=== PATIENT | male | born 1935 | race Caucasian/White ===

== ENCOUNTER 2016-09-06 10:38 | Observation (INO) | payer MEDICARE, BC ==
[~2016-09-06] VITALS: Ht 182.9 cm; Wt 95.0 kg
[2016-09-06] VITALS (8 sets, daily range): BP systolic 159–241; BP diastolic 60–119; PULSE 77–101; RESP 16–20; TEMP 96.3–98.6; O2SAT 96–98
[~2016-09-06 10:38] MED LIST: AMLO5 PO; ASPI81TA82 PO; FERR324T4 PO; GABA100C2 PO; METH500T3 PO; METO50TA PO; MILK2400 PO; THIA100T PO; XALA0.00 EACH EYE
--- NOTE | 2016-09-06 11:59 | PD ---
HPI Chief Complaint: Skin Problem Time Seen by Provider: 11:58 Travel History International Travel<30 days: No Contact w/Intl Traveler<30days: No Traveled to known affect area: No History of Present Illness HPI 80-year-old male came to the emergency room with history of left great toe swelling and pain. Patient says this has been going on for 3 days. He also stubbed his toe couple days ago and things he did got infected from that. No history of fever or chills. Upon asking he initially said he does not have history of gout but then his daughter asked him again because she thought he did have history of gout and patient said he may have had in the past. Vital signs showed hypertension in triage. Patient did not take any of his morning medications and does not know which meds he is on. He did not bring a list of his medications from home. [facility] Past Medical History Narrative Medical List of his past medical, surgical, social and family history was reviewed from the nursing note. Arthritis: No Asthma: No Autoimmune Disease: No Blood Disorders: No Heart Rhythm Problems: No Cancer: Yes (PROSTATE) Cardiovascular Problems: Yes (HTN) High Cholesterol: Yes Chest Pain: No Congestive Heart Failure: No COPD: No Cerebrovascular Accident: No Diabetes: No Endocrine: No Gastrointestinal Disorders: Yes GERD: Yes Genitourinary: Yes Hiatal Hernia: No Hypertension: Yes Immune Disorder: No Kidney Stones: No Musculoskeletal: Yes Neurologic: Yes (spinal stenosis) Psychiatric: No Reproductive: Yes Respiratory: No Migraines: No Radiation Therapy: Yes (SEED IMPLANTS) Renal Failure: No Seizures: No Sleep Apnea: No Thyroid Disease: No Ulcer: No Past Surgical History Abdominal Surgery: No AICD: No Arteriovenous Shunt: No Body Medical Devices: cervical spine fusion ,6, Cardiac Surgery: No Ear Surgery: No Endocrine Surgery: No Eye Surgery: Yes (BILATERAL CATARACTS) Genitourinary Surgery: Yes (RECTAL POLYPS) Gynecologic Surgery: No Joint Replacement: No Neurologic Surgery: Yes (cervical fusion ,6,2010) Oral Surgery: No Pacemaker: No Thoracic Surgery: No Other Surgery: Yes (SPINAL FUSION) Social History Alcohol Use: Yes (1-2 DRINKS/DAY) Tobacco Use: No Substance Use: No Allergies-Medications (Allergen,Severity, Reaction): Coded Allergies: Bactrim (Verified Allergy, Severe, RASH, 09/06/16) *MDRO Multi-Drug Resistant Organism (Verified Adverse Reaction, Unknown, ) 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 Comments List of his allergies reviewed from the nursing note. Reported Meds & Prescriptions Reported Meds & Active Scripts Active Reported Amlodipine (Amlodipine Besylate) 5 Mg Tab 5 Mg PO DAILY Aspirin 81 (Aspirin) 81 Mg Tabdr 81 Mg PO DAILY Ferrous Sulfate DR (Ferrous Sulfate) 324 Mg Tabdr 324 Mg PO DAILY Gabapentin 100 Mg Cap 200 Mg PO TID Robaxin (Methocarbamol) 750 Mg Tab 750 Mg PO QID PRN Metoprolol Tartrate 25 Mg Tab 25 Mg PO BID Vitamin B-1 (Thiamine HCl) 100 Mg Tab 100 Mg PO DAILY Fish Oil ([place]-3 Fatty Acids) 1,000 Mg Cap 1,000 Mg PO DAILY Travatan Z Opth Drops (Travoprost) 0.004 % Soln 1 Drop EACH EYE HS Colace (Docusate Sodium) 100 Mg Capsule 100 Mg PO DAILY PRN Metamucil Original Texture (Psyllium Hydrophilic Mucilloid) 48.57 % Pow 1 Scoop PO DAILY PRN 1 rounded TEASPOON in 8 oz of liquid at the first sign of irregularity. Questran (Cholestyramine) 4 Gm/Pkt Powd 4 Gm PO BID PRN 1 packet contains 4gm of cholestyramine. Folic Acid 1 Mg Tablet 1 Mg PO DAILY Diphedryl (Diphenhydramine HCl) 25 Mg Tablet 25 Mg PO Q6HR PRN Pantoprazole (Pantoprazole Sodium) 40 Mg Tab 40 Mg PO DAILY Sertraline (Sertraline HCl) 50 Mg Tab 50 Mg PO DAILY Prednisone 10 Mg Tab 10 Mg PO DAILY PRN Mapap (Acetaminophen) 325 Mg Tab 325 Mg PO Q6HR PRN Narrative Medication List of his home medications reviewed from the nursing note. Review of Systems Except as stated in HPI: all other systems reviewed are Neg Physical Exam Narrative GENERAL: Awake, alert, elderly, no obvious distress SKIN: Focused skin assessment warm/dry. Left first MTP joint is swollen and erythematous and the rest of the great toe is swollen and erythematous as well. Hammertoe, abrasion of the tip of the great toe. HEAD: Atraumatic. Normocephalic. EYES: Pupils equal and round. No scleral icterus. No injection or drainage. ENT: No nasal bleeding or discharge. Mucous membranes pink and moist. NECK: Trachea midline. No JVD. CARDIOVASCULAR: Regular rate and rhythm. No murmur appreciated. RESPIRATORY: No accessory muscle use. Clear to auscultation. Breath sounds equal bilaterally. GASTROINTESTINAL: Abdomen soft, non-tender, nondistended. Hepatic and splenic margins not palpable. MUSCULOSKELETAL: No obvious deformities. No clubbing. No cyanosis. No edema. NEUROLOGICAL: Awake and alert. No obvious cranial nerve deficits. Motor grossly within normal limits. Normal speech. PSYCHIATRIC: Appropriate mood and affect; insight and judgment normal. Data Data Last Documented VS Vital Signs Date Time Temp Pulse Resp B/P Pulse Ox O2 Delivery O2 Flow Rate FiO2 09/06/16 10:40 98.6 87 16 189/97 98 Orders Basic Metabolic Panel (Bmp) (09/06/16 12:15) Complete Blood Count With Diff (09/06/16 12:15) Blood Culture (09/06/16 12:15) Uric Acid (09/06/16 12:15) Lactic Acid (09/06/16 12:15) Foot, Complete ([id number]) (09/06/16 ) Prothrombin Time / Inr (Pt) (09/06/16 12:17) Sodium Chlorid 0.9% 500 Ml Inj (Ns 500 M (09/06/16 13:30) Colchicine (Colchicine) (09/06/16 13:30) Indomethacin (Indocin) (09/06/16 13:30) Alcohol (Ethanol) (09/06/16 13:36) Admit Order (Ed Use Only) (09/06/16 13:46) Labs Laboratory Tests Test 09/06/16 09/06/16 12:10 12:25 White Blood Count 5.3 TH/MM3 Red Blood Count 3.24 MIL/MM3 Hemoglobin 9.7 GM/DL Hematocrit 28.5 % Mean Corpuscular Volume 88.1 FL Mean Corpuscular Hemoglobin 29.9 PG Mean Corpuscular Hemoglobin 34.0 % Concent Red Cell Distribution Width 24.2 % Platelet Count 176 TH/MM3 Mean Platelet Volume 8.8 FL Neutrophils (%) (Auto) 64.4 % Lymphocytes (%) (Auto) 17.1 % Monocytes (%) (Auto) 14.3 % Eosinophils (%) (Auto) 3.7 % Basophils (%) (Auto) 0.5 % Neutrophils # (Auto) 3.4 TH/MM3 Lymphocytes # (Auto) 0.9 TH/MM3 Monocytes # (Auto) 0.8 TH/MM3 Eosinophils # (Auto) 0.2 TH/MM3 Basophils # (Auto) 0.0 TH/MM3 CBC Comment AUTO DIFF Differential Total Cells 100 Counted Neutrophils % (Manual) 45 % Band Neutrophils % 3 % Lymphocytes % 21 % Monocytes % 14 % Eosinophils % 6 % Basophils % 1 % Neutrophils # (Manual) 3.1 TH/MM3 Metamyelocytes 4 % Myelocytes 6 % Differential Comment FINAL DIFF MANUAL Platelet Estimate NORMAL Platelet Morphology Comment NORMAL Red Cell Morphology Comment NORMAL Erythrocyte Sedimentation Rate 9 mm/hr Prothrombin Time 10.7 SEC Prothromb Time International 1.0 RATIO Ratio Sodium Level 127 MEQ/L Potassium Level 4.0 MEQ/L Chloride Level 94 MEQ/L Carbon Dioxide Level 23.8 MEQ/L Anion Gap 9 MEQ/L Blood Urea Nitrogen 12 MG/DL Creatinine 0.92 MG/DL Estimat Glomerular Filtration 79 ML/MIN Rate Random Glucose 82 MG/DL Uric Acid 7.6 MG/DL Calcium Level 8.8 MG/DL C-Reactive Protein 5.40 MG/DL Ethyl Alcohol Level 4 MG/DL Lactic Acid Level 1.2 mmol/L [facility] Medical Decision Making Medical Screen Exam Complete: Yes Emergency Medical Condition: Yes Medical Record Reviewed: Yes Differential Diagnosis Gout, cellulitis, septic arthritis Narrative Course 1:32 PM CBC is suggestive of questionable leukemic cells. Total white blood cell count is certainly not elevated and patient does not have any left shift. Uric acid however is elevated. Patient's renal function is good. Given the classic first MTP joint and great toe involvement I think this patient is suffering from a gout attack. The other concerning thing is his sodium which is critically low. At this point I would like to admit this patient. There is a possibility of some degree of dementia since patient is forgetful regarding his medications and his past medical history. I've given him a dose of colchicine and indomethacin in the emergency room. I'll speak with his daughter was present in the room. I looked at his previous labs and patient has been hyponatremic in the past. Patient claims to drink 1-2 drinks every day. There is a possibility that he may drink more than that and the hyponatremia could be from that. This would also explain the gout attack. 1:59 PM patient's daughter just came out to talk to me in private and told me that he actually drinks more than "just couple drinks". In fact his primary care last time when he saw him said that his Folic acid level was extremely low and that he should quit drinking. His blood pressure continues to be high and I ordered by mouth clonidine for him. Procedures EKG Prior to Arrival: No Diagnosis Primary Impression: Acute gout Qualified Code: M10.072 - Acute idiopathic gout of left foot Additional Impressions: Hyponatremia HTN (hypertension) Qualified Code: I10 - Essential hypertension Anemia Qualified Code: D64.9 - Anemia, unspecified type abnormal differential Chronic alcoholism Admitting Information Admitting Physician Requests: Admit Scripts Naproxen (Naprosyn)500 Mg [id number] Mg PO Q12HR #60 TAB Prov:Raad Martin MD R1 09/07/16 Ash Frost MD Sep 06, 2016 11:59
[2016-09-06 12:43] LABS: AUTOMATED NEUTROPHIL # 3.4 TH/MM3 (1.8-7.7); BASOPHIL % 0.5 % (0.0-2.0); EOSINOPHIL # 0.2 TH/MM3 (0-0.4); EOSINOPHIL % 3.7 % (0.0-4.0); HEMATOCRIT 28.5 % (39.0-51.0); LYMPH % 17.1 % (9.0-44.0); LYMPHOCYTE # 0.9 TH/MM3 (1.0-4.8); MEAN CELL VOLUME 88.1 FL (80.0-100.0); MEAN CORPUSCULAR HEMOGLOBIN 29.9 PG (27.0-34.0); MONO % 14.3 % (0.0-8.0); NEUT % 64.4 % (16.0-70.0); PLATELET COUNT 176 TH/MM3 (150-450); RED BLOOD COUNT 3.24 MIL/MM3 (4.50-5.90); RED CELL DISTRIBUTION WIDTH 24.2 % (11.6-17.2); WHITE BLOOD COUNT 5.3 TH/MM3 (4.0-11.0)
[2016-09-06 12:46] LABS: HEMO FLAGS AUTO DIFF
[2016-09-06 12:50] LABS: PROTHROMBIN TIME - PATIENT 10.7 SEC (9.8-11.6)
[2016-09-06 13:09] LABS: BICARBONATE 23.8 MEQ/L (21.0-32.0); URIC ACID 7.6 MG/DL (2.6-7.2)
--- NOTE | 2016-09-06 13:11 | RADRPT ---
EXAM DATE/TIME: 09/06/2016 12:52 [place] COMPARISON: No previous studies available for comparison. INDICATIONS : Toes on left foot are swollen, patient states it may be Gout. MEDICAL HISTORY : Hypertension. SURGICAL HISTORY : None. ENCOUNTER: Initial ACUITY: 4 - 6 days PAIN SCORE: 0/10 LOCATION: Left foot. FINDINGS: There is soft tissue swelling at the first metatarsal-phalangeal joint level greatest medially. Tiny erosions at the head of the first metatarsal identified with osteoarthritis seen. In addition promine nt soft tissue swelling lateral to the fifth MTP joint with a small erosion at the base of the fifth proximal phalanx medially and head of the fifth metatarsal. Remote fracture deformity of the distal f ibula and tibia. Mild dorsal soft tissue swelling. CONCLUSION: Soft tissue swelling and erosive changes are noted as above. Koffi Champion MD on September 06, 2016 at 13:08 Board Certified Radiologist. This report was verified electronically.
[2016-09-06 13:24] LABS: BANDS 3 % (0-6); BASOPHILS 1 % (0-2); EOSINOPHILS 6 % (0-4); METAMYELOCYTES 4 % (0-1); MYELOCYTES 6 % (0-0); NEUTROPHIL # MANUAL DIFF 3.1 TH/MM3 (1.8-7.7); PLATELET ESTIMATE SMEAR NORMAL (NORMAL); PLATELET MORPHOLOGY NORMAL (NORMAL); POLYS (SEG NEUTROPHILS) 45 % (16-70); SCAN/DIFF FINAL DIFF MANUAL; WBC DIFF SAMPLE 100
[2016-09-06] MEDS ORDERED: INDOMETHACIN 25 MG CAP PO ONE (13:30)
[2016-09-06] MEDS ORDERED: COLCHICINE 0.6 MG TAB PO ONE (13:30)
[2016-09-06] MEDS ORDERED: SODIUM CHLORID 0.9% 500 ML INJ 500 ML IV ONE (13:30)
[2016-09-06] MEDS ORDERED: cloNIDine HCL 0.2 MG TAB PO ONE (14:00)
[2016-09-06] MEDS ORDERED: MAPA325T PO (14:45)
[2016-09-06] MEDS ORDERED: SERT-132 PO (14:45)
[2016-09-06] MEDS ORDERED: PRED10 PO (14:45)
[2016-09-06] MEDS ORDERED: PANT40TA3 PO (14:45)
[2016-09-06] MEDS ORDERED: FOLI1TAB6 PO (14:47)
[2016-09-06] MEDS ORDERED: [UNRECOGNIZED DRUG - CODE] PO (14:47)
[2016-09-06] MEDS ORDERED: QUES4POW PO (14:47)
[2016-09-06] MEDS ORDERED: META48.53 PO (14:50)
[2016-09-06] MEDS ORDERED: COLA100C PO (14:50)
[2016-09-06] MEDS ORDERED: METO25TA3 PO (15:00)
[2016-09-06] MEDS ORDERED: LORazepam 1 MG TAB PO ONE (15:00)
[2016-09-06] MEDS ORDERED: TRAV0.00 EACH EYE (15:00)
[2016-09-06] MEDS ORDERED: ROBA750T PO (15:00)
[2016-09-06] MEDS ORDERED: VITA100T54 PO (15:00)
[2016-09-06] MEDS ORDERED: ASPI-110 PO (15:00)
[2016-09-06] MEDS ORDERED: FERR324T4 PO (15:00)
[2016-09-06] MEDS ORDERED: FISH1000 PO (15:00)
[2016-09-06] MEDS ORDERED: GABA100C4 PO (15:00)
[2016-09-06] MEDS ORDERED: AMLO5TAB2 PO (15:00)
--- NOTE | 2016-09-06 15:26 | HHI.HP ---
[facility] Service Family Medicine Primary Care Physician Jumana Way MD Admission Diagnosis acute gout, hyponatremia Diagnoses: International Travel<30 Days: No Contact w/Intl Traveler<30days: No Known Affected Area: No History of Present Illness Mr. Gutierrez is a 80 y/o M with a PMHx of HTN, prostate cancer, and gout presents with L toe swelling and erythema. He states that last Monday, he noticed his L toe beginning to swell and become erythematous without trauma to his foot. He cannot recall any injury to the toe or foot. At baseline he has hammer toe of the L great toe. He states he is able to move all of his toes and has good sensation in BL feet. Otherwise he has no complaints and denies any fevers, chills, SOB, chest pain, NVD, ABD pain, or calf tenderness. 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 She is currently not in the patient's room. Per my evaluation patient is AAOx3, but does not recall his medical history or medications very well and is vague when answering questions about his day to day care. Per the ER staff's note, patient initially endorsed L great toe pain, but now says pain is 0-2/10. (Raad Martin MD R1) Review of Systems Constitutional: DENIES: Fever, Chills Endocrine: DENIES: Polyuria Eyes: DENIES: Blurred vision Ears, nose, mouth, throat: DENIES: Tinnitus, Throat pain, Running Nose Respiratory: DENIES: Cough Cardiovascular: DENIES: Chest pain, Palpitations Gastrointestinal: DENIES: Abdominal pain, Diarrhea, Nausea, Vomiting Genitourinary: DENIES: Dysuria Musculoskeletal: COMPLAINS OF: Joint pain (Toe pain) Integumentary: DENIES: Rash Hematologic/lymphatic: DENIES: Lymphadenopathy Neurologic: DENIES: Headache Psychiatric: DENIES: Mood changes (Raad Martin MD R1) Past Family Social History Past Medical History Prostate cancer - radioactive seeds 2012 HTN HPLD GERD Spinal Stenosis Arthritis Past Surgical History C spine fusion C5-C7 BL cataracts Rectal polyp removal Spinal Stenosis procedure Reported Medications Reported Meds & Active Scripts Active Reported Amlodipine (Amlodipine Besylate) 5 Mg Tab 5 Mg PO DAILY Aspirin 81 (Aspirin) 81 Mg Tabdr 81 Mg PO DAILY Ferrous Sulfate DR (Ferrous Sulfate) 324 Mg Tabdr 324 Mg PO DAILY Gabapentin 100 Mg Cap 200 Mg PO TID Robaxin (Methocarbamol) 750 Mg Tab 750 Mg PO QID PRN Metoprolol Tartrate 25 Mg Tab 25 Mg PO BID Vitamin B-1 (Thiamine HCl) 100 Mg Tab 100 Mg PO DAILY Fish Oil ([place]-3 Fatty Acids) 1,000 Mg Cap 1,000 Mg PO DAILY Travatan Z Opth Drops (Travoprost) 0.004 % Soln 1 Drop EACH EYE HS Colace (Docusate Sodium) 100 Mg Capsule 100 Mg PO DAILY PRN Metamucil Original Texture (Psyllium Hydrophilic Mucilloid) 48.57 % Pow 1 Scoop PO DAILY PRN 1 rounded TEASPOON in 8 oz of liquid at the first sign of irregularity. Questran (Cholestyramine) 4 Gm/Pkt Powd 4 Gm PO BID PRN 1 packet contains 4gm of cholestyramine. 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 His daughter is his main care provider. He does drive and cook. Has assistance for yardwork and cleaning. Alcohol - 1-2 drinks per day (2-3oz of scotch per day) Tobacco - Denies, stopped >50 years ago Illicit drugs - Denies (Raad Martin MD R1) Physical Exam Vital Signs Vital Signs Date Time Temp Pulse Resp B/P Pulse Ox O2 Delivery O2 Flow Rate FiO2 09/06/16 14:57 92 18 200/97 98 Room Air 09/06/16 14:53 101 18 241/119 98 Room Air 09/06/16 13:53 85 18 197/89 98 Room Air 09/06/16 10:40 98.6 87 16 189/97 98 Physical Exam GENERAL: 80-year-old male lying in bed in no acute distress. SKIN: Warm and dry. No rash. Multiple areas of skin breakdown leading to healing hematomas at different stages of healing. Multiple small tophi on upper and lower extremities. HEAD: Atraumatic. Normocephalic. No temporal or scalp tenderness. EYES: Pupils equal round and reactive. Extraocular motions intact. No scleral icterus. No injection or drainage. ENT: Nose without bleeding, purulent drainage or septal hematoma. Throat without erythema, tonsillar hypertrophy or exudate. Uvula midline. Airway patent. NECK: Trachea midline. No JVD or lymphadenopathy. Supple, nontender, no meningeal signs. CARDIOVASCULAR: Regular rate and rhythm without murmurs, gallops, or rubs. RESPIRATORY: Clear to auscultation BL with no CRW. No increased WOB. GASTROINTESTINAL: Abdomen soft, non-tender, nondistended with +BS. No hepatosplenomegaly. MUSCULOSKELETAL: Extremities without cyanosis. No calf tenderness. LLE: L great toe erythematous and swollen to approximately 3x the size of his R great toe. Patient with sharp angulation of the L great toe at the PIP joint consistent with hammer toe. Erythema extends down the toe into the forefoot. Capillary refill 2+. 1+Edema extends to the ankle joint. ROM and sensation intact throughout the LLE. 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 Nontender and mobile. ROM and sensation intact. Bilateral digits with small tophi of multiple joints. All tophi are nontender , nonerythematous without restriction of movement or strength. NEUROLOGICAL: AAOx3. Cranial nerves II through XII intact. Motor and sensory grossly within normal limits. Five out of 5 muscle strength in all muscle groups. Normal speech. Laboratory Laboratory Tests Test 09/06/16 09/06/16 12:10 12:25 White Blood Count 5.3 Red Blood Count 3.24 Hemoglobin 9.7 Hematocrit 28.5 Mean Corpuscular Volume 88.1 Mean Corpuscular Hemoglobin 29.9 Mean Corpuscular Hemoglobin 34.0 Concent Red Cell Distribution Width 24.2 Platelet Count 176 Mean Platelet Volume 8.8 Neutrophils (%) (Auto) 64.4 Lymphocytes (%) (Auto) 17.1 Monocytes (%) (Auto) 14.3 Eosinophils (%) (Auto) 3.7 Basophils (%) (Auto) 0.5 Neutrophils # (Auto) 3.4 Lymphocytes # (Auto) 0.9 Monocytes # (Auto) 0.8 Eosinophils # (Auto) 0.2 Basophils # (Auto) 0.0 CBC Comment AUTO DIFF Differential Total Cells 100 Counted Neutrophils % (Manual) 45 Band Neutrophils % 3 Lymphocytes % 21 Monocytes % 14 Eosinophils % 6 Basophils % 1 Neutrophils # (Manual) 3.1 Metamyelocytes 4 Myelocytes 6 Differential Comment FINAL DIFF MANUAL Platelet Estimate NORMAL Platelet Morphology Comment NORMAL Red Cell Morphology Comment NORMAL Prothrombin Time 10.7 Prothromb Time International 1.0 Ratio Sodium Level 127 Potassium Level 4.0 Chloride Level 94 Carbon Dioxide Level 23.8 Anion Gap 9 Blood Urea Nitrogen 12 Creatinine 0.92 Estimat Glomerular Filtration 79 Rate Random Glucose 82 Uric Acid 7.6 Calcium Level 8.8 Lactic Acid Level 1.2 Date/Time Procedure Status Source Growth 09/06/16 12:25 Aerobic Blood Culture Received Blood Peripheral Pending 09/06/16 12:25 Anaerobic Blood Culture Received Blood Peripheral Pending (Raad Martin MD R1) Result Diagram: 09/06/16 1210 09/06/16 1210 Imaging Last 72 hours Impressions Foot X-Ray 09/06/16 0000 Signed Impressions: Service Date/Time: Tuesday, September 06, 2016 12:52 - CONCLUSION: Soft tissue swelling and erosive changes are noted as above. Koffi Champion MD (Raad Martin MD R1) Assessment and Plan Assessment and Plan Mr. Gutierrez is a 80 y/o M with a PMHx of HTN, prostate cancer, and gout presents with L toe swelling and erythema likely due to acute gout flare. Patient also found to have hyponatremia. He will be admitted for observation. Code Status FULL Discussed Condition With Dr. Frost, ER physician Dr. Flores (aRad Martin MD R1) Attending Attestation Patient seen and examined. Case reviewed and discussed with the resident team. Agree with plan of care as discussed with me and documented in the resident note. pt seen on admission in the ED, no pain in his foot fortunately (Tayla Elkins MD) Problem List: (1) Acute gout Status: Acute Plan: Patient with chronic gout presenting with acute tophi of the left great toe. X-ray: Soft tissue swelling and erosive changes of the left great toe. CBC: WBC 5.3 Uric acid: 7.6 CRP: 5.4 ESR 9 Colchicine and indomethacin administered in ER Naproxen 500 mg twice a day Continue home prednisone 10 mg daily GI prophylaxis with home Protonix 40 mg daily (2) Hyponatremia Status: Acute Plan: Patient found to be hyponatremic on lab evaluation. Patient placed on 1 L fluid restriction Continue to monitor (3) Chronic alcoholism Status: Acute Plan: Patient with chronic alcoholism per chart review. Currently taking 2-3 ounces of scotch daily per his report. CIWA per protocol Rally pack by mouth (4) HTN (hypertension) Status: Chronic Plan: Patient with chronic history of hypertension Continue home amlodipine 5 mg daily Continue home metoprolol 25 mg twice a day Clonidine when necessary for blood pressure greater than 180/100 (5) Anxiety and depression Status: Acute Plan: Patient with history of anxiety with depression Continue sertraline 50 mg daily (6) Glaucoma Status: Acute Plan: Patient with history of glaucoma Continue travoprost 1 drop each eye daily at bedtime (7) Anemia Status: Acute Plan: Patient with chronic anemia Continue iron daily (8) DVT prophylaxis Status: Acute Plan: Heparin 5000 units every 8 hours SCD/TEDs (9) Nutrition, metabolism, and development symptoms Status: Acute Plan: Diet: Heart healthy diet with fluid restriction of 1 L Fluids: Fluid restriction Electrolytes: Hyponatremic, continue to monitor Prophylaxis: DuoNeb's when necessary for shortness of breath/wheezing, Tylenol when necessary for fever, Zofran when necessary for nausea or vomiting, constipation protocolzofr (Raad Martin MD R1) Problem Qualifiers (1) Acute gout: Qualified Code: M10.072 - Acute idiopathic gout of left foot (2) HTN (hypertension): Qualified Code: I10 - Essential hypertension (3) Glaucoma: Qualified Code: H40.9 - Glaucoma of both eyes, unspecified glaucoma type (4) Anemia: Qualified Code: D64.9 - Anemia, unspecified type Raad Martin MD R1 Sep 06, 2016 15:25 Tayla Elkins MD Sep 07, 2016 13:47
[2016-09-06] MEDS ORDERED: LACTULOSE SYRUP 20 GM/30 ML CUP PO PRN (16:45)
[2016-09-06] MEDS ORDERED: LORazepam 2 MG TAB PO PRN (16:45)
[2016-09-06] MEDS ORDERED: NALOXONE HCL 0.4 MG/ML AMP IV PRN (16:45)
[2016-09-06] MEDS ORDERED: ACETAMINOPHEN 325 MG TAB PO PRN ×2 (16:45→21:00)
[2016-09-06] MEDS ORDERED: ONDANSETRON HCL 4 MG/2 ML VIAL IVP PRN (16:45)
[2016-09-06] MEDS ORDERED: LORazepam 2 MG/ML VIAL IV PUSH PRN ×4 (16:45)
[2016-09-06] MEDS ORDERED: SODIUM CHLORIDE 0.9% FLUSH 10 ML FLUSH IV FLUSH PRN (16:45)
[2016-09-06] MEDS ORDERED: FLUMAZENIL 0.5 MG/5 ML VIAL IV PUSH PRN (16:45)
[2016-09-06] MEDS ORDERED: SENNOSIDES 8.6 MG TAB PO PRN (16:45)
[2016-09-06] MEDS ORDERED: LORazepam 1 MG TAB PO PRN (16:45)
[2016-09-06] MEDS ORDERED: BISACODYL 10 MG SUPP RECTAL PRN (16:45)
[2016-09-06] MEDS ORDERED: MAGNESIUM HYDROXIDE SUSP 30 ML CUP PO PRN (16:45)
[2016-09-06] MEDS: SERTRALINE HCL 50 MG TAB PO SCH (18:00)
[2016-09-06] MEDS ORDERED: predniSONE 10 MG TAB PO PRN (18:00)
[2016-09-06] MEDS ORDERED: cloNIDine HCL 0.1 MG TAB PO PRN (18:00)
[2016-09-06] MEDS: GABAPENTIN 100 MG CAP PO SCH (19:55)
[2016-09-06] MEDS: THIAMINE HCL 100 MG TAB PO SCH (19:55)
[2016-09-06] MEDS: PANTOPRAZOLE SOD 40 MG DELAYED RELEASE TAB PO SCH (19:56)
[2016-09-06] MEDS: amLODIPine BESYLATE 5 MG TAB PO SCH (19:56)
[2016-09-06] MEDS: FERROUS SULFATE 325 MG (65 MG ELEMENTAL IRON) TAB PO SCH (19:56)
[2016-09-06] MEDS: FOLIC ACID 1 MG TAB PO SCH (20:05)
[2016-09-06] MEDS: ASPIRIN EC 81 MG TABEC PO SCH (20:05)
[2016-09-06] MEDS ORDERED: RESP: ALBUTEROL 2.5 MG/IPRATROPIUM 0.5 MG NEB (PRN) NEB (21:00)
[2016-09-06] MEDS ORDERED: SODIUM CHLORIDE 0.9% FLUSH 10 ML FLUSH IV FLUSH SCH (21:00)
[2016-09-06] MEDS ORDERED: LATANOPROST 0.005% OPHT SOLN 2.5 ML BTL EACH EYE SCH (21:00)
[2016-09-06] MEDS: METOPROLOL TARTRATE 25 MG TAB PO SCH (22:41)
[2016-09-06] MEDS: DOCUSATE SODIUM 50 MG/SENNA 8.6 MG TAB PO SCH (22:41)
[2016-09-06] MEDS: HEPARIN SODIUM - SQ 10,000 UNITS/ML VIAL SQ SCH (22:41)
[2016-09-06] MEDS: SODIUM CHLORIDE 0.9% FLUSH 10 ML FLUSH IV FLUSH SCH (22:54)
[2016-09-06] MEDS: NAPROXEN 500 MG TAB PO SCH (22:54)
[2016-09-07] VITALS (7 sets, daily range): BP systolic 152–174; BP diastolic 80–91; PULSE 69–76; RESP 20; TEMP 96.2–96.9; O2SAT 95–99
[2016-09-07] MEDS: HEPARIN SODIUM - SQ 10,000 UNITS/ML VIAL SQ SCH (06:27)
[2016-09-07] MEDS ORDERED: NAPR500 PO (08:03)
--- NOTE | 2016-09-07 08:05 | HHI.DCPOC ---
Discharge Care Plan Diagnosis: (1) Acute gout (2) Hyponatremia Goals to Promote Your Health * To prevent worsening of your condition and complications * To maintain your health at the optimal level Directions to Meet Your Goals Take your medications as prescribed Follow your dietary instruction Follow activity as directed Keep your appointments as scheduled Take your immunizations and boosters as scheduled If your symptoms worsen call your PCP, if no PCP go to Urgent Care Center or Emergency Room Smoking is Dangerous to Your Health. Avoid second hand smoke Call the 24-hour hour crisis hotline for domestic abuse at Raad Martin MD R1 Sep 07, 2016 08:05
[2016-09-07] MEDS: THIAMINE HCL 100 MG TAB PO SCH (09:08)
[2016-09-07] MEDS: DOCUSATE SODIUM 50 MG/SENNA 8.6 MG TAB PO SCH (09:08)
[2016-09-07] MEDS: NAPROXEN 500 MG TAB PO SCH (09:08)
[2016-09-07] MEDS: ASPIRIN EC 81 MG TABEC PO SCH (09:08)
[2016-09-07] MEDS: METOPROLOL TARTRATE 25 MG TAB PO SCH (09:08)
[2016-09-07] MEDS: PANTOPRAZOLE SOD 40 MG DELAYED RELEASE TAB PO SCH (09:08)
[2016-09-07] MEDS: GABAPENTIN 100 MG CAP PO SCH (09:08)
[2016-09-07] MEDS: FERROUS SULFATE 325 MG (65 MG ELEMENTAL IRON) TAB PO SCH (09:08)
[2016-09-07] MEDS: amLODIPine BESYLATE 5 MG TAB PO SCH (09:09)
[2016-09-07] MEDS: SERTRALINE HCL 50 MG TAB PO SCH (09:09)
[2016-09-07] MEDS: FOLIC ACID 1 MG TAB PO SCH (09:09)
[2016-09-07] MEDS: SODIUM CHLORIDE 0.9% FLUSH 10 ML FLUSH IV FLUSH SCH (09:09)
[2016-09-07 09:28] LABS: HEMATOCRIT 25.6 % (39.0-51.0); MEAN CELL VOLUME 88.4 FL (80.0-100.0); MEAN CORPUSCULAR HEMOGLOBIN 29.8 PG (27.0-34.0); MEAN CORPUSCULAR HGB CONC 33.8 % (32.0-36.0); PLATELET COUNT 156 TH/MM3 (150-450); RED BLOOD COUNT 2.89 MIL/MM3 (4.50-5.90); RED CELL DISTRIBUTION WIDTH 22.9 % (11.6-17.2); WHITE BLOOD COUNT 4.2 TH/MM3 (4.0-11.0)
[2016-09-07 09:32] LABS: REVIEW FLAG FINAL
[2016-09-07 09:58] LABS: BICARBONATE 25.1 MEQ/L (21.0-32.0); POTASSIUM 3.7 MEQ/L (3.5-5.1)
--- NOTE | 2016-09-07 10:58 | HHI.HP ---
[facility] Service Family Medicine Primary Care Physician Jumana Way MD Admission Diagnosis acute gout, hyponatremia Diagnoses: (1) Acute gout Diagnosis: Principal (2) Hyponatremia Diagnosis: Principal (3) Chronic alcoholism Diagnosis: Principal (4) HTN (hypertension) Diagnosis: Principal (5) Anxiety and depression Diagnosis: Principal (6) Glaucoma Diagnosis: Principal (7) Anemia Diagnosis: Principal (8) DVT prophylaxis Diagnosis: Principal (9) Nutrition, metabolism, and development symptoms Diagnosis: Principal International Travel<30 Days: No Contact w/Intl Traveler<30days: No Known Affected Area: No History of Present Illness Mr. Gutierrez is a 80 y/o M with a PMHx of HTN, prostate cancer, and gout who presented with L toe swelling and erythema. He stated that last Monday, he noticed his L toe beginning to swell and become erythematous without trauma to his foot. He cannot recall any injury to the toe or foot. At baseline he has hammer toe of the L great toe. He states he is able to move all of his toes and has good sensation in BL feet. Otherwise he has no complaints and denies any fevers, chills, SOB, chest pain, NVD, ABD pain, or calf tenderness. Of note while no documentation in chart review mentions dementia, per ER staff patient' s daughter does endorse mild dementia. She is currently not in the patient's room. Per my evaluation patient is AAOx3. Per the ER staff's note, patient initially endorsed L great toe pain, but now says pain is 0-2/10. He has absolutely no complaints this am and has no pain in his toe at all even on palpation or ambulation. On review of his Na, he had been very low in the past down to the low 120s multiple times in 2013. His mildly low Na improved a bit and may be due to his SSRI. However, a Na of even 127 is not dangerous particularly when chronic and he has had no signs of alarming causes of hyponatremia like cancer as this has been present asymptomatically for years. This am he is clear when discussing his plans for self care and how he takes his medicines. He has people helping him clean his house and garden and making him lunch as well as 2 children who live nearby. He has the capacity to make decisions for himself and wishes to go home today. PT cleared him for going home as well. Review of Systems Other Constitutional: DENIES: Fever, Chills Endocrine: DENIES: Polyuria Eyes: DENIES: Blurred vision Ears, nose, mouth, throat: DENIES: Tinnitus, Throat pain, Running Nose Respiratory: DENIES: Cough Cardiovascular: DENIES: Chest pain, Palpitations Gastrointestinal: DENIES: Abdominal pain, Diarrhea, Nausea, Vomiting Genitourinary: DENIES: Dysuria Musculoskeletal: COMPLAINS OF: Joint pain (Toe pain) Integumentary: DENIES: Rash Hematologic/lymphatic: DENIES: Lymphadenopathy Neurologic: DENIES: Headache Psychiatric: DENIES: Mood changes Past Family Social History Past Medical History Prostate cancer - radioactive seeds 2012 HTN HPLD GERD Spinal Stenosis Arthritis Past Surgical History C spine fusion C5-C7 BL cataracts Rectal polyp removal Spinal Stenosis procedure Allergies: Coded Allergies: Bactrim (Verified Allergy, Severe, RASH, 09/06/16) *MDRO Multi-Drug Resistant Organism (Verified Adverse Reaction, Unknown, ) 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 Family History Father - Paranoid Schizophrenia, CHF Mother - Asthma Brother - Drug abuse Social History Lives by himself in home. His daughter is his main care provider. He does drive and cook. Has assistance for yard work and cleaning. He reports a son lives nearby as well. Alcohol - 1-2 drinks per day (2-3oz of scotch per day) Tobacco - Denies, stopped >50 years ago Illicit drugs - Denies Physical Exam Vital Signs Vital Signs Date Time Temp Pulse Resp B/P Pulse Ox O2 Delivery O2 Flow Rate FiO2 09/07/16 10:56 96 21 09/07/16 08:07 96.4 74 20 155/84 98 09/07/16 04:00 96.3 73 20 174/87 99 09/07/16 00:22 95 21 09/07/16 00:00 96.2 69 20 154/80 96 09/06/16 20:00 96.3 77 20 159/84 98 09/06/16 17:30 87 16 203/94 98 Room Air 09/06/16 15:55 90 18 170/60 98 Room Air 09/06/16 15:25 96 21 09/06/16 14:57 92 18 200/97 98 Room Air 09/06/16 14:53 101 18 241/119 98 Room Air 09/06/16 13:53 85 18 197/89 98 Room Air Physical Exam GENERAL: 80-year-old male lying in bed in no acute distress. able to walk in room SKIN: Warm and dry. No rash. Multiple areas of skin breakdown leading to healing hematomas at different stages of healing. Multiple small tophi on upper and lower extremities. HEAD: Atraumatic. Normocephalic. EYES: Pupils equal round and reactive. Extraocular motions intact. No scleral icterus. No injection or drainage. ENT: Nose without bleeding, purulent drainage or septal hematoma. Airway patent. NECK: Trachea midline. No JVD or lymphadenopathy. Supple, nontender, no meningeal signs. CARDIOVASCULAR: Regular rate and rhythm without murmurs, gallops, or rubs. RESPIRATORY: Clear to auscultation BL with no CRW. No increased WOB. GASTROINTESTINAL: Abdomen soft, non-tender, nondistended with +BS. No hepatosplenomegaly. MUSCULOSKELETAL: Extremities without cyanosis. No calf tenderness. LLE: L great toe erythematous and swollen to approximately 3x the size of his R great toe. Patient with sharp angulation of the L great toe at the PIP joint consistent with hammer toe. Erythema extends down the toe into the forefoot. Capillary refill 2+. 1+Edema extends to the ankle joint. ROM and sensation intact throughout the LLE. 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 Nontender and mobile. ROM and sensation intact. Bilateral digits with small tophi of multiple joints. All tophi are nontender , nonerythematous without restriction of movement or strength. NEUROLOGICAL: AAOx3. Cranial nerves II through XII intact. Motor and sensory grossly within normal limits. Five out of 5 muscle strength in all muscle groups. Normal speech. Laboratory Laboratory Tests Test 09/06/16 09/06/16 09/07/16 12:10 12:25 08:50 White Blood Count 5.3 4.2 Red Blood Count 3.24 2.89 Hemoglobin 9.7 8.6 Hematocrit 28.5 25.6 Mean Corpuscular Volume 88.1 88.4 Mean Corpuscular Hemoglobin 29.9 29.8 Mean Corpuscular Hemoglobin 34.0 33.8 Concent Red Cell Distribution Width 24.2 22.9 Platelet Count 176 156 Mean Platelet Volume 8.8 8.7 Neutrophils (%) (Auto) 64.4 Lymphocytes (%) (Auto) 17.1 Monocytes (%) (Auto) 14.3 Eosinophils (%) (Auto) 3.7 Basophils (%) (Auto) 0.5 Neutrophils # (Auto) 3.4 Lymphocytes # (Auto) 0.9 Monocytes # (Auto) 0.8 Eosinophils # (Auto) 0.2 Basophils # (Auto) 0.0 CBC Comment AUTO DIFF Differential Total Cells 100 Counted Neutrophils % (Manual) 45 Band Neutrophils % 3 Lymphocytes % 21 Monocytes % 14 Eosinophils % 6 Basophils % 1 Neutrophils # (Manual) 3.1 Metamyelocytes 4 Myelocytes 6 Differential Comment FINAL DIFF MANUAL Platelet Estimate NORMAL Platelet Morphology Comment NORMAL Red Cell Morphology Comment NORMAL Erythrocyte Sedimentation Rate 9 Prothrombin Time 10.7 Prothromb Time International 1.0 Ratio Sodium Level 127 129 Potassium Level 4.0 3.7 Chloride Level 94 96 Carbon Dioxide Level 23.8 25.1 Anion Gap 9 8 Blood Urea Nitrogen 12 15 Creatinine 0.92 0.94 Estimat Glomerular Filtration 79 77 Rate Random Glucose 82 87 Uric Acid 7.6 Calcium Level 8.8 8.6 C-Reactive Protein 5.40 Ethyl Alcohol Level 4 Lactic Acid Level 1.2 Date/Time Procedure Status Source Growth 09/06/16 12:25 Aerobic Blood Culture Received Blood Peripheral Pending 09/06/16 12:25 Anaerobic Blood Culture Received Blood Peripheral Pending Result Diagram: 09/07/16 0850 09/07/16 0850 Imaging Last 72 hours Impressions Foot X-Ray 09/06/16 0000 Signed Impressions: Service Date/Time: Tuesday, September 06, 2016 12:52 - CONCLUSION: Soft tissue swelling and erosive changes are noted as above. Koffi Champion MD Assessment and Plan Assessment and Plan Mr. Gutierrez is a 80 y/o M with a PMHx of HTN, prostate cancer, and gout presents with L toe swelling and erythema likely due to acute gout flare. Patient also found to have hyponatremia. He was admitted for observation. He feels very well today and is ready to go home. Problem List: (1) Acute gout Status: Acute Plan: Patient with chronic gout presenting with acute tophi of the left great toe. X-ray: Soft tissue swelling and erosive changes of the left great toe. CBC: WBC 5.3 Uric acid: 7.6 CRP: 5.4 ESR 9 Colchicine and indomethacin administered in ER Naproxen 500 mg twice a day Continue home prednisone 10 mg daily GI prophylaxis with home Protonix 40 mg daily -his Dr can consider if he needs outpt prevention but allopurinol is not indicated for acute problems (2) Hyponatremia Status: Acute Plan: Patient found to be hyponatremic on lab evaluation. Patient placed on 1 L fluid restriction slightly better today -possibly from SSRI but not bad enough to stop this med if it is benefitting him. He has the same primary care Dr for many years who can follow this up (3) Chronic alcoholism Status: Acute Plan: Patient with chronic alcoholism per chart review. Currently taking 2-3 ounces of scotch daily per his report. CIWA per protocol Rally pack by mouth, no signs of withdrawal today (4) HTN (hypertension) Status: Chronic Plan: Patient with chronic history of hypertension Continue home amlodipine 5 mg daily Continue home metoprolol 25 mg twice a day Clonidine when necessary for blood pressure greater than 180/100 (5) Anxiety and depression Status: Acute Plan: Patient with history of anxiety with depression Continue sertraline 50 mg daily SSRIs can contribute to hyponatremia but his is asymptomatic (6) Glaucoma Status: Acute Plan: Patient with history of glaucoma Continue travoprost 1 drop each eye daily at bedtime (7) Anemia Status: Acute Plan: Patient with chronic anemia Continue iron daily (8) DVT prophylaxis Status: Acute Plan: Heparin 5000 units every 8 hours SCD/TEDs (9) Nutrition, metabolism, and development symptoms Status: Acute Plan: Diet: Heart healthy diet with fluid restriction of 1 L Fluids: Fluid restriction Electrolytes: Hyponatremic mildly and improved Prophylaxis: DuoNeb's when necessary for shortness of breath/wheezing, Tylenol when necessary for fever, Zofran when necessary for nausea or vomiting, constipation protocol Problem Qualifiers (1) Acute gout: Qualified Code: M10.072 - Acute idiopathic gout of left foot (2) HTN (hypertension): Qualified Code: I10 - Essential hypertension (3) Glaucoma: Qualified Code: H40.9 - Glaucoma of both eyes, unspecified glaucoma type (4) Anemia: Qualified Code: D64.9 - Anemia, unspecified type Tayla Elkins MD Sep 07, 2016 10:58
[2016-09-08] MEDS ORDERED: PNEUMOCOCCAL POLYVALENT INJ 25 MCG/0.5 ML SYR IM ONE (10:00)
== END 2016-09-07 13:11 | disposition home or self-care (01) ==
LOC: NEPD 10:38 → NEDA 13:47 → INTOOBSV 13:47 → N05A 19:15
PROVIDERS: ADMIT Family Medicine; ATTEND Family Medicine
DX: M10.072 Idiopathic gout, left ankle and foot (principal); E87.1 Hypo-osmolality and hyponatremia; F10.20 Alcohol dependence, uncomplicated; M20.42 Other hammer toe(s) (acquired), left foot; I10 Essential (primary) hypertension; E78.00 Pure hypercholesterolemia, unspecified; K21.9 Gastro-esophageal reflux disease without esophagitis; D64.9 Anemia, unspecified; H40.9 Unspecified glaucoma; F03.90 Unspecified dementia, unspecified severity, without behavioral disturbance, psychotic disturbance, mood disturbance, and anxiety; F32.9 Major depressive disorder, single episode, unspecified; F41.9 Anxiety disorder, unspecified; M48.00 Spinal stenosis, site unspecified; M19.90 Unspecified osteoarthritis, unspecified site; Z98.1 Arthrodesis status; Z79.899 Other long term (current) drug therapy; Z85.46 Personal history of malignant neoplasm of prostate; Z79.82 Long term (current) use of aspirin
CPT/HCPCS: 73630; 80048; 80307; 83605; 84550; 85007; 85027; 85610; 85652; 86140; 87040; 97162; 99285; G0378; G8987; G8988; J1644; J7040

== ENCOUNTER 2016-09-28 15:27 | Emergency (ER) | payer MEDICARE, BC ==
[~2016-09-28] VITALS: Ht 182.9 cm; Wt 90.5 kg
[~2016-09-28 15:27] MED LIST changes: -AMLO5 PO; +AMLO5TAB2 PO; +ASPI-110 PO; -ASPI81TA82 PO; +COLA100C PO; +FISH1000 PO; +FOLI1TAB6 PO; -GABA100C2 PO; +GABA100C4 PO; +MAPA325T PO; +META48.53 PO; -METH500T3 PO; +METO25TA3 PO; -METO50TA PO; -MILK2400 PO; +NAPR500 PO; +PANT40TA3 PO; +PRED10 PO; +QUES4POW PO; +ROBA750T PO; +SERT-132 PO; -THIA100T PO; +TRAV0.00 EACH EYE; +VITA100T54 PO; -XALA0.00 EACH EYE; +[UNRECOGNIZED DRUG - CODE] PO
[2016-09-28 15:32] VITALS: BP 140/74; PULSE 110; RESP 24; TEMP 97.7; O2SAT 97
[2016-09-28 17:18] VITALS: BP 169/80; PULSE 98; RESP 17; O2SAT 96
[2016-09-28] MEDS ORDERED: LIDOCAINE HCL 1% 50 ML VIAL INFIL ONE (17:30)
[2016-09-28] MEDS ORDERED: CEPHALEXIN MONOHYDRATE 500 MG CAP PO ONE (17:30)
--- NOTE | 2016-09-28 17:52 | RADRPT ---
EXAM DATE/TIME: 09/28/2016 17:43 [place] COMPARISON: No previous studies available for comparison. INDICATIONS : Trauma. Fall with contusio to left forehead. RADIATION DOSE: 41.48 CTDIvol (mGy) MEDICAL HISTORY : Carcinoma, prostate. Cardiovascular disease Hypertension. SURGICAL HISTORY : Fusion, cervical. ENCOUNTER: Initial ACUITY: 1 day PAIN SCALE: 5/10 LOCATION: Left cranial TECHNIQUE: Multiple contiguous axial images were obtained of the head. Using automated exposure control and adj ustment of the mA and/or kV according to patient size, radiation dose was kept as low as reasonably a chievable to obtain optimal diagnostic quality images. DICOM format image data is available electro nically for review and comparison. FINDINGS: CEREBRUM: The ventricles are normal for age. No evidence of midline shift, mass lesion, hemorrhage or acute in farction. No extra-axial fluid collections are seen. POSTERIOR FOSSA: The cerebellum and brainstem are intact. The 4th ventricle is midline. The cerebellopontine angle i s unremarkable. EXTRACRANIAL: The visualized portion of the orbits is intact. SKULL: The calvaria is intact. No evidence of skull fracture. CONCLUSION: Normal examination. Kody Johnson MD on September 28, 2016 at 17:50 Board Certified Radiologist. This report was verified electronically.
[2016-09-28] MEDS ORDERED: LIDOCAINE HCL 1% PF 30 ML VIAL ONE (18:12)
[2016-09-28] MEDS ORDERED: LIDOCAINE HCL 1% 30 ML VIAL INFIL ONE (18:15)
--- NOTE | 2016-09-28 18:35 | PD ---
Physical Exam Date Seen by Provider: Sep 28, 2016 Time Seen by Provider: 18:33 Narrative 80-year-old male that presents to the ED for evaluation of head injury. I was also my attending to repair laceration. Please refer to her note. Data Data Last Documented VS Vital Signs Date Time Temp Pulse Resp B/P Pulse Ox O2 Delivery O2 Flow Rate FiO2 09/28/16 17:18 98 17 169/80 96 Room Air 09/28/16 15:[address] Brain W/O Iv Contrast(Rout) (09/28/16 ) Cephalexin (Keflex) (09/28/16 17:30) Lidocaine 1% Inj (50 Ml) (Xylocaine 1% I (09/28/16 17:30) Lidocaine Pf 1% Inj (Xylocaine-Mpf 1% In (09/28/16 18:12) Lidocaine 1% Inj (Xylocaine 1% Inj) (09/28/16 18:15) MDM Medical Record Reviewed: Yes Supervised Visit with CIRA: No Procedures Procedure Narrative LACERATION LOCATION: mid forehead LENGTH: 2 cm NUMBER OF STITCHES/ADITI: 5 sutures REPAIR: The area of the laceration was prepped with Betadine and sterilely draped. The laceration was infiltrated with 1% Xylocaine. The wound was copiously irrigated and explored without evidence of foreign body, tendon injury or neurovascular injury. The wound was closed using 5-0 Prolene. This was a 1 layer repair. A sterile dressing was applied. The patient was advised to keep the dressing clean and dry. Patient tolerated the procedure well. Diagnosis Primary Impression: Head injury Qualified Code: S09.90XA - Head injury, initial encounter Additional Impression: Laceration of face Qualified Code: S01.81XA - Laceration of face, initial encounter Additional Instruction: Wound care daily with soap and water. You can apply bandaid if needed. Neosporyn or OTC antibiotic ointment to area as needed twice a day for at least 2 weeks to help with scarring and prevent infection. Meoderma OTC for scarring if needed. Avoid sun exposure for 2 months as the sun could make scar darker and more noticeable. Get sutures removed in 5-7 days. See ED if worst. Disposition: 01 DISCHARGE HOME Condition: Stable Garfield Kenny Sep 28, 2016 18:35
--- NOTE | 2016-09-28 19:36 | PD ---
HPI Chief Complaint: Fall Time Seen by Provider: 16:45 Travel History International Travel<30 days: No Contact w/Intl Traveler<30days: No Traveled to known affect area: No History of Present Illness HPI 80-year-old male came to the emergency room with history of fall at 1 AM this morning. Patient says that he was going to the bathroom with his walker when it caught in the rug and he fell forward. He hit his forehead and had a laceration. Patient denies any loss of consciousness. His son saw him this morning and was concerned about the wound and brought him to the emergency room. Patient says he takes 1 baby aspirin every day. Patient is fully awake and answering questions appropriately. He's not in any severe pain he said. Denies any pain or injury anywhere else. He said his tetanus shot was up-to- date since his primary care give some all vaccines as needed. [facility] Past Medical History Narrative Medical List of his past medical, surgical, social and family history is reviewed from the nursing note. Arthritis: No Asthma: No Autoimmune Disease: No Blood Disorders: No Heart Rhythm Problems: No Cancer: Yes (PROSTATE) Cardiovascular Problems: Yes High Cholesterol: Yes Chest Pain: No Congestive Heart Failure: No COPD: No Cerebrovascular Accident: No Diabetes: No Diminished Hearing: No Endocrine: No Gastrointestinal Disorders: Yes GERD: Yes Genitourinary: Yes Hiatal Hernia: No Hypertension: Yes Immune Disorder: No Kidney Stones: No Musculoskeletal: Yes Neurologic: Yes (spinal stenosis) Psychiatric: No Reproductive: Yes Respiratory: No Migraines: No Radiation Therapy: Yes (SEED IMPLANTS) Renal Failure: No Seizures: No Sleep Apnea: No Thyroid Disease: No Ulcer: No Past Surgical History Abdominal Surgery: No AICD: No Arteriovenous Shunt: No Body Medical Devices: cervical spine fusion ,6, Cardiac Surgery: No Ear Surgery: No Endocrine Surgery: No Eye Surgery: Yes (BILATERAL CATARACTS) Genitourinary Surgery: Yes (RECTAL POLYPS) Gynecologic Surgery: No Joint Replacement: No Neurologic Surgery: Yes (cervical fusion ,6,2010) Oral Surgery: No Pacemaker: No Thoracic Surgery: No Other Surgery: Yes (SPINAL FUSION) Social History Alcohol Use: Yes (daily) Tobacco Use: No Substance Use: Yes Allergies-Medications (Allergen,Severity, Reaction): Coded Allergies: Bactrim (Verified Allergy, Severe, RASH, 09/28/16) *MDRO Multi-Drug Resistant Organism (Verified Adverse Reaction, Unknown, ) 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 Comments List of his allergies reviewed from the nursing note. Reported Meds & Prescriptions Reported Meds & Active Scripts Active Naprosyn (Naproxen) 500 Mg Tab 500 Mg PO Q12HR Reported Amlodipine (Amlodipine Besylate) 5 Mg Tab 5 Mg PO DAILY Aspirin 81 (Aspirin) 81 Mg Tabdr 81 Mg PO DAILY Ferrous Sulfate DR (Ferrous Sulfate) 324 Mg Tabdr 324 Mg PO DAILY Gabapentin 100 Mg Cap 200 Mg PO TID Robaxin (Methocarbamol) 750 Mg Tab 750 Mg PO QID PRN Metoprolol Tartrate 25 Mg Tab 25 Mg PO BID Vitamin B-1 (Thiamine HCl) 100 Mg Tab 100 Mg PO DAILY Fish Oil ([place]-3 Fatty Acids) 1,000 Mg Cap 1,000 Mg PO DAILY Travatan Z Opth Drops (Travoprost) 0.004 % Soln 1 Drop EACH EYE HS Colace (Docusate Sodium) 100 Mg Capsule 100 Mg PO DAILY PRN Metamucil Original Texture (Psyllium Hydrophilic Mucilloid) 48.57 % Pow 1 Scoop PO DAILY PRN 1 rounded TEASPOON in 8 oz of liquid at the first sign of irregularity. Questran (Cholestyramine) 4 Gm/Pkt Powd 4 Gm PO BID PRN 1 packet contains 4gm of cholestyramine. Folic Acid 1 Mg Tablet 1 Mg PO DAILY Diphedryl (Diphenhydramine HCl) 25 Mg Tablet 25 Mg PO Q6HR PRN Pantoprazole (Pantoprazole Sodium) 40 Mg Tab 40 Mg PO DAILY Sertraline (Sertraline HCl) 50 Mg Tab 50 Mg PO DAILY Prednisone 10 Mg Tab 10 Mg PO DAILY PRN Mapap (Acetaminophen) 325 Mg Tab 325 Mg PO Q6HR PRN Narrative Medication List of his home medications reviewed from the nursing note. Review of Systems Except as stated in HPI: all other systems reviewed are Neg Physical Exam Narrative GENERAL: Awake, alert, elderly, no obvious distress SKIN: Focused skin assessment warm/dry. 2 cm laceration that is held together by Steri-Strips on the medial aspect of his left forehead. HEAD: Atraumatic. Normocephalic. EYES: Pupils equal and round. No scleral icterus. No injection or drainage. Left periorbital ecchymosis. Normal extraocular eye movement. No hyphema. ENT: No nasal bleeding or discharge. Mucous membranes pink and moist. NECK: Trachea midline. No JVD. CARDIOVASCULAR: Regular rate and rhythm. No murmur appreciated. RESPIRATORY: No accessory muscle use. Clear to auscultation. Breath sounds equal bilaterally. GASTROINTESTINAL: Abdomen soft, non-tender, nondistended. Hepatic and splenic margins not palpable. MUSCULOSKELETAL: No obvious deformities. No clubbing. No cyanosis. No edema. NEUROLOGICAL: Awake and alert. No obvious cranial nerve deficits. Motor grossly within normal limits. Normal speech. PSYCHIATRIC: Appropriate mood and affect; insight and judgment normal. Data Data Last Documented VS Vital Signs Date Time Temp Pulse Resp B/P Pulse Ox O2 Delivery O2 Flow Rate FiO2 09/28/16 17:18 98 17 169/80 96 Room Air 09/28/16 15:[address] Brain W/O Iv Contrast(Rout) (09/28/16 ) Cephalexin (Keflex) (09/28/16 17:30) Lidocaine 1% Inj (50 Ml) (Xylocaine 1% I (09/28/16 17:30) Lidocaine Pf 1% Inj (Xylocaine-Mpf 1% In (09/28/16 18:12) Lidocaine 1% Inj (Xylocaine 1% Inj) (09/28/16 18:15) MDM Medical Decision Making Medical Screen Exam Complete: Yes Emergency Medical Condition: Yes Medical Record Reviewed: Yes Differential Diagnosis Intracranial bleed, facial laceration Narrative Course 6:37 PM. Patient was given a dose of Keflex. The PA has sutured the facial laceration. Please refer to his procedure note. Head CT was negative. I'll discharge him home. Procedures EKG Prior to Arrival: No Diagnosis Primary Impression: Head injury Qualified Code: S09.90XA - Head injury, initial encounter Additional Impression: Laceration of face Qualified Code: S01.81XA - Laceration of face, initial encounter Patient Instructions: General Instructions, Laceration (ED), Fall Prevention for Older Adults (ED) Departure Forms: Tests/Procedures Additional Instructions: Wound care daily with soap and water. You can apply bandaid if needed. Neosporyn or OTC antibiotic ointment to area as needed twice a day for at least 2 weeks to help with scarring and prevent infection. Meoderma OTC for scarring if needed. Avoid sun exposure for 2 months as the sun could make scar darker and more noticeable. Get sutures removed in 5-7 days. See ED if worst. Disposition: 01 DISCHARGE HOME Condition: Stable Ash Frost MD Sep 28, 2016 19:36
== END 2016-09-28 22:28 | disposition home or self-care (01) ==
LOC: NEPE 15:27
DX: S09.90XA Unspecified injury of head, initial encounter (principal); S01.81XA Laceration without foreign body of other part of head, initial encounter; S05.12XA Contusion of eyeball and orbital tissues, left eye, initial encounter; E78.00 Pure hypercholesterolemia, unspecified; K21.9 Gastro-esophageal reflux disease without esophagitis; I10 Essential (primary) hypertension; W18.30XA Fall on same level, unspecified, initial encounter; Z79.82 Long term (current) use of aspirin; Z79.899 Other long term (current) drug therapy
CPT/HCPCS: 12011; 70450

== ENCOUNTER 2017-01-01 13:28 | Inpatient (IN) | payer MEDICARE, BC ==
[~2017-01-01] VITALS: Ht 182.9 cm; Wt 104.8 kg
[2017-01-01] VITALS (9 sets, daily range): BP systolic 116–179; BP diastolic 59–83; PULSE 90–105; RESP 14–20; TEMP 95.6–98.1; O2SAT 92–99
[2017-01-01] MEDS ORDERED: TRAZ50TA12 PO ×2 (13:52)
--- NOTE | 2017-01-01 14:14 | PD ---
HPI . Back pain Chief Complaint: Back/ Neck Pain or Injury Time Seen by Provider: 13:53 Travel History International Travel<30 days: No Contact w/Intl Traveler<30days: No Traveled to known affect area: No History of Present Illness HPI Presents with a chief complaint of low back pain. Chronic low back pain. His pain was exacerbated approximately 12 hours ago. He is unaware as to what may have caused the exacerbation. No trauma. His pain is worsened by movement and improved by being still. He reports no associated fever. No incontinence. No lower extremity weakness. Pain rated 3/10. Family reports excessive alcohol use. They estimate that he drinks approximately 9 Scotch drinks per day. PFSH Past Medical History Arthritis: No Asthma: No Autoimmune Disease: No Blood Disorders: No Heart Rhythm Problems: No Cancer: Yes (PROSTATE) Cardiovascular Problems: Yes High Cholesterol: Yes Chest Pain: No Congestive Heart Failure: No COPD: No Cerebrovascular Accident: No Diabetes: No Diminished Hearing: No Endocrine: No GERD: Yes Genitourinary: Yes Hiatal Hernia: No Hypertension: Yes Immune Disorder: No Kidney Stones: No Musculoskeletal: Yes Neurologic: Yes (spinal stenosis) Psychiatric: No Reproductive: Yes Respiratory: No Migraines: No Radiation Therapy: Yes (SEED IMPLANTS) Renal Failure: No Seizures: No Sleep Apnea: No Thyroid Disease: No Ulcer: No Tetanus Vaccination: < 5 Years Influenza Vaccination: Yes Past Surgical History Abdominal Surgery: No AICD: No Arteriovenous Shunt: No Body Medical Devices: cervical spine fusion ,6, Cardiac Surgery: No Ear Surgery: No Endocrine Surgery: No Eye Surgery: Yes (BILATERAL CATARACTS) Genitourinary Surgery: Yes (RECTAL POLYPS) Gynecologic Surgery: No Joint Replacement: No Neurologic Surgery: Yes (cervical fusion ,6,2010) Oral Surgery: No Pacemaker: No Thoracic Surgery: No Other Surgery: Yes (SPINAL FUSION) Social History Alcohol Use: Yes (2 scotch drinks daily) Tobacco Use: No Substance Use: No Allergies-Medications (Allergen,Severity, Reaction): Coded Allergies: sulfamethoxazole (Unverified Allergy, Severe, RASH, 01/01/17) trimethoprim (Unverified Allergy, Severe, RASH, 01/01/17) *MDRO Multi-Drug Resistant Organism (Verified Adverse Reaction, Unknown, 01/01/17) 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 Reported Meds & Prescriptions Reported Meds & Active Scripts Active Reported Trazodone (Trazodone HCl) 50 Mg Tab 50 Mg PO HS Amlodipine (Amlodipine Besylate) 5 Mg Tab 5 Mg PO DAILY Aspirin 81 (Aspirin) 81 Mg Tabdr 81 Mg PO DAILY Ferrous Sulfate DR (Ferrous Sulfate) 324 Mg Tabdr 324 Mg PO DAILY Gabapentin 100 Mg Cap 200 Mg PO TID Metoprolol Tartrate 25 Mg Tab 25 Mg PO BID Vitamin B-1 (Thiamine HCl) 100 Mg Tab 100 Mg PO DAILY Fish Oil ([place]-3 Fatty Acids) 1,000 Mg Cap 1,000 Mg PO DAILY Travatan Z Opth Drops (Travoprost) 0.004 % Soln 1 Drop EACH EYE HS Colace (Docusate Sodium) 100 Mg Capsule 100 Mg PO DAILY PRN Metamucil Original Texture (Psyllium Hydrophilic Mucilloid) 48.57 % Pow 1 Scoop PO DAILY PRN 1 rounded TEASPOON in 8 oz of liquid at the first sign of irregularity. Questran (Cholestyramine) 4 Gm/Pkt Powd 4 Gm PO BID PRN 1 packet contains 4gm of cholestyramine. Folic Acid 1 Mg Tablet 1 Mg PO DAILY Diphedryl (Diphenhydramine HCl) 25 Mg Tablet 25 Mg PO Q6HR PRN Pantoprazole (Pantoprazole Sodium) 40 Mg Tab 40 Mg PO DAILY Mapap (Acetaminophen) 325 Mg Tab 325 Mg PO Q6HR PRN Review of Systems Except as stated in HPI: all other systems reviewed are Neg General / Constitutional: No: Fever, Chills Genitourinary: No: Incontinence Musculoskeletal: Positive: Pain Neurologic: No: Weakness, Paresthesia, Incontinence Physical Exam Narrative GENERAL: Patient is awake and alert. SKIN: He has multiple, superficial, linear bruises mainly on his lower extremities. He also has a lesion on the tip of the left great toe. This is being followed by a asset protection associate. HEAD: Normocephalic/atraumatic. EYES: Pupils are equal. Extraocular movements are intact. ENT: Mucous membranes are moist. NECK: Neck is supple. CARDIOVASCULAR: Regular rate. RESPIRATORY: Nonlabored respirations. MUSCULOSKELETAL: He has tenderness to percussion in the low back. He has a healed surgical scar in the low back. He has diffuse lower extremity edema. NEUROLOGICAL: Nonfocal. PSYCHIATRIC: Appropriate mood and affect. Data Data Last Documented VS Vital Signs Date Time Temp Pulse Resp B/P (MAP) Pulse Ox O2 Delivery O2 Flow Rate FiO2 01/01/17 13:34 98.1 101 18 116/59 (78) 96 Room Air Orders Orders Dexamethasone Inj (Decadron Inj) (01/01/17 14:15) Morphine Inj (Morphine Inj) (01/01/17 14:15) MDM Medical Decision Making Medical Screen Exam Complete: Yes Emergency Medical Condition: Yes Medical Record Reviewed: Yes (this patient has been seen here several times with back pain. He has had previous CT and MRIs done of his lumbar spine. They were done about 4 years ago. They showed some significant degenerative changes and spinal stenosis.) Differential Diagnosis Differential diagnosis includes but is not limited to muscular low back pain, DDD, spinal stenosis, epidural abscess, sciatica, kidney infection or stone. Narrative Course This patient presents with acute exacerbation of chronic low back pain. He has had no trauma. He does not have any concerning signs or symptoms such as fever or incontinence. I will treat his current episode with a shot of Decadron and a shot of morphine. He will then be discharged home with instructions to follow up with his primary care provider for ongoing pain management. Diagnosis Primary Impression: Chronic back pain Qualified Codes: M54.5 - Low back pain; G89.29 - Other chronic pain Additional Impression: Chronic alcoholism Patient Instructions: Chronic Back Pain (ED), General Instructions, Narcotic given in the ED Disposition: 01 DISCHARGE HOME Condition: Stable Claudia Gore MD Jan 01, 2017 14:14
[2017-01-01] MEDS ORDERED: DEXAMETHASONE SOD PHOS 20 MG/5 ML VIAL IV PUSH ONE ×2 (14:15)
[2017-01-01] MEDS ORDERED: MORPHINE SULFATE 4 MG/ML INJ IM ONE ×2 (14:15)
[2017-01-01] MEDS ORDERED: DEXAMETHASONE SOD PHOS 20 MG/5 ML VIAL IM ONE ×2 (14:30)
[2017-01-01] MEDS ORDERED: ONDANSETRON HCL 4 MG/2 ML VIAL ONE ×2 (14:32)
[2017-01-01] MEDS ORDERED: ONDANSETRON HCL 4 MG/2 ML VIAL IM ONE ×2 (14:45)
--- NOTE | 2017-01-01 15:34 | RADRPT ---
EXAM DATE/TIME: 01/01/2017 15:03 [place] COMPARISON: No previous studies available for comparison. INDICATIONS : Shortness of breath, chest pain, and chest tightness. MEDICAL HISTORY : None. SURGICAL HISTORY : None. ENCOUNTER: Initial ACUITY: 1 day PAIN SCORE: 2/10 LOCATION: Bilateral chest FINDINGS: A single view of the chest demonstrates the lungs to be symmetrically aerated without evidence of mas s, infiltrate or effusion. Hiatal hernia noted. The cardiomediastinal contours are unremarkable. Oss eous structures are intact. Cervical spinal fusion plate. CONCLUSION: No acute disease. Hayes Young Jr., MD on January 01, 2017 at 15:32 Board Certified Radiologist. This report was verified electronically.
[2017-01-01 15:54] LABS: ALT (GPT) 17 U/L (12-78); AST (GOT) 18 U/L (15-37); BICARBONATE 22.8 MEQ/L (21.0-32.0); BLOOD UREA NITROGEN 34 MG/DL (7-18); CALCIUM 8.1 MG/DL (8.5-10.1); CHLORIDE 95 MEQ/L (98-107); CREATININE 1.82 MG/DL (0.60-1.30); GLOMERULAR FILTRATION RATE 36 ML/MIN (>89); GLUCOSE,RANDOM 102 MG/DL (74-106); SODIUM (NA) 128 MEQ/L (136-145)
[2017-01-01 15:58] LABS: ALKALINE PHOSPHATASE 84 U/L (45-117); TOTAL BILIRUBIN ADULT 0.4 MG/DL (0.2-1.0); TOTAL PROTEIN 6.5 GM/DL (6.4-8.2); TROPONIN I LESS THAN 0.02 NG/ML (0.02-0.05)
[2017-01-01 16:05] LABS: AUTOMATED NEUTROPHIL # 2.6 TH/MM3 (1.8-7.7); BASOPHIL # 0.1 TH/MM3 (0-0.2); EOSINOPHIL # 0.6 TH/MM3 (0-0.4); EOSINOPHIL % 12.1 % (0.0-4.0); LYMPH % 26.4 % (9.0-44.0); LYMPHOCYTE # 1.4 TH/MM3 (1.0-4.8); MEAN CELL VOLUME 90.3 FL (80.0-100.0); MEAN CORPUSCULAR HEMOGLOBIN 30.3 PG (27.0-34.0); MEAN CORPUSCULAR HGB CONC 33.6 % (32.0-36.0); MEAN PLATELET VOLUME 8.3 FL (7.0-11.0); MONO % 9.9 % (0.0-8.0); MONOCYTE # 0.5 TH/MM3 (0-0.9); NEUT % 49.6 % (16.0-70.0); PLATELET COUNT 74 TH/MM3 (150-450); RED BLOOD COUNT 1.98 MIL/MM3 (4.50-5.90); RED CELL DISTRIBUTION WIDTH 24.9 % (11.6-17.2); WHITE BLOOD COUNT 5.2 TH/MM3 (4.0-11.0)
[2017-01-01 16:12] LABS: HEMATOCRIT 17.9 % (39.0-51.0)
[2017-01-01] MEDS ORDERED: SODIUM CHLOR 0.9% 250 ML INJ 250 ML IV ONE ×4 (16:30→17:00)
[2017-01-01] MEDS ORDERED: SODIUM CHLOR 0.9% 1000 ML INJ 1,000 ML IV ONE ×2 (16:30)
[2017-01-01] MEDS ORDERED: ONDANSETRON HCL 4 MG/2 ML VIAL IV PUSH ONE ×2 (16:30)
[2017-01-01 16:43] LABS: BANDS 12 % (0-6); LYMPHOCYTES 13 % (9-44); METAMYELOCYTES 18 % (0-1); MYELOCYTES 1 % (0-0); NEUTROPHIL # MANUAL DIFF 4.4 TH/MM3 (1.8-7.7); POLYS (SEG NEUTROPHILS) 53 % (16-70)
[2017-01-01] MEDS ORDERED: PROMETHAZINE INJ 25 MG/ML VIAL IM ONE ×2 (16:45)
--- NOTE | 2017-01-01 16:58 | HHI.HP ---
[facility] Service [facility] Primary Care Physician Jumana Way MD Admission Diagnosis anemia, chronic alcohol abuse Diagnoses: (1) Anemia (2) Hyperlipidemia (3) Hyponatremia (4) HTN (hypertension) (5) Alcohol abuse (6) Chronic alcoholism (7) Chronic back pain (8) Gout Chief Complaint: gen weakness, increase pain Travel History International Travel<30 Days: No Contact w/Intl Traveler <30 Da: No Traveled to Known Affected Are: No History of Present Illness Patient is an 81-year-old male with primary medical history of alcohol abuse, HTN who initially came to the ED due to exacerbation of chronic low back pain. ED workup showed hemoglobin 6.0. Poor historian. Daughter at the bedside. Daughter states that patient has generalized weakness at home and family members are the one making his meals throughout the day. Increased low back pain but got relief when he was given pain medication in the ED. Daughter reports BLE worsening. He also has been bleeding from abrasions Bilat lower extremities. Daughter also mentioned that he is supposed to be seen by his primary care doctor within next week. States that he also missed 3 podiatry appointment. States left great toe has been swollen with open wound for the past month. No fevers, chills, nausea, vomiting, diarrhea. Denies trauma. Daughter states that patient drinks alcohol about 9 scotch drinks in a day. When asked who was giving him the alcohol. Daughter states that he calls people and have it delivered to him to the house, and including her. But states that they don't let her drive when he drinks. Review of Systems ROS Limitations: Poor Historian Constitutional: COMPLAINS OF: Fatigue, Change in appetite, DENIES: Fever, Weight gain, Weight loss, Chills, Dizziness Endocrine: DENIES: Heat/cold intolerance, Polydipsia, Polyuria, Polyphagia Eyes: DENIES: Blurred vision, Diplopia, Eye inflammation, Eye pain Ears, nose, mouth, throat: DENIES: Tinnitus, Hearing loss, Vertigo, Nasal discharge Respiratory: DENIES: Apneas, Cough, Snoring, Wheezing, Hemoptysis Cardiovascular: DENIES: Chest pain, Palpitations, Syncope, Dyspnea on Exertion Gastrointestinal: DENIES: Abdominal pain, Black stools, Bloody stools, Constipation Musculoskeletal: COMPLAINS OF: Joint pain, Back pain, Neck pain, DENIES: Muscle aches, Stiffness, Joint Swelling Integumentary: COMPLAINS OF: Rash, DENIES: Abnormal pigmentation, Nail changes , Pruritus Hematologic/lymphatic: DENIES: Bruising, Lymphadenopathy Immunologic/allergic: DENIES: Eczema, Urticaria Neurologic: COMPLAINS OF: Abnormal gait, Poor Balance, DENIES: Headache, Localized weakness, Paresthesias, Seizures, Speech Problems, Tremor Psychiatric: COMPLAINS OF: Anxiety, Depression, DENIES: Confusion, Mood changes , Hallucinations, Agitation, Suicidal Ideation, Homicidal Ideation Past Family Social History Past Medical History EtOH, chronic Chronic back pain HTN HLD Rectal polyps COPD History of cellulitis Chronic hyponatremia Anemia Anxiety and depression GOUT Past Surgical History Cervical spinal fusion 5, 6, 7 Bilateral cataract sx VASECTOMY Reported Medications Reported Meds & Active Scripts Active Reported Trazodone (Trazodone HCl) 50 Mg Tab 50 Mg PO HS Amlodipine (Amlodipine Besylate) 5 Mg Tab 5 Mg PO DAILY Aspirin 81 (Aspirin) 81 Mg Tabdr 81 Mg PO DAILY Ferrous Sulfate DR (Ferrous Sulfate) 324 Mg Tabdr 324 Mg PO DAILY Gabapentin 100 Mg Cap 200 Mg PO TID Metoprolol Tartrate 25 Mg Tab 25 Mg PO BID Vitamin B-1 (Thiamine HCl) 100 Mg Tab 100 Mg PO DAILY Fish Oil ([place]-3 Fatty Acids) 1,000 Mg Cap 1,000 Mg PO DAILY Travatan Z Opth Drops (Travoprost) 0.004 % Soln 1 Drop EACH EYE HS Colace (Docusate Sodium) 100 Mg Capsule 100 Mg PO DAILY PRN Metamucil Original Texture (Psyllium Hydrophilic Mucilloid) 48.57 % Pow 1 Scoop PO DAILY PRN 1 rounded TEASPOON in 8 oz of liquid at the first sign of irregularity. Questran (Cholestyramine) 4 Gm/Pkt Powd 4 Gm PO BID PRN 1 packet contains 4gm of cholestyramine. Folic Acid 1 Mg Tablet 1 Mg PO DAILY Diphedryl (Diphenhydramine HCl) 25 Mg Tablet 25 Mg PO Q6HR PRN Pantoprazole (Pantoprazole Sodium) 40 Mg Tab 40 Mg PO DAILY Mapap (Acetaminophen) 325 Mg Tab 325 Mg PO Q6HR PRN Allergies: Coded Allergies: sulfamethoxazole (Unverified Allergy, Severe, RASH, 01/01/17) trimethoprim (Unverified Allergy, Severe, RASH, 01/01/17) morphine (Verified Adverse Reaction, Severe, Nausea/Vomiting, 01/01/17) *MDRO Multi-Drug Resistant Organism (Verified Adverse Reaction, Unknown, 01/01/17) 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 Active Ordered Medications Current Medications Medications (Trade) Dose Ordered Sig/Nikki Route Start Time Stop Time Status Last Admin Sodium Chloride 1,000 ml @ 999 mls/hr BOLUS ONCE IV 01/01/17 16:30 01/01/17 17:30 01/01/17 16:34 Sodium Chloride 250 ml @ 15 mls/hr ONCE ONCE IV 01/01/17 16:30 01/02/17 09:09 Sodium Chloride 250 ml @ 15 mls/hr ONCE ONCE IV 01/01/17 17:00 01/02/17 09:39 (Tylenol) 650 mg Q4H PRN PO 01/01/17 17:00 (Benadryl) 25 mg Q4H PRN PO 01/01/17 17:00 (Lasix Inj) 20 mg ONCE ONCE IV PUSH 01/01/17 17:00 01/01/17 17:01 Family History Unable to tell significant family medical history Social History Alcohol use, daily 2-9 scotch drinks PROBABLY 18 TO 27 OUNCES OF SCOTCH DAILY Denies tobacco use Denies illicit drug use Physical Exam Vital Signs Vital Signs Date Time Temp Pulse Resp B/P (MAP) Pulse Ox O2 Delivery O2 Flow Rate FiO2 01/01/17 15:20 92 14 149/66 (93) 92 Room Air 01/01/17 14:28 97 16 148/65 (92) 95 Room Air 01/01/17 13:34 98.1 101 18 116/59 (78) 96 Room Air Physical Exam GENERAL: This is a well-nourished, well-developed patient, in no apparent distress. SKIN: Pale. Cool and dry. Bilateral lower extremity multiple ecchymosis. HEAD: Atraumatic. Normocephalic. No temporal or scalp tenderness. EYES: Pupils equal round and reactive. Extraocular motions intact. No scleral icterus. No injection or drainage. ENT: Nose without bleeding. Throat without erythema. Uvula midline. Airway patent. NECK: Trachea midline. CARDIOVASCULAR: Regular rate and rhythm without murmurs, gallops, or rubs. RESPIRATORY: Diminished. No wheezes, rales, or rhonchi. GASTROINTESTINAL: Abdomen soft, non-tender, nondistended. No hepato-splenomegaly , or palpable masses. No guarding. MUSCULOSKELETAL: Extremities without clubbing, cyanosis. Bilateral lower extremity +3 edema. Left great toe open wound, rounding area without erythema, positive edema, wound bed pink and clean NEUROLOGICAL: Awake and alert. Motor and sensory grossly within normal limits. Normal speech. Laboratory Laboratory Tests Test 01/01/17 15:00 White Blood Count 5.2 Red Blood Count 1.98 Hemoglobin 6.0 Hematocrit 17.9 Mean Corpuscular Volume 90.3 Mean Corpuscular Hemoglobin 30.3 Mean Corpuscular Hemoglobin Concent 33.6 Red Cell Distribution Width 24.9 Platelet Count 74 Mean Platelet Volume 8.3 Neutrophils (%) (Auto) 49.6 Lymphocytes (%) (Auto) 26.4 Monocytes (%) (Auto) 9.9 Eosinophils (%) (Auto) 12.1 Basophils (%) (Auto) 2.0 Neutrophils # (Auto) 2.6 Lymphocytes # (Auto) 1.4 Monocytes # (Auto) 0.5 Eosinophils # (Auto) 0.6 Basophils # (Auto) 0.1 CBC Comment AUTO DIFF Differential Total Cells Counted 100 Neutrophils % (Manual) 53 Band Neutrophils % 12 Lymphocytes % 13 Eosinophils % 3 Neutrophils # (Manual) 4.4 Metamyelocytes 18 Myelocytes 1 Differential Comment FINAL DIFF MANUAL Blood Urea Nitrogen 34 Creatinine 1.82 Random Glucose 102 Total Protein 6.5 Albumin 3.0 Calcium Level 8.1 Alkaline Phosphatase 84 Aspartate Amino Transf (AST/SGOT) 18 Alanine Aminotransferase (ALT/SGPT) 17 Total Bilirubin 0.4 Sodium Level 128 Potassium Level 4.1 Chloride Level 95 Carbon Dioxide Level 22.8 Anion Gap 10 Estimat Glomerular Filtration Rate 36 Troponin I LESS THAN 0.02 B-Type Natriuretic Peptide 41 Result Diagram: 01/01/17 1500 01/01/17 1500 Imaging Last Impressions Chest X-Ray 01/01/17 1450 Signed Impressions: Service Date/Time: Sunday, January 01, 2017 15:03 - CONCLUSION: No acute disease. MD Fabiola Su Jr. VTE Risk Assessment Caprini VTE Risk Assessment: Mod/High Risk (score >= 2) Caprini Risk Assessment Model Point Value = 1 Point Value = 2 Point Value = 3 Point Value = 5 Age 41-60 Minor surgery BMI > 25 kg/m2 Swollen legs Varicose veins or History of unexplained or recurrent spontaneous Oral contraceptives or hormone replacement Sepsis (< 1 month) Serious lung disease, including pneumonia (< 1 month) Abnormal pulmonary function Acute myocardial infarction Congestive heart failure (< 1 month) History of inflammatory bowel disease Medical patient at bed rest Age 61-74 Arthroscopic surgery Major open surgery (> 45 min) Laparoscopic surgery (> 45 min) Malignancy Confined to bed (> 72 hours) Immobilizing plaster cast Central venous access Age >= 75 History of VTE Family history of VTE Factor V Leiden Prothrombin [id number] Lupus anticoagulant Anticardiolipin antibodies Elevated serum homocysteine Heparin-induced thrombocytopenia Other congenital or acquired thrombophilia Stroke (< 1 month) Elective arthroplasty Hip, pelvis, or leg fracture Acute spinal cord injury (< 1 month) Prophylaxis Regimen Total Risk Factor Score Risk Level Prophylaxis Regimen 0-1 Low Early ambulation 2 Moderate Order ONE of the following: *Sequential Compression Device (SCD) *Heparin 5000 units SQ BID 3-4 Higher Order ONE of the following medications: *Heparin 5000 units SQ TID *Enoxaparin/Lovenox 40 mg SQ daily (WT < 150 kg, CrCl > 30 mL/min) *Enoxaparin/Lovenox 30 mg SQ daily (WT < 150 kg, CrCl > 10-29 mL/min) *Enoxaparin/Lovenox 30 mg SQ BID (WT < 150 kg, CrCl > 30 mL/min) AND/OR *Sequential Compression Device (SCD) 5 or more Highest Order ONE of the following medications: *Heparin 5000 units SQ TID (Preferred with Epidurals) *Enoxaparin/Lovenox 40 mg SQ daily (WT < 150 kg, CrCl > 30 mL/min) *Enoxaparin/Lovenox 30 mg SQ daily (WT < 150 kg, CrCl > 10-29 mL/min) *Enoxaparin/Lovenox 30 mg SQ BID (WT < 150 kg, CrCl > 30 mL/min) AND *Sequential Compression Device (SCD) Assessment and Plan Problem List: (1) Chronic back pain ICD Code: G89.29 - Other chronic pain; M54.9 - Chronic back pain Status: Acute (2) Chronic alcoholism ICD Code: F10.20 - Alcohol dependence, uncomplicated Status: Acute (3) HTN (hypertension) ICD Code: I10 - HTN (hypertension) Status: Chronic (4) Hyponatremia ICD Code: E87.1 - Hyponatremia Status: Acute (5) Hyperlipidemia ICD Code: E78.5 - Hyperlipidemia Status: Chronic (6) Alcohol abuse ICD Code: F10.10 - Alcohol abuse Status: Chronic (7) Anemia ICD Code: D64.9 - Anemia, unspecified Status: Acute Assessment and Plan Patient is an 81-year-old male with primary medical history of alcohol abuse, HTN who initially came to the ED due to exacerbation of chronic low back pain. Anemia, secondary to alcohol use versus GI bleed - Review of previous labs showed patient has been having anemia last hemoglobin recorded at the hospital was 8.6 - Patient is on ferrous sulfate at home - Check Hemoccult - Transfuse 1 unit PRBC, Lasix posttransfusion - Consult GI for further recommendations. - Monitor H&H posttransfusion - Restart ferrous sulfate - Pantoprazole 40 mg twice a day IV Alcohol abuse - Family counseled, as they are no one giving the patient access to alcohol - [facility] protocol. Monitor for alcohol withdrawals. - Folic acid, thiamine, multivitamins HTN, chronic HLD, chronic - Restart home medication amlodipine 5 mg daily, metoprolol 25 mg twice a day - Monitor BP Hyponatremia, chronic - Previous hospitalization labs reviewed hyponatremia present 127-129 RIGHT great toe open wound - Wound bed appears to be clean, no leukocytosis - Consult wound care - Podiatry referral as an outpatient DVT prop, SCDs GI PROPHYLAXIS The exam, history, and the medical decision-making described in the above note were completed with the assistance of the mid-level provider. I reviewed and agree with the findings presented. I attest that I had a [id number] encounter with the patient on the same day, and personally performed and documented my assessment and findings in the medical record. Code Status Full code Discussed Condition With Discussed with patient, daughter, Dr. Trejo Physician Certification 2 Midnight Certification Type: Admission for Inpatient Services Order for Inpatient Services The services are ordered in accordance with Medicare regulations or non- Medicare payer requirements, as applicable. In the case of services not specified as inpatient-only, they are appropriately provided as inpatient services in accordance with the 2-midnight benchmark. Estimated LOS (days): 2 days is the estimated time the patient will need to remain in the hospital, assuming treatment plan goals are met and no additional complications. Post-Hospital Plan: Home Health Problem Qualifiers (1) Anemia: (2) Chronic back pain: Qualified Codes: M54.5 - Low back pain; G89.29 - Other chronic pain Nyla Michelle Jan 01, 2017 16:58 Nando Trejo DO Jan 01, 2017 17:57
[2017-01-01] MEDS ORDERED: SODIUM CHLORIDE 0.9% FLUSH 10 ML FLUSH IV FLUSH PRN ×6 (17:00)
[2017-01-01] MEDS ORDERED: LORazepam 2 MG/ML VIAL IV PUSH PRN ×8 (17:00)
[2017-01-01] MEDS ORDERED: diphenhydrAMINE HCL 25 MG CAP PO PRN ×4 (17:00→17:15)
[2017-01-01] MEDS ORDERED: PROCHLORPERAZINE 25 MG SUPP RECTAL PRN ×2 (17:00)
[2017-01-01] MEDS ORDERED: FLUMAZENIL 0.5 MG/5 ML VIAL IV PUSH PRN ×2 (17:00)
[2017-01-01] MEDS ORDERED: NALOXONE HCL 0.4 MG/ML AMP IV PUSH PRN ×2 (17:00)
[2017-01-01] MEDS ORDERED: traMADol HCL 50 MG TAB PO PRN ×2 (17:00)
[2017-01-01] MEDS ORDERED: MAGNESIUM HYDROXIDE SUSP 30 ML CUP PO PRN ×2 (17:00)
[2017-01-01] MEDS ORDERED: ONDANSETRON HCL 4 MG/2 ML VIAL IVP PRN ×2 (17:00)
[2017-01-01] MEDS ORDERED: cloNIDine HCL 0.1 MG TAB PO PRN ×2 (17:00)
[2017-01-01] MEDS ORDERED: ACETAMINOPHEN 325 MG TAB PO PRN ×6 (17:00)
[2017-01-01] MEDS ORDERED: LORazepam 2 MG TAB PO PRN ×2 (17:00)
[2017-01-01] MEDS ORDERED: HALOPERIDOL LACTATE 5 MG/ML AMP IM PRN ×2 (17:00)
[2017-01-01] MEDS ORDERED: LACTULOSE SYRUP 20 GM/30 ML CUP PO PRN ×2 (17:00)
[2017-01-01] MEDS ORDERED: FUROSEMIDE 20 MG/2 ML VIAL IV PUSH ONE ×2 (17:00)
[2017-01-01] MEDS ORDERED: SENNOSIDES 8.6 MG TAB PO PRN ×2 (17:00)
[2017-01-01] MEDS ORDERED: LORazepam 1 MG TAB PO PRN ×2 (17:00)
[2017-01-01] MEDS: MULTIVITAMINS/MINERALS THERAPEUTIC TAB PO SCH ×2 (17:00)
[2017-01-01] MEDS ORDERED: BISACODYL 10 MG SUPP RECTAL PRN ×2 (17:00)
[2017-01-01] MEDS ORDERED: CHOLESTYRAMINE 4 GM PACKET PO PRN ×2 (17:15)
[2017-01-01] MEDS ORDERED: HYDROmorphone HCL PF 0.5 MG/0.5 ML SYRINGE IV PRN ×4 (17:15)
[2017-01-01] MEDS ORDERED: DOCUSATE SODIUM 100 MG CAP PO PRN ×2 (17:15)
[2017-01-01] MEDS ORDERED: NON-FORMULARY DRUG (Psyllium Powder (Metamucil Original Texture) 1 SCOOP) PO PRN ×2 (17:15)
[2017-01-01] MEDS: GABAPENTIN 100 MG CAP PO SCH ×2 (18:00)
[2017-01-01] MEDS: DOCUSATE SODIUM 50 MG/SENNA 8.6 MG TAB PO SCH ×2 (21:00)
[2017-01-01] MEDS ORDERED: SODIUM CHLORIDE 0.9% FLUSH 10 ML FLUSH IV FLUSH SCH ×4 (21:00)
[2017-01-01] MEDS: LATANOPROST 0.005% OPHT SOLN 2.5 ML BTL EACH EYE SCH ×2 (21:00)
[2017-01-01] MEDS: METOPROLOL TARTRATE 25 MG TAB PO SCH ×2 (22:19)
[2017-01-01] MEDS: PANTOPRAZOLE SODIUM 40 MG VIAL IV PUSH SCH ×2 (22:20)
[2017-01-01] MEDS: SODIUM CHLORIDE 0.9% FLUSH 10 ML FLUSH IV FLUSH SCH ×2 (22:20)
[2017-01-01] MEDS: traZODone HCL 50 MG TAB PO SCH ×2 (22:21)
[2017-01-01 22:24] LABS: TROPONIN I LESS THAN 0.02 NG/ML (0.02-0.05)
[2017-01-02] VITALS (8 sets, daily range): BP systolic 138–169; BP diastolic 76–89; PULSE 77–94; RESP 18–22; TEMP 95.4–97.1; O2SAT 94–99
[2017-01-02 05:53] LABS: AUTOMATED NEUTROPHIL # 2.3 TH/MM3 (1.8-7.7); BASOPHIL # 0.1 TH/MM3 (0-0.2); BASOPHIL % 2.6 % (0.0-2.0); EOSINOPHIL # 0.2 TH/MM3 (0-0.4); HEMATOCRIT 25.3 % (39.0-51.0); HEMOGLOBIN 8.7 GM/DL (13.0-17.0); LYMPH % 36.9 % (9.0-44.0); LYMPHOCYTE # 1.7 TH/MM3 (1.0-4.8); MEAN CELL VOLUME 88.6 FL (80.0-100.0); MEAN CORPUSCULAR HEMOGLOBIN 30.6 PG (27.0-34.0); MEAN CORPUSCULAR HGB CONC 34.5 % (32.0-36.0); MEAN PLATELET VOLUME 8.1 FL (7.0-11.0); MONO % 6.5 % (0.0-8.0); MONOCYTE # 0.3 TH/MM3 (0-0.9); PLATELET COUNT 81 TH/MM3 (150-450); RED BLOOD COUNT 2.86 MIL/MM3 (4.50-5.90); WHITE BLOOD COUNT 4.6 TH/MM3 (4.0-11.0)
[2017-01-02 06:25] LABS: ALBUMIN 3.4 GM/DL (3.4-5.0); ALT (GPT) 20 U/L (12-78); AST (GOT) 21 U/L (15-37); BICARBONATE 25.6 MEQ/L (21.0-32.0); BLOOD UREA NITROGEN 33 MG/DL (7-18); CALCIUM 8.5 MG/DL (8.5-10.1); CHLORIDE 96 MEQ/L (98-107); CREATININE 1.65 MG/DL (0.60-1.30); GLOMERULAR FILTRATION RATE 40 ML/MIN (>89); GLUCOSE,RANDOM 156 MG/DL (74-106); MAGNESIUM 1.9 MG/DL (1.5-2.5); PHOSPHORUS 3.2 MG/DL (2.5-4.9); SODIUM (NA) 130 MEQ/L (136-145)
[2017-01-02 06:34] LABS: ALKALINE PHOSPHATASE 93 U/L (45-117); FREE T4 0.72 NG/DL (0.76-1.46); TOTAL BILIRUBIN ADULT 1.7 MG/DL (0.2-1.0); TOTAL PROTEIN 7.4 GM/DL (6.4-8.2); TROPONIN I LESS THAN 0.02 NG/ML (0.02-0.05)
[2017-01-02 08:06] LABS: ACANTHOCYTES 1+ (NORMAL); BANDS 2 % (0-6); BASOPHILS 2 % (0-2); BLASTS 1 % (0-0); CORRECTED NUCLEATED RBC 1 /100 WBC (0-0); KERATOCYTES 1+ (NORMAL); LYMPHOCYTES 20 % (9-44); METAMYELOCYTES 2 % (0-1); MONOCYTES 1 % (0-8); MYELOCYTES 2 % (0-0); NEUTROPHIL # MANUAL DIFF 3.5 TH/MM3 (1.8-7.7); NUCLEATED RED BLOOD CELL 1 (0-0); POLYS (SEG NEUTROPHILS) 70 % (16-70)
[2017-01-02 08:59] LABS: HEMATOCRIT 24.9 % (39.0-51.0); HEMOGLOBIN 8.6 GM/DL (13.0-17.0)
[2017-01-02] MEDS ORDERED: NON-FORMULARY DRUG (Omega-3 Fatty Acids (Fish Oil) 1,000 MG) PO SCH ×2 (09:00)
[2017-01-02] MEDS ORDERED: SODIUM CHLOR 0.9% 1000 ML INJ 1,000 ML IV SCH ×2 (09:45)
--- NOTE | 2017-01-02 10:29 | EKG ---
Date Performed: 01/01/2017 Time Performed: 15:01:13 PTAGE: 81 years EKG: Sinus rhythm WITH FIRST DEGREE AV BLOCK ABNORMAL ECG Compared to prior tracing no significant change PREVIOUS TRACING : 04/13/2013 21.12 DOCTOR: Gigi Adams Interpretating Date/Time 01/02/2017 10:27:07
[2017-01-02] MEDS: GABAPENTIN 100 MG CAP PO SCH ×6 (10:54→17:25)
[2017-01-02] MEDS: DOCUSATE SODIUM 50 MG/SENNA 8.6 MG TAB PO SCH ×4 (10:55→22:08)
[2017-01-02] MEDS: MULTIVITAMINS/MINERALS THERAPEUTIC TAB PO SCH ×2 (10:55)
[2017-01-02] MEDS: FERROUS SULFATE 325 MG (65 MG ELEMENTAL IRON) TAB PO SCH ×2 (10:55)
[2017-01-02] MEDS: METOPROLOL TARTRATE 25 MG TAB PO SCH ×4 (10:55→22:09)
[2017-01-02] MEDS: FOLIC ACID 1 MG TAB PO SCH ×2 (10:55)
[2017-01-02] MEDS: THIAMINE HCL 100 MG TAB PO SCH ×2 (10:55)
[2017-01-02] MEDS: amLODIPine BESYLATE 5 MG TAB PO SCH ×2 (10:55)
[2017-01-02] MEDS: PANTOPRAZOLE SODIUM 40 MG VIAL IV PUSH SCH ×4 (10:56→22:09)
[2017-01-02] MEDS: FUROSEMIDE 20 MG/2 ML VIAL IV PUSH SCH ×2 (10:56)
[2017-01-02] MEDS: SODIUM CHLORIDE 0.9% FLUSH 10 ML FLUSH IV FLUSH SCH ×4 (10:56→21:00)
--- NOTE | 2017-01-02 10:56 | HHI.PR ---
Subjective Remarks Follow-up visit anemia, alcohol abuse, HTN, HLD. Patient seen and examined today. States he is doing better. Occupational therapy working with patient. Notable wheezing. States he gets short of breath with severe exertion but right now he is okay. On 2 L nasal cannula. States he doesn't use oxygen at home. Denies pain and discomfort. Denies SOB/ dyspnea. Denies chest pain, palpitations, headaches, dizziness. Denies fevers, chills, n/v/d. Denies hematuria, dysuria. Denies hematemesis, hematochezia. Objective Vitals Vital Signs Date Time Temp Pulse Resp B/P (MAP) Pulse Ox O2 Delivery O2 Flow Rate FiO2 01/02/17 09:41 94 Nasal Cannula 2.00 01/02/17 08:00 96.1 86 21 169/84 (112) 94 01/02/17 04:39 95.5 87 18 160/89 (112) 97 01/02/17 00:29 96.9 82 18 142/80 (100) 99 01/01/17 20:34 95.6 97 20 158/77 99 01/01/17 20:15 Nasal Cannula 2.00 01/01/17 20:01 98 01/01/17 20:00 96.6 100 18 148/77 (100) 97 01/01/17 20:00 95.7 99 20 160/74 97 01/01/17 19:40 99 Nasal Cannula 2.00 01/01/17 18:00 95.8 105 20 179/83 (115) 98 01/01/17 17:38 01/01/17 17:30 97 Nasal Cannula 2.50 01/01/17 16:30 90 16 159/77 (104) 95 Nasal Cannula 2.00 01/01/17 15:20 92 14 149/66 (93) 92 Room Air 01/01/17 14:28 97 16 148/65 (92) 95 Room Air 01/01/17 13:34 98.1 101 18 116/59 (78) 96 Room Air I/O 01/01/17 01/01/17 01/01/17 01/02/17 01/02/17 01/02/17 07:00 15:00 23:00 07:00 15:00 23:00 Intake Total 700 ml Output Total 300 ml 1950 ml Balance -300 ml -1250 ml Intake Packed Cells 700 ml Output Urine Total 300 ml 1950 ml Result Diagram: 01/02/17 0812 01/02/17 0534 Imaging Last Impressions Chest X-Ray 01/01/17 1450 Signed Impressions: Service Date/Time: Sunday, January 01, 2017 15:03 - CONCLUSION: No acute disease. Hayes Young Jr., MD Objective Remarks GENERAL: This is a well-nourished, well-developed patient, in no apparent distress. SKIN: Cool and dry. Bilateral lower extremity multiple ecchymosis. HEAD: Atraumatic. Normocephalic. No temporal or scalp tenderness. EYES: Pupils equal round and reactive. Extraocular motions intact. No scleral icterus. No injection or drainage. ENT: Nose without bleeding. Throat without erythema. Uvula midline. Airway patent. NECK: Trachea midline. CARDIOVASCULAR: Regular rate and rhythm without murmurs, gallops, or rubs. RESPIRATORY: Diminished. Expiratory wheezes. No rales, or rhonchi. GASTROINTESTINAL: Abdomen soft, non-tender, nondistended. No hepato-splenomegaly , or palpable masses. No guarding. MUSCULOSKELETAL: Extremities without clubbing, cyanosis. Bilateral lower extremity +3 edema. Left great toe open wound, rounding area without erythema, positive edema, wound bed pink and clean NEUROLOGICAL: Awake and alert. Motor and sensory grossly within normal limits. Normal speech. A/P Problem List: (1) Anemia ICD Code: D64.9 - Anemia, unspecified Status: Acute (2) Hyperlipidemia ICD Code: E78.5 - Hyperlipidemia Status: Chronic (3) Hyponatremia ICD Code: E87.1 - Hyponatremia Status: Acute (4) HTN (hypertension) ICD Code: I10 - HTN (hypertension) Status: Chronic (5) Alcohol abuse ICD Code: F10.10 - Alcohol abuse Status: Chronic (6) Chronic alcoholism ICD Code: F10.20 - Alcohol dependence, uncomplicated Status: Acute (7) Chronic back pain ICD Code: G89.29 - Other chronic pain; M54.9 - Chronic back pain Status: Acute (8) Gout ICD Code: M10.9 - Gout, unspecified Status: Acute Assessment and Plan Patient is an 81-year-old male with primary medical history of alcohol abuse, HTN who initially came to the ED due to exacerbation of chronic low back pain. Anemia, acute secondary to alcohol use, chronic disease versus GI bleed - Review of previous labs showed patient has been having anemia last hemoglobin recorded at the hospital was 8.6 - Patient is on ferrous sulfate at home- Restart ferrous sulfate - Check Hemoccult - Transfused 2 unit PRBC, Lasix posttransfusion - Pantoprazole 40 mg twice a day - Consult GI for further recommendations. - Repeat H& H improved Alcohol abuse, chronic - Family counseled, as they are no one giving the patient access to alcohol - [facility] protocol. Monitor for alcohol withdrawals. - Folic acid, thiamine, multivitamins - Patient was counseled. States he is only drinking 2 scotch/ day. Discuss risk factors. COPD, underlying medical condition - Former smoker. Notable Wheezing - DuoNeb's scheduled and when necessary - Incentive spirometry - O2 nasal cannula when necessary, titrate to O2 > 90% Bilat Lower Ext Edema - Lasix daily - Monitor Labs - PT/ OT eval and treat HTN, chronic HLD, chronic - Restart home medication amlodipine 5 mg daily, metoprolol 25 mg twice a day - Monitor BP Hyponatremia, chronic - Previous hospitalization labs reviewed hyponatremia present 127-129 RIGHT great toe open wound - Wound bed appears to be clean, no leukocytosis - Consult wound care - Podiatry referral as an outpatient DVT prop, SCDs GI PROPHYLAXIS Pantoprazole Discharge Planning Plan for DC when Cleared by GI. Problem Qualifiers (1) Anemia: (2) Chronic back pain: Qualified Codes: M54.5 - Low back pain; G89.29 - Other chronic pain Nyla Michelle Jan 02, 2017 10:56
--- NOTE | 2017-01-02 15:28 | PD.CONS ---
HPI History of Present Illness This is a 81 year old who came to the emergency room for evaluation of generalized weakness and back pain and was found to have severe anemia with an HH of 6.0/17.9. He reports that he has been having generalized weakness and back pain for a long time, but it seemed to be worse over the past few days and therefore he came to the hospital. He has not seen any obvious blood loss. He has occasional heartburn and reflux if he eats spicy foods, but nothing on a regular basis. He denies any nausea, vomiting, abdominal pain, bowel changes, constipation, diarrhea, melena, or hematochezia. He does take Aleve at times for chronic back pain, but always as directed and never for more than 2 or 3 days at a time. He also drinks alcohol on a regular basis. The patient tells me that he has 2 or 3 3oz drinks of Scotch per day, although his family had told another provider that he has 8-9 drinks per day. He denies any peptic ulcer disease. He last had EGD/Colonoscopy (04/19/13)---> lindsey's esophagus, hiatus hernia, mild antritis, diverticular disease, mild radiation proctitis. Pathology with benign antral type gastric mucosa with no significant histopathology, a jono stain is negative for helicobacter organisms, benign gastric and intestinalized mucosa consistent with lindsey's esophagus of distal esophagus. (Martha Nolen) PFSH Past Medical History Alcohol abuse Chronic back pain HTN Hyperlipidemia Radiation proctitis Hiatal hernia Lindsey's esophagus COPD History of cellulitis Chronic hyponatremia Anemia Anxiety and depression Gout Past Surgical History Cervical spinal fusion 5, 6, 7 Bilateral cataract sx Vasectomy EGD/Colonoscopy (Martha Nolen) Coded Allergies: sulfamethoxazole (Unverified Allergy, Severe, RASH, 01/01/17) trimethoprim (Unverified Allergy, Severe, RASH, 01/01/17) morphine (Verified Adverse Reaction, Severe, Nausea/Vomiting, 01/01/17) *MDRO Multi-Drug Resistant Organism (Verified Adverse Reaction, Unknown, 01/01/17) 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 Medications Allergies Coded Allergies Type Severity Reaction Last Updated Verified sulfamethoxazole Allergy Severe RASH 01/01/17 No trimethoprim Allergy Severe RASH 01/01/17 No morphine Adverse Reaction Severe Nausea/Vomiting 01/01/17 Yes *MDRO Multi-Drug Resistant Organism Adverse Reaction Unknown 01/01/17 Yes Active Scripts Medications Dose Route/Sig Max Daily Dose Days Date Category Dose Instructions Trazodone (Trazodone HCl) 50 Mg Tab 50 Mg PO HS 01/01/17 Reported Amlodipine (Amlodipine Besylate) 5 Mg Tab 5 Mg PO DAILY 09/06/16 Reported Aspirin 81 (Aspirin) 81 Mg Tabdr 81 Mg PO DAILY 09/06/[address] (Ferrous Sulfate) 324 Mg Tabdr 324 Mg PO DAILY 09/06/16 Reported Gabapentin 100 Mg Cap 200 Mg PO TID 09/06/16 Reported Metoprolol Tartrate 25 Mg Tab 25 Mg PO BID 09/06/16 Reported Vitamin B-1 (Thiamine HCl) 100 Mg Tab 100 Mg PO DAILY 09/06/16 Reported Fish Oil (Pep-3 Fatty Acids) 1,000 Mg Cap 1,000 Mg PO DAILY 09/06/16 Reported Travatan Z Opth Drops (Travoprost) 0.004 % Soln 1 Drop EACH EYE HS 09/06/16 Reported Colace (Docusate Sodium) 100 Mg Capsule 100 Mg PO DAILY PRN 09/06/16 Reported Metamucil Original Texture (Psyllium Hydrophilic Mucilloid) 48.57 % Pow 1 Scoop PO DAILY PRN 09/06/16 Reported 1 rounded TEASPOON in 8 oz of liquid at the first sign of irregularity. Questran (Cholestyramine) 4 Gm/Pkt Powd 4 Gm PO BID PRN 09/06/16 Reported 1 packet contains 4gm of cholestyramine. Folic Acid 1 Mg Tablet 1 Mg PO DAILY 09/06/16 Reported Diphedryl (Diphenhydramine HCl) 25 Mg Tablet 25 Mg PO Q6HR PRN 09/06/16 Reported Pantoprazole (Pantoprazole Sodium) 40 Mg Tab 40 Mg PO DAILY 09/06/16 Reported Mapap (Acetaminophen) 325 Mg Tab 325 Mg PO Q6HR PRN 09/06/16 Reported Family History Mother and father had MT Social History States he drinks 2-3 3oz scotch daily, family states 9 drinks Denies tobacco use Denies illicit drug use (Martha Nolen) Review of Systems Constitutional: COMPLAINS OF: Fatigue, DENIES: Weight loss, Change in appetite Respiratory: COMPLAINS OF: Wheezing, Shortness of breath, DENIES: Cough Cardiovascular: COMPLAINS OF: Lower Extremity Edema, DENIES: Chest pain Gastrointestinal: DENIES: Abdominal pain, Black stools, Bloody stools, Constipation, Diarrhea, Nausea, Vomiting, Swelling of Abdomen, Heartburn, Hematemesis Musculoskeletal: COMPLAINS OF: Back pain Hematologic/lymphatic: COMPLAINS OF: Bruising Neurologic: DENIES: Headache Psychiatric: DENIES: Confusion (Martha Nolen) GI Exam Vitals I&O Vital Signs Date Time Temp Pulse Resp B/P (MAP) Pulse Ox O2 Delivery O2 Flow Rate FiO2 01/02/17 12:00 97.1 77 22 143/81 (101) 96 01/02/17 09:41 94 Nasal Cannula 2.00 01/02/17 08:00 96.1 86 21 169/84 (112) 94 01/02/17 04:39 95.5 87 18 160/89 (112) 97 01/02/17 00:29 96.9 82 18 142/80 (100) 99 01/01/17 20:34 95.6 97 20 158/77 99 01/01/17 20:15 Nasal Cannula 2.00 01/01/17 20:01 98 01/01/17 20:00 96.6 100 18 148/77 (100) 97 01/01/17 20:00 95.7 99 20 160/74 97 01/01/17 19:40 99 Nasal Cannula 2.00 01/01/17 18:00 95.8 105 20 179/83 (115) 98 01/01/17 17:38 01/01/17 17:30 97 Nasal Cannula 2.50 01/01/17 16:30 90 16 159/77 (104) 95 Nasal Cannula 2.00 01/01/17 15:20 92 14 149/66 (93) 92 Room Air I/O 01/01/17 01/01/17 01/01/17 01/02/17 01/02/17 01/02/17 07:00 15:00 23:00 07:00 15:00 23:00 Intake Total 700 ml Output Total 300 ml 1950 ml Balance -300 ml -1250 ml Intake Packed Cells 700 ml Output Urine Total 300 ml 1950 ml Imaging Last Impressions Chest X-Ray 01/01/17 1450 Signed Impressions: Service Date/Time: Sunday, January 01, 2017 15:03 - CONCLUSION: No acute disease. Hayes Young Jr., MD Laboratory Test 01/01/17 15:00 01/01/17 21:29 01/02/17 05:34 01/02/17 08:12 White Blood Count 5.2 TH/MM3 4.6 TH/MM3 Red Blood Count 1.98 MIL/MM3 2.86 MIL/MM3 Hemoglobin 6.0 GM/DL 8.7 GM/DL 8.6 GM/DL Hematocrit 17.9 % 25.3 % 24.9 % Mean Corpuscular Volume 90.3 FL 88.6 FL Mean Corpuscular Hemoglobin 30.3 PG 30.6 PG Mean Corpuscular Hemoglobin Concent 33.6 % 34.5 % Red Cell Distribution Width 24.9 % 23.0 % Platelet Count 74 TH/MM3 81 TH/MM3 Mean Platelet Volume 8.3 FL 8.1 FL Neutrophils (%) (Auto) 49.6 % 49.0 % Lymphocytes (%) (Auto) 26.4 % 36.9 % Monocytes (%) (Auto) 9.9 % 6.5 % Eosinophils (%) (Auto) 12.1 % 5.0 % Basophils (%) (Auto) 2.0 % 2.6 % Neutrophils # (Auto) 2.6 TH/MM3 2.3 TH/MM3 Lymphocytes # (Auto) 1.4 TH/MM3 1.7 TH/MM3 Monocytes # (Auto) 0.5 TH/MM3 0.3 TH/MM3 Eosinophils # (Auto) 0.6 TH/MM3 0.2 TH/MM3 Basophils # (Auto) 0.1 TH/MM3 0.1 TH/MM3 CBC Comment AUTO DIFF AUTO DIFF Differential Total Cells Counted 100 100 Neutrophils % (Manual) 53 % 70 % Band Neutrophils % 12 % 2 % Lymphocytes % 13 % 20 % Eosinophils % 3 % Neutrophils # (Manual) 4.4 TH/MM3 3.5 TH/MM3 Metamyelocytes 18 % 2 % Myelocytes 1 % 2 % Differential Comment FINAL DIFF MANUAL FINAL DIFF MANUAL Blood Urea Nitrogen 34 MG/DL 33 MG/DL Creatinine 1.82 MG/DL 1.65 MG/DL Random Glucose 102 MG/DL 156 MG/DL Total Protein 6.5 GM/DL 7.4 GM/DL Albumin 3.0 GM/DL 3.4 GM/DL Calcium Level 8.1 MG/DL 8.5 MG/DL Alkaline Phosphatase 84 U/L 93 U/L Aspartate Amino Transf (AST/SGOT) 18 U/L 21 U/L Alanine Aminotransferase (ALT/SGPT) 17 U/L 20 U/L Total Bilirubin 0.4 MG/DL 1.7 MG/DL Sodium Level 128 MEQ/L 130 MEQ/L Potassium Level 4.1 MEQ/L 4.8 MEQ/L Chloride Level 95 MEQ/L 96 MEQ/L Carbon Dioxide Level 22.8 MEQ/L 25.6 MEQ/L Anion Gap 10 MEQ/L 8 MEQ/L Estimat Glomerular Filtration Rate 36 ML/MIN 40 ML/MIN Troponin I LESS THAN 0.02 NG/ML LESS THAN 0.02 NG/ML LESS THAN 0.02 NG/ML B-Type Natriuretic Peptide 41 PG/ML Total Creatine Kinase 87 U/L 102 U/L Monocytes % 1 % Basophils % 2 % Nucleated Red Blood Cells 1 /100 WBC Blastocytes 1 % Platelet Estimate LOW Platelet Morphology Comment NORMAL Acanthocytes 1+ Keratocytes 1+ Phosphorus Level 3.2 MG/DL Magnesium Level 1.9 MG/DL Free Thyroxine 0.72 NG/DL Thyroid Stimulating Hormone 3rd Gen 1.890 uIU/ML Physical Examination HEENT: Normocephalic; atraumatic; no jaundice. CHEST: Resp. even/unlabored. Expiratory wheezing. CARDIAC: RRR ABDOMEN: Soft, nondistended, nontender; no hepatosplenomegaly; bowel sounds are present in all four quadrants. EXTREMITIES:BLE edema. SKIN: Ecchymosis, skin tears to ble BUILDING CONSTRUCTION FOREMAN: No focal deficits; alert and oriented times three. (Martha NolenP) Assessment and Plan Plan ASSESSMENT: - Severe anemia. HH 6.0/17.9 on admission. S/P 2 units PRBC. H/H 8.6/24.9. ( +) NSAID use, not on a regular basis, but as needed for back pain. States he will take as directed for 2-3 days at a time. Drinks daily, states 2-3 drinks per day. Family states 8-9 daily. EGD/Colonoscopy (04/19/13)---> lindsey's esophagus, hiatus hernia, mild antritis, diverticular disease, mild radiation proctitis. Pathology with benign antral type gastric mucosa with no significant histopathology, a jono stain is negative for helicobacter organisms, benign gastric and intestinalized mucosa consistent with lindsey' s esophagus of distal esophagus. HH stable. Will plan for egd/colonoscopy in am. - Isolated elevation of t. bilirubin, undetermined significance. Will monitor. - THA. Creat 1.65. Na 130, - Hyperlipidemia, HTN, Chronic back pain per attending. PLAN: - Plan for egd/colonoscopy in am - Obtain consents - Clear liquids - NPO after MN - Golytely prep - PPI - Monitor CBC, CMP - Transfuse as needed - PT/INR today - Supportive care - Further recommendations to follow based on results of above - PT seen and examined by Dr. Law and myself and this note is written on his behalf (Martha Nolen) Plan Patient was seen and examined, agree with note and plan, severe anemia, patient will need: EGD and colonoscopy, we will watch for DT, we will check INR to make sure stable (Wallace Law MD) Martha Nolen Jan 02, 2017 15:27 Wallace Law MD Jan 02, 2017 15:46
[2017-01-02] MEDS ORDERED: PEG (High)/E-LYTE SOLN 4000 ML BTL PO ONE ×2 (16:00)
[2017-01-02 16:06] LABS: HEMOGLOBIN A1C 5.5 % (4.3-6.0)
--- NOTE | 2017-01-02 17:44 | PD.WCN.NOT ---
Wound Consult Description: Consult for Wound Management of left great toe per Dr Trejo Communicated with: JULISSA Wagner Recommendation: Silver Nitrate PRN for hyper granulation tissue on left great toe Additional Information: Patient seen on for left great toe open wound. Yellow sock removed to reveal a hypergranulated wound bed measuring 1.5cm x 1.8cm with 100% red moist tissue noted throughout wound bed with hyperkeratotic periwound. Recommend to apply Silver Nitrate as needed to reduce height of wound bed and open the wound margins so that the epithelial tissue can move across the wound bed and close the wound. Nereyda Jewell [facility] Jan 02, 2017 17:44
--- NOTE | 2017-01-02 17:44 | PD.WCN.NOT ---
Wound Consult Description: Consult for Wound Management of left great toe per Dr Trejo Communicated with: JULISSA Wagner Recommendation: Silver Nitrate PRN for hyper granulation tissue on left great toe Additional Information: Patient seen on for left great toe open wound. Yellow sock removed to reveal a hypergranulated wound bed measuring 1.5cm x 1.8cm with 100% red moist tissue noted throughout wound bed with hyperkeratotic periwound. Recommend to apply Silver Nitrate as needed to reduce height of wound bed and open the wound margins so that the epithelial tissue can move across the wound bed and close the wound. Nereyda Jewell [facility] Jan 02, 2017 17:44
--- NOTE | 2017-01-02 17:44 | PD.WCN.NOT ---
Wound Consult Description: Consult for Wound Management of left great toe per Dr Trejo Communicated with: JULISSA Wagner Recommendation: Silver Nitrate PRN for hyper granulation tissue on left great toe Additional Information: Patient seen on for left great toe open wound. Yellow sock removed to reveal a hypergranulated wound bed measuring 1.5cm x 1.8cm with 100% red moist tissue noted throughout wound bed with hyperkeratotic periwound. Recommend to apply Silver Nitrate as needed to reduce height of wound bed and open the wound margins so that the epithelial tissue can move across the wound bed and close the wound. Nereyda Jewell [facility] Jan 02, 2017 17:44
[2017-01-02 19:07] LABS: HEMATOCRIT 24.1 % (39.0-51.0); HEMOGLOBIN 8.2 GM/DL (13.0-17.0)
[2017-01-02 19:16] LABS: PROTHROMBIN TIME - PATIENT 11.3 SEC (9.8-11.6)
[2017-01-02] MEDS: RESP: ALBUTEROL 2.5 MG/IPRATROPIUM 0.5 MG NEB (SCH) NEB ×2 (20:00)
[2017-01-02] MEDS: LATANOPROST 0.005% OPHT SOLN 2.5 ML BTL EACH EYE SCH ×2 (21:00)
[2017-01-02] MEDS: traZODone HCL 50 MG TAB PO SCH ×2 (22:09)
[2017-01-02] MEDS: traMADol HCL 50 MG TAB PO PRN ×2 (22:09)
[2017-01-03 00:30] VITALS: BP 132/67; PULSE 78; RESP 18; TEMP 98; O2SAT 93
[2017-01-03] MEDS: traMADol HCL 50 MG TAB PO PRN ×6 (03:17→20:38)
[2017-01-03] MEDS: METOPROLOL TARTRATE 25 MG TAB PO SCH ×4 (07:50→20:39)
[2017-01-03] MEDS: RESP: ALBUTEROL 2.5 MG/IPRATROPIUM 0.5 MG NEB (SCH) NEB ×6 (08:00→19:26)
[2017-01-03] MEDS ORDERED: SILVER NITR/POTASSIUM NITRATE APPLICATORS TOPICAL ONE ×2 (09:00)
[2017-01-03] MEDS: SODIUM CHLORIDE 0.9% FLUSH 10 ML FLUSH IV FLUSH SCH ×4 (09:00→20:42)
[2017-01-03] MEDS: DOCUSATE SODIUM 50 MG/SENNA 8.6 MG TAB PO SCH ×4 (09:00→20:42)
--- NOTE | 2017-01-03 09:12 | HHI.GIFU ---
Subjective Remarks EGD showed barretts esophagus and gastritis. No bleedin g source. Colonoscopy showed diverticulosis and three diminutive polyps no bleeding source. No cancer seen. Objective Vitals I&O Vital Signs Date Time Temp Pulse Resp B/P (MAP) Pulse Ox O2 Delivery O2 Flow Rate FiO2 01/03/17 04:17 18 01/03/17 00:30 98.0 78 18 132/67 (88) 93 01/02/17 20:24 94 21 01/02/17 20:23 95.4 94 19 155/80 (105) 96 01/02/17 16:00 95.8 80 20 138/76 (96) 94 01/02/17 12:00 97.1 77 22 143/81 (101) 96 01/02/17 11:00 94 Nasal Cannula 2.00 01/02/17 09:41 94 Nasal Cannula 2.00 I/O 01/02/17 01/02/17 01/02/17 01/03/17 01/03/17 01/03/17 07:00 15:00 23:00 07:00 15:00 23:00 Intake Total 700 ml 1800 ml Output Total 1950 ml 1200 ml Balance -1250 ml 600 ml Intake Oral 1800 ml Packed Cells 700 ml Output Urine Total 1950 ml 1200 ml # Bowel Movements 0 Laboratory Laboratory Tests Test 01/02/17 18:28 Hemoglobin 8.2 Hematocrit 24.1 Prothrombin Time 11.3 Prothromb Time International Ratio 1.0 Physical Exam HEENT: Pupils round and reactive to light; normocephalic; atraumatic; no jaundice. Throat is clear. NECK: Neck is supple, no JVD, no lymphadenopathy. CHEST: Chest is clear to auscultation and percussion. CARDIAC: Regular rate and rhythm with no murmur gallop or rubs. ABDOMEN: Soft, nondistended, nontender; no hepatosplenomegaly; bowel sounds are present in all four quadrants. EXTREMITIES: No clubbing, cyanosis, or edema. SKIN: Normal; no rash; no jaundice. SOFT IRON INSPECTOR: No focal deficits; alert and oriented times three. Assessment and Plan Plan Impression: Barretts esophagus, gastritis, diverticulosis, colon polyps. No active bleeding seen. Rec: Await biopsy result. Resume diet. OK for discharge if stable this afternoon. Followup in office in 2 weeks. Hieu Rodriguez MD Jan 03, 2017 09:12
[2017-01-03 10:00] VITALS: BP 139/76; PULSE 74; RESP 17; TEMP 95.9; O2SAT 93
[2017-01-03] MEDS: THIAMINE HCL 100 MG TAB PO SCH ×2 (10:54)
[2017-01-03] MEDS: MULTIVITAMINS/MINERALS THERAPEUTIC TAB PO SCH ×2 (10:55)
[2017-01-03] MEDS: GABAPENTIN 100 MG CAP PO SCH ×6 (10:55→18:33)
[2017-01-03] MEDS: amLODIPine BESYLATE 5 MG TAB PO SCH ×2 (10:55)
[2017-01-03] MEDS: FOLIC ACID 1 MG TAB PO SCH ×2 (10:55)
[2017-01-03] MEDS: FERROUS SULFATE 325 MG (65 MG ELEMENTAL IRON) TAB PO SCH ×2 (10:55)
[2017-01-03] MEDS: PANTOPRAZOLE SODIUM 40 MG VIAL IV PUSH SCH ×4 (10:56→20:39)
[2017-01-03] MEDS: FUROSEMIDE 20 MG/2 ML VIAL IV PUSH SCH ×2 (10:56)
[2017-01-03 12:00] VITALS: BP 121/81; PULSE 81; RESP 18; TEMP 95.8; O2SAT 93
[2017-01-03 13:17] LABS: AUTOMATED NEUTROPHIL # 3.9 TH/MM3 (1.8-7.7); BASOPHIL # 0.1 TH/MM3 (0-0.2); BASOPHIL % 2.1 % (0.0-2.0); EOSINOPHIL # 0.3 TH/MM3 (0-0.4); HEMATOCRIT 22.4 % (39.0-51.0); HEMOGLOBIN 7.6 GM/DL (13.0-17.0); LYMPH % 24.6 % (9.0-44.0); LYMPHOCYTE # 1.6 TH/MM3 (1.0-4.8); MEAN CELL VOLUME 90.2 FL (80.0-100.0); MEAN CORPUSCULAR HEMOGLOBIN 30.5 PG (27.0-34.0); MEAN CORPUSCULAR HGB CONC 33.8 % (32.0-36.0); MEAN PLATELET VOLUME 8.2 FL (7.0-11.0); MONO % 9.1 % (0.0-8.0); MONOCYTE # 0.6 TH/MM3 (0-0.9); NEUT % 59.2 % (16.0-70.0); PLATELET COUNT 69 TH/MM3 (150-450); RED BLOOD COUNT 2.49 MIL/MM3 (4.50-5.90); RED CELL DISTRIBUTION WIDTH 23.9 % (11.6-17.2); WHITE BLOOD COUNT 6.6 TH/MM3 (4.0-11.0)
[2017-01-03 13:47] LABS: BANDS 10 % (0-6); BASOPHILS 2 % (0-2); BLASTS 2 % (0-0); LYMPHOCYTES 15 % (9-44); METAMYELOCYTES 3 % (0-1); MONOCYTES 11 % (0-8); MYELOCYTES 2 % (0-0); NEUTROPHIL # MANUAL DIFF 4.6 TH/MM3 (1.8-7.7); POLYS (SEG NEUTROPHILS) 55 % (16-70)
[2017-01-03 13:48] LABS: ACANTHOCYTES 1+ (NORMAL); KERATOCYTES 1+ (NORMAL)
[2017-01-03 13:50] LABS: ALBUMIN 3.3 GM/DL (3.4-5.0); ALKALINE PHOSPHATASE 76 U/L (45-117); ALT (GPT) 22 U/L (12-78); AST (GOT) 28 U/L (15-37); BICARBONATE 27.4 MEQ/L (21.0-32.0); BLOOD UREA NITROGEN 32 MG/DL (7-18); CHLORIDE 98 MEQ/L (98-107); CREATININE 1.48 MG/DL (0.60-1.30); GLOMERULAR FILTRATION RATE 46 ML/MIN (>89); GLUCOSE,RANDOM 115 MG/DL (74-106); SODIUM (NA) 134 MEQ/L (136-145); TOTAL BILIRUBIN ADULT 0.5 MG/DL (0.2-1.0); TOTAL PROTEIN 6.8 GM/DL (6.4-8.2)
[2017-01-03] MEDS ORDERED: PROPOFOL 200 MG/20 ML AMP IV ONE ×2 (15:07)
[2017-01-03] MEDS ORDERED: LIDOCAINE HCL 1% PF 5 ML AMPULE OTHER ONE ×2 (15:07)
--- NOTE | 2017-01-03 15:32 | PD.WCN.NOT ---
Wound Consult Description: Consult for Wound Management of left great toe per Dr Trejo Communicated with: Dr Navarro Recommendation: Silver Nitrate PRN for hyper granulation tissue on left great toe Additional Information: Patient seen on for one application of silver nitrate to hypergranulation tissue on left great toe. Next application to be done Monday by chief strategy officer [facility]rey[facility] Jan 03, 2017 15:32
--- NOTE | 2017-01-03 15:32 | PD.WCN.NOT ---
Wound Consult Description: Consult for Wound Management of left great toe per Dr Trejo Communicated with: Dr Navarro Recommendation: Silver Nitrate PRN for hyper granulation tissue on left great toe Additional Information: Patient seen on for one application of silver nitrate to hypergranulation tissue on left great toe. Next application to be done Monday by delivery and installation subcontractor [facility]reyda Jewell [facility] Jan 03, 2017 15:32
--- NOTE | 2017-01-03 15:32 | PD.WCN.NOT ---
Wound Consult Description: Consult for Wound Management of left great toe per Dr Trejo Communicated with: Dr Navarro Recommendation: Silver Nitrate PRN for hyper granulation tissue on left great toe Additional Information: Patient seen on for one application of silver nitrate to hypergranulation tissue on left great toe. Next application to be done Monday by human factors specialist [facility]reyda Jewell [facility] Jan 03, 2017 15:32
[2017-01-03 16:00] VITALS: BP 121/76; PULSE 83; RESP 16; TEMP 97; O2SAT 96
--- NOTE | 2017-01-03 18:39 | HHI.PR ---
Subjective Remarks EGD showed no acute pathology. He has been cleared from GI standpoint. She is not ambulating well and PT has recommended inpatient rehabilitation. At this point the patient does not want to go to a [facility]p facility and would rather go home area is not safe to go home yet. Objective Vital Signs Date Time Temp Pulse Resp B/P (MAP) Pulse Ox O2 Delivery O2 Flow Rate FiO2 01/03/17 16:00 97.0 83 16 121/76 (91) 96 01/03/17 12:00 95.8 81 18 121/81 (94) 93 01/03/17 11:00 93 Room Air 01/03/17 10:00 95.9 74 17 139/76 (97) 93 01/03/17 09:15 96.9 94 20 112/64 (80) 94 01/03/17 04:17 18 01/03/17 00:30 98.0 78 18 132/67 (88) 93 01/02/17 20:24 94 21 01/02/17 20:23 95.4 94 19 155/80 (105) 96 I/O 01/02/17 01/02/17 01/02/17 01/03/17 01/03/17 01/03/17 07:00 15:00 23:00 07:00 15:00 23:00 Intake Total 700 ml 1800 ml 550 ml 460 ml Output Total 1950 ml 1200 ml 600 ml Balance -1250 ml 600 ml 550 ml -140 ml Intake Oral 1800 ml 460 ml Packed Cells 700 ml Other 550 ml Output Urine Total 1950 ml 1200 ml 600 ml # Bowel Movements 0 1 Result Diagram: 01/03/17 1235 01/03/17 1235 Objective Remarks GENERAL: NAD, A&Ox3 HEAD: Normocephalic. NECK: Supple, trachea midline. No lymphadenopathy. EYES: No scleral icterus. No injection or drainage. CARDIOVASCULAR: Regular rate and rhythm without murmurs, gallops, or rubs. RESPIRATORY: Breath sounds equal bilaterally. No accessory muscle use. GASTROINTESTINAL: Abdomen soft, non-tender, nondistended. MUSCULOSKELETAL: No cyanosis, or edema. SKIN: Warm and dry. NEURO: No focal neurological deficitis. A/P Problem List: (1) Anemia ICD Code: D64.9 - Anemia, unspecified Status: Acute (2) Hyponatremia ICD Code: E87.1 - Hyponatremia Status: Acute Assessment and Plan Assessment and Plan 81-year-old male admitted secondary to symptomatic anemia Acute anemia Patient was transfused 2 units packed red bloods for this. Continue pantoprazole EGD shows no immediate pathology Etiology may be related to alcohol Follow CBC Continue iron supplements GI following Chronic alcohol abuse [place] protocol Continue folic acid, thiamine, and multivitamins COPD Incentive spirometry Schedule duo nebs and duo nebs as needed Lower extremity edema Daily Lasix Follow clinically Hypertension Continue amlodipine Continue metoprolol Follow blood pressures Hyperlipidemia No change to baseline treatment Follows in outpatient Hyponatremia May be Alcohol-related Chronic Monitor sodium levels RIGHT great toe open wound Podiatry as an outpatient Continue wound care DVT prophylaxis SCDs Discharge planning Patient qualifies for usp facility, this is recommended to him At this point patient is not interested in the usp facility and he is not quite safe for discharge back to home Problem Qualifiers (1) Anemia: Erich Navarro MD Jan 03, 2017 18:39
--- NOTE | 2017-01-03 18:39 | HHI.PR ---
Subjective Remarks EGD showed no acute pathology. He has been cleared from GI standpoint. She is not ambulating well and PT has recommended inpatient rehabilitation. At this point the patient does not want to go to a fdc facility and would rather go home area is not safe to go home yet. Objective Vital Signs Date Time Temp Pulse Resp B/P (MAP) Pulse Ox O2 Delivery O2 Flow Rate FiO2 01/03/17 16:00 97.0 83 16 121/76 (91) 96 01/03/17 12:00 95.8 81 18 121/81 (94) 93 01/03/17 11:00 93 Room Air 01/03/17 10:00 95.9 74 17 139/76 (97) 93 01/03/17 09:15 96.9 94 20 112/64 (80) 94 01/03/17 04:17 18 01/03/17 00:30 98.0 78 18 132/67 (88) 93 01/02/17 20:24 94 21 01/02/17 20:23 95.4 94 19 155/80 (105) 96 I/O 01/02/17 01/02/17 01/02/17 01/03/17 01/03/17 01/03/17 07:00 15:00 23:00 07:00 15:00 23:00 Intake Total 700 ml 1800 ml 550 ml 460 ml Output Total 1950 ml 1200 ml 600 ml Balance -1250 ml 600 ml 550 ml -140 ml Intake Oral 1800 ml 460 ml Packed Cells 700 ml Other 550 ml Output Urine Total 1950 ml 1200 ml 600 ml # Bowel Movements 0 1 Result Diagram: 01/03/17 1235 01/03/17 1235 Objective Remarks GENERAL: NAD, A&Ox3 HEAD: Normocephalic. NECK: Supple, trachea midline. No lymphadenopathy. EYES: No scleral icterus. No injection or drainage. CARDIOVASCULAR: Regular rate and rhythm without murmurs, gallops, or rubs. RESPIRATORY: Breath sounds equal bilaterally. No accessory muscle use. GASTROINTESTINAL: Abdomen soft, non-tender, nondistended. MUSCULOSKELETAL: No cyanosis, or edema. SKIN: Warm and dry. NEURO: No focal neurological deficitis. A/P Problem List: (1) Anemia ICD Code: D64.9 - Anemia, unspecified Status: Acute (2) Hyponatremia ICD Code: E87.1 - Hyponatremia Status: Acute Assessment and Plan Assessment and Plan 81-year-old male admitted secondary to symptomatic anemia Acute anemia Patient was transfused 2 units packed red bloods for this. Continue pantoprazole EGD shows no immediate pathology Etiology may be related to alcohol Follow CBC Continue iron supplements GI following Chronic alcohol abuse Sewall protocol Continue folic acid, thiamine, and multivitamins COPD Incentive spirometry Schedule duo nebs and duo nebs as needed Lower extremity edema Daily Lasix Follow clinically Hypertension Continue amlodipine Continue metoprolol Follow blood pressures Hyperlipidemia No change to baseline treatment Follows in outpatient Hyponatremia May be Alcohol-related Chronic Monitor sodium levels RIGHT great toe open wound Podiatry as an outpatient Continue wound care DVT prophylaxis SCDs Discharge planning Patient qualifies for fdc facility, this is recommended to him At this point patient is not interested in the fdc facility and he is not quite safe for discharge back to home Problem Qualifiers (1) Anemia: Erich Navarro MD Jan 03, 2017 18:39
--- NOTE | 2017-01-03 18:39 | HHI.PR ---
Subjective Remarks EGD showed no acute pathology. He has been cleared from GI standpoint. She is not ambulating well and PT has recommended inpatient rehabilitation. At this point the patient does not want to go to a intermediate facility and would rather go home area is not safe to go home yet. Objective Vital Signs Date Time Temp Pulse Resp B/P (MAP) Pulse Ox O2 Delivery O2 Flow Rate FiO2 01/03/17 16:00 97.0 83 16 121/76 (91) 96 01/03/17 12:00 95.8 81 18 121/81 (94) 93 01/03/17 11:00 93 Room Air 01/03/17 10:00 95.9 74 17 139/76 (97) 93 01/03/17 09:15 96.9 94 20 112/64 (80) 94 01/03/17 04:17 18 01/03/17 00:30 98.0 78 18 132/67 (88) 93 01/02/17 20:24 94 21 01/02/17 20:23 95.4 94 19 155/80 (105) 96 I/O 01/02/17 01/02/17 01/02/17 01/03/17 01/03/17 01/03/17 07:00 15:00 23:00 07:00 15:00 23:00 Intake Total 700 ml 1800 ml 550 ml 460 ml Output Total 1950 ml 1200 ml 600 ml Balance -1250 ml 600 ml 550 ml -140 ml Intake Oral 1800 ml 460 ml Packed Cells 700 ml Other 550 ml Output Urine Total 1950 ml 1200 ml 600 ml # Bowel Movements 0 1 Result Diagram: 01/03/17 1235 01/03/17 1235 Objective Remarks GENERAL: NAD, A&Ox3 HEAD: Normocephalic. NECK: Supple, trachea midline. No lymphadenopathy. EYES: No scleral icterus. No injection or drainage. CARDIOVASCULAR: Regular rate and rhythm without murmurs, gallops, or rubs. RESPIRATORY: Breath sounds equal bilaterally. No accessory muscle use. GASTROINTESTINAL: Abdomen soft, non-tender, nondistended. MUSCULOSKELETAL: No cyanosis, or edema. SKIN: Warm and dry. NEURO: No focal neurological deficitis. A/P Problem List: (1) Anemia ICD Code: D64.9 - Anemia, unspecified Status: Acute (2) Hyponatremia ICD Code: E87.1 - Hyponatremia Status: Acute Assessment and Plan Assessment and Plan 81-year-old male admitted secondary to symptomatic anemia Acute anemia Patient was transfused 2 units packed red bloods for this. Continue pantoprazole EGD shows no immediate pathology Etiology may be related to alcohol Follow CBC Continue iron supplements GI following Chronic alcohol abuse Sewall protocol Continue folic acid, thiamine, and multivitamins COPD Incentive spirometry Schedule duo nebs and duo nebs as needed Lower extremity edema Daily Lasix Follow clinically Hypertension Continue amlodipine Continue metoprolol Follow blood pressures Hyperlipidemia No change to baseline treatment Follows in outpatient Hyponatremia May be Alcohol-related Chronic Monitor sodium levels RIGHT great toe open wound Podiatry as an outpatient Continue wound care DVT prophylaxis SCDs Discharge planning Patient qualifies for intermediate facility, this is recommended to him At this point patient is not interested in the intermediate facility and he is not quite safe for discharge back to home Problem Qualifiers (1) Anemia: Erich Navarro MD Jan 03, 2017 18:39
[2017-01-03 19:26] VITALS: O2SAT 92
[2017-01-03 20:00] VITALS: BP 120/79; PULSE 88; RESP 22; TEMP 97; O2SAT 94
[2017-01-03] MEDS: traZODone HCL 50 MG TAB PO SCH ×2 (20:39)
[2017-01-03] MEDS: LATANOPROST 0.005% OPHT SOLN 2.5 ML BTL EACH EYE SCH ×2 (20:42)
[2017-01-04] VITALS (16 sets, daily range): BP systolic 110–158; BP diastolic 66–95; PULSE 76–111; RESP 16–22; TEMP 95.7–96.7; O2SAT 90–98
[2017-01-04] MEDS: RESP: ALBUTEROL 2.5 MG/IPRATROPIUM 0.5 MG NEB (PRN) NEB ×4 (00:01→18:11)
[2017-01-04] MEDS: traMADol HCL 50 MG TAB PO PRN ×4 (07:57→17:02)
[2017-01-04] MEDS: amLODIPine BESYLATE 5 MG TAB PO SCH ×2 (07:57)
[2017-01-04] MEDS: FOLIC ACID 1 MG TAB PO SCH ×2 (07:57)
[2017-01-04] MEDS: FERROUS SULFATE 325 MG (65 MG ELEMENTAL IRON) TAB PO SCH ×2 (07:57)
[2017-01-04] MEDS: GABAPENTIN 100 MG CAP PO SCH ×6 (07:57→17:02)
[2017-01-04] MEDS: THIAMINE HCL 100 MG TAB PO SCH ×2 (07:58)
[2017-01-04] MEDS: DOCUSATE SODIUM 50 MG/SENNA 8.6 MG TAB PO SCH ×4 (07:58→20:43)
[2017-01-04] MEDS: METOPROLOL TARTRATE 25 MG TAB PO SCH ×4 (07:58→20:42)
[2017-01-04] MEDS: MULTIVITAMINS/MINERALS THERAPEUTIC TAB PO SCH ×2 (07:58)
[2017-01-04] MEDS: PANTOPRAZOLE SODIUM 40 MG VIAL IV PUSH SCH ×4 (07:58→20:43)
[2017-01-04] MEDS: FUROSEMIDE 20 MG/2 ML VIAL IV PUSH SCH ×2 (07:58)
[2017-01-04] MEDS: SODIUM CHLORIDE 0.9% FLUSH 10 ML FLUSH IV FLUSH SCH ×4 (07:59→20:43)
[2017-01-04 08:30] LABS: AUTOMATED NEUTROPHIL # 3.5 TH/MM3 (1.8-7.7); BASOPHIL # 0.2 TH/MM3 (0-0.2); BASOPHIL % 3.8 % (0.0-2.0); EOSINOPHIL # 0.5 TH/MM3 (0-0.4); HEMATOCRIT 21.5 % (39.0-51.0); HEMOGLOBIN 7.5 GM/DL (13.0-17.0); LYMPH % 30.9 % (9.0-44.0); MEAN CELL VOLUME 90.1 FL (80.0-100.0); MEAN CORPUSCULAR HEMOGLOBIN 31.3 PG (27.0-34.0); MEAN CORPUSCULAR HGB CONC 34.7 % (32.0-36.0); MEAN PLATELET VOLUME 8.4 FL (7.0-11.0); MONO % 4.8 % (0.0-8.0); MONOCYTE # 0.3 TH/MM3 (0-0.9); NEUT % 53.5 % (16.0-70.0); PLATELET COUNT 65 TH/MM3 (150-450); RED BLOOD COUNT 2.39 MIL/MM3 (4.50-5.90); RED CELL DISTRIBUTION WIDTH 22.6 % (11.6-17.2); WHITE BLOOD COUNT 6.6 TH/MM3 (4.0-11.0)
[2017-01-04] MEDS: RESP: ALBUTEROL 2.5 MG/IPRATROPIUM 0.5 MG NEB (SCH) NEB ×6 (08:40→21:15)
[2017-01-04 08:54] LABS: ALBUMIN 3.4 GM/DL (3.4-5.0); AST (GOT) 33 U/L (15-37); BICARBONATE 27.6 MEQ/L (21.0-32.0); BLOOD UREA NITROGEN 33 MG/DL (7-18); CALCIUM 8.2 MG/DL (8.5-10.1); CHLORIDE 99 MEQ/L (98-107); CREATININE 1.72 MG/DL (0.60-1.30); GLOMERULAR FILTRATION RATE 38 ML/MIN (>89); GLUCOSE,RANDOM 86 MG/DL (74-106); SODIUM (NA) 134 MEQ/L (136-145)
[2017-01-04 08:57] LABS: ALKALINE PHOSPHATASE 79 U/L (45-117); ALT (GPT) 24 U/L (12-78); TOTAL BILIRUBIN ADULT 0.5 MG/DL (0.2-1.0); TOTAL PROTEIN 6.8 GM/DL (6.4-8.2)
[2017-01-04] MEDS ORDERED: SODIUM CHLOR 0.9% 250 ML INJ 250 ML IV ONE ×2 (09:30)
[2017-01-04 10:44] LABS: BANDS 10 % (0-6); BASOPHILS 1 % (0-2); LYMPHOCYTES 21 % (9-44); MONOCYTES 14 % (0-8); POLYS (SEG NEUTROPHILS) 51 % (16-70)
[2017-01-04 10:46] LABS: ACANTHOCYTES 1+ (NORMAL)
--- NOTE | 2017-01-04 12:58 | HHI.GIFU ---
Subjective Remarks Resting on side of bed, getting nebulizer treatment. No obvious active bleeding. Tolerating diet. No n/v/abdominal pain. Objective Vitals I&O Vital Signs Date Time Temp Pulse Resp B/P (MAP) Pulse Ox O2 Delivery O2 Flow Rate FiO2 01/04/17 12:00 95.7 83 19 110/74 (86) 94 01/04/17 08:42 96 2.00 01/04/17 08:10 Nasal Cannula 2.00 01/04/17 08:00 96.4 83 18 158/95 (116) 92 01/04/17 04:00 96.5 76 22 123/72 (89) 95 01/04/17 00:01 90 01/04/17 00:00 96.6 86 22 123/66 (85) 95 01/03/17 21:41 20 01/03/17 20:00 97.0 88 22 120/79 (93) 94 01/03/17 19:40 Room Air 01/03/17 19:26 92 21 01/03/17 16:00 97.0 83 16 121/76 (91) 96 I/O 01/03/17 01/03/17 01/03/17 01/04/17 01/04/17 01/04/17 07:00 15:00 23:00 07:00 15:00 23:00 Intake Total 550 ml 1260 ml 320 ml Output Total 600 ml 550 ml Balance 550 ml 660 ml -230 ml Intake Oral 460 ml 320 ml IV Total 800 ml Other 550 ml Output Urine Total 600 ml 550 ml # Bowel Movements 1 0 Laboratory Laboratory Tests Test 01/04/17 07:37 White Blood Count 6.6 Red Blood Count 2.39 Hemoglobin 7.5 Hematocrit 21.5 Mean Corpuscular Volume 90.1 Mean Corpuscular Hemoglobin 31.3 Mean Corpuscular Hemoglobin Concent 34.7 Red Cell Distribution Width 22.6 Platelet Count 65 Mean Platelet Volume 8.4 Neutrophils (%) (Auto) 53.5 Lymphocytes (%) (Auto) 30.9 Monocytes (%) (Auto) 4.8 Eosinophils (%) (Auto) 7.0 Basophils (%) (Auto) 3.8 Neutrophils # (Auto) 3.5 Lymphocytes # (Auto) 2.0 Monocytes # (Auto) 0.3 Eosinophils # (Auto) 0.5 Basophils # (Auto) 0.2 CBC Comment AUTO DIFF Differential Total Cells Counted 100 Neutrophils % (Manual) 51 Band Neutrophils % 10 Lymphocytes % 21 Monocytes % 14 Eosinophils % 3 Basophils % 1 Neutrophils # (Manual) 4.0 Differential Comment FINAL DIFF MANUAL Platelet Estimate LOW Platelet Morphology Comment NORMAL Basophilic Stippling FAINT Acanthocytes 1+ Blood Urea Nitrogen 33 Creatinine 1.72 Random Glucose 86 Total Protein 6.8 Albumin 3.4 Calcium Level 8.2 Alkaline Phosphatase 79 Aspartate Amino Transf (AST/SGOT) 33 Alanine Aminotransferase (ALT/SGPT) 24 Total Bilirubin 0.5 Sodium Level 134 Potassium Level 4.0 Chloride Level 99 Carbon Dioxide Level 27.6 Anion Gap 7 Estimat Glomerular Filtration Rate 38 Imaging Last Impressions Chest X-Ray 01/01/17 1450 Signed Impressions: Service Date/Time: Sunday, January 01, 2017 15:03 - CONCLUSION: No acute disease. Hayes Young Jr., MD Physical Exam HEENT: Normocephalic; atraumatic; no jaundice. CHEST: Expiratory wheezing, getting nebs CARDIAC: RRR ABDOMEN: Soft, nondistended, nontender; no hepatosplenomegaly; bowel sounds are present in all four quadrants. EXTREMITIES: Generalized edema. SKIN: Normal; no rash; no jaundice. 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 Assessment and Plan Plan ASSESSMENT: - Severe anemia. HH 6.0/17.9 on admission. (+) NSAID use, not on a regular basis, but as needed for back pain. States he will take as directed for 2-3 days at a time. Drinks daily, states 2-3 drinks per day. Family states 8-9 daily. EGD/Colonoscopy (04/19/13)---> lindsey's esophagus, hiatus hernia, mild antritis, diverticular disease, mild radiation proctitis. Pathology with benign antral type gastric mucosa with no significant histopathology, a jono stain is negative for helicobacter organisms, benign gastric and intestinalized mucosa consistent with lindsey's esophagus of distal esophagus. HH stable. S/P EGD/ Colonoscopy (01/03/17)---> Barretts esophagus and gastritis. No bleeding source. Colonoscopy showed diverticulosis and three diminutive polyps no bleeding source. No cancer seen. S/P 2 units PRBC. H/H slowly trending down. Pt reports that he has always been anemic. HH 7.5/21.5. No obvious blood loss. Will get SBFT and plan for capsule endoscopy as outpt. - Isolated elevation of t. bilirubin, undetermined significance. Normalized - THA. Hyperlipidemia, HTN, Chronic back pain per attending. PLAN: - Heart healthy diet as tolerated - Await pathology - Cont. PPI - SBFT - Monitor labs - Capsule endoscopy as outpatient - FU GORDO 2 weeks - Further recommendations to follow based on results of above - PT seen and examined by Dr. Law and myself and this note is written on his behalf Martha Nolen Jan 04, 2017 12:58
[2017-01-04] MEDS ORDERED: MAGNESIUM CITRATE SOLN 300 ML BTL PO ONE ×4 (14:00→18:00)
[2017-01-04] MEDS: BISACODYL EC 5 MG TABEC PO SCH ×4 (17:02→20:42)
--- NOTE | 2017-01-04 17:25 | HHI.PR ---
Subjective Remarks Downward trend in hemoglobin. Blood transfusion is needed again today. No complaints from the patient. Objective Vital Signs Date Time Temp Pulse Resp B/P (MAP) Pulse Ox O2 Delivery O2 Flow Rate FiO2 01/04/17 17:05 96.7 88 18 135/72 96 01/04/17 16:00 96.0 111 16 139/77 (97) 93 01/04/17 13:43 96.0 85 18 137/78 97 01/04/17 13:21 96.2 88 17 110/72 98 01/04/17 12:00 95.7 83 19 110/74 (86) 94 01/04/17 08:42 96 2.00 01/04/17 08:10 Nasal Cannula 2.00 01/04/17 08:00 96.4 83 18 158/95 (116) 92 01/04/17 04:00 96.5 76 22 123/72 (89) 95 01/04/17 00:01 90 01/04/17 00:00 96.6 86 22 123/66 (85) 95 01/03/17 21:41 20 01/03/17 20:00 97.0 88 22 120/79 (93) 94 01/03/17 19:40 Room Air 01/03/17 19:26 92 21 I/O 01/03/17 01/03/17 01/03/17 01/04/17 01/04/17 01/04/17 07:00 15:00 23:00 07:00 15:00 23:00 Intake Total 550 ml 1260 ml 320 ml 197 ml Output Total 600 ml 550 ml Balance 550 ml 660 ml -230 ml 197 ml Intake Oral 460 ml 320 ml IV Total 800 ml Packed Cells 197 ml Other 550 ml Output Urine Total 600 ml 550 ml # Bowel Movements 1 0 Result Diagram: 01/04/1737 01/04/17736 Objective Remarks GENERAL: NAD, A&Ox3 HEAD: Normocephalic. NECK: Supple, trachea midline. No lymphadenopathy. EYES: No scleral icterus. No injection or drainage. CARDIOVASCULAR: Regular rate and rhythm without murmurs, gallops, or rubs. RESPIRATORY: Breath sounds equal bilaterally. No accessory muscle use. GASTROINTESTINAL: Abdomen soft, non-tender, nondistended. MUSCULOSKELETAL: No cyanosis, or edema. SKIN: Warm and dry. NEURO: No focal neurological deficitis. A/P Problem List: (1) Anemia ICD Code: D64.9 - Anemia, unspecified Status: Acute (2) Hyponatremia ICD Code: E87.1 - Hyponatremia Status: Acute Assessment and Plan Assessment and Plan 81-year-old male admitted secondary to symptomatic anemia. Hemoglobin does not yet show stability. Repeat transfusion today of 2 units. Acute anemia Patient was transfused 2 units packed red bloods on 01/01/17 Transfuse 2 units of packed red blood cells 01/04/17 Continue pantoprazole EGD shows no immediate pathology Etiology may be related to alcohol Follow CBC Continue iron supplements GI following Chronic alcohol abuse Sewall protocol Continue folic acid, thiamine, and multivitamins COPD Incentive spirometry Schedule duo nebs and duo nebs as needed Lower extremity edema Daily Lasix Follow clinically Hypertension Continue amlodipine Continue metoprolol Follow blood pressures Hyperlipidemia No change to baseline treatment Follows in outpatient Hyponatremia May be Alcohol-related Chronic Monitor sodium levels RIGHT great toe open wound Podiatry as an outpatient Continue wound care DVT prophylaxis SCDs Discharge planning Patient qualifies for custodial facility, this is recommended to him At this point patient is not interested in the custodial facility and he is not quite safe for discharge back to home Problem Qualifiers (1) Anemia: Erich Navarro MD Jan 04, 2017 17:25
[2017-01-04] MEDS ORDERED: FUROSEMIDE 20 MG/2 ML VIAL IV PUSH ONE ×2 (18:30)
[2017-01-04] MEDS: methylPREDNISolone SOD SUCC 40 MG/1 ML VIAL IV PUSH SCH ×4 (19:05→20:54)
[2017-01-04] MEDS: traZODone HCL 50 MG TAB PO SCH ×2 (20:41)
[2017-01-04] MEDS: LATANOPROST 0.005% OPHT SOLN 2.5 ML BTL EACH EYE SCH ×2 (20:54)
[2017-01-04] MEDS ORDERED: CALCIUM CARBONATE 500 MG CHEWABLE TAB CHEW PRN ×2 (23:00)
[2017-01-05] VITALS: BP 168/85; PULSE 95; RESP 20; TEMP 96.5; O2SAT 96
[2017-01-05 04:00] VITALS: BP 154/83; PULSE 89; RESP 20; TEMP 96.9; O2SAT 94
[2017-01-05 08:00] VITALS: BP 170/89; PULSE 91; RESP 22; TEMP 97.4; O2SAT 93
[2017-01-05 08:11] VITALS: O2SAT 93
[2017-01-05] MEDS: RESP: ALBUTEROL 2.5 MG/IPRATROPIUM 0.5 MG NEB (SCH) NEB ×4 (08:11→14:00)
[2017-01-05] MEDS: DOCUSATE SODIUM 50 MG/SENNA 8.6 MG TAB PO SCH ×2 (09:00)
[2017-01-05] MEDS: GABAPENTIN 100 MG CAP PO SCH ×4 (13:00→14:38)
[2017-01-05] MEDS: traMADol HCL 50 MG TAB PO PRN ×2 (14:36)
[2017-01-05] MEDS: FOLIC ACID 1 MG TAB PO SCH ×2 (14:37)
[2017-01-05] MEDS: THIAMINE HCL 100 MG TAB PO SCH ×2 (14:37)
[2017-01-05] MEDS: MULTIVITAMINS/MINERALS THERAPEUTIC TAB PO SCH ×2 (14:37)
[2017-01-05] MEDS: methylPREDNISolone SOD SUCC 40 MG/1 ML VIAL IV PUSH SCH ×2 (14:38)
[2017-01-05] MEDS: SODIUM CHLORIDE 0.9% FLUSH 10 ML FLUSH IV FLUSH SCH ×2 (14:38)
[2017-01-05] MEDS: FERROUS SULFATE 325 MG (65 MG ELEMENTAL IRON) TAB PO SCH ×2 (14:38)
[2017-01-05] MEDS: amLODIPine BESYLATE 5 MG TAB PO SCH ×2 (14:39)
[2017-01-05] MEDS: PANTOPRAZOLE SODIUM 40 MG VIAL IV PUSH SCH ×2 (14:39)
[2017-01-05] MEDS: METOPROLOL TARTRATE 25 MG TAB PO SCH ×2 (14:39)
[2017-01-05] MEDS: FUROSEMIDE 20 MG/2 ML VIAL IV PUSH SCH ×2 (14:40)
--- NOTE | 2017-01-05 14:47 | RADRPT ---
EXAM DATE/TIME: 01/05/2017 09:12 [facility] COMPARISON: No previous studies available for comparison. INDICATIONS : Anemia, blood in stool. FLUORO TIME: 1.0 minutes IMAGE COUNT: 18 CONTRAST: Entero Vu 24% Barium Sulfate (24% w/v, 20% w/w) IMAGING TIME(S): 15 min, 30 min, 45 min, 1 hr, 1.5 qdk6ovh, 4hrs MEDICAL HISTORY : Carcinoma, prostatic. Gastroesophageal reflux disease. Hypertension. anemia SURGICAL HISTORY : None. ENCOUNTER: Subsequent ACUITY: 4 - 6 days PAIN SCORE: 0/10 LOCATION: Bilateral abdomen FINDINGS: Preliminary film demonstrates advanced degenerative changes in lower lumbar spine and associated righ t lumbar scoliosis. Gas is diffusely present in non-distended loops of small bowel. Contrast is 1st seen in the small bowel at 15 minutes. At 30 minutes, there are multiple loops of je junum which are located in the right lower quadrant. Contrast remains in the right lower quadrant je junum on overhead images performed up to 2 hours. Contrast is seen in the ileum on the film performed at 4 hours, and the ileum is located in the left upper quadrant. The cecum is located in the right lower quadrant. Examination of the small bowel using compression fluoroscopy demonstrates a normal appearance the ter thee ileum, but the ileum proximal to the TI descends from above confirming that most of the ileum i s located in the left abdomen. CONCLUSION: 1. Normal mucosal pattern of the jejunum and ileum and no evidence of obstruction. 2. 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 The TI has a normal appearance and is in orthotopic position. Hyaes Cano MD on January 05, 2017 at 14:41 Board Certified Radiologist. This report was verified electronically.
[2017-01-05] MEDS ORDERED: ULTR50TA5 PO ×2 (15:51)
--- NOTE | 2017-01-05 16:01 | HHI.DS ---
Discharge Summary Admission Date Jan 01, 2017 at 16:35 Discharge Date: Jan 05, 2017 Admitting Diagnosis anemia, chronic alcohol abuse (1) Anemia ICD Code: D64.9 - Anemia, unspecified Diagnosis: Principal Status: Acute (2) Hyperlipidemia ICD Code: E78.5 - Hyperlipidemia Diagnosis: Secondary Status: Chronic (3) Hyponatremia ICD Code: E87.1 - Hyponatremia Diagnosis: Secondary Status: Acute (4) HTN (hypertension) ICD Code: I10 - HTN (hypertension) Diagnosis: Secondary Status: Chronic (5) Alcohol abuse ICD Code: F10.10 - Alcohol abuse Diagnosis: Secondary Status: Chronic (6) Chronic alcoholism ICD Code: F10.20 - Alcohol dependence, uncomplicated Diagnosis: Secondary Status: Acute (7) Chronic back pain ICD Code: G89.29 - Other chronic pain; M54.9 - Chronic back pain Diagnosis: Secondary Status: Acute (8) Gout ICD Code: M10.9 - Gout, unspecified Diagnosis: Secondary Status: Acute Procedures EGD Brief History - From Admission Patient is an 81-year-old male with primary medical history of alcohol abuse, HTN who initially came to the ED due to exacerbation of chronic low back pain. ED workup showed hemoglobin 6.0. Poor historian. Daughter at the bedside. Daughter states that patient has generalized weakness at home and family members are the one making his meals throughout the day. Increased low back pain but got relief when he was given pain medication in the ED. Daughter reports BLE worsening. He also has been bleeding from abrasions Bilat lower extremities. Daughter also mentioned that he is supposed to be seen by his primary care doctor within next week. States that he also missed 3 podiatry appointment. States left great toe has been swollen with open wound for the past month. No fevers, chills, nausea, vomiting, diarrhea. Denies trauma. Daughter states that patient drinks alcohol about 9 scotch drinks in a day. When asked who was giving him the alcohol. Daughter states that he calls people and have it delivered to him to the house, and including her. But states that they don't let her drive when he drinks. CBC/BMP: 01/04/17 0737 01/04/17 0737 Significant Findings Laboratory Tests Test 01/02/17 18:28 01/03/17 12:35 01/04/17 07:37 Hemoglobin 8.2 GM/DL (13.0-17.0) 7.6 GM/DL (13.0-17.0) 7.5 GM/DL (13.0-17.0) Hematocrit 24.1 % (39.0-51.0) 22.4 % (39.0-51.0) 21.5 % (39.0-51.0) Red Blood Count 2.49 MIL/MM3 (4.50-5.90) 2.39 MIL/MM3 (4.50-5.90) Red Cell Distribution Width 23.9 % (11.6-17.2) 22.6 % (11.6-17.2) Platelet Count 69 TH/MM3 (150-450) 65 TH/MM3 (150-450) Monocytes (%) (Auto) 9.1 % (0.0-8.0) Eosinophils (%) (Auto) 5.0 % (0.0-4.0) 7.0 % (0.0-4.0) Basophils (%) (Auto) 2.1 % (0.0-2.0) 3.8 % (0.0-2.0) Band Neutrophils % 10 % (0-6) 10 % (0-6) Monocytes % 11 % (0-8) 14 % (0-8) Metamyelocytes 3 % (0-1) Myelocytes 2 % (0-0) Blastocytes 2 % (0-0) Platelet Estimate LOW (NORMAL) LOW (NORMAL) Acanthocytes 1+ (NORMAL) 1+ (NORMAL) Keratocytes 1+ (NORMAL) Blood Urea Nitrogen 32 MG/DL (7-18) 33 MG/DL (7-18) Creatinine 1.48 MG/DL (0.60-1.30) 1.72 MG/DL (0.60-1.30) Random Glucose 115 MG/DL (74-106) Albumin 3.3 GM/DL (3.4-5.0) Calcium Level 8.0 MG/DL (8.5-10.1) 8.2 MG/DL (8.5-10.1) Sodium Level 134 MEQ/L (136-145) 134 MEQ/L (136-145) Estimat Glomerular Filtration Rate 46 ML/MIN (>89) 38 ML/MIN (>89) Eosinophils # (Auto) 0.5 TH/MM3 (0-0.4) Basophilic Stippling FAINT (NORMAL) PE at Discharge GENERAL: This is a well-nourished, well-developed patient, in no apparent distress. SKIN: Cool and dry. Bilateral lower extremity multiple ecchymosis. HEAD: Atraumatic. Normocephalic. No temporal or scalp tenderness. EYES: Pupils equal round and reactive. Extraocular motions intact. No scleral icterus. No injection or drainage. ENT: Nose without bleeding. Throat without erythema. Uvula midline. Airway patent. NECK: Trachea midline. CARDIOVASCULAR: Regular rate and rhythm without murmurs, gallops, or rubs. RESPIRATORY: Diminished. Expiratory wheezes. No rales, or rhonchi. GASTROINTESTINAL: Abdomen soft, non-tender, nondistended. No hepato-splenomegaly , or palpable masses. No guarding. MUSCULOSKELETAL: Extremities without clubbing, cyanosis. Bilateral lower extremity +3 edema. Left great toe open wound, rounding area without erythema, positive edema, wound bed pink and clean NEUROLOGICAL: Awake and alert. Motor and sensory grossly within normal limits. Normal speech. Hospital Course Mr. Gutierrez is an 81-year-old male. He came in secondary to back pain and was found to have severe anemia. Etiology for anemia May be related to alcohol abuse. EGD was performed and showed no acute pathology. Follow-through swallow study also shows no etiology. She was transfused 2 units at time of admit and had a slow taper in his hemoglobin levels so was transfused again 2 units yesterday. At this point is stable for transfer to inpatient rehabilitation to work further on his Global weakness. Stable for transfer to inpatient rehabilitation pending stable hemoglobin. Pt Condition on Discharge: Fair Discharge Disposition: Rehab Inpatient Discharge Time: > 30 minutes Discharge Instructions DIET: Follow Instructions for: As Tolerated, No Restrictions Activities you can perform: Regular-No Restrictions Follow up Referrals: Gastroenterology - 2 Weeks @ [facility] New Medications: Tramadol (Ultram) 50 Mg Tab 50 MG PO Q4H PRN for Pain, #30 TAB Continued Medications: Acetaminophen (Mapap) 325 Mg Tab 325 MG PO Q6HR PRN for ARTHRITIS PAIN, TAB 0 Refills Amlodipine (Amlodipine) 5 Mg Tab 5 MG PO DAILY for Blood Pressure Management, #30 TAB 0 Refills Cholestyramine (Questran) 4 Gm/Pkt Powd 4 GM PO BID PRN for DIARRHEA, #1 BOX 0 Refills 1 packet contains 4gm of cholestyramine. Diphenhydramine HCl (Diphedryl) 25 Mg Tablet 25 MG PO Q6HR PRN for ALLERGIES Docusate Sodium (Colace) 100 Mg Capsule 100 MG PO DAILY PRN for CONSTIPATION Ferrous Sulfate DR (Ferrous Sulfate DR) 324 Mg Tabdr 324 MG PO DAILY for Nutritional Supplement, #30 TAB 0 Refills Folic Acid (Folic Acid) 1 Mg Tablet 1 MG PO DAILY Gabapentin (Gabapentin) 100 Mg Cap 200 MG PO TID, #90 CAP 0 Refills Metoprolol Tartrate (Metoprolol Tartrate) 25 Mg Tab 25 MG PO BID, #60 TAB 0 Refills [place]-3 Fatty Acids (Fish Oil) 1,000 Mg Cap 1000 MG PO DAILY Pantoprazole (Pantoprazole) 40 Mg Tab 40 MG PO DAILY for Reflux, #30 TAB 0 Refills Psyllium Powder (Metamucil Original Texture) 48.57 % Pow 1 SCOOP PO DAILY PRN for CONSTIPATION, CONTAINER 0 Refills 1 rounded TEASPOON in 8 oz of liquid at the first sign of irregularity. Thiamine (Vitamin B-1) 100 Mg Tab 100 MG PO DAILY for Nutritional Supplement, TAB 0 Refills Travoprost Opth Drops (Travatan Z Opth Drops) 0.004 % Soln 1 DROP EACH EYE HS for Glaucoma, #1 BOTTLE 0 Refills Trazodone (Trazodone) 50 Mg Tab 50 MG PO HS for Control Depression, #30 TAB 0 Refills Discontinued Medications: Aspirin DR (Aspirin 81) 81 Mg Tabdr 81 MG PO DAILY, TAB 0 Refills Erich Navarro MD Jan 05, 2017 16:01
[2017-01-05 16:21] VITALS: BP 162/85; PULSE 95; RESP 18; TEMP 98.1; O2SAT 95
[2017-01-05 20:47] LABS: HEMATOCRIT 27.7 % (39.0-51.0); HEMOGLOBIN 9.2 GM/DL (13.0-17.0); MEAN CELL VOLUME 89.8 FL (80.0-100.0); MEAN CORPUSCULAR HEMOGLOBIN 29.7 PG (27.0-34.0); MEAN CORPUSCULAR HGB CONC 33.1 % (32.0-36.0); MEAN PLATELET VOLUME 7.9 FL (7.0-11.0); PLATELET COUNT 67 TH/MM3 (150-450); RED BLOOD COUNT 3.08 MIL/MM3 (4.50-5.90); RED CELL DISTRIBUTION WIDTH 22.4 % (11.6-17.2); WHITE BLOOD COUNT 7.8 TH/MM3 (4.0-11.0)
[2017-01-05 21:11] LABS: BICARBONATE 28.2 MEQ/L (21.0-32.0); CALCIUM 8.8 MG/DL (8.5-10.1); CREATININE 1.56 MG/DL (0.60-1.30)
[2017-01-06] MEDS ORDERED: SILVER NITR/POTASSIUM NITRATE APPLICATORS TOPICAL ONE ×2 (09:00)
== END 2017-01-05 17:18 | DRG 812 ==
LOC: NEPD 13:28 → NEDA 16:35 → N07B 17:40
PROVIDERS: ADMIT Hospitalist; ATTEND Hospitalist
PROC: 30233N1 Transfusion of Nonautologous Red Blood Cells into Peripheral Vein, Percutaneous Approach (ICD-10-PCS; principal; 2017-01-01)
PROC: 0DB38ZX Excision of Lower Esophagus, Via Natural or Artificial Opening Endoscopic, Diagnostic (ICD-10-PCS; 2017-01-03)
PROC: 0DB68ZX Excision of Stomach, Via Natural or Artificial Opening Endoscopic, Diagnostic (ICD-10-PCS; 2017-01-03)
PROC: 0DBL8ZX Excision of Transverse Colon, Via Natural or Artificial Opening Endoscopic, Diagnostic (ICD-10-PCS; 2017-01-03 08:00)
DX: D64.89 Other specified anemias (principal); N17.9 Acute kidney failure, unspecified; E87.1 Hypo-osmolality and hyponatremia; J44.9 Chronic obstructive pulmonary disease, unspecified; F10.20 Alcohol dependence, uncomplicated; K22.70 Barrett's esophagus without dysplasia; D12.3 Benign neoplasm of transverse colon; K57.30 Diverticulosis of large intestine without perforation or abscess without bleeding; K64.8 Other hemorrhoids; K29.70 Gastritis, unspecified, without bleeding; I10 Essential (primary) hypertension; E78.5 Hyperlipidemia, unspecified; G89.29 Other chronic pain; M54.5 Low back pain; M10.9 Gout, unspecified; S91.102A Unspecified open wound of left great toe without damage to nail, initial encounter; X58.XXXA Exposure to other specified factors, initial encounter; R60.0 Localized edema; Z87.891 Personal history of nicotine dependence; Z98.1 Arthrodesis status
CPT/HCPCS: 36430; 71010; 74250; 76937; 80048; 80053; 82550; 83036; 83735; 83880; 84100; 84439; 84443; 84484; 85007; 85014; 85018; 85027; 85610; 86850; 86900; 86901; 86920; 88305; 88312; 93005; 94640; 94664; 96372; 96374; C9113; J1100; J1940; J2270; J2405; J2550; J2920; J7030; J7050; P9016

== ENCOUNTER 2017-02-03 13:41 | Inpatient (IN) | payer MEDICARE, BC ==
[~2017-02-03] VITALS: Ht 182.9 cm; Wt 97.2 kg
[2017-02-03] VITALS (7 sets, daily range): BP systolic 116–136; BP diastolic 57–69; PULSE 84–92; RESP 16–25; TEMP 97.3–98.8; O2SAT 96–97
[~2017-02-03 13:41] MED LIST changes: +AMLO10 PO; -AMLO5TAB2 PO; -ASPI-110 PO; +Albuterol-Ipratropium Neb NEB; +CLON.2 PO; -COLA100C PO; +COLC0.6T PO; -FERR324T4 PO; +FERR325T20 PO; +FURO1TAB62 PO; +HYDR-3799 PO; +LATA.005%O EACH EYE; +LIDO1ADH4 T-DERMAL; -NAPR500 PO; +Nystatin Powder TOPICAL; +OXYC1TAB36 PO; +PERI PO; -PRED10 PO; +PRED20 PO; -ROBA750T PO; -SERT-132 PO; +THERTAB15 PO; +THIA100 PO; +TRAM50 PO; -TRAV0.00 EACH EYE; +TRAZ50TA12 PO; -VITA100T54 PO; -[UNRECOGNIZED DRUG - CODE] PO
--- NOTE | 2017-02-03 14:24 | PD ---
HPI Chief Complaint: Abnormal Results Time Seen by Provider: 14:22 Travel History International Travel<30 days: No Contact w/Intl Traveler<30days: No Traveled to known affect area: No History of Present Illness HPI 81-year-old male with history of chronic anemia followed by Dr. Thornton, is brought into the emergency department with reports of hemoglobin of 6. Patient is a local rehabilitation after being admitted for anemia several weeks ago. Patient's last hemoglobin here was 9.5, but that was after transfusion. Patient had full workup at that time including endoscopy and colonoscopy without finding source of bleeding. Patient recently was seen by Dr. Thornton, for evaluation for possible bone marrow biopsy. Patient has no pain but has generalized weakness and shortness of breath with exertion. He has history of MRSA, and allergies to morphine, sulfamethoxazole, and trimethoprim. PFSH Past Medical History Arthritis: Yes Asthma: No Autoimmune Disease: No Blood Disorders: No Heart Rhythm Problems: No Cancer: Yes (PROSTATE) Cardiovascular Problems: Yes High Cholesterol: Yes Chest Pain: No Congestive Heart Failure: No COPD: No Cerebrovascular Accident: No Diabetes: No Diminished Hearing: No Endocrine: No GERD: Yes Genitourinary: Yes Hiatal Hernia: No Hypertension: Yes Immune Disorder: No Kidney Stones: No Musculoskeletal: Yes Neurologic: No Psychiatric: No Reproductive: Yes Respiratory: No Migraines: No Radiation Therapy: Yes (SEED IMPLANTS) Renal Failure: No Seizures: No Sleep Apnea: No Thyroid Disease: No Ulcer: No Past Surgical History Abdominal Surgery: No AICD: No Arteriovenous Shunt: No Body Medical Devices: cervical spine fusion ,6,7 Cardiac Surgery: No Ear Surgery: No Endocrine Surgery: No Eye Surgery: Yes (BILATERAL CATARACTS) Genitourinary Surgery: Yes (RECTAL POLYPS) Gynecologic Surgery: No Joint Replacement: No Neurologic Surgery: Yes (cervical fusion 5,6,7 2010) Oral Surgery: No Pacemaker: No Thoracic Surgery: No Other Surgery: Yes (LUMBER SPINAL FUSION) Social History Alcohol Use: Yes (2 large scotch drinks daily "solo cup size" per daughter) Tobacco Use: No Substance Use: No Allergies-Medications (Allergen,Severity, Reaction): Coded Allergies: sulfamethoxazole (Unverified Allergy, Severe, RASH, 02/03/17) trimethoprim (Unverified Allergy, Severe, RASH, 02/03/17) morphine (Verified Adverse Reaction, Severe, Nausea/Vomiting, 02/03/17) *MDRO Multi-Drug Resistant Organism (Verified Adverse Reaction, Unknown, 02/03/17) 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 Reported Meds & Prescriptions Reported Meds & Active Scripts Active Oxycodone-Acetaminophen 10-325 (Oxycodone HCl/Acetaminophen) 10 Mg-325 Mg Tablet 1 Tab PO Q6H PRN Colcrys (Colchicine) 0.6 Mg Tab 0.6 Mg PO DAILY 30 Days Thera Tablet (Multivitamin with Folic Acid) 400 Mcg Tablet 1 Tab PO DAILY 30 Days Gnp Vitamin B-1 (Thiamine HCl) 100 Mg Tab 100 Mg PO DAILY 30 Days Folic Acid 1 Mg Tablet 1 Mg PO DAILY 30 Days Lidoderm (Lidocaine) 5 % Adh..patch 2 Patch T-DERMAL DAILY 30 Days Pantoprazole (Pantoprazole Sodium) 40 Mg Tab 40 Mg PO Q12HR 30 Days Gnp Senna Plus 8.6-50 mg (Sennosides-Docusate Sodium) 8.6 Mg-50 Mg Tab 1 Tab PO BID 30 Days Xalatan Opth Drops (Latanoprost) 0.005% Drops 1 Drop EACH EYE HS 30 Days Trazodone (Trazodone HCl) 50 Mg Tab 50 Mg PO HS 30 Days Norvasc (Amlodipine Besylate) 10 Mg Tab 10 Mg PO DAILY 30 Days Metoprolol Tartrate 25 Mg Tab 50 Mg PO BID 30 Days Hydralazine HCl 25 Mg Tablet 25 Mg PO Q8HR 30 Days Catapres (Clonidine) 0.2 Mg Tab 0.2 Mg PO Q6H PRN 30 Days Ferosul (Ferrous Sulfate) 325 Mg (65 Mg Iron) Tablet 325 Mg PO DAILY 30 Days Reported Duoneb (Ipratropium-Albuterol Neb) 0.5-2.5 Mg/3 Ml Neb 3 Ml NEB Q8HR PRN Gabapentin 100 Mg Cap 200 Mg PO TID Mapap (Acetaminophen) 325 Mg Tab 650 Mg PO Q4HR PRN Review of Systems Except as stated in HPI: all other systems reviewed are Neg General / Constitutional: No: Fever Eyes: No: Visual changes HENT: No: Headaches Cardiovascular: No: Chest Pain or Discomfort Respiratory: No: Shortness of Breath Gastrointestinal: No: Abdominal Pain Genitourinary: No: Dysuria Musculoskeletal: No: Pain Skin: No Rash Neurologic: No: Weakness Psychiatric: No: Depression Endocrine: No: Polydipsia Hematologic/Lymphatic: No: Easy Bruising Physical Exam Narrative GENERAL: Patient appears in no acute distress. SKIN: Warm and dry. Obvious pallor. Normal turgor. HEAD: Atraumatic. Normocephalic. EYES: Pupils equal and round. No scleral icterus. No injection or drainage. Decreased conjunctival pallor. ENT: No nasal bleeding or discharge. Mucous membranes pink and moist. Pharynx is clear. Airway is patent. NECK: Trachea midline. No JVD. Supple and nontender. CARDIOVASCULAR: Regular rate and rhythm. No murmurs gallops or rubs appreciated. RESPIRATORY: No accessory muscle use. Clear to auscultation. Breath sounds equal bilaterally. GASTROINTESTINAL: Abdomen soft, non-tender, nondistended. Hepatic and splenic margins not palpable. MUSCULOSKELETAL: Extremities without clubbing, cyanosis, or edema. No obvious deformities. NEUROLOGICAL: Awake and alert. No obvious cranial nerve deficits. Motor grossly within normal limits. Five out of 5 muscle strength in the arms and legs. Normal speech. PSYCHIATRIC: Appropriate mood and affect; insight and judgment normal. Data Data Last Documented VS Vital Signs Date Time Temp Pulse Resp B/P (MAP) Pulse Ox O2 Delivery O2 Flow Rate FiO2 02/03/17 13:42 97.7 84 16 136/62 (86) 97 Orders Orders Type And Screen (02/03/17 14:28) Red Blood Cells (Rbc) (02/03/17 14:28) Complete Blood Count With Diff (02/03/17 14:28) Comprehensive Metabolic Panel (02/03/17 14:28) Prothrombin Time / Inr (Pt) (02/03/17 14:28) Act Partial Throm Time (Ptt) (02/03/17 14:28) Iv Access Insert/Monitor (02/03/17 14:28) Ecg Monitoring (02/03/17 14:28) Oximetry (02/03/17 14:28) Sodium Chloride 0.9% Flush (Ns Flush) (02/03/17 14:30) Electrocardiogram (02/03/17 14:28) Chest, Single Ap (02/03/17 14:28) Blood Product Administration (02/03/17 16:02) Sodium Chlor 0.9% 250 Ml Inj (Ns 250 Ml (02/03/17 16:15) Diphenhydramine (Benadryl) (02/03/17 16:15) Diphenhydramine (Benadryl) (02/03/17 16:15) Acetaminophen (Tylenol) (02/03/17 16:15) Acetaminophen (Tylenol) (02/03/17 16:15) Admit Order (Ed Use Only) (02/03/17 16:37) Labs Laboratory Tests Test 02/03/17 14:25 White Blood Count 5.8 TH/MM3 Red Blood Count 2.33 MIL/MM3 Hemoglobin 6.9 GM/DL Hematocrit 20.3 % Mean Corpuscular Volume 87.1 FL Mean Corpuscular Hemoglobin 29.8 PG Mean Corpuscular Hemoglobin Concent 34.2 % Red Cell Distribution Width 19.7 % Platelet Count 36 TH/MM3 Mean Platelet Volume 11.5 FL Neutrophils (%) (Auto) 41.9 % Lymphocytes (%) (Auto) 33.6 % Monocytes (%) (Auto) 5.4 % Eosinophils (%) (Auto) 17.4 % Basophils (%) (Auto) 1.7 % Neutrophils # (Auto) 2.4 TH/MM3 Lymphocytes # (Auto) 2.0 TH/MM3 Monocytes # (Auto) 0.3 TH/MM3 Eosinophils # (Auto) 1.0 TH/MM3 Basophils # (Auto) 0.1 TH/MM3 CBC Comment AUTO DIFF Differential Total Cells Counted 100 Neutrophils % (Manual) 37 % Band Neutrophils % 8 % Lymphocytes % 23 % Monocytes % 4 % Eosinophils % 4 % Basophils % 1 % Other Cells % 5 % Neutrophils # (Manual) 3.6 TH/MM3 Metamyelocytes 14 % Myelocytes 2 % Promyelocytes 1 % Differential Comment FINAL DIFF MANUAL Atypical Lymphocytes % Blastocytes 1 % Platelet Estimate LOW Platelet Morphology Comment NORMAL Ovalocytes 1+ Helmet Cells OCC [place] Cells 1+ Keratocytes OCC Prothrombin Time 10.7 SEC Prothromb Time International Ratio 1.0 RATIO Activated Partial Thromboplast Time 24.5 SEC Blood Urea Nitrogen 31 MG/DL Creatinine 2.50 MG/DL Random Glucose 93 MG/DL Total Protein 6.3 GM/DL Albumin 2.6 GM/DL Calcium Level 8.0 MG/DL Alkaline Phosphatase 81 U/L Aspartate Amino Transf (AST/SGOT) 22 U/L Alanine Aminotransferase (ALT/SGPT) 27 U/L Total Bilirubin 0.4 MG/DL Sodium Level 137 MEQ/L Potassium Level 4.3 MEQ/L Chloride Level 102 MEQ/L Carbon Dioxide Level 28.7 MEQ/L Anion Gap 6 MEQ/L Estimat Glomerular Filtration Rate 25 ML/MIN [facility] Medical Decision Making Medical Screen Exam Complete: Yes Emergency Medical Condition: Yes Medical Record Reviewed: Yes Differential Diagnosis Acute on chronic anemia. Weakness. Dyspnea with exertion. Need for transfusion. Narrative Course Patient appears medically stable at time of exam. Labs ordered including CBC, CMP, PT/PTT and INR. EKG and chest x-ray are ordered. Type and screen, and 2 units RBCs ordered. EKG shows normal sinus rhythm. CBC significant for hemoglobin of 6.9, hematocrit of 20.3. Coagulation is normal. Chemistry significant for BUN of 31, creatinine of 2.50 which is significantly elevated from previous. His estimated 25. Calcium is 8.0, protein 6.3, albumin is 2.6. Chest x-ray is unremarkable. Call hospitalist for admission. 2 units of blood are ordered for transfusion. Diagnosis Primary Impression: Anemia Qualified Codes: D64.9 - Anemia, unspecified Additional Impression: Acute kidney injury Admitting Information Admitting Physician Requests: Admit Condition: Stable Wally Caballero Feb 03, 2017 14:24
[2017-02-03] MEDS ORDERED: SODIUM CHLORIDE 0.9% FLUSH 10 ML FLUSH IV FLUSH PRN ×2 (14:30→18:00)
[2017-02-03 14:59] LABS: AUTOMATED NEUTROPHIL # 2.4 TH/MM3 (1.8-7.7); BASOPHIL # 0.1 TH/MM3 (0-0.2); BASOPHIL % 1.7 % (0.0-2.0); EOSINOPHIL % 17.4 % (0.0-4.0); LYMPH % 33.6 % (9.0-44.0); MEAN CELL VOLUME 87.1 FL (80.0-100.0); MEAN CORPUSCULAR HEMOGLOBIN 29.8 PG (27.0-34.0); MEAN CORPUSCULAR HGB CONC 34.2 % (32.0-36.0); MONO % 5.4 % (0.0-8.0); NEUT % 41.9 % (16.0-70.0); PLATELET COUNT 36 TH/MM3 (150-450); RED BLOOD COUNT 2.33 MIL/MM3 (4.50-5.90); RED CELL DISTRIBUTION WIDTH 19.7 % (11.6-17.2); WHITE BLOOD COUNT 5.8 TH/MM3 (4.0-11.0)
[2017-02-03 15:07] LABS: PROTHROMBIN TIME - PATIENT 10.7 SEC (9.8-11.6)
[2017-02-03] MEDS ORDERED: IPRASOL NEB (15:08)
[2017-02-03 15:12] LABS: ALT (GPT) 27 U/L (12-78)
[2017-02-03 15:15] LABS: ALKALINE PHOSPHATASE 81 U/L (45-117); TOTAL BILIRUBIN ADULT 0.4 MG/DL (0.2-1.0)
[2017-02-03 15:18] LABS: APTT (PATIENT) 24.5 SEC (24.3-30.1)
--- NOTE | 2017-02-03 15:18 | RADRPT ---
EXAM DATE/TIME: 02/03/2017 15:00 [place] COMPARISON: No previous studies available for comparison. INDICATIONS : Shortness of breath. MEDICAL HISTORY : None. SURGICAL HISTORY : None. ENCOUNTER: Initial ACUITY: 1 day PAIN SCORE: 0/10 LOCATION: Bilateral chest FINDINGS: A single view of the chest demonstrates the lungs to be symmetrically aerated without evidence of mas s, infiltrate or effusion. The cardiomediastinal contours are unremarkable. Osseous structures are intact. CONCLUSION: Normal examination. Kody Johnson MD on February 03, 2017 at 15:16 Board Certified Radiologist. This report was verified electronically.
[2017-02-03 15:29] LABS: HEMO FLAGS AUTO DIFF
[2017-02-03 15:31] LABS: HEMATOCRIT 20.3 % (39.0-51.0)
[2017-02-03 15:43] LABS: ANION GAP 6 MEQ/L (5-15); AST (GOT) 22 U/L (15-37); BICARBONATE 28.7 MEQ/L (21.0-32.0); BLOOD UREA NITROGEN 31 MG/DL (7-18); CHLORIDE 102 MEQ/L (98-107); GLOMERULAR FILTRATION RATE 25 ML/MIN (>89); POTASSIUM 4.3 MEQ/L (3.5-5.1); SODIUM (NA) 137 MEQ/L (136-145)
[2017-02-03 16:06] LABS: BANDS 8 % (0-6); BASOPHILS 1 % (0-2); EOSINOPHILS 4 % (0-4); POLYS (SEG NEUTROPHILS) 37 % (16-70)
[2017-02-03 16:07] LABS: BLASTS 1 % (0-0); METAMYELOCYTES 14 % (0-1); MYELOCYTES 2 % (0-0); NEUTROPHIL # MANUAL DIFF 3.6 TH/MM3 (1.8-7.7); PROMYELOCYTES 1 % (0-0); WBC DIFF SAMPLE 100
[2017-02-03 16:08] LABS: SCAN/DIFF FINAL DIFF MANUAL
[2017-02-03 16:09] LABS: BURR CELLS 1+ (NORMAL); PLATELET ESTIMATE SMEAR LOW (NORMAL); PLATELET MORPHOLOGY NORMAL (NORMAL)
[2017-02-03 16:10] LABS: HELMET CELLS OCC (NORMAL); KERATOCYTES OCC (NORMAL)
[2017-02-03 16:11] LABS: OVALOCYTES 1+ (NORMAL)
[2017-02-03] MEDS ORDERED: ACETAMINOPHEN 325 MG TAB PO PRN (16:15)
[2017-02-03] MEDS ORDERED: ACETAMINOPHEN 325 MG TAB PO ONE (16:15)
[2017-02-03] MEDS ORDERED: SODIUM CHLOR 0.9% 250 ML INJ 250 ML IV ONE (16:15)
[2017-02-03] MEDS ORDERED: diphenhydrAMINE HCL 25 MG CAP PO PRN (16:15)
[2017-02-03] MEDS ORDERED: diphenhydrAMINE HCL 25 MG CAP PO ONE (16:15)
[2017-02-03] MEDS ORDERED: LORazepam 2 MG TAB PO PRN (19:45)
[2017-02-03] MEDS ORDERED: LORazepam 1 MG TAB PO PRN (19:45)
[2017-02-03] MEDS ORDERED: RESP: ALBUTEROL 2.5 MG/IPRATROPIUM 0.5 MG NEB (PRN) NEB (19:45)
[2017-02-03] MEDS ORDERED: FLUMAZENIL 0.5 MG/5 ML VIAL IV PUSH PRN (19:45)
[2017-02-03] MEDS: SODIUM CHLOR 0.9% 1000 ML INJ 1,000 ML IV SCH (19:45)
[2017-02-03] MEDS ORDERED: LORazepam 2 MG/ML VIAL IV PUSH PRN ×4 (19:45)
[2017-02-03] MEDS: SODIUM CHLORIDE 0.9% FLUSH 10 ML FLUSH IV FLUSH SCH (20:24)
[2017-02-03] MEDS: PANTOPRAZOLE SOD 40 MG DELAYED RELEASE TAB PO SCH (20:24)
[2017-02-03] MEDS: traZODone HCL 50 MG TAB PO SCH (20:24)
--- NOTE | 2017-02-03 20:52 | HHI.HP ---
HPI Service Family Medicine Primary Care Physician Jumana Way MD Admission Diagnosis Anemia/Renal Failure Diagnoses: International Travel<30 Days: No Contact w/Intl Traveler<30days: No Known Affected Area: No History of Present Illness 81 yo male with h/o HTN, alcohol abuse presenting with acute on chronic anemia. Per patient report he feels well but was sent over by a physician at his long- term care facility for his low hemoglobin. He denies CP/SOB. Endorses some mild global fatigue but no focal weakness. No lightheadedness or dizziness. Regarding his anemia, this was first diagnosed when he presented to [facility] in December for back pain. During that hospital stay, a full GI work-up was done including EGD and Colonoscopy which was significant for mild diverticulosis and Barett's esophagus as well as mild gastritis. He was to have a capsule endoscopy as an outpatient. He also established with a chiropractic teacher Dr. Thornton as an outpatient and has been receiving periodic blood and platelet transfusions. Dr. Thornton's differential includes B12 deficiency, myelosuppression from alcohol, and primary bone marrow disorder. He is planned to have a bone marrow biopsy as an outpatient. (Rio Jamil MD R2) Review of Systems Constitutional: COMPLAINS OF: Fatigue, DENIES: Fever, Weight loss, Chills Eyes: DENIES: Eye inflammation, Eye pain, Vision loss Ears, nose, mouth, throat: DENIES: Throat pain, Ear Pain Respiratory: DENIES: Cough, Wheezing, Shortness of breath Cardiovascular: DENIES: Chest pain, Palpitations Gastrointestinal: DENIES: Abdominal pain, Constipation, Diarrhea, Nausea, Vomiting Genitourinary: DENIES: Urinary frequency, Dysuria Musculoskeletal: DENIES: Joint pain, Muscle aches Integumentary: DENIES: Rash Hematologic/lymphatic: COMPLAINS OF: Bruising Immunologic/allergic: DENIES: Urticaria Neurologic: DENIES: Abnormal gait, Localized weakness, Speech Problems Psychiatric: DENIES: Anxiety, Depression (Rio Jamil MD R2) Past Family Social History Past Medical History HTN Anemia Denies h/o CHF, [place] Past Surgical History Back surgery due to herniated discs (years ago) - "upper and lower spine" Reported Medications Reported Meds & Active Scripts Active Oxycodone-Acetaminophen 10-325 (Oxycodone HCl/Acetaminophen) 10 Mg-325 Mg Tablet 1 Tab PO Q6H PRN Colcrys (Colchicine) 0.6 Mg Tab 0.6 Mg PO DAILY 30 Days Thera Tablet (Multivitamin with Folic Acid) 400 Mcg Tablet 1 Tab PO DAILY 30 Days Gnp Vitamin B-1 (Thiamine HCl) 100 Mg Tab 100 Mg PO DAILY 30 Days Folic Acid 1 Mg Tablet 1 Mg PO DAILY 30 Days Lidoderm (Lidocaine) 5 % Adh..patch 2 Patch T-DERMAL DAILY 30 Days Pantoprazole (Pantoprazole Sodium) 40 Mg Tab 40 Mg PO Q12HR 30 Days Gnp Senna Plus 8.6-50 mg (Sennosides-Docusate Sodium) 8.6 Mg-50 Mg Tab 1 Tab PO BID 30 Days Xalatan Opth Drops (Latanoprost) 0.005% Drops 1 Drop EACH EYE HS 30 Days Trazodone (Trazodone HCl) 50 Mg Tab 50 Mg PO HS 30 Days Norvasc (Amlodipine Besylate) 10 Mg Tab 10 Mg PO DAILY 30 Days Metoprolol Tartrate 25 Mg Tab 50 Mg PO BID 30 Days Hydralazine HCl 25 Mg Tablet 25 Mg PO Q8HR 30 Days Catapres (Clonidine) 0.2 Mg Tab 0.2 Mg PO Q6H PRN 30 Days Ferosul (Ferrous Sulfate) 325 Mg (65 Mg Iron) Tablet 325 Mg PO DAILY 30 Days Reported Duoneb (Ipratropium-Albuterol Neb) 0.5-2.5 Mg/3 Ml Neb 3 Ml NEB Q8HR PRN Gabapentin 100 Mg Cap 200 Mg PO TID Mapap (Acetaminophen) 325 Mg Tab 650 Mg PO Q4HR PRN (Rio Jamil MD R2) Allergies: Coded Allergies: sulfamethoxazole (Unverified Allergy, Severe, RASH, 02/03/17) trimethoprim (Unverified Allergy, Severe, RASH, 02/03/17) morphine (Verified Adverse Reaction, Severe, Nausea/Vomiting, 02/03/17) *MDRO Multi-Drug Resistant Organism (Verified Adverse Reaction, Unknown, 02/03/17) 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 Active Ordered Medications Current Medications Medications (Trade) Dose Ordered Sig/Nikki Route Start Time Stop Time Status Last Admin Sodium Chloride 250 ml @ 15 mls/hr ONCE ONCE IV 02/03/17 16:15 02/04/17 08:54 02/03/17 17:17 (Benadryl) 25 mg UNSCH X1 PRN PO 02/03/17 16:15 02/06/17 16:14 (Tylenol) 650 mg UNSCH X1 PRN PO 02/03/17 16:15 02/06/17 16:14 (NS Flush) 2 ml UNSCH PRN IV FLUSH 02/03/17 18:00 (NS Flush) 2 ml BID IV FLUSH 02/03/17 21:00 (Romazicon Inj) 0.2 mg Q1M PRN IV PUSH 02/03/17 19:45 (Ativan) 1 mg Q4H PRN PO 02/03/17 19:45 (Ativan Inj) 1 mg Q4H PRN IV PUSH 02/03/17 19:45 (Ativan) 2 mg Q2H PRN PO 02/03/17 19:45 (Ativan Inj) 2 mg Q2H PRN IV PUSH 02/03/17 19:45 (Ativan Inj) 2 mg Q1H PRN IV PUSH 02/03/17 19:45 (Ativan Inj) 2 mg Q15M PRN IV PUSH 02/03/17 19:45 Sodium Chloride 1,000 ml @ 125 mls/hr Q8H IV 02/03/17 19:45 02/04/17 00:43 (Norvasc) 10 mg DAILY PO 02/04/17 09:00 (Ferrous Sulfate) 325 mg DAILY PO 02/04/17 09:00 (Folate) 1 mg DAILY PO 02/04/17 09:00 (Neurontin) 200 mg TID PO 02/04/17 09:00 (Apresoline) 25 mg Q8HR PO 02/03/17 22:00 02/04/17 00:42 (Duoneb Neb) 1 ampule Q8HR NEB PRN NEB 02/03/17 19:45 (Xalatan 0.005% Opth Soln) 1 drop HS EACH EYE 02/03/17 21:00 (Lopressor) 50 mg BID PO 02/03/17 21:00 02/04/17 00:42 (Theragran) 1 tab DAILY PO 02/04/17 09:00 (Protonix) 40 mg Q12HR PO 02/03/17 21:00 02/03/17 20:24 (Vitamin B1) 100 mg DAILY PO 02/04/17 09:00 (Desyrel) 50 mg HS PO 02/03/17 21:00 02/03/17 20:24 (Tylenol) 650 mg Q4H PRN PO 02/03/17 21:00 Family History No FH of cancer Mother - heart disease and asthma Father - heart disease Social History Tob - smoked for 5 years, quit 50 years ago Alc - "2 scotch drinks a day," record review from prior visit states he endorsed drinking 9 scotch drinks daily Drugs - none (Rio Jamil MD R2) Physical Exam Vital Signs Vital Signs Date Time Temp Pulse Resp B/P (MAP) Pulse Ox O2 Delivery O2 Flow Rate FiO2 02/03/17 18:39 02/03/17 18:06 97 Nasal Cannula 2.00 02/03/17 17:15 98.8 87 25 133/66 97 02/03/17 16:55 98.6 88 25 136/69 97 02/03/17 13:42 97.7 84 16 136/62 (86) 97 Physical Exam GENERAL: WDWN elderly white male sitting on edge of bed comfortable, NAD SKIN: No rashes, ecchymoses or lesions. Cool and dry. HEAD: NC/AT EYES: PERRL. EOMI. Mild subconjunctival hemorrhages bilaterally. ENT: MMM. NECK: Supple, no masses. No JVD. CARDIOVASCULAR: NRRR. Normal S1/S2. No MRG RESPIRATORY: CTAB. No crackles or wheezes. GASTROINTESTINAL: Abdomen soft, non-distended, non-tender. No hepato- splenomegaly or palpable masses. MUSCULOSKELETAL: Extremities without clubbing or cyanosis. 2+ pitting edema to BLE with chronic venous stasis changes present. NEUROLOGICAL: Awake and alert. Cranial nerves II through XII grossly intact. Moves all extremities without difficulty. Normal speech. Laboratory Laboratory Tests Test 02/03/17 14:25 White Blood Count 5.8 Red Blood Count 2.33 Hemoglobin 6.9 Hematocrit 20.3 Mean Corpuscular Volume 87.1 Mean Corpuscular Hemoglobin 29.8 Mean Corpuscular Hemoglobin Concent 34.2 Red Cell Distribution Width 19.7 Platelet Count 36 Mean Platelet Volume 11.5 Neutrophils (%) (Auto) 41.9 Lymphocytes (%) (Auto) 33.6 Monocytes (%) (Auto) 5.4 Eosinophils (%) (Auto) 17.4 Basophils (%) (Auto) 1.7 Neutrophils # (Auto) 2.4 Lymphocytes # (Auto) 2.0 Monocytes # (Auto) 0.3 Eosinophils # (Auto) 1.0 Basophils # (Auto) 0.1 CBC Comment AUTO DIFF Differential Total Cells Counted 100 Neutrophils % (Manual) 37 Band Neutrophils % 8 Lymphocytes % 23 Monocytes % 4 Eosinophils % 4 Basophils % 1 Other Cells % 5 Neutrophils # (Manual) 3.6 Metamyelocytes 14 Myelocytes 2 Promyelocytes 1 Differential Comment FINAL DIFF MANUAL Atypical Lymphocytes Blastocytes 1 Platelet Estimate LOW Platelet Morphology Comment NORMAL Ovalocytes 1+ Helmet Cells OCC [place] Cells 1+ Keratocytes OCC Prothrombin Time 10.7 Prothromb Time International Ratio 1.0 Activated Partial Thromboplast Time 24.5 Blood Urea Nitrogen 31 Creatinine 2.50 Random Glucose 93 Total Protein 6.3 Albumin 2.6 Calcium Level 8.0 Alkaline Phosphatase 81 Aspartate Amino Transf (AST/SGOT) 22 Alanine Aminotransferase (ALT/SGPT) 27 Total Bilirubin 0.4 Sodium Level 137 Potassium Level 4.3 Chloride Level 102 Carbon Dioxide Level 28.7 Anion Gap 6 Estimat Glomerular Filtration Rate 25 (Rio Jamil MD R2) Result Diagram: 02/03/17 1425 02/03/17 1425 Caprini VTE Risk Assessment Caprini VTE Risk Assessment: Mod/High Risk (score >= 2) VTE Pharm Contraindication: Thrombocytopenia(<50) (Rio Jamil MD R2) Assessment and Plan Assessment and Plan 81 yo male with HTN, COPD, chronic anemia presenting with: (Rio Jamil MD R2) Attending Attestation THIS CASE WAS DISCUSSED WITH THE RESIDENT PHYSICIANS. I HAVE REVIEWED THE RECORD AND AGREE WITH THE ABOVE NOTE AND PLAN OF CARE WAS DISCUSSED. I HAVE AUTHORIZED THE ORDER FOR ADMISSION TO AN IN-PATIENT STATUS. (Melissa Bragg MD) Problem List: (1) Chronic anemia ICD Codes: D64.9 - Anemia, unspecified Plan: Truly this is [id number] anemia; Hgb had been fluctuating from 9- 12 for some time, as outpatient hovering around 8-9 recently. Macrocytosis possibly due to alcohol use vs bone marrow disorder Initial Hgb 6.9 Prior work-up: Item Value Date Time Ferritin 1402 NG/ML H 01/07/17 1009 Total Iron Binding Capacity 221 MCG/DL L 01/07/17 1009 Percent Iron Saturation 14.9 % L 01/07/17 1009 Iron Level 33 MCG/DL L 01/07/17 1009 Lactate Dehydrogenase 289 U/L H 01/07/17 1009 Vitamin B12 Level 1087 PG/ML H 01/07/17 1009 - 2 units PRBC ordered by ED physician - Check post-transfusion H&H - Consult patient's chiropractic teacher Dr. Thornton for transfusion recommendations and additional inpatient work-up (likely will be continued outpatient f/u) - Pathologist to review peripheral smear (no record found of this being done, but likely was at some point) - Daily CBC (2) Thrombocytopenia ICD Codes: D69.6 - Thrombocytopenia, unspecified Plan: Acute on chronic thrombocytopenia, now with Plt < 50 - Hold pharmacologic anticoagulation - Plt transfusion to be determined by hematology (3) Acute on chronic renal failure ICD Codes: N17.9 - Acute kidney failure, unspecified; N18.9 - Chronic kidney disease, unspecified Plan: Baseline Cr appears to be around 1.5, now is 2.5 this hospital stay - NS @ 125 cc/hr - Trend BMP - Renally dose medications (4) COPD (chronic obstructive pulmonary disease) ICD Codes: J44.9 - COPD (chronic obstructive pulmonary disease) Status: Chronic Plan: Symptoms stable - Continue home DuoNebs PRN (5) Chronic alcoholism ICD Codes: F10.20 - Alcohol dependence, uncomplicated Status: Chronic Plan: Heavy drinking for years, may be contributing to current anemia/ thrombocytopenia - [facility] protocol - Rally pack (thiamine, folate, multivitamin) (6) Wilks esophagus ICD Codes: K22.70 - Wilks's esophagus without dysplasia Status: Chronic Plan: Continue PPI BID (7) Diverticulosis ICD Codes: K57.90 - Diverticulosis of intestine, part unspecified, without perforation or abscess without bleeding Status: Chronic Plan: W/u for GIB recently negative - Monitor as above (8) FEN/PPX Plan: Fluids: As above Elecs: Monitor and replete PRN Nutrition: Diet regular basic DVT: Pharm PPX contraindicated (Plt < 50). SCDs b/l knee high. Pain: Tylenol PRN Code status: Full code (Rio Jamil MD R2) Physician Certification 2 Midnight Certification Type: Admission for Inpatient Services Order for Inpatient Services The services are ordered in accordance with Medicare regulations or non- Medicare payer requirements, as applicable. In the case of services not specified as inpatient-only, they are appropriately provided as inpatient services in accordance with the 2-midnight benchmark. Estimated LOS (days): 2 days is the estimated time the patient will need to remain in the hospital, assuming treatment plan goals are met and no additional complications. Post-Hospital Plan: SNF (Rio Jamil MD R2) 2 Midnight Certification Type: Admission for Inpatient Services Post-Hospital Plan: SNF (Melissa Bragg MD) Rio Jamil MD R2 Feb 03, 2017 20:52 Melissa Bragg MD Feb 04, 2017 07:54
[2017-02-03] MEDS: METOPROLOL TARTRATE 50 MG TAB PO SCH (21:00)
[2017-02-03] MEDS: LATANOPROST 0.005% OPHT SOLN 2.5 ML BTL EACH EYE SCH (21:00)
[2017-02-03] MEDS: hydrALAZINE HCL 25 MG TAB PO SCH (22:00)
[2017-02-04] VITALS (8 sets, daily range): BP systolic 141–155; BP diastolic 66–78; PULSE 80–98; RESP 16–20; TEMP 98.7–99.4; O2SAT 96–98
[2017-02-04] MEDS: hydrALAZINE HCL 25 MG TAB PO SCH ×4 (00:42→20:28)
[2017-02-04] MEDS: METOPROLOL TARTRATE 50 MG TAB PO SCH ×3 (00:42→20:28)
[2017-02-04] MEDS: SODIUM CHLOR 0.9% 1000 ML INJ 1,000 ML IV SCH ×3 (00:43→20:28)
[2017-02-04 03:49] LABS: HEMATOCRIT 26.7 % (39.0-51.0)
[2017-02-04 03:50] LABS: REVIEW FLAG FINAL
[2017-02-04 07:16] LABS: AUTOMATED NEUTROPHIL # 2.4 TH/MM3 (1.8-7.7); BASOPHIL % 0.3 % (0.0-2.0); EOSINOPHIL # 0.7 TH/MM3 (0-0.4); EOSINOPHIL % 14.8 % (0.0-4.0); HEMATOCRIT 22.6 % (39.0-51.0); LYMPH % 25.8 % (9.0-44.0); LYMPHOCYTE # 1.2 TH/MM3 (1.0-4.8); MEAN CELL VOLUME 83.9 FL (80.0-100.0); MEAN CORPUSCULAR HEMOGLOBIN 29.1 PG (27.0-34.0); MEAN CORPUSCULAR HGB CONC 34.7 % (32.0-36.0); MONO % 8.9 % (0.0-8.0); NEUT % 50.2 % (16.0-70.0); PLATELET COUNT 25 TH/MM3 (150-450); RED CELL DISTRIBUTION WIDTH 19.1 % (11.6-17.2); WHITE BLOOD COUNT 4.7 TH/MM3 (4.0-11.0)
[2017-02-04 07:29] LABS: ANION GAP 7 MEQ/L (5-15); AST (GOT) 16 U/L (15-37); BICARBONATE 28.2 MEQ/L (21.0-32.0); BLOOD UREA NITROGEN 28 MG/DL (7-18); CHLORIDE 104 MEQ/L (98-107); GLOMERULAR FILTRATION RATE 28 ML/MIN (>89); POTASSIUM 4.1 MEQ/L (3.5-5.1); SODIUM (NA) 139 MEQ/L (136-145)
[2017-02-04 07:33] LABS: ALKALINE PHOSPHATASE 78 U/L (45-117); ALT (GPT) 24 U/L (12-78)
[2017-02-04 07:34] LABS: HEMO FLAGS AUTO DIFF
--- NOTE | 2017-02-04 08:02 | HHI.FPPN ---
Problem Problem List: (1) Anemia (2) Thrombocytopenia (3) Acute on chronic renal failure (4) Chronic alcoholism (5) COPD (chronic obstructive pulmonary disease) (6) Gout Subjective Subjective 81 year old make with h/o chronic ETOH above, HTN and severe anemia that has been extensively worked up in the past -- has [facility] a [facility] a [facility] since this severe anemia started, was brought in to the ED for weakness and was gfound to have Hgb of 6.9 and was admitted. Patient see Dr. Thornton for this and outpatient bone marrow biopsy has been planned to continue his workup... He was admitted and received 2Units PRBCs. At the time of evaluation this morning the patient reports he is overall doing well and feels better but still a little weak. He denies CP, SOB, BOWENS, palpitations, denies blood in his stool (last BM) yesterday was normal Please see the H&P from the residents for further clarification on his history. Past Medical History HTN Anemia Denies h/o CHF, SC Past Surgical History Back surgery due to herniated discs Family History No FH of cancer Mother - heart disease and asthma Father - heart disease Social History Tob - smoked for 5 years, quit 50 years ago Alc - "2 scotch drinks a day," record review from prior visit states he endorsed drinking 9 scotch drinks daily Drugs - none Hospital Objective Objective Last Impressions Chest X-Ray 02/03/17 4108 Signed Impressions: Service Date/Time: Monday, February 03, 2017 15:00 - CONCLUSION: Normal examination. Kody Johnson MD Laboratory Tests - Abnormals Test 02/03/17 14:25 02/04/17 03:07 02/04/17 05:15 Red Blood Count 2.33 MIL/MM3 2.70 MIL/MM3 Hemoglobin 6.9 GM/DL 8.8 GM/DL 7.8 GM/DL Hematocrit 20.3 % 26.7 % 22.6 % Red Cell Distribution Width 19.7 % 19.1 % Platelet Count 36 TH/MM3 25 TH/MM3 Mean Platelet Volume 11.5 FL Eosinophils (%) (Auto) 17.4 % 14.8 % Eosinophils # (Auto) 1.0 TH/MM3 0.7 TH/MM3 Band Neutrophils % 8 % Metamyelocytes 14 % Myelocytes 2 % Promyelocytes 1 % Blastocytes 1 % Platelet Estimate LOW Ovalocytes 1+ Kylee Cells 1+ Blood Urea Nitrogen 31 MG/DL 28 MG/DL Creatinine 2.50 MG/DL 2.26 MG/DL Total Protein 6.3 GM/DL 5.6 GM/DL Albumin 2.6 GM/DL 2.4 GM/DL Calcium Level 8.0 MG/DL 8.0 MG/DL Estimat Glomerular Filtration Rate 25 ML/MIN 28 ML/MIN Monocytes (%) (Auto) 8.9 % Vital Signs 02/03/17 02/03/17 02/03/17 02/03/17 13:42 16:55 17:15 18:06 Temp 97.7 98.6 98.8 Pulse 84 88 87 Resp 16 25 25 B/P (MAP) 136/62 (86) 136/69 133/66 Pulse Ox 97 97 97 97 O2 Delivery Nasal Cannula O2 Flow Rate 2.00 02/03/17 02/03/17 02/03/17 02/03/17 18:39 21:00 21:40 23:30 Temp 97.4 97.3 Pulse 92 91 Resp 21 20 B/P (MAP) 132/60 (84) 116/57 (76) Pulse Ox 96 97 97 O2 Delivery Nasal Cannula O2 Flow Rate 2.00 02/04/17 00:00 Temp 98.7 Pulse 98 Resp 20 B/P (MAP) 155/72 (99) Pulse Ox 96 Physical exam GEN: normally nourished, in NAD. EYES: conjunctiva normal, PERRLA, EOMI. ENT: Mouth and pharynx normal. NECK: thyroid midline, carotids symmetrical. LUNGS: clear A-P, respiratory effort is normal. CARDIOVASCULAR: RR without murmur or gallop. No significant edema. GI/ABD: soft without masses, without organomegaly. NEURO: No focal deficits. SKIN: color normal, significant bruising on his legs and arms and shoulders and hands, no rashes HEME/LYMPH: no significant adenopathy MUSC: back is normal in appearance. Right upper arm with large tohpus on the elbow, left lower extremity with some redness and tenderness over the tibial tuberosity PSYCH/MENTAL STATUS: Alert and oriented x 3. Assessment Assessment: (1) Anemia Plan: Extensive GI workup was completed on the last admission. He has been evaluated by Am[facility] as well as an outpatient and suspect there may be an underlying dysplastic process vs. suppression from chronic alcoholism. Bone marrow biopsy is in the works as an outpatient. At this time the patient has received 2 units PRBCs -- Hgb dropped a little this am. Will guaiac stools and follow the Hemoglobin -- will transfuse if drops again. If this does not stabilized will consider consulting GI to make sure no active source of bleeding. Heme consult pending (2) Thrombocytopenia Plan: Platelets have continued to trend down to 25 and patient has a lot of bruising -- will go ahead and give some platelets now and then defer to heme in the future for management of his thrombocytopenia (3) Chronic alcoholism Plan: [facility] -- so low concern for withdrawal at this time. However, to be cautious will place on CIWA protocol in case the patient has had access to ETOH at the manager long term care care facility. (4) COPD (chronic obstructive pulmonary disease) Plan: Stable -- continue home meds (5) Gout Plan: No NSAIDS due to renal function but suspect the knee pain and redness is from gout -- will restart his colchicine (6) HTN (hypertension) Plan: continue home meds (7) Acute on chronic renal failure Plan: Patient cr is above his baseline - suspect may be pre-renal -- has improved with IVF. Will continue IVF for now Assessment 81 year old with symptomatic anemia and multiple chronic issues that is improved after receiving IVF and 2units PRBCS. Continue the plan as above. PLAN PLAN Patient seen and dw the resident team -- Dr. Lopes, Dr. Jamil, Dr. Mark Bragg,Melissa Doyle MD Feb 04, 2017 08:01
[2017-02-04] MEDS: MULTIVITAMIN TAB PO SCH (08:08)
[2017-02-04] MEDS: PANTOPRAZOLE SOD 40 MG DELAYED RELEASE TAB PO SCH ×2 (08:08→20:28)
[2017-02-04] MEDS: FOLIC ACID 1 MG TAB PO SCH (08:08)
[2017-02-04] MEDS: THIAMINE HCL 100 MG TAB PO SCH (08:08)
[2017-02-04] MEDS: GABAPENTIN 100 MG CAP PO SCH ×3 (08:08→16:50)
[2017-02-04] MEDS: FERROUS SULFATE 325 MG (65 MG ELEMENTAL IRON) TAB PO SCH (08:08)
[2017-02-04] MEDS: SODIUM CHLORIDE 0.9% FLUSH 10 ML FLUSH IV FLUSH SCH ×2 (08:09→20:28)
[2017-02-04] MEDS ORDERED: COLCHICINE 0.6 MG TAB PO ONE ×2 (10:00→11:00)
[2017-02-04] MEDS ORDERED: SODIUM CHLOR 0.9% 250 ML INJ 250 ML IV ONE (10:30)
[2017-02-04 10:36] LABS: BANDS 14 % (0-6); BASOPHILS 4 % (0-2); EOSINOPHILS 8 % (0-4); METAMYELOCYTES 5 % (0-1); MYELOCYTES 4 % (0-0); POLYS (SEG NEUTROPHILS) 41 % (16-70); WBC DIFF SAMPLE 100
[2017-02-04 10:38] LABS: ACANTHOCYTES OCC (NORMAL); PLATELET ESTIMATE SMEAR LOW (NORMAL); PLATELET MORPHOLOGY NORMAL (NORMAL); SCAN/DIFF FINAL DIFF MANUAL
[2017-02-04 12:36] LABS: HEMATOCRIT 24.3 % (39.0-51.0); MEAN CELL VOLUME 85.1 FL (80.0-100.0); MEAN CORPUSCULAR HEMOGLOBIN 29.2 PG (27.0-34.0); MEAN CORPUSCULAR HGB CONC 34.3 % (32.0-36.0); PLATELET COUNT 55 TH/MM3 (150-450); RED BLOOD COUNT 2.86 MIL/MM3 (4.50-5.90); RED CELL DISTRIBUTION WIDTH 19.4 % (11.6-17.2); WHITE BLOOD COUNT 6.8 TH/MM3 (4.0-11.0)
[2017-02-04 12:38] LABS: REVIEW FLAG FINAL
--- NOTE | 2017-02-04 14:13 | MB ---
cc: HOMA MARTINEZ MD, ROXY DATE OF CONSULTATION: 02/04/2017. REASON FOR CONSULTATION: Anemia associated with thrombocytopenia. The oncology service been asked to see him to render an opinion regarding management of his anemia. CONSULT REQUESTED BY: The Hospitalist Service. CHIEF COMPLAINT: Mr. Gutierrez reports having pain in his neck and his back. He also reports chronic fatigue and weakness. He came into the emergency department for further workup and management. Additionally, he also reports having lower extremity edema and redness with oozing of fluid. HISTORY OF PRESENT ILLNESS: Mr. Gutierrez is an 81-year-old male whom have I followed in the past. I have not seen him in over three years. I had seen him previously for management of anemia; at that time, he was assessed to have anemia associated with chronic inflammation and chronic kidney failure. He was treated briefly with Aranesp under my care. Over the past month and a half or so, Mr. Gutierrez has had progressive anemia and thrombocytopenia. He was hospitalized in December for similar issues and was seen by my associate, Dr. Thornton, and recommended an anemia workup. The patient was treated symptomatically with transfusion support and was discharged home with outpatient followup. He came back into the emergency department yesterday with the above-noted complaints. Blood work revealed a hemoglobin of 6.9 gm/dL, hematocrit of 20%, platelet count was noted to be 36,000. He was transfused 2 units of packed red blood cells and hematology has been consulted. Additional findings indicate acute on chronic renal failure with a estimated glomerulofiltration rate of 28 mL/minute. PAST MEDICAL HISTORY: 1. Chronic normocytic anemia. 2. Progressive thrombocytopenia. 3. Wilks's esophagus. 4. Gastroesophageal reflux disease (GERD). 5. Hyperlipidemia. 6. Hypertension. 7. Osteoarthritis. 8. Peripheral neuropathy. 9. History of prostate carcinoma diagnosed in approximately the year 2009. 10. Pseudogout. 11. Severe cervical spinal stenosis. 12. Spondylolisthesis with severe stenosis of the lumbar spine. PAST SURGICAL HISTORY: 1. Cervical fusion involving the C5-7 vertebral bodies. 2. Colonoscopy. 3. EGD. 4. Multiple back surgeries. 5. Pinched nerve release in the left shoulder. 6. Seed implant for the prostate carcinoma. FAMILY HISTORY: His parents are both . Mom had asthma. Father had coronary artery disease. He denies oncologic diagnoses. SOCIAL HISTORY: The patient is a . He lives at home alone. 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 He reports smoking about two packs a day for four years but he quit many years ago. He previously was a drinker drinking up to two drinks a day but not more than that. He has two adult children who live close by. He eats regular meals. ALLERGIES: 1. LIPITOR. 2. XYLOCAINE. MEDICATIONS: 1. Sodium 125 cc/hour. 2. Tylenol 650 milligrams p.o. q. 4 hours. 3. DuoNeb one amp every 8 hours as needed for wheezing. 4. Amlodipine 10 milligrams p.o. daily. 5. Ferrous sulfate 325 milligrams p.o. daily. 6. Flumazenil 0.2 milligrams IV every 1 minute as needed. 7. Folic acid 1 milligram p.o. daily. 8. Gabapentin 200 milligrams p.o. three times a day. 9. Hydralazine 25 milligrams p.o. q. 8 hours. 10. Lorazepam 1 milligram IV q. 4 hours as needed for anxiety and delirium tremens. 11. A multivitamin daily. 12. Metoprolol 50 milligrams p.o. twice a day. 13. Pantoprazole 40 milligrams p.o. q. 12 hours. 14. Thiamine 100 milligrams p.o. daily. 15. Trazodone 50 milligrams p.o. at bedtime. REVIEW OF SYSTEMS: A thirteen point review of systems was obtained and the following are the pertinent positives and negatives: CONSTITUTIONAL: The patient reports generalized fatigue, weakness, he reports his lifestyle is mostly sedentary and he is limited mostly to his recliner and uses a walker to ambulate short distances. His appetite is generally poor. He denies fevers or chills. HEAD, EYES, EARS, NOSE, THROAT: Denies headaches, blurry vision, difficulty swallowing or soreness in the throat. RESPIRATORY: Reports exertional dyspnea, denies cough or hemoptysis. CARDIOVASCULAR: Denies angina-like chest pain, PND, orthopnea, denies palpitations. GI: Denies nausea, vomiting, diarrhea hematochezia, melena, abdominal distension. : Denies dysuria, hematuria, urinary incontinence. MUSCULOSKELETAL: Reports chronic neck pain, lower back pain and lower extremity edema. 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 PHYSICAL EXAMINATION: VITAL SIGNS: Temperature 99.4 degrees Fahrenheit, heart rate 81 beats per minute, respiratory rate 16, blood pressure 155/72, 02 saturations are 97% on two liters nasal cannula. GENERAL PHYSICAL APPEARANCE: Mr. Gutierrez is an elderly male, he appears to be frail, pale and chronically ill. He is lying in bed. He is awake and alert. He appears to be in no acute distress. HEAD, EYES, EARS, NOSE, THROAT: Head is atraumatic and normocephalic. Conjunctivae are pale. The sclerae are anicteric. Extraocular muscles intact. Pupils equal, round and reactive to light and accommodation. ORAL EXAM: No pharyngeal erythema. NECK EXAM: No palpable cervical or supraclavicular lymphadenopathy. RESPIRATORY EXAM: Good air movement bilaterally. No added breath sounds. Poor inspiratory effort. Decreased bibasilar breath sounds. Prolonged expiratory phase without rales, wheezes or crackles. CARDIOVASCULAR EXAM: Regular rate and rhythm. S1, S2. No obvious murmurs, rubs or gallops. He does have distant heart sounds which may obscure the presence of a faint murmur. ABDOMINAL EXAM: Protuberant belly. Soft. No obvious tenderness. No palpable hepatosplenomegaly. LOWER EXTREMITIES: Diffuse erythema. Areas of bruising and some oozing of fluid. He does have some tenderness which is diffusely present. TRACK [employer] REPAIR SUPERVISOR: Moving all four limbs spontaneously. There is no apparent focal sensory or motor deficit. LABORATORY FINDINGS: Blood work dated 02/04/2017: Sodium 139, potassium 4.1, chloride 104, bicarb 28.2, BUN 28, creatinine 2.26, EGFR is 28 mL per minute, calcium 8, total bilirubin is 1, AST 16, ALT 24, alkaline phosphatase 78, albumin is 2.4. Coagulation dated 02/03/2017: PT 10.7, PTT 24.5, INR is 1. CBC dated 02/03/2017: WBC count 5.8, hemoglobin 6.9 gm/dl, hematocrit 20.3%, MCV 87, platelet count 36,000, absolute neutrophil count is 2.4, absolute lymphocyte count is 2. The patient has elevated metamyelocytes, myelocytes and promyelocytes, blasts are also noted, bur cells and ovalocytes were also noted. IMAGING STUDIES: Chest x-ray dated 02/03/2017 indicates normal examination. ASSESSMENT: Mr. Estevez is a pleasant 81-year-old male who presents to the hospital with anemia and thrombocytopenia. He does have chronic renal insufficiency as well as additional medical comorbids as outlined above. The hematology service has been asked to see him for further workup and management of his cytopenias. It should be noted that his anemia is chronic and that he was evaluated by me in the outpatient setting over two years ago for similar issues. He at that time did not have thrombocytopenia and also did not have the presence of immature cells in circulation. He now has the presence of peripheral blasts (1%), metamyelocytes, myelocytes and promyelocytes ranging between 5% and 10%. These findings seem to point towards a primary hematologic disorder such as a myeloproliferative neoplasm or a myelodysplastic neoplasm. I have recommended a bone marrow biopsy, which may be done either on Monday under interventional radiology guidance or it can be done tomorrow by myself personally. I will review his peripheral smear and put in an addendum in either today's note for at the findings to my note for tomorrow. MD TERRELL Ray/NATHALIE /12:04 PM /1:53 PM
--- NOTE | 2017-02-04 15:28 | EKG ---
Date Performed: 02/03/2017 Time Performed: 14:50:05 PTAGE: 81 years EKG: Sinus rhythm NORMAL ECG PREVIOUS TRACING : 01/01/2017 15.01 Compared to prior tracing no significant change DOCTOR: Yannick Bahena Interpretating Date/Time 02/04/2017 15:28:05
[2017-02-04 16:02] LABS: RETIC % 1.9 % (0.4-3.0)
[2017-02-04 16:06] LABS: REVIEW FLAG FINAL
[2017-02-04] MEDS: ACETAMINOPHEN 325 MG TAB PO PRN (16:50)
[2017-02-04] MEDS: traZODone HCL 50 MG TAB PO SCH (20:28)
[2017-02-04] MEDS: LATANOPROST 0.005% OPHT SOLN 2.5 ML BTL EACH EYE SCH (20:28)
[2017-02-05] VITALS (8 sets, daily range): BP systolic 130–155; BP diastolic 74–82; PULSE 72–106; RESP 16–20; TEMP 96.7–100; O2SAT 95–99
[2017-02-05] MEDS: SODIUM CHLOR 0.9% 1000 ML INJ 1,000 ML IV SCH ×4 (02:54→22:42)
[2017-02-05] MEDS: hydrALAZINE HCL 25 MG TAB PO SCH ×3 (05:27→22:38)
--- NOTE | 2017-02-05 08:57 | HHI.FPPN ---
Subjective Remarks No events overnight. Has not had BM in > 24 hours. Denies CP/SOB. Still feels globally weak and fatigued (chronic). (Rio Jamil MD R2) Objective Vitals Vital Signs Date Time Temp Pulse Resp B/P (MAP) Pulse Ox O2 Delivery O2 Flow Rate FiO2 02/05/17 08:00 97.8 106 16 148/81 (103) 99 02/05/17 00:00 98.6 97 20 144/74 (97) 96 02/04/17 20:00 98.9 96 20 141/66 (91) 96 02/04/17 16:00 98.9 98 17 152/78 (102) 97 02/04/17 12:00 98.7 80 17 155/77 (103) 98 02/04/17 11:35 99.4 81 16 155/74 97 02/04/17 11:18 98.7 80 17 155/77 98 I/O 02/04/17 02/04/17 02/04/17 02/05/17 02/05/17 02/05/17 07:00 15:00 23:00 07:00 15:00 23:00 Intake Total 1290 ml 372 ml 1710 ml 1040 ml Output Total 500 ml 1400 ml 150 ml Balance 790 ml 372 ml 310 ml 890 ml Intake Oral 240 ml 810 ml 240 ml IV Total 650 ml 900 ml 800 ml Packed Cells 350 ml Platelets 372 ml Blood Product IV Normal Saline Flush 50 ml Output Urine Total 500 ml 1400 ml 150 ml # Voids 1 # Bowel Movements 0 (Rio Jamil MD R2) Result Diagram: 02/04/17 1220 02/04/17 0515 Imaging Last Impressions Chest X-Ray 02/03/17 1428 Signed Impressions: Service Date/Time: Friday, February 03, 2017 15:00 - CONCLUSION: Normal examination. Kody Johnson MD Objective Remarks Gen: WDWN adult white male sitting up on edge of bed in NAD CV: NRRR, normal S1/S2, no MRG Lungs: Normal rate and effort. CTAB. No crackles or wheezes. Abd: Soft, NDNT MSK: 1-2+ edema up to distal 1/3 of shins bilaterally. Skin: Chronic venous stasis changes present on BLE. No cyanosis. Several bruises across entire body at various stages of healing. 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 L knee with mild erythema at tibial tuberosity. Medications and IVs Current Medications Medications (Trade) Dose Ordered Sig/Nikki Route Start Time Stop Time Status Last Admin (Benadryl) 25 mg UNSCH X1 PRN PO 02/03/17 16:15 02/06/17 16:14 (Tylenol) 650 mg UNSCH X1 PRN PO 02/03/17 16:15 02/06/17 16:14 (NS Flush) 2 ml UNSCH PRN IV FLUSH 02/03/17 18:00 (NS Flush) 2 ml BID IV FLUSH 02/03/17 21:00 (Romazicon Inj) 0.2 mg Q1M PRN IV PUSH 02/03/17 19:45 (Ativan) 1 mg Q4H PRN PO 02/03/17 19:45 (Ativan Inj) 1 mg Q4H PRN IV PUSH 02/03/17 19:45 (Ativan) 2 mg Q2H PRN PO 02/03/17 19:45 (Ativan Inj) 2 mg Q2H PRN IV PUSH 02/03/17 19:45 (Ativan Inj) 2 mg Q1H PRN IV PUSH 02/03/17 19:45 (Ativan Inj) 2 mg Q15M PRN IV PUSH 02/03/17 19:45 Sodium Chloride 1,000 ml @ 125 mls/hr Q8H IV 02/03/17 19:45 02/05/17 02:54 (Norvasc) 10 mg DAILY PO 02/04/17 09:00 02/05/17 09:00 (Ferrous Sulfate) 325 mg DAILY PO 02/04/17 09:00 02/05/17 09:00 (Folate) 1 mg DAILY PO 02/04/17 09:00 02/05/17 09:00 (Neurontin) 200 mg TID PO 02/04/17 09:00 02/05/17 09:00 (Apresoline) 25 mg Q8HR PO 02/03/17 22:00 02/05/17 05:27 (Duoneb Neb) 1 ampule Q8HR NEB PRN NEB 02/03/17 19:45 (Xalatan 0.005% Opth Soln) 1 drop HS EACH EYE 02/03/17 21:00 02/04/17 20:28 (Lopressor) 50 mg BID PO 02/03/17 21:00 02/05/17 09:00 (Theragran) 1 tab DAILY PO 02/04/17 09:00 02/05/17 09:00 (Protonix) 40 mg Q12HR PO 02/03/17 21:00 02/05/17 09:00 (Vitamin B1) 100 mg DAILY PO 02/04/17 09:00 02/05/17 09:00 (Desyrel) 50 mg HS PO 02/03/17 21:00 02/04/17 20:28 (Tylenol) 650 mg Q4H PRN PO 02/03/17 21:00 02/05/17 09:02 (Aria-Colace) 1 tab BID PO 02/05/17 10:00 02/05/17 10:43 (Milk Of Magnesia Liq) 30 ml Q12H PRN PO 02/05/17 09:45 02/05/17 10:43 (Senokot) 17.2 mg Q12H PRN PO 02/05/17 09:45 (Dulcolax Supp) 10 mg DAILY PRN RECTAL 02/05/17 09:45 (Lactulose Liq) 30 ml DAILY PRN PO 02/05/17 09:45 (Rio Jamil MD R2) A/P Assessment and Plan 81 yo male with HTN, COPD, chronic anemia presenting with: (Rio Jamil MD R2) Attending Attestation Patient seen and examined. Case reviewed and discussed with the resident team. Agree with plan of care as discussed with me and documented in the resident note. (Melissa Bragg MD) Problem List: (1) Chronic anemia ICD Codes: D64.9 - Anemia, unspecified Status: Chronic Plan: Truly this is [id number] anemia; Hgb had been fluctuating from 9- 12 for some time, as outpatient hovering around 8-9 recently. Macrocytosis possibly due to alcohol use vs bone marrow disorder Initial Hgb 6.9, corrected to 8.8 after transfusion Prior work-up: Item Value Date Time Ferritin 1402 NG/ML H 01/07/17 1009 Total Iron Binding Capacity 221 MCG/DL L 01/07/17 1009 Percent Iron Saturation 14.9 % L 01/07/17 1009 Iron Level 33 MCG/DL L 01/07/17 1009 Lactate Dehydrogenase 289 U/L H 01/07/17 1009 Vitamin B12 Level 1087 PG/ML H 01/07/17 1009 Item Value Date Time Haptoglobin 123 MG/DL 02/04/17 0515 Reticulocyte Count 1.9 % 02/04/17 1220 Absolute Reticulocyte Count 54.4 MIL/L 02/04/17 1220 - s/p 2 units PRBC - Hematology consulted, appreciate assistance - Hematology to review peripheral smear - Impression: bone marrow pathology, either myeloproliferative disorder or MDS - To perform bone marrow biopsy on 02/05 or 02/06 - Outpatient silo operator = Dr. Thornton - Transfuse for Plt < 20 or Hgb < 7.5 - Daily CBC (2) Thrombocytopenia ICD Codes: D69.6 - Thrombocytopenia, unspecified Status: Chronic Plan: Acute on chronic thrombocytopenia, on admission with Plt < 50 Item Value Date Time Platelet Count 36 TH/MM3 L 02/03/17 1425 Platelet Count 25 TH/MM3 L # 02/04/17 0515 Platelet Count 55 TH/MM3 L # 02/04/17 1220 - S/p 1 unit platelets - Hold pharmacologic anticoagulation - Plt transfusion criteria as noted above - Trend CBC (3) Gout ICD Codes: M10.9 - Gout, unspecified Status: Chronic Plan: 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 - S/p colchicine 1.2 mg once, then 0.6 mg 1 h later - Pain improved - Monitor clinically (4) Acute on chronic renal failure ICD Codes: N17.9 - Acute kidney failure, unspecified; N18.9 - Chronic kidney disease, unspecified Status: Chronic Plan: Baseline Cr appears to be around 1.5, now is 2.5 this hospital stay Improved to 2.26 after IVF - NS @ 125 cc/hr - Trend BMP - Renally dose medications (5) COPD (chronic obstructive pulmonary disease) ICD Codes: J44.9 - COPD (chronic obstructive pulmonary disease) Status: Chronic Plan: Symptoms stable - Continue home DuoNebs PRN (6) Chronic alcoholism ICD Codes: F10.20 - Alcohol dependence, uncomplicated Status: Chronic Plan: Heavy drinking for years, may be contributing to current anemia/ thrombocytopenia - [facility] protocol - Rally pack (thiamine, folate, multivitamin) (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 SCDs b/l knee high. Pain: Tylenol PRN Constipation: Meds per hospital protocol Code status: Full code (Rio Jamil MD R2) Problem Qualifiers (1) Gout: Qualified Codes: M1A.09X1 - Idiopathic chronic gout, multiple sites, with tophus (tophi) Rio Jamil MD R2 Feb 05, 2017 08:57 Melissa Bragg MD Feb 06, 2017 08:24
[2017-02-05] MEDS: SODIUM CHLORIDE 0.9% FLUSH 10 ML FLUSH IV FLUSH SCH ×2 (09:00→22:44)
[2017-02-05] MEDS: MULTIVITAMIN TAB PO SCH (09:00)
[2017-02-05] MEDS: THIAMINE HCL 100 MG TAB PO SCH (09:00)
[2017-02-05] MEDS: GABAPENTIN 100 MG CAP PO SCH ×3 (09:00→17:49)
[2017-02-05] MEDS: PANTOPRAZOLE SOD 40 MG DELAYED RELEASE TAB PO SCH ×2 (09:00→22:38)
[2017-02-05] MEDS: FOLIC ACID 1 MG TAB PO SCH (09:00)
[2017-02-05] MEDS: FERROUS SULFATE 325 MG (65 MG ELEMENTAL IRON) TAB PO SCH (09:00)
[2017-02-05] MEDS: METOPROLOL TARTRATE 50 MG TAB PO SCH ×2 (09:00→22:44)
[2017-02-05] MEDS: ACETAMINOPHEN 325 MG TAB PO PRN (09:02)
[2017-02-05] MEDS ORDERED: LACTULOSE SYRUP 20 GM/30 ML CUP PO PRN (09:45)
[2017-02-05] MEDS ORDERED: MAGNESIUM HYDROXIDE SUSP 30 ML CUP PO PRN (09:45)
[2017-02-05] MEDS ORDERED: BISACODYL 10 MG SUPP RECTAL PRN (09:45)
[2017-02-05] MEDS ORDERED: SENNOSIDES 8.6 MG TAB PO PRN (09:45)
--- NOTE | 2017-02-05 10:02 | PD.ONC.PN ---
Subjective Subjective Remarks Afebrile Pt c/o knee pain Feels better after the transfusion Consenting for BMB Objective Data Date Time Temp Pulse Resp B/P (MAP) Pulse Ox O2 Delivery O2 Flow Rate FiO2 02/05/17 08:00 97.8 106 16 148/81 (103) 99 02/05/17 00:00 98.6 97 20 144/74 (97) 96 02/04/17 20:00 98.9 96 20 141/66 (91) 96 02/04/17 16:00 98.9 98 17 152/78 (102) 97 02/04/17 12:00 98.7 80 17 155/77 (103) 98 02/04/17 11:35 99.4 81 16 155/74 97 02/04/17 11:18 98.7 80 17 155/77 98 02/05/17 02/05/17 02/05/17 07:00 15:00 23:00 Intake Total 1040 ml Output Total 150 ml Balance 890 ml Result Diagram: 02/04/17 1220 02/04/17 0515 Laboratory Results Laboratory Tests Test 02/04/17 12:20 White Blood Count 6.8 TH/MM3 Red Blood Count 2.86 MIL/MM3 Hemoglobin 8.3 GM/DL Hematocrit 24.3 % Mean Corpuscular Volume 85.1 FL Mean Corpuscular Hemoglobin 29.2 PG Mean Corpuscular Hemoglobin Concent 34.3 % Red Cell Distribution Width 19.4 % Platelet Count 55 TH/MM3 Mean Platelet Volume 8.5 FL Reticulocyte Count 1.9 % Absolute Reticulocyte Count 54.4 MIL/L Administered Medications Medications (Trade) Dose Ordered Sig/Nikki Route PRN Reason Start Time Stop Time Status Last Admin Dose Admin Sodium Chloride 1,000 ml @ 125 mls/hr Q8H IV 02/03/17 19:45 02/05/17 02:54 Amlodipine Besylate (Norvasc) 10 mg DAILY PO 02/04/17 09:00 02/05/17 09:00 Ferrous Sulfate (Ferrous Sulfate) 325 mg DAILY PO 02/04/17 09:00 02/05/17 09:00 Folic Acid (Folate) 1 mg DAILY PO 02/04/17 09:00 02/05/17 09:00 Gabapentin (Neurontin) 200 mg TID PO 02/04/17 09:00 02/05/17 09:00 Hydralazine HCl (Apresoline) 25 mg Q8HR PO 02/03/17 22:00 02/05/17 05:27 Latanoprost (Xalatan 0.005% Opth Soln) 1 drop HS EACH EYE 02/03/17 21:00 02/04/17 20:28 Metoprolol Tartrate (Lopressor) 50 mg BID PO 02/03/17 21:00 02/05/17 09:00 Multivitamins (Theragran) 1 tab DAILY PO 02/04/17 09:00 02/05/17 09:00 Pantoprazole Sodium (Protonix) 40 mg Q12HR PO 02/03/17 21:00 02/05/17 09:00 Thiamine HCl (Vitamin B1) 100 mg DAILY PO 02/04/17 09:00 02/05/17 09:00 Trazodone HCl (Desyrel) 50 mg HS PO 02/03/17 21:00 02/04/17 20:28 Acetaminophen (Tylenol) 650 mg Q4H PRN PO PAIN 1-10 AND/OR FEVER >101F 02/03/17 21:00 02/05/17 09:02 Objective Remarks GENERAL: Chronically ill appearing elderly male resting in bed in no acute distress. SKIN: Warm and dry. Tophi to R olecranon. HEAD: Normocephalic. EYES: Mildly injected NECK: Supple, trachea midline. CARDIOVASCULAR: Regular rate and rhythm. No murmurs auscultated. RESPIRATORY: Breath sounds equal bilaterally. No accessory muscle use. GASTROINTESTINAL: Somewhat protuberant, non-tender to palpation. EXTREMITIES: BLE edema with erythema. MUSCULOSKELETAL: Generalized weakness NEUROLOGICAL: No obvious focal deficit. Moving all extremities. Assessment/Plan Problem List: (1) Chronic anemia ICD Codes: D64.9 - Anemia, unspecified Plan: -- will need bone marrow biopsy --medical record showed that his hemoglobin has fluctuated from 9 to 12 over the last few years. --also has thrombocytopenia but that seems to be acute as his platelet count in August was normal. Assessment 81 y/o male known from previous workups to Dr Thornton admitted for pain and chronic fatigue found to have a Hgb of 6.9. Hematology consulted for recommendations. Plan 1. Mr Gutierrez has a long standing history of anemia that was previously attributed to chronic alcohol use 2. It is noted that he has myelocytes and metamyelocytes in circulation that can be caused by a myelodysplastic syndrome 3. Will need BMB this hospitalization to rule out a hematologic disorder 4. Transfuse for platelets less than 20k, Hgb less than 7.5. Michelle Banda Feb 05, 2017 10:02
[2017-02-05] MEDS: DOCUSATE SODIUM 50 MG/SENNA 8.6 MG TAB PO SCH ×2 (10:43→21:00)
[2017-02-05 12:17] LABS: AUTOMATED NEUTROPHIL # 2.4 TH/MM3 (1.8-7.7); BASOPHIL % 0.6 % (0.0-2.0); EOSINOPHIL # 0.6 TH/MM3 (0-0.4); EOSINOPHIL % 12.7 % (0.0-4.0); HEMATOCRIT 24.4 % (39.0-51.0); LYMPH % 21.7 % (9.0-44.0); LYMPHOCYTE # 0.9 TH/MM3 (1.0-4.8); MEAN CELL VOLUME 84.9 FL (80.0-100.0); MEAN CORPUSCULAR HEMOGLOBIN 28.4 PG (27.0-34.0); MEAN CORPUSCULAR HGB CONC 33.5 % (32.0-36.0); MONO % 9.5 % (0.0-8.0); NEUT % 55.5 % (16.0-70.0); PLATELET COUNT 45 TH/MM3 (150-450); RED BLOOD COUNT 2.87 MIL/MM3 (4.50-5.90); WHITE BLOOD COUNT 4.3 TH/MM3 (4.0-11.0)
[2017-02-05 12:18] LABS: HEMO FLAGS AUTO DIFF
[2017-02-05 12:30] LABS: BICARBONATE 28.1 MEQ/L (21.0-32.0); POTASSIUM 3.6 MEQ/L (3.5-5.1)
[2017-02-05 13:50] LABS: ACANTHOCYTES OCC (NORMAL); PLATELET ESTIMATE SMEAR LOW (NORMAL)
[2017-02-05 13:51] LABS: PLATELET MORPHOLOGY NORMAL (NORMAL); SCAN/DIFF AUTO DIFF CONFIRMED
[2017-02-05] MEDS: traZODone HCL 50 MG TAB PO SCH (22:38)
[2017-02-05] MEDS: LATANOPROST 0.005% OPHT SOLN 2.5 ML BTL EACH EYE SCH (23:28)
[2017-02-06] VITALS (18 sets, daily range): BP systolic 125–158; BP diastolic 70–85; PULSE 74–102; RESP 16–19; TEMP 97.5–100.6; O2SAT 92–99
[2017-02-06 05:28] LABS: BASOPHIL % 1.2 % (0.0-2.0); EOSINOPHIL # 0.5 TH/MM3 (0-0.4); EOSINOPHIL % 13.1 % (0.0-4.0); HEMATOCRIT 23.7 % (39.0-51.0); LYMPH % 25.4 % (9.0-44.0); MEAN CELL VOLUME 85.3 FL (80.0-100.0); MEAN CORPUSCULAR HEMOGLOBIN 28.5 PG (27.0-34.0); MEAN CORPUSCULAR HGB CONC 33.4 % (32.0-36.0); MONO % 9.2 % (0.0-8.0); NEUT % 51.1 % (16.0-70.0); PLATELET COUNT 35 TH/MM3 (150-450); RED BLOOD COUNT 2.78 MIL/MM3 (4.50-5.90); RED CELL DISTRIBUTION WIDTH 18.8 % (11.6-17.2); WHITE BLOOD COUNT 3.9 TH/MM3 (4.0-11.0)
[2017-02-06 05:41] LABS: BICARBONATE 26.8 MEQ/L (21.0-32.0); POTASSIUM 3.7 MEQ/L (3.5-5.1)
[2017-02-06 05:42] LABS: HEMO FLAGS AUTO DIFF
[2017-02-06] MEDS: hydrALAZINE HCL 25 MG TAB PO SCH ×3 (06:35→22:00)
[2017-02-06] MEDS: SODIUM CHLOR 0.9% 1000 ML INJ 1,000 ML IV SCH ×2 (06:41→21:59)
--- NOTE | 2017-02-06 08:29 | HHI.FPPN ---
Subjective Remarks Tmax 100.6 overnight. Patient states he is having pain in his knees bilaterally , not significantly worse than baseline however he states he normally takes something for pain which he does not believe he has been getting lately. He cannot recall the name of what he normally takes. Denies subjective fevers or chills overnight, denies CP, SOB, cough, abdominal pain. He understands we are awaiting his BMB this morning. (Ramu Burns MD R2) Objective Vitals Vital Signs Date Time Temp Pulse Resp B/P (MAP) Pulse Ox O2 Delivery O2 Flow Rate FiO2 02/06/17 08:00 93 Room Air 02/06/17 07:54 94 21 02/06/17 07:48 97.5 102 18 145/75 (98) 93 02/06/17 04:40 98.9 98 18 155/85 (108) 93 02/06/17 04:04 95 02/06/17 00:39 100.6 84 18 141/76 (97) 93 02/06/17 00:00 87 02/05/17 21:10 21 02/05/17 20:05 99 02/05/17 20:04 Room Air 02/05/17 20:04 100.0 100 20 155/79 (104) 95 02/05/17 16:59 97 Room Air 02/05/17 16:57 97 Nasal Cannula 1.00 02/05/17 16:55 98.6 89 18 152/79 (103) 97 02/05/17 14:36 91 02/05/17 14:17 98.1 87 18 146/82 (103) 99 02/05/17 12:00 96.7 72 18 130/79 (96) 99 I/O 02/05/17 02/05/17 02/05/17 02/06/17 02/06/17 02/06/17 07:00 15:00 23:00 07:00 15:00 23:00 Intake Total 1040 ml Output Total 150 ml 225 ml 450 ml 200 ml Balance 890 ml -225 ml -450 ml -200 ml Intake Oral 240 ml IV Total 800 ml Output Urine Total 150 ml 225 ml 450 ml 200 ml # Bowel Movements 1 (Ramu Burns MD R2) Result Diagram: 02/06/1744102/06/17441 Objective Remarks Gen: WDWN adult white male lying in bed in NAD CV: NRRR, normal S1/S2, no MRG Lungs: Normal rate and effort. CTAB. No crackles or wheezes. Abd: Soft, NDNT MSK: 1-2+ edema up to distal 1/3 of shins bilaterally. Skin: Chronic venous stasis changes present on BLE. No cyanosis. Several bruises across entire body at various stages of healing. 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 L knee with mild erythema at tibial tuberosity. ~2x2cm circular fluctuant area along the left tibial tuberosity. (Ramu Burns MD R2) A/P Assessment and Plan 81 yo male with HTN, COPD, chronic anemia presenting with: Discharge Planning Anticipate discharge back to SNF following BMB and stabilization of cell counts. (Ramu Burns MD R2) Attending Attestation Patient seen and examined. Case reviewed and discussed with the resident team. Agree with plan of care as discussed with me and documented in the resident note. (Melissa Bragg MD) Problem List: (1) Chronic anemia ICD Codes: D64.9 - Anemia, unspecified Status: Chronic Plan: Truly this is [id number]-[id number] anemia; Hgb had been fluctuating from 9- 12 for some time, as outpatient hovering around 8-9 recently. Macrocytosis possibly due to alcohol use vs bone marrow disorder Initial Hgb 6.9, corrected to 8.8 after transfusion Prior work-up: Item Value Date Time Ferritin 1402 NG/ML H 01/07/17 1009 Total Iron Binding Capacity 221 MCG/DL L 01/07/17 1009 Percent Iron Saturation 14.9 % L 01/07/17 1009 Iron Level 33 MCG/DL L 01/07/17 1009 Lactate Dehydrogenase 289 U/L H 01/07/17 1009 Vitamin B12 Level 1087 PG/ML H 01/07/17 1009 Item Value Date Time Haptoglobin 123 MG/DL 02/04/17 0515 Reticulocyte Count 1.9 % 02/04/17 1220 Absolute Reticulocyte Count 54.4 MIL/L 02/04/17 1220 - s/p 2 units PRBC on 02/03 - Hematology consulted, appreciate assistance - Hematology to review peripheral smear - Impression: bone marrow pathology, either myeloproliferative disorder or MDS - To perform bone marrow biopsy today 02/06 - Outpatient bus operator = Dr. 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 - S/p colchicine 1.2 mg once, then 0.6 mg 1 h later - Pain improved - Monitor clinically - Consider aspiration of fluctuant area along left knee (4) Acute on chronic renal failure ICD Codes: N17.9 - Acute kidney failure, unspecified; N18.9 - Chronic kidney disease, unspecified Status: Chronic Plan: Baseline Cr appears to be around 1.5, now is 2.5 on admission Continuing to improve - NS @ 125 cc/hr - Trend BMP - Renally dose medications (5) COPD (chronic obstructive pulmonary disease) ICD Codes: J44.9 - COPD (chronic obstructive pulmonary disease) Status: Chronic Plan: Symptoms stable - Continue home DuoNebs PRN (6) Chronic alcoholism ICD Codes: F10.20 - Alcohol dependence, uncomplicated Status: Chronic Plan: Heavy drinking for years, may be contributing to current anemia/ thrombocytopenia - [facility] protocol - Rally pack (thiamine, folate, multivitamin) (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 SCDs b/l knee high. Pain: Tylenol PRN Constipation: Meds per hospital protocol Code status: Full code (Ramu Burns MD R2) Problem Qualifiers (1) Gout: Qualified Codes: M1A.09X1 - Idiopathic chronic gout, multiple sites, with tophus (tophi) Ramu Burns MD R2 Feb 06, 2017 08:29 Melissa Bragg MD Feb 06, 2017 12:39
[2017-02-06 08:51] LABS: BANDS 8 % (0-6); BASOPHILS 4 % (0-2); EOSINOPHILS 16 % (0-4); METAMYELOCYTES 1 % (0-1); POLYS (SEG NEUTROPHILS) 42 % (16-70); WBC DIFF SAMPLE 100
[2017-02-06 08:52] LABS: PLATELET ESTIMATE SMEAR LOW (NORMAL); PLATELET MORPHOLOGY NORMAL (NORMAL); SCAN/DIFF FINAL DIFF MANUAL
[2017-02-06] MEDS: FERROUS SULFATE 325 MG (65 MG ELEMENTAL IRON) TAB PO SCH (09:00)
[2017-02-06] MEDS: THIAMINE HCL 100 MG TAB PO SCH (09:00)
[2017-02-06] MEDS: SODIUM CHLORIDE 0.9% FLUSH 10 ML FLUSH IV FLUSH SCH ×2 (09:00→21:00)
[2017-02-06] MEDS: MULTIVITAMIN TAB PO SCH (09:00)
[2017-02-06] MEDS: FOLIC ACID 1 MG TAB PO SCH (09:00)
[2017-02-06] MEDS: ACETAMINOPHEN 325 MG TAB PO PRN (09:05)
[2017-02-06] MEDS: METOPROLOL TARTRATE 50 MG TAB PO SCH ×2 (09:05→22:00)
[2017-02-06] MEDS: GABAPENTIN 100 MG CAP PO SCH ×3 (09:05→17:28)
[2017-02-06] MEDS: PANTOPRAZOLE SOD 40 MG DELAYED RELEASE TAB PO SCH ×2 (09:05→22:00)
[2017-02-06] MEDS: DOCUSATE SODIUM 50 MG/SENNA 8.6 MG TAB PO SCH ×2 (09:05→22:00)
--- NOTE | 2017-02-06 09:07 | PD.ONC.PN ---
Subjective Subjective Remarks Tmax 100.6 overnight. Patient still having some aching in knees. No overnight events. Objective Data Date Time Temp Pulse Resp B/P (MAP) Pulse Ox O2 Delivery O2 Flow Rate FiO2 02/06/17 08:00 93 Room Air 02/06/17 07:54 94 21 02/06/17 07:48 97.5 102 18 145/75 (98) 93 02/06/17 04:40 98.9 98 18 155/85 (108) 93 02/06/17 04:04 95 02/06/17 00:39 100.6 84 18 141/76 (97) 93 02/06/17 00:00 87 02/05/17 21:10 21 02/05/17 20:05 99 02/05/17 20:04 Room Air 02/05/17 20:04 100.0 100 20 155/79 (104) 95 02/05/17 16:59 97 Room Air 02/05/17 16:57 97 Nasal Cannula 1.00 02/05/17 16:55 98.6 89 18 152/79 (103) 97 02/05/17 14:36 91 02/05/17 14:17 98.1 87 18 146/82 (103) 99 02/05/17 12:00 96.7 72 18 130/79 (96) 99 02/06/17 02/06/17 02/06/17 07:00 15:00 23:00 Output Total 200 ml Balance -200 ml Result Diagram: 02/06/17 0442 02/06/17 044 Laboratory Results Laboratory Tests Test 02/05/17 11:10 02/06/17 04:42 White Blood Count 4.3 TH/MM3 3.9 TH/MM3 Red Blood Count 2.87 MIL/MM3 2.78 MIL/MM3 Hemoglobin 8.1 GM/DL 7.9 GM/DL Hematocrit 24.4 % 23.7 % Mean Corpuscular Volume 84.9 FL 85.3 FL Mean Corpuscular Hemoglobin 28.4 PG 28.5 PG Mean Corpuscular Hemoglobin Concent 33.5 % 33.4 % Red Cell Distribution Width 19.0 % 18.8 % Platelet Count 45 TH/MM3 35 TH/MM3 Mean Platelet Volume 8.8 FL 8.2 FL Neutrophils (%) (Auto) 55.5 % 51.1 % Lymphocytes (%) (Auto) 21.7 % 25.4 % Monocytes (%) (Auto) 9.5 % 9.2 % Eosinophils (%) (Auto) 12.7 % 13.1 % Basophils (%) (Auto) 0.6 % 1.2 % Neutrophils # (Auto) 2.4 TH/MM3 2.0 TH/MM3 Lymphocytes # (Auto) 0.9 TH/MM3 1.0 TH/MM3 Monocytes # (Auto) 0.4 TH/MM3 0.4 TH/MM3 Eosinophils # (Auto) 0.6 TH/MM3 0.5 TH/MM3 Basophils # (Auto) 0.0 TH/MM3 0.0 TH/MM3 CBC Comment AUTO DIFF AUTO DIFF Differential Comment AUTO DIFF CONFIRMED FINAL DIFF MANUAL Platelet Estimate LOW LOW Platelet Morphology Comment NORMAL NORMAL Acanthocytes OCC Blood Urea Nitrogen 25 MG/DL 24 MG/DL Creatinine 2.00 MG/DL 1.91 MG/DL Random Glucose 138 MG/DL 85 MG/DL Calcium Level 7.8 MG/DL 7.8 MG/DL Sodium Level 139 MEQ/L 140 MEQ/L Potassium Level 3.6 MEQ/L 3.7 MEQ/L Chloride Level 104 MEQ/L 105 MEQ/L Carbon Dioxide Level 28.1 MEQ/L 26.8 MEQ/L Anion Gap 7 MEQ/L 8 MEQ/L Estimat Glomerular Filtration Rate 32 ML/MIN 34 ML/MIN Differential Total Cells Counted 100 Neutrophils % (Manual) 42 % Band Neutrophils % 8 % Lymphocytes % 23 % Monocytes % 6 % Eosinophils % 16 % Basophils % 4 % Neutrophils # (Manual) 2.0 TH/MM3 Metamyelocytes 1 % Culture Results Microbiology Date/Time Source Procedure Growth Status 02/05/17 17:40 Stool Stool Stool Occult Blood (LYLA) - Final HEMOCCULT NEGATIVE Complete Administered Medications Medications (Trade) Dose Ordered Sig/Nikki Route PRN Reason Start Time Stop Time Status Last Admin Dose Admin Sodium Chloride (NS Flush) 2 ml BID IV FLUSH 02/03/17 21:00 02/05/17 22:44 Sodium Chloride 1,000 ml @ 125 mls/hr Q8H IV 02/03/17 19:45 02/06/17 06:41 Amlodipine Besylate (Norvasc) 10 mg DAILY PO 02/04/17 09:00 02/05/17 09:00 Ferrous Sulfate (Ferrous Sulfate) 325 mg DAILY PO 02/04/17 09:00 02/05/17 09:00 Folic Acid (Folate) 1 mg DAILY PO 02/04/17 09:00 02/05/17 09:00 Gabapentin (Neurontin) 200 mg TID PO 02/04/17 09:00 02/05/17 17:49 Hydralazine HCl (Apresoline) 25 mg Q8HR PO 02/03/17 22:00 02/06/17 06:35 Latanoprost (Xalatan 0.005% Opth Soln) 1 drop HS EACH EYE 02/03/17 21:00 02/05/17 23:28 Metoprolol Tartrate (Lopressor) 50 mg BID PO 02/03/17 21:00 02/05/17 22:44 Multivitamins (Theragran) 1 tab DAILY PO 02/04/17 09:00 02/05/17 09:00 Pantoprazole Sodium (Protonix) 40 mg Q12HR PO 02/03/17 21:00 02/05/17 22:38 Thiamine HCl (Vitamin B1) 100 mg DAILY PO 02/04/17 09:00 02/05/17 09:00 Trazodone HCl (Desyrel) 50 mg HS PO 02/03/17 21:00 02/05/17 22:38 Acetaminophen (Tylenol) 650 mg Q4H PRN PO PAIN 1-10 AND/OR FEVER >101F 02/03/17 21:00 02/05/17 09:02 Senna/Docusate Sodium (Aria-Colace) 1 tab BID PO 02/05/17 10:00 02/05/17 10:43 Magnesium Hydroxide (Milk Of Day Liq) 30 ml Q12H PRN PO Mild constipation 02/05/17 09:45 02/05/17 10:43 Objective Remarks GENERAL: chronically ill appearing male supine in bed in [facility]. SKIN: Warm and dry. scattered ecchymoses HEAD: Normocephalic. EYES: No injection or drainage. NECK: Supple, trachea midline. CARDIOVASCULAR: +S1/S2 RESPIRATORY: anterior walker with occasional rhonchi. GASTROINTESTINAL: Abdomen soft, non-tender, nondistended. EXTREMITIES: No cyanosis, or edema. NEUROLOGICAL: No obvious focal deficit. Awake, alert, and oriented x3. Assessment/Plan Problem List: (1) Chronic anemia ICD Codes: D64.9 - Anemia, unspecified Status: Chronic Plan: --invasive radiology consulted for bone marrow biopsy --medical record showed that his hemoglobin has fluctuated from 9 to 12 over the last few years. --also has thrombocytopenia but that seems to be acute as his platelet count in August was normal. Transfuse for platelets less than 20k, Hgb less than 7.5. Assessment 81 y/o male admitted for pain and chronic fatigue found to have a Hgb of 6.9. Hematology consulted for recommendations. Plan 1. consult invasive radiology for bone marrow biopsy 2. monitor CBC Janis Waters Feb 06, 2017 09:07
[2017-02-06] MEDS ORDERED: LIDOCAINE HCL 1% 20 ML VIAL ONE (11:14)
[2017-02-06] MEDS ORDERED: MIDAZOLAM HCL 2 MG/2 ML VIAL ONE (11:39)
--- NOTE | 2017-02-06 11:59 | PD.RAD ---
Post CT Procedure Prog Note Pre Procedure Diagnosis: (1) Chronic anemia (2) Thrombocytopenia Post Procedure Diagnosis: (1) Chronic anemia (2) Thrombocytopenia Procedure Date: Feb 06, 2017 Supervising Radiologist: Hayes Young JR Anesthesia: Conscious Sedation Plan of Activity Patient to Unit: [facility]OPU Additional Comments: Successful bone marrow biopsy and aspiration. See PACS Report for procedural detail/treatment Jr. Young Thomas Justin MD Feb 06, 2017 11:59
[2017-02-06 12:36] LABS: BONE MARROW PROCESSING COMPLETE; IRON STAIN DONE; JENNER GIEMSA STAIN DONE
--- NOTE | 2017-02-06 14:43 | RADRPT ---
EXAM DATE/TIME: 02/06/2017 11:36 [facility] COMPARISON: No previous studies available for comparison. INDICATIONS : Anemia. SEDATION TIME: 15 minutes BIOPSY SITE: Left iliac MEDICATION(S): 1.) 2 mg midazolam (Versed) IV 2.) 100 mcg fentanyl (Sublimaze) IV DEVICE(S): 1.) 11 gauge Bone marrow biopsy needle MEDICAL HISTORY : Carcinoma, prostate. SURGICAL HISTORY : None. ENCOUNTER: Initial ACUITY: 1 day PAIN SCORE: 0/10 LOCATION: Left pelvis A total of one core specimen(s) were obtained and sent to the laboratory for pathologic evaluation. PROCEDURE: 1. CT guided bone marrow biopsy. 2. Conscious sedation with continuous EKG and oximetry monitoring. 3. EKG and oximetry remained stable throughout the procedure. Prior to the procedure informed consent was obtained. Any appropriate prior imaging studies were rev iewed. Using automated exposure control and adjustment of the mA and/or kV according to patient size , radiation dose was kept as low as reasonably achievable to obtain optimal diagnostic quality images . DICOM format image data is available electronically for review and comparison. The site was prepped in a sterile fashion. Full sterile technique was used, including cap, mask, easton rile gloves and gown and a large sterile sheet. Hand hygiene and 2% chlorhexidine and/or betadine/al cohol prep was utilized per protocol for cutaneous antisepsis. The skin and subcutaneous tissues wer e infiltrated with local anesthetic solution. With CT guidance the previously identified target was localized. Biopsy was performed using the presc ribed needle as above. Following biopsy marrow aspiration was performed with repeat puncture. [place] te hemostasis was obtained with compression at the puncture site. Follow-up CT scan reveals no hemorrhage. Conscious sedation was performed with the prescribed dosages and duration as above in the presence of an independent trained radiology nurse to assist in the monitoring of the patient. EKG and oximetry remained stable throughout the procedure. The patient tolerated the procedure well and there were no complications. The patient was sent to Radiology Outpatient Unit in stable condition. CONCLUSION: 1. Uncomplicated CT guided bone marrow aspirate. 2. Uncomplicated CT guided bone marrow biopsy. Hayes Young Jr., MD on February 06, 2017 at 14:41 Board Certified Radiologist. This report was verified electronically.
--- NOTE | 2017-02-06 16:19 | RADRPT ---
EXAM DATE/TIME: 02/06/2017 14:59 [facility] COMPARISON: No previous studies available for comparison. INDICATIONS : Palpable lump, left knee. MEDICAL HISTORY : Hypercholesterolemia. Hypertension. Gastroesophageal reflux disease. Stage III kidney disease. Arthri tis. Rectal polyps. Hepatitis. Prostate cancer. SURGICAL HISTORY : Cervical fusion. Prostate seed inplantation. ENCOUNTER: Initial ACUITY: 1 day PAIN SCORE: 0/10 LOCATION: Left knee. AREA EVALUATED: Left proximal [place]. FINDINGS: Complex 2 cm soft tissue mass just below knee. There is no free fluid. CONCLUSION: Complex mass as described above could be hematoma. There is no drainable fluid. Fol lowup is suggested. Nando Dale MD FACR on February 06, 2017 at 16:15 Board Certified Radiologist. This report was verified electronically.
[2017-02-06] MEDS: LATANOPROST 0.005% OPHT SOLN 2.5 ML BTL EACH EYE SCH (21:59)
[2017-02-06] MEDS: traZODone HCL 50 MG TAB PO SCH (22:00)
[2017-02-07] VITALS (8 sets, daily range): BP systolic 144–169; BP diastolic 77–93; PULSE 84–130; RESP 16–22; TEMP 98.1–99.7; O2SAT 92–96
[2017-02-07] MEDS: SODIUM CHLOR 0.9% 1000 ML INJ 1,000 ML IV SCH (04:38)
[2017-02-07] MEDS: ACETAMINOPHEN 325 MG TAB PO PRN ×2 (04:44→16:41)
[2017-02-07] MEDS: hydrALAZINE HCL 25 MG TAB PO SCH ×2 (05:25→15:16)
[2017-02-07 06:43] LABS: AUTOMATED NEUTROPHIL # 1.9 TH/MM3 (1.8-7.7); BASOPHIL % 0.5 % (0.0-2.0); EOSINOPHIL # 0.5 TH/MM3 (0-0.4); EOSINOPHIL % 14.5 % (0.0-4.0); HEMATOCRIT 23.5 % (39.0-51.0); LYMPH % 24.5 % (9.0-44.0); LYMPHOCYTE # 0.9 TH/MM3 (1.0-4.8); MEAN CELL VOLUME 85.8 FL (80.0-100.0); MEAN CORPUSCULAR HEMOGLOBIN 28.8 PG (27.0-34.0); MEAN CORPUSCULAR HGB CONC 33.6 % (32.0-36.0); MONO % 7.6 % (0.0-8.0); NEUT % 52.9 % (16.0-70.0); PLATELET COUNT 25 TH/MM3 (150-450); RED BLOOD COUNT 2.74 MIL/MM3 (4.50-5.90); RED CELL DISTRIBUTION WIDTH 18.5 % (11.6-17.2); WHITE BLOOD COUNT 3.5 TH/MM3 (4.0-11.0)
[2017-02-07 06:52] LABS: HEMO FLAGS AUTO DIFF
[2017-02-07 06:59] LABS: BICARBONATE 27.2 MEQ/L (21.0-32.0); POTASSIUM 3.5 MEQ/L (3.5-5.1)
[2017-02-07 08:59] LABS: BANDS 12 % (0-6); BASOPHILS 1 % (0-2); EOSINOPHILS 4 % (0-4); METAMYELOCYTES 11 % (0-1); NEUTROPHIL # MANUAL DIFF 2.5 TH/MM3 (1.8-7.7); POLYS (SEG NEUTROPHILS) 47 % (16-70); WBC DIFF SAMPLE 100
[2017-02-07] MEDS: SODIUM CHLORIDE 0.9% FLUSH 10 ML FLUSH IV FLUSH SCH (09:00)
[2017-02-07 09:01] LABS: ACANTHOCYTES OCC (NORMAL); HELMET CELLS OCC (NORMAL); PLATELET ESTIMATE SMEAR LOW (NORMAL); PLATELET MORPHOLOGY NORMAL (NORMAL)
[2017-02-07 09:02] LABS: SCAN/DIFF FINAL DIFF MANUAL
[2017-02-07] MEDS: METOPROLOL TARTRATE 50 MG TAB PO SCH (09:32)
[2017-02-07] MEDS: FOLIC ACID 1 MG TAB PO SCH (09:32)
[2017-02-07] MEDS: THIAMINE HCL 100 MG TAB PO SCH (09:32)
[2017-02-07] MEDS: PANTOPRAZOLE SOD 40 MG DELAYED RELEASE TAB PO SCH (09:32)
[2017-02-07] MEDS: MULTIVITAMIN TAB PO SCH (09:32)
[2017-02-07] MEDS: DOCUSATE SODIUM 50 MG/SENNA 8.6 MG TAB PO SCH (09:32)
[2017-02-07] MEDS: GABAPENTIN 100 MG CAP PO SCH ×3 (09:33→17:58)
[2017-02-07] MEDS: FERROUS SULFATE 325 MG (65 MG ELEMENTAL IRON) TAB PO SCH (09:33)
--- NOTE | 2017-02-07 10:10 | HHI.FPPN ---
Subjective Remarks No acute events overnight. Afebrile, vitals stable. Patient states he is doing well overall this morning. Denies any significant pain following his bone marrow biopsy. Denies fevers or chills, chest pain, shortness of breath, cough. Denies worsening fatigue or weakness. (Ramu Burns MD R2) Objective Vitals Vital Signs Date Time Temp Pulse Resp B/P (MAP) Pulse Ox O2 Delivery O2 Flow Rate FiO2 02/07/17 04:00 98.7 94 16 153/87 (109) 93 02/07/17 00:00 98.9 84 19 144/77 (99) 95 02/06/17 21:40 94 Nasal Cannula 2.00 02/06/17 20:08 97 Nasal Cannula 2.00 02/06/17 20:03 88 02/06/17 20:00 99.1 94 19 146/78 (100) 94 02/06/17 15:26 97.7 80 18 125/71 (89) 94 02/06/17 13:49 97.5 77 18 142/77 (98) 96 02/06/17 13:30 78 16 151/79 (103) 99 02/06/17 13:00 75 16 158/81 (106) 99 02/06/17 12:45 74 16 144/76 (98) 99 02/06/17 12:30 76 16 139/72 (94) 99 02/06/17 12:20 74 16 144/76 (98) 99 02/06/17 12:15 97.5 77 16 129/70 (89) 92 I/O 02/06/17 02/06/17 02/06/17 02/07/17 02/07/17 02/07/17 07:00 15:00 23:00 07:00 15:00 23:00 Intake Total 240 ml Output Total 200 ml 600 ml 200 ml Balance -200 ml -360 ml -200 ml Intake Oral 240 ml Output Urine Total 200 ml 600 ml 200 ml # Voids 5 (Ramu Burns MD R2) Result Diagram: 02/07/1762502/07/17625 Objective Remarks Gen: WDWN adult white male lying in bed in NAD CV: NRRR, normal S1/S2, no MRG Lungs: Normal rate and effort. CTAB. No crackles or wheezes. Abd: Soft, NDNT MSK: 1-2+ edema up to distal 1/3 of shins bilaterally. Skin: Chronic venous stasis changes present on BLE. No cyanosis. Several bruises across entire body at various stages of healing. 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 L knee with mild erythema at tibial tuberosity. ~2x2cm circular fluctuant area along the left tibial tuberosity. (Ramu Burns MD R2) A/P Assessment and Plan 81 yo male with HTN, COPD, chronic anemia presenting with: Discharge Planning Anticipate discharge to SNF today pending no further workup per hematology (Ramu Burns MD R2) Attending Attestation Patient seen and examined. Case reviewed and discussed with the resident team. Agree with plan of care as discussed with me and documented in the resident note. (Ne Gottlieb MD) Problem List: (1) Chronic anemia ICD Codes: D64.9 - Anemia, unspecified Status: Chronic Plan: Truly this is txpfu-lp-[id number] anemia; Hgb had been fluctuating from 9- 12 for some time, as outpatient hovering around 8-9 recently. Macrocytosis possibly due to alcohol use vs bone marrow disorder Initial Hgb 6.9, corrected to 8.8 after transfusion Prior work-up: Item Value Date Time Ferritin 1402 NG/ML H 01/07/17 1009 Total Iron Binding Capacity 221 MCG/DL L 01/07/17 1009 Percent Iron Saturation 14.9 % L 01/07/17 1009 Iron Level 33 MCG/DL L 01/07/17 1009 Lactate Dehydrogenase 289 U/L H 01/07/17 1009 Vitamin B12 Level 1087 PG/ML H 01/07/17 1009 Item Value Date Time Haptoglobin 123 MG/DL 02/04/17 0515 Reticulocyte Count 1.9 % 02/04/17 1220 Absolute Reticulocyte Count 54.4 MIL/L 02/04/17 1220 - s/p 2 units PRBC on 02/03 - Hematology consulted, appreciate assistance - Hematology to review peripheral smear - Impression: bone marrow pathology, either myeloproliferative disorder or MDS - Bone marrow biopsy performed on 02/06 - Outpatient acid strength inspector = Dr. 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 - S/p colchicine 1.2 mg once, then 0.6 mg 1 h later - Pain improved - Monitor clinically - Ultrasound of mass below the left knee showing complex mass could be a hematoma, no drainable fluid (4) Acute on chronic renal failure ICD Codes: N17.9 - Acute kidney failure, unspecified; N18.9 - Chronic kidney disease, unspecified Status: Chronic Plan: Baseline Cr appears to be around 1.5, now is 2.5 on admission Continuing to improve - NS @ 125 cc/hr - Trend BMP - Renally dose medications (5) COPD (chronic obstructive pulmonary disease) ICD Codes: J44.9 - COPD (chronic obstructive pulmonary disease) Status: Chronic Plan: Symptoms stable - Continue home DuoNebs PRN (6) Chronic alcoholism ICD Codes: F10.20 - Alcohol dependence, uncomplicated Status: Chronic Plan: Heavy drinking for years, may be contributing to current anemia/ thrombocytopenia - [facility] protocol - Rally pack (thiamine, folate, multivitamin) (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 SCDs b/l knee high. Pain: Tylenol PRN Constipation: Meds per hospital protocol Code status: Full code (Ramu Burns MD R2) Problem Qualifiers (1) Gout: Qualified Codes: M1A.09X1 - Idiopathic chronic gout, multiple sites, with tophus (tophi) Ramu Burns MD R2 Feb 07, 2017 10:10 Ne Gottlieb MD Feb 07, 2017 12:14
--- NOTE | 2017-02-07 11:27 | HHI.DCPOC ---
Discharge Care Plan Diagnosis: (1) Acute gout (2) Thrombocytopenia (3) Chronic anemia Goals to Promote Your Health * To prevent worsening of your condition and complications * To maintain your health at the optimal level Directions to Meet Your Goals Take your medications as prescribed Follow your dietary instruction Follow activity as directed Keep your appointments as scheduled Take your immunizations and boosters as scheduled If your symptoms worsen call your PCP, if no PCP go to Urgent Care Center or Emergency Room Smoking is Dangerous to Your Health. Avoid second hand smoke Call the 24-hour hour crisis hotline for domestic abuse at Sadaf Bryan MD R1 Feb 07, 2017 11:26
--- NOTE | 2017-02-07 11:27 | HHI.DS ---
Discharge Summary Admission Date Feb 03, 2017 at 16:39 Admitting Diagnosis Anemia/Renal Failure (1) Chronic anemia Plan: Truly this is [id number] anemia; Hgb had been fluctuating from 9- 12 for some time, as outpatient hovering around 8-9 recently. Macrocytosis possibly due to alcohol use vs bone marrow disorder Initial Hgb 6.9, corrected to 8.8 after transfusion Prior work-up: Item Value Date Time Ferritin 1402 NG/ML H 01/07/17 1009 Total Iron Binding Capacity 221 MCG/DL L 01/07/17 1009 Percent Iron Saturation 14.9 % L 01/07/17 1009 Iron Level 33 MCG/DL L 01/07/17 1009 Lactate Dehydrogenase 289 U/L H 01/07/17 1009 Vitamin B12 Level 1087 PG/ML H 01/07/17 1009 Item Value Date Time Haptoglobin 123 MG/DL 02/04/17 0515 Reticulocyte Count 1.9 % 02/04/17 1220 Absolute Reticulocyte Count 54.4 MIL/L 02/04/17 1220 - s/p 2 units PRBC on 02/03 - Hematology consulted, appreciate assistance - Hematology to review peripheral smear - Impression: bone marrow pathology, either myeloproliferative disorder or MDS - Bone marrow biopsy performed on 02/06 - Outpatient concrete panel installer = Dr. Thornton - Transfuse for Plt < 20k or Hgb < 7.5 - Daily CBC ICD Codes: D64.9 - Anemia, unspecified Status: Chronic (2) Thrombocytopenia Plan: Acute on chronic thrombocytopenia, on admission with Plt < 50 - S/p 1 unit platelets 02/04 - Hold pharmacologic anticoagulation - Plt transfusion criteria as noted above - Trend CBC - Await results of BMB to be performed today 02/06 ICD Codes: D69.6 - Thrombocytopenia, unspecified Status: Chronic (3) Gout Plan: 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 - S/p colchicine 1.2 mg once, then 0.6 mg 1 h later - Pain improved - Monitor clinically - Ultrasound of mass below the left knee showing complex mass could be a hematoma, no drainable fluid ICD Codes: M10.9 - Gout, unspecified Status: Chronic (4) Acute on chronic renal failure Plan: Baseline Cr appears to be around 1.5, now is 2.5 on admission Continuing to improve - NS @ 125 cc/hr - Trend BMP - Renally dose medications ICD Codes: N17.9 - Acute kidney failure, unspecified; N18.9 - Chronic kidney disease, unspecified Status: Chronic (5) COPD (chronic obstructive pulmonary disease) Plan: Symptoms stable - Continue home DuoNebs PRN ICD Codes: J44.9 - COPD (chronic obstructive pulmonary disease) Status: Chronic (6) Chronic alcoholism Plan: Heavy drinking for years, may be contributing to current anemia/ thrombocytopenia - [facility] protocol - Rally pack (thiamine, folate, multivitamin) ICD Codes: F10.20 - Alcohol dependence, uncomplicated Status: Chronic (7) Wilks esophagus Plan: Continue PPI BID ICD Codes: K22.70 - Wilks's esophagus without dysplasia Status: Chronic (8) Diverticulosis Plan: W/u for GIB recently negative - Monitor as above ICD Codes: K57.90 - Diverticulosis of intestine, part unspecified, without perforation or abscess without bleeding Status: Chronic (9) FEN/PPX Plan: Fluids: As above Elecs: Monitor and replete PRN Nutrition: Diet regular basic DVT: Pharm PPX contraindicated due to thrombocytopenia. SCDs b/l knee high. Pain: Tylenol PRN Constipation: Meds per hospital protocol Code status: Full code Brief History 81 yo male with h/o HTN, alcohol abuse presenting with acute on chronic anemia. Per patient report he feels well but was sent over by a physician at his long- term care facility for his low hemoglobin. He denies CP/SOB. Endorses some mild global fatigue but no focal weakness. No lightheadedness or dizziness. Regarding his anemia, this was first diagnosed when he presented to [facility] in December for back pain. During that hospital stay, a full GI work-up was done including EGD and Colonoscopy which was significant for mild diverticulosis and Barett's esophagus as well as mild gastritis. He was to have a capsule endoscopy as an outpatient. He also established with a concrete panel installer Dr. Thornton as an outpatient and has been receiving periodic blood and platelet transfusions. Dr. Thornton's differential includes B12 deficiency, myelosuppression from alcohol, and primary bone marrow disorder. He is planned to have a bone marrow biopsy as an outpatient. CBC/BMP: 02/07/17 0626 02/07/17 0626 Significant Findings Laboratory Tests Test 02/04/17 12:20 02/05/17 11:10 02/06/17 04:42 02/06/17 11:50 Red Blood Count 2.86 MIL/MM3 (4.50-5.90) 2.87 MIL/MM3 (4.50-5.90) 2.78 MIL/MM3 (4.50-5.90) Hemoglobin 8.3 GM/DL (13.0-17.0) 8.1 GM/DL (13.0-17.0) 7.9 GM/DL (13.0-17.0) Hematocrit 24.3 % (39.0-51.0) 24.4 % (39.0-51.0) 23.7 % (39.0-51.0) Red Cell Distribution Width 19.4 % (11.6-17.2) 19.0 % (11.6-17.2) 18.8 % (11.6-17.2) Platelet Count 55 TH/MM3 (150-450) 45 TH/MM3 (150-450) 35 TH/MM3 (150-450) Monocytes (%) (Auto) 9.5 % (0.0-8.0) 9.2 % (0.0-8.0) Eosinophils (%) (Auto) 12.7 % (0.0-4.0) 13.1 % (0.0-4.0) Lymphocytes # (Auto) 0.9 TH/MM3 (1.0-4.8) Eosinophils # (Auto) 0.6 TH/MM3 (0-0.4) 0.5 TH/MM3 (0-0.4) Platelet Estimate LOW (NORMAL) LOW (NORMAL) Blood Urea Nitrogen 25 MG/DL (7-18) 24 MG/DL (7-18) Creatinine 2.00 MG/DL (0.60-1.30) 1.91 MG/DL (0.60-1.30) Random Glucose 138 MG/DL (74-106) Calcium Level 7.8 MG/DL (8.5-10.1) 7.8 MG/DL (8.5-10.1) Estimat Glomerular Filtration Rate 32 ML/MIN (>89) 34 ML/MIN (>89) White Blood Count 3.9 TH/MM3 (4.0-11.0) Band Neutrophils % 8 % (0-6) Eosinophils % 16 % (0-4) Basophils % 4 % (0-2) Test 02/07/17 06:26 White Blood Count 3.5 TH/MM3 (4.0-11.0) Red Blood Count 2.74 MIL/MM3 (4.50-5.90) Hemoglobin 7.9 GM/DL (13.0-17.0) Hematocrit 23.5 % (39.0-51.0) Red Cell Distribution Width 18.5 % (11.6-17.2) Platelet Count 25 TH/MM3 (150-450) Eosinophils (%) (Auto) 14.5 % (0.0-4.0) Lymphocytes # (Auto) 0.9 TH/MM3 (1.0-4.8) Eosinophils # (Auto) 0.5 TH/MM3 (0-0.4) Band Neutrophils % 12 % (0-6) Metamyelocytes 11 % (0-1) Platelet Estimate LOW (NORMAL) Blood Urea Nitrogen 24 MG/DL (7-18) Creatinine 1.85 MG/DL (0.60-1.30) Calcium Level 7.9 MG/DL (8.5-10.1) Estimat Glomerular Filtration Rate 35 ML/MIN (>89) PE at Discharge Gen: WDWN adult white male lying in bed in NAD CV: NRRR, normal S1/S2, no MRG Lungs: Normal rate and effort. CTAB. No crackles or wheezes. Abd: Soft, NDNT MSK: 1-2+ edema up to distal 1/3 of shins bilaterally. Skin: Chronic venous stasis changes present on BLE. No cyanosis. Several bruises across entire body at various stages of healing. 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 L knee with mild erythema at tibial tuberosity. ~2x2cm circular fluctuant area along the left tibial tuberosity. Sadaf Bryan MD R1 Feb 07, 2017 11:27
[2017-02-07] MEDS ORDERED: COLC0.6T PO (11:46)
--- NOTE | 2017-02-07 11:58 | PD.ONC.PN ---
Subjective Subjective Remarks Afebrile overnight. Patient resting in bed. Eager to go back to [facility]. Denies bleeding. Objective Data Date Time Temp Pulse Resp B/P (MAP) Pulse Ox O2 Delivery O2 Flow Rate FiO2 02/07/17 08:30 98.4 98 20 169/93 (118) 94 02/07/17 08:30 94 Room Air 02/07/17 04:00 98.7 94 16 153/87 (109) 93 02/07/17 00:00 98.9 84 19 144/77 (99) 95 02/06/17 21:40 94 Nasal Cannula 2.00 02/06/17 20:08 97 Nasal Cannula 2.00 02/06/17 20:03 88 02/06/17 20:00 99.1 94 19 146/78 (100) 94 02/06/17 15:26 97.7 80 18 125/71 (89) 94 02/06/17 13:49 97.5 77 18 142/77 (98) 96 02/06/17 13:30 78 16 151/79 (103) 99 02/06/17 13:00 75 16 158/81 (106) 99 02/06/17 12:45 74 16 144/76 (98) 99 02/06/17 12:30 76 16 139/72 (94) 99 02/06/17 12:20 74 16 144/76 (98) 99 02/06/17 12:15 97.5 77 16 129/70 (89) 92 02/07/17 02/07/17 02/07/17 07:00 15:00 23:00 Output Total 200 ml Balance -200 ml Result Diagram: 02/07/1762502/07/17 06 Laboratory Results Laboratory Tests Test 02/07/17 06:26 White Blood Count 3.5 TH/MM3 Red Blood Count 2.74 MIL/MM3 Hemoglobin 7.9 GM/DL Hematocrit 23.5 % Mean Corpuscular Volume 85.8 FL Mean Corpuscular Hemoglobin 28.8 PG Mean Corpuscular Hemoglobin Concent 33.6 % Red Cell Distribution Width 18.5 % Platelet Count 25 TH/MM3 Mean Platelet Volume 8.1 FL Neutrophils (%) (Auto) 52.9 % Lymphocytes (%) (Auto) 24.5 % Monocytes (%) (Auto) 7.6 % Eosinophils (%) (Auto) 14.5 % Basophils (%) (Auto) 0.5 % Neutrophils # (Auto) 1.9 TH/MM3 Lymphocytes # (Auto) 0.9 TH/MM3 Monocytes # (Auto) 0.3 TH/MM3 Eosinophils # (Auto) 0.5 TH/MM3 Basophils # (Auto) 0.0 TH/MM3 CBC Comment AUTO DIFF Differential Total Cells Counted 100 Neutrophils % (Manual) 47 % Band Neutrophils % 12 % Lymphocytes % 18 % Monocytes % 7 % Eosinophils % 4 % Basophils % 1 % Neutrophils # (Manual) 2.5 TH/MM3 Metamyelocytes 11 % Differential Comment FINAL DIFF MANUAL Atypical Lymphocytes % Platelet Estimate LOW Platelet Morphology Comment NORMAL Helmet Cells OCC Acanthocytes OCC Blood Urea Nitrogen 24 MG/DL Creatinine 1.85 MG/DL Random Glucose 97 MG/DL Calcium Level 7.9 MG/DL Sodium Level 141 MEQ/L Potassium Level 3.5 MEQ/L Chloride Level 107 MEQ/L Carbon Dioxide Level 27.2 MEQ/L Anion Gap 7 MEQ/L Estimat Glomerular Filtration Rate 35 ML/MIN Culture Results Microbiology Date/Time Source Procedure Growth Status 02/05/17 17:40 Stool Stool Stool Occult Blood (LYLA) - Final HEMOCCULT NEGATIVE Complete Administered Medications Medications (Trade) Dose Ordered Sig/Nikki Route PRN Reason Start Time Stop Time Status Last Admin Dose Admin Sodium Chloride (NS Flush) 2 ml BID IV FLUSH 02/03/17 21:00 02/05/17 22:44 Sodium Chloride 1,000 ml @ 125 mls/hr Q8H IV 02/03/17 19:45 02/07/17 04:38 Amlodipine Besylate (Norvasc) 10 mg DAILY PO 02/04/17 09:00 02/07/17 09:33 Ferrous Sulfate (Ferrous Sulfate) 325 mg DAILY PO 02/04/17 09:00 02/07/17 09:33 Folic Acid (Folate) 1 mg DAILY PO 02/04/17 09:00 02/07/17 09:32 Gabapentin (Neurontin) 200 mg TID PO 02/04/17 09:00 02/07/17 09:33 Hydralazine HCl (Apresoline) 25 mg Q8HR PO 02/03/17 22:00 02/07/17 05:25 Latanoprost (Xalatan 0.005% Opt Soln) 1 drop HS EACH EYE 02/03/17 21:00 02/06/17 21:59 Metoprolol Tartrate (Lopressor) 50 mg BID PO 02/03/17 21:00 02/07/17 09:32 Multivitamins (Theragran) 1 tab DAILY PO 02/04/17 09:00 02/07/17 09:32 Pantoprazole Sodium (Protonix) 40 mg Q12HR PO 02/03/17 21:00 02/07/17 09:32 Thiamine HCl (Vitamin B1) 100 mg DAILY PO 02/04/17 09:00 02/07/17 09:32 Trazodone HCl (Desyrel) 50 mg HS PO 02/03/17 21:00 02/06/17 22:00 Acetaminophen (Tylenol) 650 mg Q4H PRN PO PAIN 1-10 AND/OR FEVER >101F 02/03/17 21:00 02/07/17 04:44 Senna/Docusate Sodium (Aria-Colace) 1 tab BID PO 02/05/17 10:00 02/07/17 09:32 Magnesium Hydroxide (Milk [employer] The [employer] Networkcheryl Litulio) 30 ml Q12H PRN PO Mild constipation 02/05/17 09:45 02/05/17 10:43 Objective Remarks GENERAL: chronically ill male supine in bed. SKIN: Warm and dry. scattered bruises on arms. HEAD: Normocephalic. EYES: No injection or drainage. NECK: Supple, trachea midline. CARDIOVASCULAR: +S1/S2 RESPIRATORY: anterior walker clear GASTROINTESTINAL: Abdomen soft, non-tender, nondistended. EXTREMITIES: No cyanosis, or edema. NEUROLOGICAL: No obvious focal deficit. Awake, alert, and oriented x3. Assessment/Plan Problem List: (1) Chronic anemia ICD Codes: D64.9 - Anemia, unspecified Status: Chronic Plan: --s/p bone marrow biopsy on 02/06 --medical record showed that his hemoglobin has fluctuated from 9 to 12 over the last few years. --also has thrombocytopenia but that seems to be acute as his platelet count in August was normal. Transfuse for platelets less than 20k, Hgb less than 7.5. Assessment 81 y/o male admitted for pain and chronic fatigue found to have a Hgb of 6.9. Hematology consulted for recommendations. Plan 1. await pathology from bone marrow biopsy. ok to d/c home and follow up in clinic for results 2. will give 1 unit pRBC prior to discharge. 3. follow up in clinic with Dr. Green in one week. Janis Waters Feb 07, 2017 11:58
[2017-02-07] MEDS ORDERED: ACETAMINOPHEN 325 MG TAB PO PRN (12:00)
[2017-02-07] MEDS ORDERED: diphenhydrAMINE HCL 25 MG CAP PO PRN (12:00)
[2017-02-07] MEDS ORDERED: SODIUM CHLOR 0.9% 250 ML INJ 250 ML IV ONE (12:00)
== END 2017-02-07 19:45 | DRG 812 ==
LOC: NEPC 13:41 → NEDA 16:39 → N07B 18:15 → HCIN 02-05 14:18
PROVIDERS: ADMIT Family Medicine; ATTEND Family Medicine
PROC: 30253R1 (ICD-10-PCS; 2017-02-03)
PROC: 30253N1 (ICD-10-PCS; 2017-02-03)
PROC: 07DR3ZX Extraction of Iliac Bone Marrow, Percutaneous Approach, Diagnostic (ICD-10-PCS; principal; 2017-02-06)
DX: D64.9 Anemia, unspecified (principal); N17.9 Acute kidney failure, unspecified; D69.6 Thrombocytopenia, unspecified; J44.9 Chronic obstructive pulmonary disease, unspecified; C94.6 Myelodysplastic disease, not elsewhere classified; D75.89 Other specified diseases of blood and blood-forming organs; E78.5 Hyperlipidemia, unspecified; I12.9 Hypertensive chronic kidney disease with stage 1 through stage 4 chronic kidney disease, or unspecified chronic kidney disease; N18.9 Chronic kidney disease, unspecified; F10.20 Alcohol dependence, uncomplicated; K21.9 Gastro-esophageal reflux disease without esophagitis; K22.70 Barrett's esophagus without dysplasia; K29.70 Gastritis, unspecified, without bleeding; K57.90 Diverticulosis of intestine, part unspecified, without perforation or abscess without bleeding; M1A.09X1 Idiopathic chronic gout, multiple sites, with tophus (tophi); Z85.46 Personal history of malignant neoplasm of prostate; Z86.14 Personal history of Methicillin resistant Staphylococcus aureus infection; Z87.891 Personal history of nicotine dependence; M19.90 Unspecified osteoarthritis, unspecified site; Z92.3 Personal history of irradiation; Z98.1 Arthrodesis status
CPT/HCPCS: 36430; 38221; 71010; 76882; 77012; 80048; 80053; 82272; 83010; 83615; 85007; 85014; 85018; 85025; 85027; 85044; 85060; 85097; 85610; 85730; 86850; 86900; 86901; 86920; 88184; 88185; 88237; 88264; 88280; 88305; 88311; 88313; 93005; 99152; 99285; C1830; J2250; J3010; J7030; J7050; P9016; P9035

== ENCOUNTER 2017-02-08 11:20 | Inpatient (IN) | payer MEDICARE, BC ==
[2017-02-08] VITALS (7 sets, daily range): BP systolic 158–225; BP diastolic 78–97; PULSE 99–115; RESP 18–24; TEMP 98.1–101.5; O2SAT 92–99
[~2017-02-08] VITALS: Ht 182.9 cm; Wt 101.3 kg
[~2017-02-08 11:20] MED LIST changes: -Albuterol-Ipratropium Neb NEB; -FISH1000 PO; -FURO1TAB62 PO; +IPRASOL NEB; -META48.53 PO; -Nystatin Powder TOPICAL; -PRED20 PO; -QUES4POW PO; -TRAM50 PO
--- NOTE | 2017-02-08 11:52 | PD ---
HPI Chief Complaint: General Weakness Time Seen by Provider: 11:37 Travel History International Travel<30 days: No Contact w/Intl Traveler<30days: No Traveled to known affect area: No History of Present Illness HPI 81 YO M presents to the ED via [facility] for evaluation of fever after PRBC transfusion last night. Patient was returned to his [facility], [facility] last night. On presentation the patient is alert and oriented. He complains of generalized weakness since this AM. He states that he was unable to transfer to his wheelchair this AM. HE has no other physical complaints. The patient's daughter is at bedside and states that she noticed swelling of the left upper extremity after the patient was discharged last night. She states that she thought that the patient sounded a little wheezy last night as well, but that seems to have improved to day. PFSH Past Medical History Arthritis: Yes Asthma: No Autoimmune Disease: No Blood Disorders: No Heart Rhythm Problems: No Cancer: Yes (PROSTATE) Cardiovascular Problems: Yes High Cholesterol: Yes Chest Pain: No Congestive Heart Failure: No COPD: No Cerebrovascular Accident: No Diabetes: No Diminished Hearing: No Endocrine: No GERD: Yes Genitourinary: Yes Hiatal Hernia: No Hypertension: Yes Immune Disorder: No Kidney Stones: No Musculoskeletal: Yes Neurologic: No Psychiatric: No Reproductive: Yes Respiratory: Yes Migraines: No Radiation Therapy: Yes (SEED IMPLANTS) Renal Failure: Yes (stage III) Seizures: No Sleep Apnea: No Thyroid Disease: No Ulcer: No Past Surgical History Abdominal Surgery: No AICD: No Arteriovenous Shunt: No Body Medical Devices: cervical spine fusion ,6, Cardiac Surgery: No Ear Surgery: No Endocrine Surgery: No Eye Surgery: Yes (cataracts) Genitourinary Surgery: Yes (RECTAL POLYPS) Gynecologic Surgery: No Joint Replacement: No Neurologic Surgery: Yes (cervical fusion 5,6,7 2010) Oral Surgery: No Pacemaker: No Thoracic Surgery: No Other Surgery: Yes (LUMBER SPINAL FUSION) Social History Alcohol Use: Yes (2 large scotch drinks daily "solo cup size" per daughter) Tobacco Use: No Substance Use: No Allergies-Medications (Allergen,Severity, Reaction): Coded Allergies: sulfamethoxazole (Unverified Allergy, Severe, RASH, 02/03/17) trimethoprim (Unverified Allergy, Severe, RASH, 02/03/17) morphine (Verified Adverse Reaction, Severe, Nausea/Vomiting, 02/03/17) *MDRO Multi-Drug Resistant Organism (Verified Adverse Reaction, Unknown, 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 DO NOT take more than 3 tablets per two weeks due to renal insufficiency. Oxycodone-Acetaminophen 10-325 (Oxycodone HCl/Acetaminophen) 10 Mg-325 Mg Tablet 1 Tab PO Q6H PRN Thera Tablet (Multivitamin with Folic Acid) 400 Mcg Tablet 1 Tab PO DAILY 30 Days Gnp Vitamin B-1 (Thiamine HCl) 100 Mg Tab 100 Mg PO DAILY 30 Days Folic Acid 1 Mg Tablet 1 Mg PO DAILY 30 Days Lidoderm (Lidocaine) 5 % Adh..patch 2 Patch T-DERMAL DAILY 30 Days Pantoprazole (Pantoprazole Sodium) 40 Mg Tab 40 Mg PO Q12HR 30 Days Gnp Senna Plus 8.6-50 mg (Sennosides-Docusate Sodium) 8.6 Mg-50 Mg Tab 1 Tab PO BID 30 Days Xalatan Opth Drops (Latanoprost) 0.005% Drops 1 Drop EACH EYE HS 30 Days Trazodone (Trazodone HCl) 50 Mg Tab 50 Mg PO HS 30 Days Norvasc (Amlodipine Besylate) 10 Mg Tab 10 Mg PO DAILY 30 Days Metoprolol Tartrate 25 Mg Tab 50 Mg PO BID 30 Days Hydralazine HCl 25 Mg Tablet 25 Mg PO Q8HR 30 Days Catapres (Clonidine) 0.2 Mg Tab 0.2 Mg PO Q6H PRN 30 Days Ferosul (Ferrous Sulfate) 325 Mg (65 Mg Iron) Tablet 325 Mg PO DAILY 30 Days Reported Duoneb (Ipratropium-Albuterol Neb) 0.5-2.5 Mg/3 Ml Neb 3 Ml NEB Q8HR PRN Gabapentin 100 Mg Cap 200 Mg PO TID Mapap (Acetaminophen) 325 Mg Tab 650 Mg PO Q4HR PRN Review of Systems Except as stated in HPI: all other systems reviewed are Neg Physical Exam Narrative GENERAL: Well-nourished, well-developed ill-appearing white male in no acute distress. SKIN: Focused skin assessment warm/dry. Chronic skin changes in the bilateral lower extremities. The LUE is warm, erythematous, edematous superior to the antecubital fossa. HEAD: Normocephalic. EYES: No scleral icterus. No injection or drainage. NECK: Supple, trachea midline. No JVD or lymphadenopathy. CARDIOVASCULAR: Regular rate and rhythm without murmurs, gallops, or rubs. RESPIRATORY: Breath sounds diminished in the bases bilaterally. Clear bilaterally. No accessory muscle use. GASTROINTESTINAL: Abdomen soft, non-tender, nondistended. MUSCULOSKELETAL: No cyanosis. 2+ edema in the bilateral lower extremities. BACK: Nontender without obvious deformity. No CVA tenderness. Data Data Last Documented VS Vital Signs Date Time Temp Pulse Resp B/P (MAP) Pulse Ox O2 Delivery O2 Flow Rate FiO2 02/08/17 14:17 101.5 02/08/17 14:11 114 24 96 02/08/17 12:19 Nasal Cannula 2.00 Orders Orders Sepsis Workup Initiated (02/08/17 ) Electrocardiogram (02/08/17 11:53) Complete Blood Count With Diff (02/08/17 11:53) Comprehensive Metabolic Panel (02/08/17 11:53) Prothrombin Time / Inr (Pt) (02/08/17 11:53) Act Partial Throm Time (Ptt) (02/08/17 11:53) Lactic Acid Sepsis Protocol (02/08/17 11:53) Magnesium (Mg) (02/08/17 11:53) Troponin I (02/08/17 11:53) Urinalysis - C+S If Indicated (02/08/17 11:53) Blood Culture (02/08/17 11:53) Chest, Single Ap (02/08/17 11:53) Blood Glucose (02/08/17 11:53) Ecg Monitoring (02/08/17 11:53) Iv Access Insert/Monitor (02/08/17 11:53) Oximetry (02/08/17 11:53) Oxygen Administration (02/08/17 11:53) Acetaminophen (Tylenol) (02/08/17 12:00) B-Type Natriuretic Peptide (02/08/17 11:53) Sodium Chlor 0.9% 250 Ml Inj (Ns 250 Ml (02/08/17 14:15) Acetaminophen 325 Mg/10 Ml Liq (Tylenol (02/08/17 14:30) Vancomycin Inj (Vancomycin Inj) (02/08/17 14:45) Cefepime Inj (Maxipime Inj) (02/08/17 14:45) Consult Medical Oncology (02/08/17 ) (Hub Use Only)Inp Phy Cons/Ref (02/08/17 ) Admit Order (Ed Use Only) (02/08/17 15:44) Labs Laboratory Tests Test 02/08/17 12:10 White Blood Count 4.1 TH/MM3 Red Blood Count 2.82 MIL/MM3 Hemoglobin 8.1 GM/DL Hematocrit 23.7 % Mean Corpuscular Volume 84.3 FL Mean Corpuscular Hemoglobin 28.8 PG Mean Corpuscular Hemoglobin Concent 34.1 % Red Cell Distribution Width 18.4 % Platelet Count 20 TH/MM3 Mean Platelet Volume 6.4 FL Neutrophils (%) (Auto) 64.2 % Lymphocytes (%) (Auto) 20.0 % Monocytes (%) (Auto) 6.8 % Eosinophils (%) (Auto) 8.7 % Basophils (%) (Auto) 0.3 % Neutrophils # (Auto) 2.6 TH/MM3 Lymphocytes # (Auto) 0.8 TH/MM3 Monocytes # (Auto) 0.3 TH/MM3 Eosinophils # (Auto) 0.4 TH/MM3 Basophils # (Auto) 0.0 TH/MM3 CBC Comment AUTO DIFF Differential Total Cells Counted 100 Neutrophils % (Manual) 63 % Band Neutrophils % 11 % Lymphocytes % 16 % Monocytes % 5 % Eosinophils % 3 % Basophils % 2 % Neutrophils # (Manual) 3.0 TH/MM3 Differential Comment FINAL DIFF MANUAL Platelet Estimate LOW Platelet Morphology Comment NORMAL Keratocytes OCC Prothrombin Time 11.5 SEC Prothromb Time International Ratio 1.0 RATIO Activated Partial Thromboplast Time 30.4 SEC Urine Color YELLOW Urine Turbidity CLEAR Urine pH 5.5 Urine Specific [place] 1.009 Urine Protein 100 mg/dL Urine Glucose (UA) NEG mg/dL Urine Ketones NEG mg/dL Urine Occult Blood LARGE Urine Nitrite NEG Urine Bilirubin NEG Urine Urobilinogen LESS THAN 2.0 MG/DL Urine Leukocyte Esterase NEG Urine RBC /hpf Urine WBC 2 /hpf Urine Squamous Epithelial Cells <1 /hpf Urine Mucus FEW /lpf Urine Yeast (Budding) FEW Microscopic Urinalysis Comment CATH-CULT NOT IND Blood Urea Nitrogen 22 MG/DL Creatinine 2.05 MG/DL Random Glucose 123 MG/DL Total Protein 6.3 GM/DL Albumin 2.5 GM/DL Calcium Level 7.9 MG/DL Magnesium Level 1.1 MG/DL Alkaline Phosphatase 92 U/L Aspartate Amino Transf (AST/SGOT) 16 U/L Alanine Aminotransferase (ALT/SGPT) 17 U/L Total Bilirubin 0.7 MG/DL Sodium Level 139 MEQ/L Potassium Level 3.5 MEQ/L Chloride Level 105 MEQ/L Carbon Dioxide Level 25.5 MEQ/L Anion Gap 9 MEQ/L Estimat Glomerular Filtration Rate 31 ML/MIN Lactic Acid Level 1.4 mmol/L Troponin I 0.02 NG/ML B-Type Natriuretic Peptide 119 PG/ML MDM Medical Decision Making Medical Screen Exam Complete: Yes Emergency Medical Condition: Yes Differential Diagnosis urosepsis versus PNA versus cellulitis versus transfusion reaction versus metabolic derangement versus CHF versus thrombophlebitis versus DVT versus other Narrative Course 81 YO M presents to the ED via [facility] for evaluation of fever after PRBC transfusion last night. Patient discharged to his ALS after an seizure last night. He complains of generalized weakness since this morning, states that he was unable to transfer to his wheelchair per normal. No other physical complaints. Daughter bedside states that she noticed swelling of his left upper extremity and a little wheeze in his breathing last night but seems to have improved today. On presentation the patient is tachycardic, febrile, hypertensive, hypoxic. Physical exam reveals a chronically ill-appearing white male in no acute distress. There is warm erythema just superior to the left antecubital space of the left arm. Shivering, soft. Chest CTA B. Chronic skin changes and edema of the lower extremities noted. IV was established. Patient was administered 250 of normal saline, 1 g Tylenol. EKG rate 112, sinus tachycardia. HI interval 200, QRS 91, QTC 39 ms. Normal axis. No ST changes. Reviewed by Dr. Frost. CXR stable as compared to previous x-rays per radiology read. CBC, CMP all at baseline per record review. BNP pending. I spoke with Dr. Green who recommends initiation of IV antibiotics, admission. I spoke with the patient and his daughter who are agreeable to this plan. Consult placed for Dr. Green. Call placed to the resident team. Dr. Bryan agrees to accept the patient to the medicine service under Dr. Gottlieb. Please see medicine at disposition. Katja Taylor Feb 08, 2017 11:52
[2017-02-08] MEDS ORDERED: ACETAMINOPHEN 325 MG TAB PO ONE (12:00)
[2017-02-08 12:30] LABS: AUTOMATED NEUTROPHIL # 2.6 TH/MM3 (1.8-7.7); BASOPHIL % 0.3 % (0.0-2.0); EOSINOPHIL # 0.4 TH/MM3 (0-0.4); EOSINOPHIL % 8.7 % (0.0-4.0); HEMATOCRIT 23.7 % (39.0-51.0); LYMPHOCYTE # 0.8 TH/MM3 (1.0-4.8); MEAN CELL VOLUME 84.3 FL (80.0-100.0); MEAN CORPUSCULAR HEMOGLOBIN 28.8 PG (27.0-34.0); MEAN CORPUSCULAR HGB CONC 34.1 % (32.0-36.0); MONO % 6.8 % (0.0-8.0); NEUT % 64.2 % (16.0-70.0); PLATELET COUNT 20 TH/MM3 (150-450); RED BLOOD COUNT 2.82 MIL/MM3 (4.50-5.90); RED CELL DISTRIBUTION WIDTH 18.4 % (11.6-17.2); WHITE BLOOD COUNT 4.1 TH/MM3 (4.0-11.0)
[2017-02-08 12:33] LABS: BLOOD, URINE LARGE (NEG); COMMENT (UR) CATH-CULT NOT IND; CULTURE IF INDICATED CATH CULTURE NOT IND; GLUCOSE,URINE NEG (NEG); KETONE, URINE NEG (NEG); MUCUS URINE FEW /lpf (OCC); NITRITE,URINE NEG (NEG); PH, URINE 5.5 (5.0-8.5); SQUAMOUS EPITHELIAL CELL URINE <1 /hpf (0-5); URINE COLOR YELLOW (YELLW/STRAW)
[2017-02-08 12:40] LABS: APTT (PATIENT) 30.4 SEC (24.3-30.1); PROTHROMBIN TIME - PATIENT 11.5 SEC (9.8-11.6)
[2017-02-08 12:46] LABS: ANION GAP 9 MEQ/L (5-15); AST (GOT) 16 U/L (15-37); BICARBONATE 25.5 MEQ/L (21.0-32.0); BLOOD UREA NITROGEN 22 MG/DL (7-18); CHLORIDE 105 MEQ/L (98-107); GLOMERULAR FILTRATION RATE 31 ML/MIN (>89); MAGNESIUM 1.1 MG/DL (1.5-2.5); POTASSIUM 3.5 MEQ/L (3.5-5.1); SODIUM (NA) 139 MEQ/L (136-145)
[2017-02-08 12:47] LABS: ALT (GPT) 17 U/L (12-78); HEMO FLAGS AUTO DIFF
[2017-02-08 12:51] LABS: ALKALINE PHOSPHATASE 92 U/L (45-117); TOTAL BILIRUBIN ADULT 0.7 MG/DL (0.2-1.0)
--- NOTE | 2017-02-08 12:55 | RADRPT ---
EXAM DATE/TIME: 02/08/2017 12:19 [facility] COMPARISON: CHEST SINGLE AP, January 17, 2017, 10:05. CT NEEDLE BIOPSY BONE MARROW, February 06, 2017, 11:36. CHEST SINGLE AP, February 03, 2017, 15:00. INDICATIONS : Weakness. Low hemoglobin. MEDICAL HISTORY : Hypercholesterolemia. Hypertension Gastroesophageal reflux disease. Stage III kidney disease. Art hritis. Rectal polyps. Hepatitis. Prostate cancer. SURGICAL HISTORY : Cervical fusion. Prostate seed inplantation. ENCOUNTER: Initial ACUITY: 2 days PAIN SCORE: 0/10 LOCATION: Bilateral chest FINDINGS: Retrocardiac density characteristic of a hiatal hernia is again noted. There is no evidence of acute airspace disease or congestion. Heart and mediastinal structures are stable. Advanced arthropathy is again noted of the left shoulder. CONCLUSION: 1. Stable chest without evidence of acute process. 2. Prominent hiatal hernia. Randy Andrews MD on February 08, 2017 at 12:51 Board Certified Radiologist. This report was verified electronically.
[2017-02-08 13:08] LABS: BANDS 11 % (0-6); BASOPHILS 2 % (0-2); EOSINOPHILS 3 % (0-4); POLYS (SEG NEUTROPHILS) 63 % (16-70); WBC DIFF SAMPLE 100
[2017-02-08 13:09] LABS: KERATOCYTES OCC (NORMAL); PLATELET ESTIMATE SMEAR LOW (NORMAL); PLATELET MORPHOLOGY NORMAL (NORMAL); SCAN/DIFF FINAL DIFF MANUAL
[2017-02-08] MEDS ORDERED: SODIUM CHLOR 0.9% 250 ML INJ 250 ML IV ONE (14:15)
[2017-02-08] MEDS ORDERED: ACETAMINOPHEN 325 MG/10.15 ML UDC PO ONE (14:30)
[2017-02-08] MEDS ORDERED: VANCOMYCIN INJ 1,000 MG in SODIUM CHLOR 0.9% 250 ML INJ 250 ML IV ONE (14:45)
[2017-02-08] MEDS ORDERED: CEFEPIME INJ 1,000 MG in SODIUM CHLORIDE 0.9% INJ 100 ML IV ONE (14:45)
--- NOTE | 2017-02-08 16:20 | HHI.HP ---
HPI Service Family Medicine Primary Care Physician Jumana Way MD Admission Diagnosis fever, LUE cellulitis Diagnoses: International Travel<30 Days: No Contact w/Intl Traveler<30days: No Known Affected Area: No History of Present Illness 81 yr old M w/ h/o HTN, alcohol abuse, gout, chronic anemia, and COPD presents to the ED from [facility] for fever and left arm swelling. Accompanied by daughter. Patient recently admitted on 02/03 for acute on chronic anemia. Patient was in stable condition, received 1 unit of RBC transfusion before being discharged yesterday. During the middle of the night, patient began developing a fever and experienced swelling of his left arm. He reports being confused this morning. He was not sure where he was at and unaware of the time when he woke up. He states that he also developed wheezing. He was put on 4L of O2 NC and received breathing treatments this AM. He denies fatigue, weakness, pain, CP, SOB, abdominal pain, and N/V. (Sadaf Bryan MD R1) Review of Systems Constitutional: COMPLAINS OF: Fever, Chills, DENIES: Fatigue, Weight loss Eyes: DENIES: Blurred vision Respiratory: COMPLAINS OF: Wheezing, DENIES: Shortness of breath Cardiovascular: DENIES: Chest pain Gastrointestinal: DENIES: Abdominal pain Genitourinary: DENIES: Dysuria Musculoskeletal: DENIES: Joint pain Integumentary: COMPLAINS OF: Abnormal pigmentation Hematologic/lymphatic: DENIES: Lymphadenopathy Neurologic: DENIES: Headache Psychiatric: COMPLAINS OF: Confusion (slight confusion ) (Sadaf Bryan MD R1) Past Family Social History Past Medical History HTN Anemia Denies h/o CHF, OR Past Surgical History Back surgery due to herniated discs (years ago) - "upper and lower spine" (Sadaf Bryan MD R1) Allergies: Coded Allergies: sulfamethoxazole (Unverified Allergy, Severe, RASH, 02/03/17) trimethoprim (Unverified Allergy, Severe, RASH, 02/03/17) morphine (Verified Adverse Reaction, Severe, Nausea/Vomiting, 02/03/17) *MDRO Multi-Drug Resistant Organism (Verified Adverse Reaction, Unknown, 02/03/17) 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 Family History No FH of cancer Mother - heart disease and asthma Father - heart disease Social History Tob - smoked for 5 years, quit 50 years ago Alc - "2 scotch drinks a day," record review from prior visit states he endorsed drinking 9 scotch drinks daily Drugs - none (Sadaf Bryan MD R1) Physical Exam Vital Signs Vital Signs Date Time Temp Pulse Resp B/P (MAP) Pulse Ox O2 Delivery O2 Flow Rate FiO2 02/08/17 14:17 101.5 02/08/17 14:11 114 24 175/83 (113) 96 02/08/17 12:19 99 Nasal Cannula 2.00 02/08/17 12:19 99 Nasal Cannula 2.00 02/08/17 11:42 100.1 114 22 225/97 (139) 93 Physical Exam GENERAL:pleasant, elderly male, lying in bed, in NAD SKIN: several ecchymoses on b/l arms HEAD: Atraumatic. Normocephalic. No temporal or scalp tenderness. EYES: Pupils equal round and reactive. Extraocular motions intact. No scleral icterus. No injection or drainage. ENT: Throat clear NECK: Trachea midline. No JVD or lymphadenopathy. Supple, nontender, no meningeal signs. CARDIOVASCULAR: RRR, no m/r/g RESPIRATORY: Clear to auscultation. Breath sounds equal bilaterally. No wheezes , rales, or rhonchi. GASTROINTESTINAL: Abdomen soft, non-tender, nondistended. No hepato-splenomegaly , or palpable masses. No guarding. MUSCULOSKELETAL: LUE swelling with surround erythema, L wrist wrapped in gauze, capillary refill >2 secs, 2+ pitting edema to BLE with chronic venous stasis changes present. NEUROLOGICAL: Awake and alert. Oriented x3. Normal speech. Laboratory Laboratory Tests Test 02/08/17 12:10 White Blood Count 4.1 Red Blood Count 2.82 Hemoglobin 8.1 Hematocrit 23.7 Mean Corpuscular Volume 84.3 Mean Corpuscular Hemoglobin 28.8 Mean Corpuscular Hemoglobin Concent 34.1 Red Cell Distribution Width 18.4 Platelet Count 20 Mean Platelet Volume 6.4 Neutrophils (%) (Auto) 64.2 Lymphocytes (%) (Auto) 20.0 Monocytes (%) (Auto) 6.8 Eosinophils (%) (Auto) 8.7 Basophils (%) (Auto) 0.3 Neutrophils # (Auto) 2.6 Lymphocytes # (Auto) 0.8 Monocytes # (Auto) 0.3 Eosinophils # (Auto) 0.4 Basophils # (Auto) 0.0 CBC Comment AUTO DIFF Differential Total Cells Counted 100 Neutrophils % (Manual) 63 Band Neutrophils % 11 Lymphocytes % 16 Monocytes % 5 Eosinophils % 3 Basophils % 2 Neutrophils # (Manual) 3.0 Differential Comment FINAL DIFF MANUAL Platelet Estimate LOW Platelet Morphology Comment NORMAL Keratocytes OCC Prothrombin Time 11.5 Prothromb Time International Ratio 1.0 Activated Partial Thromboplast Time 30.4 Urine Color YELLOW Urine Turbidity CLEAR Urine pH 5.5 Urine Specific [place] 1.009 Urine Protein 100 Urine Glucose (UA) NEG Urine Ketones NEG Urine Occult Blood LARGE Urine Nitrite NEG Urine Bilirubin NEG Urine Urobilinogen LESS THAN 2.0 Urine Leukocyte Esterase NEG Urine RBC Urine WBC 2 Urine Squamous Epithelial Cells <1 Urine Mucus FEW Urine Yeast (Budding) FEW Microscopic Urinalysis Comment CATH-CULT NOT IND Blood Urea Nitrogen 22 Creatinine 2.05 Random Glucose 123 Total Protein 6.3 Albumin 2.5 Calcium Level 7.9 Magnesium Level 1.1 Alkaline Phosphatase 92 Aspartate Amino Transf (AST/SGOT) 16 Alanine Aminotransferase (ALT/SGPT) 17 Total Bilirubin 0.7 Sodium Level 139 Potassium Level 3.5 Chloride Level 105 Carbon Dioxide Level 25.5 Anion Gap 9 Estimat Glomerular Filtration Rate 31 Lactic Acid Level 1.4 Troponin I 0.02 B-Type Natriuretic Peptide 119 Date/Time Source Procedure Growth Status 02/08/17 12:10 Blood Peripheral Aerobic Blood Culture Pending Received 02/08/17 12:10 Blood Peripheral Anaerobic Blood Culture Pending Received (Sadaf Bryan MD R1) Result Diagram: 02/08/17 1210 02/08/17 1210 Imaging Last Impressions Chest X-Ray 02/08/17 1153 Signed Impressions: Service Date/Time: Wednesday, February 08, 2017 12:19 - CONCLUSION: 1. Stable chest without evidence of acute process. 2. Prominent hiatal hernia. Randy Andrews MD Upper Extremity Ultrasound 02/08/17 0000 Signed Impressions: Service Date/Time: Wednesday, February 08, 2017 16:06 - CONCLUSION: Normal examination. Richard Green MD (Sadaf Bryan MD R1) Septic Shock Reassessment Heart: Regular rate and rhythm Lungs: Clear Skin: Warm, Dry (Sadaf Bryan MD R1) Caprini VTE Risk Assessment Caprini VTE Risk Assessment: Mod/High Risk (score >= 2) Caprini Risk Assessment Model Point Value = 1 Point Value = 2 Point Value = 3 Point Value = 5 Age 41-60 Minor surgery BMI > 25 kg/m2 Swollen legs Varicose veins or History of unexplained or recurrent spontaneous Oral contraceptives or hormone replacement Sepsis (< 1 month) Serious lung disease, including pneumonia (< 1 month) Abnormal pulmonary function Acute myocardial infarction Congestive heart failure (< 1 month) History of inflammatory bowel disease Medical patient at bed rest Age 61-74 Arthroscopic surgery Major open surgery (> 45 min) Laparoscopic surgery (> 45 min) Malignancy Confined to bed (> 72 hours) Immobilizing plaster cast Central venous access Age >= 75 History of VTE Family history of VTE Factor V Leiden Prothrombin [id number] Lupus anticoagulant Anticardiolipin antibodies Elevated serum homocysteine Heparin-induced thrombocytopenia Other congenital or acquired thrombophilia Stroke (< 1 month) Elective arthroplasty Hip, pelvis, or leg fracture Acute spinal cord injury (< 1 month) Prophylaxis Regimen Total Risk Factor Score Risk Level Prophylaxis Regimen 0-1 Low Early ambulation 2 Moderate Order ONE of the following: *Sequential Compression Device (SCD) *Heparin 5000 units SQ BID 3-4 Higher Order ONE of the following medications: *Heparin 5000 units SQ TID *Enoxaparin/Lovenox 40 mg SQ daily (WT < 150 kg, CrCl > 30 mL/min) *Enoxaparin/Lovenox 30 mg SQ daily (WT < 150 kg, CrCl > 10-29 mL/min) *Enoxaparin/Lovenox 30 mg SQ BID (WT < 150 kg, CrCl > 30 mL/min) AND/OR *Sequential Compression Device (SCD) 5 or more Highest Order ONE of the following medications: *Heparin 5000 units SQ TID (Preferred with Epidurals) *Enoxaparin/Lovenox 40 mg SQ daily (WT < 150 kg, CrCl > 30 mL/min) *Enoxaparin/Lovenox 30 mg SQ daily (WT < 150 kg, CrCl > 10-29 mL/min) *Enoxaparin/Lovenox 30 mg SQ BID (WT < 150 kg, CrCl > 30 mL/min) AND *Sequential Compression Device (SCD) (Sadaf Bryan MD R1) Assessment and Plan Assessment and Plan 81 yr old male with HTN, COPD, anemia, thrombocytopenia, recently discharged on 02/07, readmitted for fever and LUE swelling Code Status Full Code Discussed Condition With Dr. Ne Gottlieb and Dr. Blair Gottlieb (Sadaf Bryan MD R1) Attending Attestation Patient seen and examined. Case reviewed and discussed with the resident team. Agree with plan of care as discussed with me and documented in the resident note. (Ne Gottlieb MD) Problem List: (1) Sepsis ICD Codes: A41.9 - Sepsis, unspecified organism Plan: Patient met sepsis criteria upon admission with tachycardia and fever secondary to possible LUE cellulitis vs PE * s/p 1x cefepime and 1x vancomycin * continue Cefepime and Vancomycin * ED physician spoke with Dr. Green, recommended IV abx and will see patient tonight * V/Q scan pending for r/u of PE * Upper extremity US negative (2) Left arm swelling ICD Codes: M79.89 - Other specified soft tissue disorders Plan: please see plan above (3) Chronic anemia ICD Codes: D64.9 - Anemia, unspecified Status: Chronic Plan: [id number] anemia; Hgb had been fluctuating from 9-12 for some time , as outpatient hovering around 8-9 recently. 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 Thornton - Transfuse for Plt < 20k or Hgb < 7.5 - Daily CBC (4) Thrombocytopenia ICD Codes: D69.6 - Thrombocytopenia, unspecified Status: Chronic Plan: S/p 1 unit platelets 02/04 - Hold pharmacologic anticoagulation - Plt transfusion criteria as noted above - Trend CBC - Await results of BMB (5) COPD (chronic obstructive pulmonary disease) ICD Codes: J44.9 - COPD (chronic obstructive pulmonary disease) Status: Chronic Plan: Patient currently on 2L NC. 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 SCDs b/l knee high. Pain: Tylenol PRN Constipation: Meds per hospital protocol Code status: Full code (Sadaf Bryan MD R1) Physician Certification 2 Midnight Certification Type: Admission for Inpatient Services Order for Inpatient Services The services are ordered in accordance with Medicare regulations or non- Medicare payer requirements, as applicable. In the case of services not specified as inpatient-only, they are appropriately provided as inpatient services in accordance with the 2-midnight benchmark. Estimated LOS (days): 2 2 days is the estimated time the patient will need to remain in the hospital, assuming treatment plan goals are met and no additional complications. Post-Hospital Plan: SNF (Sadaf Bryan MD R1) Sadaf Bryan MD R1 Feb 08, 2017 16:20 Ne Gottlieb MD Feb 09, 2017 14:14
[2017-02-08] MEDS ORDERED: SODIUM CHLORIDE 0.9% FLUSH 10 ML FLUSH IV FLUSH PRN (16:30)
[2017-02-08] MEDS ORDERED: LACTULOSE SYRUP 20 GM/30 ML CUP PO PRN (16:30)
[2017-02-08] MEDS ORDERED: cloNIDine HCL 0.2 MG TAB PO PRN (16:30)
[2017-02-08] MEDS ORDERED: BISACODYL 10 MG SUPP RECTAL PRN (16:30)
[2017-02-08] MEDS ORDERED: MAGNESIUM HYDROXIDE SUSP 30 ML CUP PO PRN (16:30)
[2017-02-08] MEDS ORDERED: Vancomycin Consult Pharmacy 1 EA OTHER SCH (16:30)
[2017-02-08] MEDS ORDERED: NALOXONE HCL 0.4 MG/ML AMP IV PUSH PRN (16:30)
[2017-02-08] MEDS ORDERED: SENNOSIDES 8.6 MG TAB PO PRN (16:30)
[2017-02-08] MEDS ORDERED: ONDANSETRON HCL 4 MG/2 ML VIAL IVP PRN (16:30)
--- NOTE | 2017-02-08 16:31 | HHI.FPPN ---
Subjective Remarks Pt. seen, examined and discussed with the medicine team. This is an 81-year-old male with multiple chronic health problems who was discharged from this facility yesterday to [facility]. He was seen there this morning by one of our colleagues who found him to have an increased pulse, increased oxygen requirement and increased respiratory what rate. He was admitted to [facility] for anemia and thrombocytopenia and at that time was also treated for acute on chronic kidney disease. He does have history of COPD and a significant alcohol history. During his hospitalization, he was transfused with packed red blood cells and platelets. Workup is ongoing status post bone marrow biopsy, results pending. Multiple cell lines are diminished. He has an appointment with hematology next week. He was sent to the emergency department from the halfway as he appeared pale and short of breath despite oxygen and patient was reporting that he felt weak and lightheaded although he had no real shortness of breath or chest pain but was observed to be using accessory muscles and was requiring 4 L of nasal oxygen to maintain him at 96% saturation. His pulse at the halfway was in the 120s. He was transported to the emergency department. When seen today in the emergency department, he is chest pain-free, does not feel particularly short of breath, and is complaining primarily of low back pain from lying on the gurney for a prolonged period of time. His daughter is here with him. 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 Objective Vitals Vital Signs Date Time Temp Pulse Resp B/P (MAP) Pulse Ox O2 Delivery O2 Flow Rate FiO2 02/08/17 14:17 101.5 02/08/17 14:11 114 24 175/83 (113) 96 02/08/17 12:19 99 Nasal Cannula 2.00 02/08/17 12:19 99 Nasal Cannula 2.00 02/08/17 11:42 100.1 114 22 225/97 (139) 93 Result Diagram: 02/08/17 1210 02/08/17 1210 Other Results Laboratory Tests Test 02/08/17 12:10 White Blood Count 4.1 TH/MM3 Red Blood Count 2.82 MIL/MM3 Hemoglobin 8.1 GM/DL Hematocrit 23.7 % Mean Corpuscular Volume 84.3 FL Mean Corpuscular Hemoglobin 28.8 PG Mean Corpuscular Hemoglobin Concent 34.1 % Red Cell Distribution Width 18.4 % Platelet Count 20 TH/MM3 Mean Platelet Volume 6.4 FL Neutrophils (%) (Auto) 64.2 % Lymphocytes (%) (Auto) 20.0 % Monocytes (%) (Auto) 6.8 % Eosinophils (%) (Auto) 8.7 % Basophils (%) (Auto) 0.3 % Neutrophils # (Auto) 2.6 TH/MM3 Lymphocytes # (Auto) 0.8 TH/MM3 Monocytes # (Auto) 0.3 TH/MM3 Eosinophils # (Auto) 0.4 TH/MM3 Basophils # (Auto) 0.0 TH/MM3 CBC Comment AUTO DIFF Differential Total Cells Counted 100 Neutrophils % (Manual) 63 % Band Neutrophils % 11 % Lymphocytes % 16 % Monocytes % 5 % Eosinophils % 3 % Basophils % 2 % Neutrophils # (Manual) 3.0 TH/MM3 Differential Comment FINAL DIFF MANUAL Platelet Estimate LOW Platelet Morphology Comment NORMAL Keratocytes OCC Prothrombin Time 11.5 SEC Prothromb Time International Ratio 1.0 RATIO Activated Partial Thromboplast Time 30.4 SEC Urine Color YELLOW Urine Turbidity CLEAR Urine pH 5.5 Urine Specific [place] 1.009 Urine Protein 100 mg/dL Urine Glucose (UA) NEG mg/dL Urine Ketones NEG mg/dL Urine Occult Blood LARGE Urine Nitrite NEG Urine Bilirubin NEG Urine Urobilinogen LESS THAN 2.0 MG/DL Urine Leukocyte Esterase NEG Urine RBC /hpf Urine WBC 2 /hpf Urine Squamous Epithelial Cells <1 /hpf Urine Mucus FEW /lpf Urine Yeast (Budding) FEW Microscopic Urinalysis Comment CATH-CULT NOT IND Blood Urea Nitrogen 22 MG/DL Creatinine 2.05 MG/DL Random Glucose 123 MG/DL Total Protein 6.3 GM/DL Albumin 2.5 GM/DL Calcium Level 7.9 MG/DL Magnesium Level 1.1 MG/DL Alkaline Phosphatase 92 U/L Aspartate Amino Transf (AST/SGOT) 16 U/L Alanine Aminotransferase (ALT/SGPT) 17 U/L Total Bilirubin 0.7 MG/DL Sodium Level 139 MEQ/L Potassium Level 3.5 MEQ/L Chloride Level 105 MEQ/L Carbon Dioxide Level 25.5 MEQ/L Anion Gap 9 MEQ/L Estimat Glomerular Filtration Rate 31 ML/MIN Lactic Acid Level 1.4 mmol/L Troponin I 0.02 NG/ML B-Type Natriuretic Peptide 119 PG/ML Imaging Last Impressions Chest X-Ray 02/08/17 1153 Signed Impressions: Service Date/Time: Wednesday, February 08, 2017 12:19 - CONCLUSION: 1. Stable chest without evidence of acute process. 2. Prominent hiatal hernia. Randy Andrews MD Objective Remarks O. CONSTITUTIONAL/GEN: normally nourished, in NAD. Very pleasant elderly gentleman looking greater than his stated age. EYES: Subconjunctival hemorrhage on the left, PERRLA, EOMI. ENT: Mouth and pharynx normal. Lips are dry NECK: Supple LUNGS: clear A-P, no obvious respiratory distress, currently on 2 L nasal oxygen status post nebulizer treatments. Breath sounds are distant. CARDIOVASCULAR: RR but tachycardic in the 1 teens now without murmur or gallop. Bilateral lower extremity edema left greater than right. GI/ABD: soft without masses, without organomegaly. Nontender to palpation NEURO: No focal deficits. Speech is clear SKIN: Pale, lesions noted on the left wrist and dorsum of the left hand as well as the left great toe all of these are dressed. He has a hematoma on his left knee which has been previously imaged. HEME/LYMPH: Significant scattered ecchymoses, no petechia or significant adenopathy. MUSC: Left upper extremity shows marked edema and ecchymoses. This is a change from his discharge from the hospital yesterday. Delayed capillary refill on the left upper extremity. PSYCH/MENTAL STATUS: Alert and oriented x 3. A/P Assessment and Plan 81-year-old male who is febrile, tachycardic, tachypneic who presents with significant swelling of the left upper extremity. Patient went known anemia and thrombocytopenia as well as COPD and gout. Please see orders for plan. Discharge Planning Anticipate a few days in the hospital. Attending Attestation Patient seen and examined. Case reviewed and discussed with the resident team. Agree with plan of care as discussed with me and documented in the resident note. Ne Gottlieb MD Feb 08, 2017 16:31
--- NOTE | 2017-02-08 16:39 | RADRPT ---
EXAM DATE/TIME: 02/08/2017 16:06 [facility] COMPARISON: No previous studies available for comparison. INDICATIONS : Left arm swelling. MEDICAL HISTORY : Hypercholesterolemia. Hypertension. Gastroesophageal reflux disease. Renal failure, stage III. Recta l polyps. Arthritis. Hepatitis. Carcinoma, prostate. Chemotherapy. SURGICAL HISTORY : None. Bilateral cataract extraction. Lumbar spinal fusion. ENCOUNTER: Initial ACUITY: 2 day PAIN SCORE: 3/10 LOCATION: Left arm. FINDINGS: There is spontaneous flow documented in the brachial, basilic, cephalic, axillary, and subclavian vei ns. The vessels are compressible and augmentation response is documented. No filling defects are se en. The flow is phasic with respiration. Direction of flow in the jugular vein is caudal. CONCLUSION: Normal examination. Richard Green MD on February 08, 2017 at 16:37 Board Certified Radiologist. This report was verified electronically.
[2017-02-08] MEDS ORDERED: LORazepam 1 MG TAB PO PRN (17:30)
[2017-02-08] MEDS ORDERED: FLUMAZENIL 0.5 MG/5 ML VIAL IV PUSH PRN (17:30)
[2017-02-08] MEDS ORDERED: LORazepam 2 MG/ML VIAL IV PUSH PRN ×4 (17:30)
[2017-02-08] MEDS ORDERED: LORazepam 2 MG TAB PO PRN (17:30)
[2017-02-08] MEDS: GABAPENTIN 100 MG CAP PO SCH (18:00)
[2017-02-08] MEDS ORDERED: VANCOMYCIN 1,000 MG/NS 250 ML IV ONE ×2 (18:00)
--- NOTE | 2017-02-08 19:08 | RADRPT ---
EXAM DATE/TIME: 02/08/2017 16:13 [facility] COMPARISON: CHEST SINGLE AP, February 08, 2017, 12:19. INDICATIONS : Dyspnea and tachycardia. DOSE: 1.2 mCi Tc99m DTPA 8.8 mCi Tc99m MAA MEDICAL HISTORY : Renal insufficiency, chrnoic. Chronic obstructive pulmonary disease. Carcinoma, prostate. SURGICAL HISTORY : Discectomy, cervical. Prostatectomy. ENCOUNTER: Initial ACUITY: 1 day PAIN SCALE: 0/10 LOCATION: Bilateral chest TECHNIQUE: Following five minutes of tidal breathing of DTPA aerosol, planar images of the lungs were performed in eight projections. The patient was then injected with MAA, and eight-view perfusion scan was perf ormed. FINDINGS: There is a heterogeneous pattern of aerosol delivery to the periphery of both lungs. This is predomin antly central. The perfusion lung scan demonstrates a homogenous pattern of uptake in both lungs. No segmental or s ubsegmental defects are seen. CONCLUSION: 1. Low probability scan for pulmonary embolus. 2. Scintigraphic findings characteristic of some degree of COPD. Vijay Simmons MD on February 08, 2017 at 19:05 Board Certified Radiologist. This report was verified electronically.
[2017-02-08] MEDS: LATANOPROST 0.005% OPHT SOLN 2.5 ML BTL EACH EYE SCH (21:00)
[2017-02-08] MEDS: DOCUSATE SODIUM 50 MG/SENNA 8.6 MG TAB PO SCH (21:00)
[2017-02-08] MEDS: SODIUM CHLORIDE 0.9% FLUSH 10 ML FLUSH IV FLUSH SCH (21:00)
[2017-02-08] MEDS: METOPROLOL TARTRATE 25 MG TAB PO SCH (23:55)
[2017-02-08] MEDS: PANTOPRAZOLE SOD 40 MG DELAYED RELEASE TAB PO SCH (23:55)
[2017-02-08] MEDS: traZODone HCL 50 MG TAB PO SCH (23:55)
[2017-02-08] MEDS: hydrALAZINE HCL 25 MG TAB PO SCH (23:56)
[2017-02-09] VITALS (13 sets, daily range): BP systolic 108–184; BP diastolic 51–89; PULSE 78–112; RESP 18–24; TEMP 98–102.5; O2SAT 92–100
[2017-02-09] MEDS: ACETAMINOPHEN 325 MG TAB PO PRN ×2 (05:04→18:19)
[2017-02-09] MEDS: hydrALAZINE HCL 25 MG TAB PO SCH ×3 (07:30→22:33)
[2017-02-09 08:30] LABS: AUTOMATED NEUTROPHIL # 2.2 TH/MM3 (1.8-7.7); BASOPHIL # 0.2 TH/MM3 (0-0.2); BASOPHIL % 4.9 % (0.0-2.0); EOSINOPHIL # 0.4 TH/MM3 (0-0.4); EOSINOPHIL % 9.8 % (0.0-4.0); LYMPH % 22.7 % (9.0-44.0); LYMPHOCYTE # 0.9 TH/MM3 (1.0-4.8); MEAN CELL VOLUME 84.7 FL (80.0-100.0); MEAN CORPUSCULAR HEMOGLOBIN 28.4 PG (27.0-34.0); MEAN CORPUSCULAR HGB CONC 33.5 % (32.0-36.0); MONO % 8.6 % (0.0-8.0); RED BLOOD COUNT 2.71 MIL/MM3 (4.50-5.90)
[2017-02-09 08:56] LABS: HEMO FLAGS AUTO DIFF
[2017-02-09 09:00] LABS: ANION GAP 7 MEQ/L (5-15); AST (GOT) 15 U/L (15-37); BICARBONATE 27.6 MEQ/L (21.0-32.0); BLOOD UREA NITROGEN 23 MG/DL (7-18); CHLORIDE 106 MEQ/L (98-107); GLOMERULAR FILTRATION RATE 31 ML/MIN (>89); POTASSIUM 3.4 MEQ/L (3.5-5.1); SODIUM (NA) 141 MEQ/L (136-145)
[2017-02-09] MEDS: SODIUM CHLORIDE 0.9% FLUSH 10 ML FLUSH IV FLUSH SCH ×2 (09:00→22:33)
[2017-02-09] MEDS: DOCUSATE SODIUM 50 MG/SENNA 8.6 MG TAB PO SCH ×2 (09:00→22:32)
[2017-02-09] MEDS: CEFEPIME INJ 1,000 MG in SODIUM CHLORIDE 0.9% INJ 100 ML IV SCH (09:00)
[2017-02-09] MEDS ORDERED: COLCHICINE 0.6 MG TAB PO SCH (09:00)
[2017-02-09 09:04] LABS: ALKALINE PHOSPHATASE 83 U/L (45-117); ALT (GPT) 18 U/L (12-78); TOTAL BILIRUBIN ADULT 0.9 MG/DL (0.2-1.0)
[2017-02-09 09:06] LABS: PLATELET COUNT 19 TH/MM3 (150-450)
[2017-02-09 09:52] LABS: ACANTHOCYTES OCC (NORMAL); BANDS 20 % (0-6); BASOPHILS 4 % (0-2); EOSINOPHILS 7 % (0-4); METAMYELOCYTES 0 % (0-1); PLATELET ESTIMATE SMEAR RARE (NORMAL); POLYS (SEG NEUTROPHILS) 54 % (16-70); WBC DIFF SAMPLE 100
[2017-02-09] MEDS: GABAPENTIN 100 MG CAP PO SCH ×3 (09:52→16:24)
[2017-02-09] MEDS: METOPROLOL TARTRATE 25 MG TAB PO SCH ×2 (09:52→22:32)
[2017-02-09] MEDS: PANTOPRAZOLE SOD 40 MG DELAYED RELEASE TAB PO SCH ×2 (09:52→22:33)
[2017-02-09] MEDS: FERROUS SULFATE 325 MG (65 MG ELEMENTAL IRON) TAB PO SCH (09:52)
[2017-02-09] MEDS: THIAMINE HCL 100 MG TAB PO SCH (09:52)
[2017-02-09] MEDS: MULTIVITAMIN TAB PO SCH (09:52)
[2017-02-09] MEDS: FOLIC ACID 1 MG TAB PO SCH (09:52)
[2017-02-09 09:53] LABS: PLATELET MORPHOLOGY NORMAL (NORMAL)
[2017-02-09 09:54] LABS: KERATOCYTES OCC (NORMAL); SCAN/DIFF FINAL DIFF MANUAL
[2017-02-09] MEDS ORDERED: VANCOMYCIN 1,000 MG/NS 250 ML IV ONE ×2 (10:00)
--- NOTE | 2017-02-09 10:04 | MB ---
cc: HOMA MARTINEZ MD DATE OF CONSULTATION: 02/09/2017 REQUESTING PHYSICIAN: Hospitalist service. REASON FOR CONSULTATION: Pancytopenia. Recent bone marrow biopsy reveals a pathologic findings consistent with high-grade myelodysplastic syndrome with excess blasts (estimated 15% of marrow cellularity). CHIEF COMPLAINT The patient was transferred from his retirement facility due to fevers. HISTORY OF PRESENT ILLNESS Mr. Gutierrez is an 81-year-old male with multiple medical comorbid conditions. He was last seen by me on 02/04/2017 as an inpatient consult. He had at that time been in the hospital for further workup and management of severe neck and back pain. While in the hospital he was noted to be cytopenic, there were immature nucleated cells in circulation and a bone marrow biopsy was ordered. The bone marrow biopsy findings indicated myelodysplastic syndrome with excess blasts. Dysplastic findings were identified in essentially all the precursor cell lines. He was discharged from this facility about 48 hours ago to a retirement facility and overnight he developed fevers and was therefore transferred back to [facility]. He has been empirically initiated on broad-spectrum antibiotic coverage for suspected sepsis from cellulitis. PAST MEDICAL HISTORY 1. Myelodysplastic syndrome with excess blasts. 2. 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 3. Pseudogout 4. Hypertension. 5. Hyperlipidemia. Peripheral neuropathy. 6. Adult failure to thrive. 7. History of prostate carcinoma. 8. Spondylolisthesis. PAST SURGICAL HISTORY 1. Cervical fusion of C5 - C7 vertebral bodies 2. Colonoscopy 3. Esophagogastroduodenoscopy 4. Multiple lower back surgeries. 5. Seed implant for prostate carcinoma prostate biopsies as well as bone marrow biopsies. FAMILY HISTORY Parents are both , father had coronary artery disease, mother had asthma. No oncologic diagnoses noted. SOCIAL HISTORY The patient is , he had been living at home by himself up until his recent illnesses, after which she has had recurrent hospitalizations as well as stays at retirement facilities. 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 He reports being a former smoker having smoked about two packs a day for several years but quit many years ago. He also reports being a regular drinker but has not been drinking lately. He has three adult children, two boys and a daughter also live locally. ALLERGIES XYLOCAINE LIPITOR MEDICATIONS: 1. Cefepime 1 gram IV once daily. 2. Vancomycin per pharmacy protocol. 3. Tylenol 650 mg every 4 hours as needed for pain or fevers. 4. DuoNeb's 1 ampule every 8 hours as needed for shortness of breath. 5. Amlodipine 10 mg p.o. daily. 6. Clonidine 0.2 mg q.6 h as needed for hypertension. 7. Aria-Colace 1 tablet p.o. b.i.d. 8. Ferrous sulfate 325 mg daily. 9. Flumazenil 0.2 mg IV as needed. 10. Folic acid 1 mg p.o. daily. 11. Gabapentin 200 mg p.o. t.i.d. 12. Hydralazine 25 mg p.o. q.8 h. 13. Latanoprost one drop in each eye q.h.s. next. 14. Lorazepam 1 mg IV q.4 h as needed for with alcohol withdrawal. 15. Metoprolol 50 mcg p.o. b.i.d. next. 16. Oxycodone S the medicine 12/13 25 1 tablet every 6 hours as needed for pain. 17. Zofran 4 mg IV q.6 h as needed for nausea and vomiting. 18. Pantoprazole 40 mcg p.o. q.12 h. 19. Thiamine 1 mg p.o. daily. 20. Trazodone 50 mg p.o. q.h.s. REVIEW OF SYSTEMS 13-point review of systems were obtained the following are the pertinent positives and negatives: CONSTITUTIONAL: The patient reports generalized weakness, he reports having difficulty standing up with and without assistance. He tells me he has poor appetite and also reports fevers and chills. HEAD, EYES, EARS, NOSE, AND THROAT: Denies headaches, blurry vision, reports dryness in the mouth and soreness in the throat. RESPIRATORY: Reports difficulty breathing with minimal exertion, he denies cough or hemoptysis. CARDIOVASCULAR SYSTEM: Denies angina-like chest pain, PND, orthopnea GASTROINTESTINAL: Denies nausea, vomiting, diarrhea hematochezia or melena you. GENITOURINARY: Reports urinary hesitancy but denies hematuria. CENTRAL NERVOUS SYSTEM: Denies any focal sensory or motor deficits. He does report however, however feeling generally weakness. MUSCULOSKELETAL: Reports generalized lower extremity weakness. PHYSICAL EXAMINATION VITAL SIGNS: Temperature is 100.4 degrees Fahrenheit, heart rate 107 beats a minute, respiratory rate 20, blood pressure is 184 x 81, O2 sats 92% on 2 liters nasal cannula. GENERAL: Mr. Gutierrez is an elderly male, he appears to be frail and chronically ill. He also appears to be pale, PA daily. He is laying in bed in no acute distress. He has he is arousable and is fully conversant and alert and oriented x3. HEAD, EYES, EARS, NOSE, AND THROAT: Head atraumatic, normocephalic, conjunctive are pale sclerae are anicteric, EOMI, PERRLA, oral exam dry mucous membranes. NECK: Neck exam no palpable cervical or supraclavicular adenopathy. RESPIRATORY: Poor inspiratory effort, decreased bibasilar breath sounds with prolonged expiratory phase. Some coarse breath sounds are noted. CARDIOVASCULAR: Tachycardiac, regular, S1-S2 with a systolic murmur Force. ABDOMEN: Protuberant belly, soft, nontender, nondistended, no palpable organ enlargement. EXTREMITIES: Bilateral pitting edema with bruising of the skin. There appears to be some oozing as well. Mild erythema is noted bilateral lower extremities. CENTRAL NERVOUS SYSTEM Moving all four limbs without. Moving all four limbs spontaneously. MUSCULOSKELETAL: Generally decreased muscle mass and tone. LABORATORY FINDINGS Blood work dated 02/08/2017: WBC count 4.1, hemoglobin 8.1 gm/dl, hematocrit 43.7%, platelet count is 20, absolute neutrophil count is 2.6. Chemistries: Sodium 139, potassium 3.5, chloride 105, bicarb 25.5, BUN 22, creatinine one, glucose is 123, calcium is 7.9, magnesium 1.1, albumin is 2.5. Next blood cultures x2 sets are pending at this time. ASSESSMENT Mr. Gutierrez is an 81-year-old male who was recently diagnosed with a high-grade myelodysplastic syndrome associated with excess blasts (blast percentage in the bone marrow was estimated to be approximately 15%), this was identified after he underwent a workup for pancytopenia associated with immature circulating cells. He does have other significant medical comorbid conditions including activity limiting degenerative joint disease involving the cervical and lumbar spine, peripheral neuropathy, pseudogout and advance spinal stenosis. He also has a remote history of prostate carcinoma which was treated with external beam radiation. This gentleman presented to the hospital less than 48 hours after having been discharged from the same facility for management of fever. This is his third hospitalization over the past month and half. The reasons for his hospitalizations have ranged between fevers, uncontrolled pain and transfusion requirements. Mr. Gutierrez has an ECOG performance status of the best of three but more consistent with an ECOG performance status of four. At today's visit I reviewed the pathologic findings from his bone marrow biopsy. 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 I explained the various treatment options which include supportive care with transfusions, disease directed therapy with one of the hypomethylating agents such has Vidaza or Dacogen. Both of which have more of a palliative role. The other approach to treatment I asked him to consider was Hospice/ best supportive care. I explained to Mr. Gutierrez that some of the barriers to aggressive disease directed therapy are his overall frailty, additional medical comorbid conditions and poor ECOG performance status. RECOMMENDATIONS High-grade myelodysplastic syndrome. Findings of the bone marrow biopsy were discussed. The patient has been advised to consider the various treatment approaches: 1. Palliative disease directed therapy 2. Best supportive care with transfusions. 3. Hospice level of care. In my view he would be most appropriate for Hospice level of care given his advanced debility. The patient has asked I speak to his daughter Macarena and son Nando about the diagnosis, prognosis and treatment options. In the meantime I would recommend continuation of supportive transfusions and empiric antibiotics. MD TERRELL Ray/sherif /8:28 AM /9:08 AM AUDRA
--- NOTE | 2017-02-09 10:13 | HHI.FPPN ---
Subjective Remarks No acute events overnight. Pt lying in bed, doing well this AM. Pt reports that he is feeling better. He does not complained of pain. BM this morning. He denies numbness/tingling, CP, SOB, and N/V. Afebrile. VSS. (Sadaf Bryan MD R1) Objective Vitals Vital Signs Date Time Temp Pulse Resp B/P (MAP) Pulse Ox O2 Delivery O2 Flow Rate FiO2 02/09/17 09:19 98 21 02/09/17 08:00 98.7 94 18 140/69 (92) 98 02/09/17 04:00 100.4 107 20 184/81 (115) 92 02/09/17 00:00 98.0 89 20 156/79 (104) 95 02/08/17 21:00 96 Nasal Cannula 3.00 02/08/17 20:00 98.7 115 18 168/83 (111) 92 02/08/17 17:52 98.1 99 20 158/78 (104) 95 02/08/17 17:04 99.9 110 22 172/88 (116) 98 Nasal Cannula 2.00 02/08/17 14:17 101.5 02/08/17 14:11 114 24 175/83 (113) 96 02/08/17 12:19 99 Nasal Cannula 2.00 02/08/17 12:19 99 Nasal Cannula 2.00 02/08/17 11:42 100.1 114 22 225/97 (139) 93 I/O 02/08/17 02/08/17 02/08/17 02/09/17 02/09/17 02/09/17 07:00 15:00 23:00 07:00 15:00 23:00 Intake Total 500 ml Output Total 200 ml Balance 500 ml -200 ml Intake IV Total 500 ml Output Urine Total 200 ml # Voids 4 (Sadaf Bryan MD R1) Result Diagram: 02/09/1771902/09/17719 Objective Remarks O. CONSTITUTIONAL/GEN: normally nourished, in NAD. Very pleasant elderly gentleman looking greater than his stated age. EYES: Subconjunctival hemorrhage on the left, PERRLA, EOMI. ENT: Mouth and pharynx normal. Lips are dry NECK: Supple LUNGS: clear A-P, no obvious respiratory distress, currently on 2 L nasal oxygen. Breath sounds are distant. CARDIOVASCULAR: RRR, no m/r/g Bilateral lower extremity edema left greater than right. GI/ABD: soft without masses, without organomegaly. Nontender to palpation NEURO: No focal deficits. Speech is clear SKIN: Pale, lesions noted on the left wrist and dorsum of the left hand as well as the left great toe. He has a hematoma on his left knee which has been previously imaged. HEME/LYMPH: Significant scattered ecchymoses, no petechia or significant adenopathy. MUSC: Left upper extremity shows marked edema and ecchymoses. This is a change from his discharge from the hospital on 02/07. Capillary refill < 2 seconds. PSYCH/MENTAL STATUS: Alert and oriented x 3. (Sadaf Bryan MD R1) A/P Assessment and Plan 81 yr old male with HTN, COPD, anemia, thrombocytopenia, recently discharged on 02/07, readmitted for fever and LUE swelling Discharge Planning Anticipate a few days in the hospital. (Sadaf Bryan MD R1) Attending Attestation Patient seen and examined. Case reviewed and discussed with the resident team. Agree with plan of care as discussed with me and documented in the resident note. (Ne Gottlieb MD) Problem List: (1) Sepsis ICD Codes: A41.9 - Sepsis, unspecified organism Plan: Patient met sepsis criteria upon admission with tachycardia and fever secondary to LUE cellulitis * s/p 1x cefepime and 1x vancomycin * V/Q scan low probability for PE * Upper extremity US negative * continue Cefepime and Vancomycin (renally dosed) (2) Left arm swelling ICD Codes: M79.89 - Other specified soft tissue disorders Plan: please see plan above (3) Chronic anemia ICD Codes: D64.9 - Anemia, unspecified Status: Chronic Plan: [id number] anemia; Hgb had been fluctuating from 9-12 for some time , as outpatient hovering around 8-9 recently. s/p 2 units PRBC on 02/03 and 1 unit of PRBC on 02/07 - Hematology consulted, appreciate assistance - Bone marrow biopsy performed on 02/06, positive for myelodysplastic syndrome - Outpatient mold carpenter = Dr. Thornton - Transfuse for Plt < 20k or Hgb < 7.5 - Daily CBC -Hb decreased from 8.1 to 7.7 today -Plts 19, plt transfusion ordered -Repeat CBC immediately post-transfusion (4) Thrombocytopenia ICD Codes: D69.6 - Thrombocytopenia, unspecified Status: Chronic Plan: S/p 1 unit platelets 02/04 - Hold pharmacologic anticoagulation - Plt transfusion criteria as noted above - BMB positive for myelodysplastic syndrome -Plts 19 today, plt transfusion ordered -Repeat CBC immediately post-transfusion (5) COPD (chronic obstructive pulmonary disease) ICD Codes: J44.9 - COPD (chronic obstructive pulmonary disease) Status: Chronic Plan: Patient currently on 2L NC. 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 SCDs b/l knee high. Pain: Tylenol PRN Constipation: Meds per hospital protocol Code status: Full code (Sadaf Bryan MD R1) Sadaf Bryan MD R1 Feb 09, 2017 10:13 Ne Gottlieb MD Feb 09, 2017 14:19
[2017-02-09] MEDS ORDERED: VANCOMYCIN INJ 1,250 MG in SODIUM CHLOR 0.9% 250 ML INJ 250 ML IV SCH (12:00)
[2017-02-09] MEDS: LIDOCAINE HCL 5% PATCH T-DERMAL SCH (12:16)
--- NOTE | 2017-02-09 15:39 | PD.WCN.NOT ---
Wound Consult Description: Received consult for evaluation of L wrist from Doctor Jake Gottlieb MD R3 Communicated with: JULISSA henson and spoke with Doctor Davenport Recommendation: Please order ultrasound of L knee possible abscess. Leave left wrist lesion open to air Cleanse L great toe wound with normal saline and apply adhesive bandage over wound and change as needed Additional Information: Patient seen on at around 1530 for L wrist. Patient is noted with scabs that are dry and intact to L wrist with lesion that presents like dry hard cyst. L knee presents with an erythematous mass that is indurated and fluctuant , measuring 4cm x 4.2cm and is hot to touch. Patient complains of pain in this area of 8/10. Left Mass on L knee open to air. L great toe presents with small wound on tip, measuring ~1cm x~1cm x ~<0.1cm. Wound is dry without active drainage or odor. Periwound is unremarkable. JULISSA henson cleansed wound on L great toe with normal saline and covered with adhesive bandage.Spoke with Doctor Davenport regarding L knee mass and other findings. Ana Link [facility] Feb 09, 2017 15:39
[2017-02-09] MEDS ORDERED: POTASSIUM CHLORIDE 10 MEQ CONTROLLED RELEASE TAB PO ONE (15:45)
[2017-02-09] MEDS: oxyCODONE/ACETAMINOPHEN 10 MG/325 MG TAB PO PRN (16:25)
--- NOTE | 2017-02-09 16:25 | EKG ---
Date Performed: 02/08/2017 Time Performed: 13:06:24 PTAGE: 81 years EKG: SINUS TACHYCARDIA ABNORMAL RHYTHM ECG Since PREVIOUS TRACING , no significant change noted PREVIOUS TRACIN02/03/2017 14.50 DOCTOR: John Wiggins Interpretating Date/Time 02/09/2017 16:24:36
[2017-02-09 20:43] LABS: MEAN CELL VOLUME 85.2 FL (80.0-100.0); MEAN CORPUSCULAR HEMOGLOBIN 27.9 PG (27.0-34.0); MEAN CORPUSCULAR HGB CONC 32.8 % (32.0-36.0); PLATELET COUNT 45 TH/MM3 (150-450); RED BLOOD COUNT 2.37 MIL/MM3 (4.50-5.90); RED CELL DISTRIBUTION WIDTH 18.4 % (11.6-17.2); WHITE BLOOD COUNT 3.6 TH/MM3 (4.0-11.0)
[2017-02-09 20:51] LABS: REVIEW FLAG FINAL
[2017-02-09 20:53] LABS: HEMATOCRIT 20.2 % (39.0-51.0)
[2017-02-09] MEDS ORDERED: SODIUM CHLOR 0.9% 250 ML INJ 250 ML IV ONE (21:45)
[2017-02-09] MEDS ORDERED: FUROSEMIDE 20 MG/2 ML VIAL IV PUSH ONE (21:45)
[2017-02-09] MEDS ORDERED: diphenhydrAMINE HCL 25 MG CAP PO PRN (21:45)
[2017-02-09] MEDS: traZODone HCL 50 MG TAB PO SCH (22:32)
[2017-02-10] VITALS (12 sets, daily range): BP systolic 97–133; BP diastolic 55–71; PULSE 77–112; RESP 18–24; TEMP 99.1–102.4; O2SAT 94–100
[2017-02-10] MEDS: hydrALAZINE HCL 25 MG TAB PO SCH ×2 (05:18→15:06)
[2017-02-10] MEDS: oxyCODONE/ACETAMINOPHEN 10 MG/325 MG TAB PO PRN ×2 (06:46→15:04)
[2017-02-10 07:31] LABS: HEMATOCRIT 25.8 % (39.0-51.0); MEAN CELL VOLUME 84.5 FL (80.0-100.0); MEAN CORPUSCULAR HEMOGLOBIN 28.8 PG (27.0-34.0); MEAN CORPUSCULAR HGB CONC 34.1 % (32.0-36.0); PLATELET COUNT 41 TH/MM3 (150-450); RED BLOOD COUNT 3.05 MIL/MM3 (4.50-5.90)
[2017-02-10 07:44] LABS: REVIEW FLAG FINAL
[2017-02-10] MEDS: GABAPENTIN 100 MG CAP PO SCH ×3 (08:41→18:18)
[2017-02-10] MEDS: FOLIC ACID 1 MG TAB PO SCH (08:41)
[2017-02-10] MEDS: PANTOPRAZOLE SOD 40 MG DELAYED RELEASE TAB PO SCH ×2 (08:41→21:41)
[2017-02-10] MEDS: MULTIVITAMIN TAB PO SCH (08:42)
[2017-02-10] MEDS: DOCUSATE SODIUM 50 MG/SENNA 8.6 MG TAB PO SCH ×2 (08:42→21:41)
[2017-02-10] MEDS: ACETAMINOPHEN 325 MG TAB PO PRN ×2 (08:42→15:58)
[2017-02-10] MEDS: THIAMINE HCL 100 MG TAB PO SCH (08:42)
[2017-02-10] MEDS: FERROUS SULFATE 325 MG (65 MG ELEMENTAL IRON) TAB PO SCH (08:43)
[2017-02-10] MEDS: CEFEPIME INJ 1,000 MG in SODIUM CHLORIDE 0.9% INJ 100 ML IV SCH (08:55)
[2017-02-10] MEDS: LIDOCAINE HCL 5% PATCH T-DERMAL SCH (09:00)
[2017-02-10] MEDS: SODIUM CHLORIDE 0.9% FLUSH 10 ML FLUSH IV FLUSH SCH (09:00)
[2017-02-10] MEDS: METOPROLOL TARTRATE 25 MG TAB PO SCH (09:00)
[2017-02-10] MEDS ORDERED: VANCOMYCIN 1,500 MG/NS 500 ML IV ONE ×2 (11:00)
--- NOTE | 2017-02-10 13:08 | PD.CONS ---
Consult Service Palliative Care Consult Requested By Dr. Bryan Primary Care Physician Jumana Way MD Reason for Consultation a. To assist with evaluation and management of symptoms including: Shortness of breath, pain, debility b. To assist medical decision maker(s) with: better understanding of current medical conditions; weighing benefits/burdens of medical treatment options; making medical treatment decisions. HPI History of Present Illness Mr. 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 Patient is a resident at [facility]. Patient was recently admitted to [facility] on 02/03 for acute on chronic anemia. Patient was transfused 1 unit of PRBC during hospitalization and was discharged on 02/07/17. Patient presented to the ER via [facility] on 02/08/17 with complaints of generalized weakness, fever and swelling of left upper extremity. ER course: * Laboratory workup revealed WBC 4.1, hemoglobin 8.1, hematocrit 3.7, platelet count 20, slipped 39, potassium 3.5, BUN/creatinine 22/2.6, lactic acid 1.4, total protein 6.3, albumin 2.5. * Lung VQ scan-low probability for PE, findings consistent with some degree of COPD. * Left upper extremity ultrasound-normal * Chest x-ray revealed no evidence of acute process. Prominent hiatal hernia. * EKG revealed rate [address] changes. * Increase to 50 mL's normal saline bolus, 1 Tylenol for a fever of 101.5F * Patient started on parenteral antibiotics-cefepime * Patient admitted for further evaluation. Oncology Dr. Green consulted for evaluation and treatment of post transfusion fever, non-neutropenic. Dr. Green discussed with patient "barriers to aggressive disease directed therapy inclusive of patient's overall frailty, multiple medical comorbids and poor ECOG performance "which is currently a status of 4. 1 uPRBC transfused on 02/09/17 for a Hgb of 6.6, Hct 20.2. Palliative care consulted. Dual visit with Dr. Mckayla Reed. Patient seen and examined in his room in bed in the presence of a family friend Singh Chamberlain. Patient wanted visitor to be present during meeting. Patient lethargic ill-looking and shivering. Patient oriented to person, place and situation. Patient endorsing pain to right shoulder and left knee- rated pain as 7/10. Patient has a low grade temp max 100.4 degrees F orally. HR 80s-low 100s. O2 saturation high 90s on 2L NC. Laboratory workup today revealing WBC 5.0, hemoglobin 8.8, hematocrit 25.8, platelet count 41, sodium 141, potassium 3.4,BUN/creatinine 23/2.04, total protein 6.0, albumin 2.3. Patient has a fair understanding of his condition and acknowledges that oncologist has discussed with him regarding his condition and treatment options. Patient wants Oncologist to speak to his daughter Macarena. Addressed advance directives. Patient states that he does has a living will and Health care surrogate form signed and his daughter Macarena Gutierrez is his health care surrogate and the alternate HCS is his son Nando Polanco. Addressed code status, discussed risks, benefits and limitations of CPR given patient`s ongoing multiple comorbidities as well as multiple hospitalizations in the past few months. Patient is undecided on what he wants though he acknowledges that his health has been declining since August of this year. Patient states that he would defer the decision to his daughter Macarena whom he named as his healthcare surrogate. Explained to patient that he will be a full code by default, meaning CPR will be performed, ACLS drugs administered as well as intubation and placed on mechanical ventilation and he did not object that. Patient states that his daughter will decide what to do if he ends up not capacitated to make his own medical decisions. Encouraged patient to further discuss his wishes with his daughter. 1635hrs- Conference with patient and his daughter at bedside. Dual visit with Dr. Reed. Patient`s daughter provided copy of patient`s living will which names her as his HCS and patient`s son Vic Gutierrez as alternate HCS. Readdressed code status,patient indicated that he would want to be a Full code and his children will make decisions on whether to compassionately withdraw from life support based on his prognosis. Patient indicates that he definitely would not want a tracheostomy or PEG tube if his health and needs progress to that extent. Patient`s daughter states that patient has been deteriorating and declining in his health since August of this year and she has not seen any progress. Patient`s daughter requesting to hear from Oncology about treatment options as well as prognosis and how advanced the disease is (myelodysplastic syndrome). Case discussed with Michelle Banda, [facility] Oncology and requested her to ask Dr. Green to speak to patient`s daughter who is also his healthcare surrogate, Macarena Gutierrez. Function/Cognitive Trajectory Patient is currently a resident at [facility]. Patient was recently hospitalized and then transferred to [facility] and then discharged to [facility] 2 weeks ago and has been back to the hospital twice during that time. Patient stated that he used a walker for ambulation and wheelchair. Prior to admission he was able to transfer himself to use wheelchair. Patient has had 6 hospitalizations since August of this year. Some of the reasons for his hospitalizations have ranged between, fevers, uncontrolled pain and transfusion requirements. In August 2016 patient lived alone, could drive and cook. Needed assistance with yard work and cleaning. . Review of Systems ROS Limitations: Clinical Condition Constitutional: COMPLAINS OF: Fever, Weight loss, Generalized weakness, DENIES : Change in appetite Eyes: DENIES: Eye inflammation Ears, nose, mouth, throat: DENIES: Nasal discharge Respiratory: COMPLAINS OF: Wheezing, Shortness of breath Cardiovascular: COMPLAINS OF: Dyspnea on Exertion Gastrointestinal: COMPLAINS OF: Dyspepsia or heartburn, DENIES: Nausea, Vomiting Musculoskeletal: COMPLAINS OF: Joint pain, Joint Swelling, Decreased range of motion Hematologic/Lymphatics: COMPLAINS OF: Bruising, History of transfusions Neurologic: COMPLAINS OF: Poor Balance Past Family Social History Coded Allergies: sulfamethoxazole (Unverified Allergy, Severe, RASH, 02/03/17) trimethoprim (Unverified Allergy, Severe, RASH, 02/03/17) morphine (Verified Adverse Reaction, Severe, Nausea/Vomiting, 02/03/17) *MDRO Multi-Drug Resistant Organism (Verified Adverse Reaction, Unknown, 02/03/17) 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 Past Medical History Myelodysplastic syndrome with excess blasts. 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 Gout Hypertension. Hyperlipidemia. Peripheral neuropathy. Adult failure to thrive. History of prostate carcinoma. Spondylolisthesis. Past Surgical History Cervical fusion of C5 - C7 vertebral bodies Colonoscopy Esophagogastroduodenoscopy Multiple lower back surgeries. Rectal polyp removal Bilateral cataract surgery Seed implant (2012) for prostate carcinoma prostate biopsies as well as bone marrow biopsies. . Reported Medications Colcrys (Colchicine) 0.6 Mg Tab 0.6 Mg PO DAILY 30 Days. Oxycodone-Acetaminophen 10-325 (Oxycodone HCl/Acetaminophen) 10 Mg-325 Mg Tablet 1 Tab PO Q6H PRN Thera Tablet (Multivitamin with Folic Acid) 400 Mcg Tablet 1 Tab PO DAILY 30 Days Gnp Vitamin B-1 (Thiamine HCl) 100 Mg Tab 100 Mg PO DAILY 30 Days Folic Acid 1 Mg Tablet 1 Mg PO DAILY 30 Days Lidoderm (Lidocaine) 5 % Adh..patch 2 Patch T-DERMAL DAILY 30 Days Pantoprazole (Pantoprazole Sodium) 40 Mg Tab 40 Mg PO Q12HR 30 Days Gnp Senna Plus 8.6-50 mg (Sennosides-Docusate Sodium) 8.6 Mg-50 Mg Tab 1 Tab PO BID 30 Days Xalatan Opth Drops (Latanoprost) 0.005% Drops 1 Drop EACH EYE HS 30 Days Trazodone (Trazodone HCl) 50 Mg Tab 50 Mg PO HS 30 Days Norvasc (Amlodipine Besylate) 10 Mg Tab 10 Mg PO DAILY 30 Days Metoprolol Tartrate 25 Mg Tab 50 Mg PO BID 30 Days Hydralazine HCl 25 Mg Tablet 25 Mg PO Q8HR 30 Days Catapres (Clonidine) 0.2 Mg Tab 0.2 Mg PO Q6H PRN 30 Days Ferosul (Ferrous Sulfate) 325 Mg (65 Mg Iron) Tablet 325 Mg PO DAILY 30 Days Duoneb (Ipratropium-Albuterol Neb) 0.5-2.5 Mg/3 Ml Neb 3 Ml NEB Q8HR PRN Gabapentin 100 Mg Cap 200 Mg PO TID Mapap (Acetaminophen) 325 Mg Tab 650 Mg PO Q4HR PRN . Current Medications Medications (Trade) Dose Ordered Sig/Nikki Route Start Time Stop Time Status Last Admin (Tylenol) 650 mg Q4HR PRN PO 02/08/17 16:30 02/10/17 08:42 (Norvasc) 10 mg DAILY PO 02/09/17 09:00 02/09/17 09:51 (Catapres) 0.2 mg Q6H PRN PO 02/08/17 16:30 02/09/17 16:24 (Ferrous Sulfate) 325 mg DAILY PO 02/09/17 09:00 02/10/17 08:43 (Folate) 1 mg DAILY PO 02/09/17 09:00 02/10/17 08:41 (Neurontin) 200 mg TID PO 02/08/17 18:00 02/10/17 08:41 (Apresoline) 25 mg Q8HR PO 02/08/17 22:00 02/10/17 05:18 (Duoneb Neb) 1 ampule Q8HR NEB PRN NEB 02/08/17 17:30 (Xalatan 0.005% Opth Soln) 1 drop HS EACH EYE 02/08/17 21:00 02/08/17 21:00 (Lidoderm 5% Patch.12 Hr) 2 patch DAILY T-DERMAL 02/09/17 09:00 02/09/17 12:16 (Lopressor) 50 mg BID PO 02/08/17 21:00 02/09/17 22:32 (Theragran) 1 tab DAILY PO 02/09/17 09:00 02/10/17 08:42 (Percocet 10-325 Mg) 1 tab Q6H PRN PO 02/08/17 16:30 02/10/17 06:46 (Protonix) 40 mg Q12HR PO 02/08/17 21:00 02/10/17 08:41 (Vitamin B1) 100 mg DAILY PO 02/09/17 09:00 02/10/17 08:42 (Desyrel) 50 mg HS PO 02/08/17 21:00 02/09/17 22:32 (NS Flush) 2 ml UNSCH PRN IV FLUSH 02/08/17 16:30 (NS Flush) 2 ml BID IV FLUSH 02/08/17 21:00 02/09/17 22:33 (Zofran Inj) 4 mg Q6H PRN IVP 02/08/17 16:30 (Narcan Inj) 0.4 mg UNSCH PRN IV PUSH 02/08/17 16:30 (Aria-Colace) 1 tab BID PO 02/08/17 21:00 02/10/17 08:42 (Milk Of Magnesia Liq) 30 ml Q12H PRN PO 02/08/17 16:30 (Senokot) 17.2 mg Q12H PRN PO 02/08/17 16:30 (Dulcolax Supp) 10 mg DAILY PRN RECTAL 02/08/17 16:30 (Lactulose Liq) 30 ml DAILY PRN PO 02/08/17 16:30 Pharmacy Profile Note 0 ml @ 0 mls/hr UNSCH OTHER 02/08/17 16:30 Cefepime HCl 1000 mg/Sodium Chloride 100 ml @ 200 mls/hr DAILY IV 02/09/17 09:00 02/10/17 08:55 (Romazicon Inj) 0.2 mg Q1M PRN IV PUSH 02/08/17 17:30 (Ativan) 1 mg Q4H PRN PO 02/08/17 17:30 (Ativan Inj) 1 mg Q4H PRN IV PUSH 02/08/17 17:30 (Ativan) 2 mg Q2H PRN PO 02/08/17 17:30 (Ativan Inj) 2 mg Q2H PRN IV PUSH 02/08/17 17:30 (Ativan Inj) 2 mg Q1H PRN IV PUSH 02/08/17 17:30 (Ativan Inj) 2 mg Q15M PRN IV PUSH 02/08/17 17:30 Sodium Chloride 250 ml @ 15 mls/hr ONCE ONCE IV 02/09/17 21:45 02/10/17 14:24 02/09/17 23:25 (Benadryl) 25 mg Q4H PRN PO 02/09/17 21:45 02/09/17 22:48 Vancomycin HCl 1500 mg/Sodium Chloride 515 ml @ 257.5 mls/ hr ONCE ONCE IV 02/10/17 11:00 02/10/17 12:59 Family History Mother- - had asthma Father -- had coronary artery disease,Paranoid Schizophrenia Brother-drug abuse . Substance Use Tobacco:former smoker having smoked about two packs a day for several years but quit many years ago. Alcohol: Yes (2 large scotch drinks daily "solo cup size" per daughter) Prescription med abuse: Denies Illicits: Denies . Psychosocial History Patient was born and raised in [place]. Patient moved to [place] in 1962. Patient is - his 23 years ago. Patient graduated from college. He studied [employer] administration. 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 Patient has 3 adult children, 2 sons and one daughter. Patient had been living alone prior to his recent illnesses and after recent hospitalization. Patient was recently discharged to [facility]. . Spiritual/Cultural Factors Patient is a Mormonism . Living Will: Copy in medical record Health Care Surrogate: Copy in medical record Health Care Surrogate(s): Daughter-Healthcare Surrogate- Macarena, Gutierrez - [phone] (home) ; [phone] ( other) Son- Alternate HCS -Vic Gates, Gutierrez -[phone] . Documented care wishes: Standard verbiage- see Copy scanned in EMR . Today's verbally stated goals: Patient wants aggressive treatment and wants oncologists to speak to his daughter Macarena [facility] . . Family/friends goals: Daughter supportive of patient`s decision - aggressive treatment and hoping to have patient discharged to rehab again. . Ethical and Legal Issues None identified at this time. . Physical Exam Vital Signs Date Time Temp Pulse Resp B/P (MAP) Pulse Ox O2 Delivery O2 Flow Rate FiO2 02/10/17 10:55 96 02/10/17 08:17 100.4 102 20 97/56 (70) 97 02/10/17 05:22 133/71 (91) 02/10/17 04:00 99.1 93 22 121/68 (85) 98 02/10/17 02:10 99.5 84 123/70 (87) 99 02/10/17 00:16 99.7 80 118/59 100 02/10/17 00:00 99.2 77 24 112/56 (74) 100 02/09/17 23:57 99.7 78 109/56 100 02/09/17 23:33 99.1 78 108/51 99 02/09/17 23:12 99.3 81 18 113/58 98 02/09/17 21:26 98.1 87 18 117/77 (90) 02/09/17 19:39 Nasal Cannula 4.00 02/09/17 18:06 102.5 94 20 125/61 96 02/09/17 16:00 98.5 106 18 173/79 (110) 95 02/09/17 15:33 99.6 112 24 157/78 95 02/09/17 15:04 98.9 87 18 129/89 98 Exam CONSTITUTIONAL/GENERAL: This is an ill looking patient, in mild distress.Patient is shivering ,states that he is very cold. TUBES/LINES/DRAINS: PIV, SKIN: No jaundice, rashes, or lesions. Ecchymoses on upper extremities. Scabs to L wrist with lesion that presents like dry hard cyst. LUE edematous. Erythematous mass to Left knee-warm to touch. Not diaphoretic. HEAD: Atraumatic. Normocephalic. EYES: Pupils equal and round and reactive. Extraocular motions intact. No scleral icterus. No injection or drainage. Fundi not examined. ENT: Hearing grossly normal. Nose without bleeding or purulent drainage. Moist oral mucosa NECK: Trachea midline. Supple, nontender. . CARDIOVASCULAR: Regular rate and rhythm without murmurs, gallops, or rubs. No JVD. Peripheral pulses symmetric. RESPIRATORY/CHEST: Symmetric. Diminished breath sounds. Mild dyspnea with exertion. Expiratory wheezes, no rales, or rhonchi. GASTROINTESTINAL: Abdomen soft, non-tender, nondistended. No guarding. Bowel sounds present. GENITOURINARY: Without palpable bladder distension. MUSCULOSKELETAL: Extremities without clubbing, cyanosis, or edema. Edema noted to Left knee. No calf tenderness. No mottling or clubbing. NEUROLOGICAL: Awake and lethargic and oriented to self , place and situation. Motor and sensory grossly within normal limits. Follows commands. Moves all extremities. PSYCHIATRIC: No obvious anxiety/depression. no apparent hallucinations or other psychotic thought process. . Diagnostic Tests Laboratory Laboratory Tests Test 02/08/17 12:10 02/09/17 07:20 02/09/17 20:30 02/10/17 06:25 White Blood Count 4.1 TH/MM3 (4.0-11.0) 4.0 TH/MM3 (4.0-11.0) 3.6 TH/MM3 (4.0-11.0) 5.0 TH/MM3 (4.0-11.0) Red Blood Count 2.82 MIL/MM3 (4.50-5.90) 2.71 MIL/MM3 (4.50-5.90) 2.37 MIL/MM3 (4.50-5.90) 3.05 MIL/MM3 (4.50-5.90) Hemoglobin 8.1 GM/DL (13.0-17.0) 7.7 GM/DL (13.0-17.0) 6.6 GM/DL (13.0-17.0) 8.8 GM/DL (13.0-17.0) Hematocrit 23.7 % (39.0-51.0) 23.0 % (39.0-51.0) 20.2 % (39.0-51.0) 25.8 % (39.0-51.0) Mean Corpuscular Volume 84.3 FL (80.0-100.0) 84.7 FL (80.0-100.0) 85.2 FL (80.0-100.0) 84.5 FL (80.0-100.0) Mean Corpuscular Hemoglobin 28.8 PG (27.0-34.0) 28.4 PG (27.0-34.0) 27.9 PG (27.0-34.0) 28.8 PG (27.0-34.0) Mean Corpuscular Hemoglobin Concent 34.1 % (32.0-36.0) 33.5 % (32.0-36.0) 32.8 % (32.0-36.0) 34.1 % (32.0-36.0) Red Cell Distribution Width 18.4 % (11.6-17.2) 18.0 % (11.6-17.2) 18.4 % (11.6-17.2) 18.0 % (11.6-17.2) Platelet Count 20 TH/MM3 (150-450) 19 TH/MM3 (150-450) 45 TH/MM3 (150-450) 41 TH/MM3 (150-450) Mean Platelet Volume 6.4 FL (7.0-11.0) 6.7 FL (7.0-11.0) 7.5 FL (7.0-11.0) 8.5 FL (7.0-11.0) Neutrophils (%) (Auto) 64.2 % (16.0-70.0) 54.0 % (16.0-70.0) Lymphocytes (%) (Auto) 20.0 % (9.0-44.0) 22.7 % (9.0-44.0) Monocytes (%) (Auto) 6.8 % (0.0-8.0) 8.6 % (0.0-8.0) Eosinophils (%) (Auto) 8.7 % (0.0-4.0) 9.8 % (0.0-4.0) Basophils (%) (Auto) 0.3 % (0.0-2.0) 4.9 % (0.0-2.0) Neutrophils # (Auto) 2.6 TH/MM3 (1.8-7.7) 2.2 TH/MM3 (1.8-7.7) Lymphocytes # (Auto) 0.8 TH/MM3 (1.0-4.8) 0.9 TH/MM3 (1.0-4.8) Monocytes # (Auto) 0.3 TH/MM3 (0-0.9) 0.3 TH/MM3 (0-0.9) Eosinophils # (Auto) 0.4 TH/MM3 (0-0.4) 0.4 TH/MM3 (0-0.4) Basophils # (Auto) 0.0 TH/MM3 (0-0.2) 0.2 TH/MM3 (0-0.2) CBC Comment AUTO DIFF AUTO DIFF Differential Total Cells Counted 100 100 Neutrophils % (Manual) 63 % (16-70) 54 % (16-70) Band Neutrophils % 11 % (0-6) 20 % (0-6) Lymphocytes % 16 % (9-44) 14 % (9-44) Monocytes % 5 % (0-8) 1 % (0-8) Eosinophils % 3 % (0-4) 7 % (0-4) Basophils % 2 % (0-2) 4 % (0-2) Neutrophils # (Manual) 3.0 TH/MM3 (1.8-7.7) 3.0 TH/MM3 (1.8-7.7) Differential Comment FINAL DIFF MANUAL FINAL DIFF MANUAL Platelet Estimate LOW (NORMAL) RARE (NORMAL) Platelet Morphology Comment NORMAL (NORMAL) NORMAL (NORMAL) Keratocytes OCC (NORMAL) OCC (NORMAL) Prothrombin Time 11.5 SEC (9.8-11.6) Prothromb Time International Ratio 1.0 RATIO Activated Partial Thromboplast Time 30.4 SEC (24.3-30.1) Urine Color YELLOW (YELLW/STRAW) Urine Turbidity CLEAR (CLEAR) Urine pH 5.5 (5.0-8.5) Urine Specific [place] 1.009 (1.002-1.035) Urine Protein 100 mg/dL (NEG-TRACE) Urine Glucose (UA) NEG mg/dL (NEG) Urine Ketones NEG mg/dL (NEG) Urine Occult Blood LARGE (NEG) Urine Nitrite NEG (NEG) Urine Bilirubin NEG (NEG) Urine Urobilinogen LESS THAN 2.0 MG/DL (LESS Urine Leukocyte Esterase NEG (NEG) Urine RBC /hpf (0-3) Urine WBC 2 /hpf (0-5) Urine Squamous Epithelial Cells <1 /hpf (0-5) Urine Mucus FEW /lpf (OCC) Urine Yeast (Budding) FEW (NONE) Microscopic Urinalysis Comment CATH-CULT NOT IND Blood Urea Nitrogen 22 MG/DL (7-18) 23 MG/DL (7-18) Creatinine 2.05 MG/DL (0.60-1.30) 2.04 MG/DL (0.60-1.30) Random Glucose 123 MG/DL (74-106) 93 MG/DL (74-106) Total Protein 6.3 GM/DL (6.4-8.2) 6.0 GM/DL (6.4-8.2) Albumin 2.5 GM/DL (3.4-5.0) 2.3 GM/DL (3.4-5.0) Calcium Level 7.9 MG/DL (8.5-10.1) 8.2 MG/DL (8.5-10.1) Magnesium Level 1.1 MG/DL (1.5-2.5) Alkaline Phosphatase 92 U/L (45-117) 83 U/L (45-117) Aspartate Amino Transf (AST/SGOT) 16 U/L (15-37) 15 U/L (15-37) Alanine Aminotransferase (ALT/SGPT) 17 U/L (12-78) 18 U/L (12-78) Total Bilirubin 0.7 MG/DL (0.2-1.0) 0.9 MG/DL (0.2-1.0) Sodium Level 139 MEQ/L (136-145) 141 MEQ/L (136-145) Potassium Level 3.5 MEQ/L (3.5-5.1) 3.4 MEQ/L (3.5-5.1) Chloride Level 105 MEQ/L (98-107) 106 MEQ/L (98-107) Carbon Dioxide Level 25.5 MEQ/L (21.0-32.0) 27.6 MEQ/L (21.0-32.0) Anion Gap 9 MEQ/L (5-15) 7 MEQ/L (5-15) Estimat Glomerular Filtration Rate 31 ML/MIN (>89) 31 ML/MIN (>89) Lactic Acid Level 1.4 mmol/L (0.4-2.0) Troponin I 0.02 NG/ML (0.02-0.05) B-Type Natriuretic Peptide 119 PG/ML (0-100) Metamyelocytes 0 % (0-1) Acanthocytes OCC (NORMAL) Random Vancomycin Level 7.9 COMMENT Result Diagram: 02/10/17 0625 02/09/17 0720 Microbiology Microbiology Date/Time Source Procedure Growth Status 02/08/17 12:10 Blood Peripheral Aerobic Blood Culture - Preliminary NO GROWTH IN 2 DAYS Resulted 02/08/17 12:10 Blood Peripheral Anaerobic Blood Culture - Preliminary NO GROWTH IN 2 DAYS Resulted 02/08/17 12:10 Blood Peripheral Aerobic Blood Culture - Preliminary NO GROWTH IN 2 DAYS Resulted 02/08/17 12:10 Blood Peripheral Anaerobic Blood Culture - Preliminary NO GROWTH IN 2 DAYS Resulted Imaging Last Impressions Chest X-Ray 02/08/17 1153 Signed Impressions: Service Date/Time: Wednesday, February 08, 2017 12:19 - CONCLUSION: 1. Stable chest without evidence of acute process. 2. Prominent hiatal hernia. Randy Andrews MD Upper Extremity Ultrasound 02/08/17 0000 Signed Impressions: Service Date/Time: Wednesday, February 08, 2017 16:06 - CONCLUSION: Normal examination. Richard Green MD Lung Scan-V Nuclear Medicine 02/08/17 0000 Signed Impressions: Service Date/Time: Wednesday, February 08, 2017 16:13 - CONCLUSION: 1. Low probability scan for pulmonary embolus. 2. Scintigraphic findings characteristic of some degree of COPD. Vijay Simmons MD Patient/Family Conference Present at Family Conference: Dual visit with Dr. Reed Family friend- Singh Chamberlain Second conference- with [facility]-Macarena Gutierrez. . Family Conference Time (mins): 35 Family Conference Location: Bedside, Telephone Issues Discussed: * Palliative care role, purpose, approach * Additional medical, psychosocial, and spiritual history * Patients general health, functional status, and cognitive changes in the months leading up to the current hospitalization * Patient/family understanding of the current medical problems * Patient/family understanding of prognosis * Patients goals of care as best understood from advance directives and/or conversations and/or values * Current medical treatment options and benefits/burdens of those options * Likely scenarios comparing ongoing aggressive care with a transition to comfort measures only * Questions answered to the best of my ability * Introduced hospice philosophy and benefits * Palliative care contact information provided Assessment and Plan Disease Oriented Problem List: (1) Thrombocytopenia (2) Sepsis (3) COPD (chronic obstructive pulmonary disease) (4) Left arm swelling (5) Nutrition, metabolism, and development symptoms (6) Chronic alcoholism Symptom Scale: (1) Shortness of breath 0-10 Scale: Unable to quantify Comment: Multifactorial. Hx of COPD, patient with a low hemoglobin . (2) Pain 0-10 Scale: 7 Comment: Endorsing pain to right shoulder and left knee- rated pain as 7/10. L knee presents with an erythematous mass. Wound to L great toe. . (3) Debility 0-10 Scale: Unable to quantify Comment: Progressive. Patient has had 6 hospitalization since August of this year. . Pertinent Non-Medical Issues Psychosocial:Patient was born and raised in [place]. Patient moved to [place] in 1962. Patient is - his 23 years ago. Patient graduated from college. He studied [employer] administration. 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 Patient has 3 adult children, 2 sons and one daughter. Patient had been living alone prior to his recent illnesses and after recent hospitalization. Patient was recently discharged to [facility]. Spiritual:Patient is a Mormonism Legal: Patient states that he has a living will and Health care surrogate forms signed and his daughter Macarena Gutierrez is his health care surrogate and the alternate HCS is his son Nando Polanco. Ethical issues impacting care: None identified at this time . Important Contacts Daughter-Healthcare Surrogate- Matt Fiore - [phone] (home) ; [phone] ( other) Son- Alternate HCS -Matt Christensen -[phone] . Prognosis Mr. 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 Patient is a resident at [facility]. Patient was recently admitted to [facility] on 02/03 for acute on chronic anemia. Patient was transfused 1 unit of PRBC during hospitalization and was discharged on 02/07/17. Patient presented to the ER via [facility] on 02/08/17 with complaints of generalized weakness, fever and swelling of left upper extremity. Patient has barriers to aggressive directed therapy which are inclusive of his overall frailty, multiple comorbidities and poor performance status. Patient is at risk for further complications, deterioration, decline. If patient`s goals are only comfort care oriented , patient would be an appropriate candidate for hospice. . Code Status: Full Code Plan PLAN: Legal decision maker: Patient currently demonstrates ability to make his own medical decisions though he tends to defer to his daughter per our conversation. In the event that patient is not capacitated to make his own medical decisions patient verbally designated his daughter Macarena Gutierrez as his health care surrogate and his son Nando Polanco as the alternate HCS. Goals: Aggressive. Patient acknowledges that oncologist has explained to him in regards to his condition. Patient wants Oncologist to speak to his daughter Macarena. Addressed advance directives. Patient states that he does has a living will and Health care surrogate forms signed and his daughter Macarena Gutierrez is his health care surrogate and the alternate HCS is his son Nando Polanco. Addressed code status, discussed risks, benefits and limitations of CPR given patient`s ongoing multiple comorbidities as well as multiple hospitalizations in the past few months. Patient is undecided on what he wants though he acknowledges that his health has been declining since August of this year. Patient states that he would defer the decision to his daughter Macarena whom he named as his healthcare surrogate. Explained to patient that he will be a full code by default, meaning CPR will be performed, ACLS drugs administered as well as intubation and placed on mechanical ventilation and he did not object that. Patient states that his daughter will decide what to do if he ends up not capacitated to make his own medical decisions. Encouraged patient to further discuss his wishes with his daughter. 1635hrs- Conference with patient and his daughter at bedside. Dual visit with Dr. Reed. Patient`s daughter provided copy of patient`s living will which names her as his HCS and patient`s son Vic Gutierrez as alternate HCS. Readdressed code status,patient indicated that he would want to be a Full code and his children will make decisions on whether to compassionately withdraw from life support based on his prognosis. Patient indicates that he definitely would not want a tracheostomy or PEG tube if his health and needs progress to that extent. Patient`s daughter states that patient has been deteriorating and declining in his health since August of this year and she has not seen any progress. Patient`s daughter requesting to hear from Oncology about treatment options as well as prognosis and how advanced the disease is (myelodysplastic syndrome). CODE STATUS: Full Code SYMPTOMS: * Shortness of breath: Multifactorial. Hx of COPD. Patient`s Hemoglobin 6.6 on 02/09/17. 1 uPRBC transfused. Patient also on CIWA protocol- Lorazepam ordered.Currently on humidified O2 2l NC. * Pain: Endorsing pain to right shoulder and left knee- rated pain as 7/10. L knee presents with an erythematous mass. Wound to L great toe. Wound care nurse consulted. Patient has Oxycodone/Acetaminophen 10/325 Q 6hrs prn * Debility: Progressive. Patient has had 6 hospitalizations since August of this year and was recently transferred to [facility] and then discharged to SNF. With ongoing comorbidities patient is likely to continue to have complications, deterioration and decline to a point of not being able to participate in physical therapy.Recommending physical therapy if patient`s goals remain aggressive. Palliative care will continue to follow the patient during hospital course as condition evolves, to assist patient/decision-maker with understanding of their medical conditions, weighing benefits/burdens of treatment options, for clarification of goals of treatment. Additionally will assist with any symptoms of palliative concern Thank you for the opportunity to participate in the care of Mr. Gutierrez. Francheska Cid Feb 10, 2017 13:08
[2017-02-10] MEDS ORDERED: FUROSEMIDE 20 MG/2 ML VIAL IV PUSH ONE (14:00)
--- NOTE | 2017-02-10 14:04 | HHI.FPPN ---
Subjective Remarks Yesterday, patient received 1unit platelet and 1 unit RBC transfusion due to plt 19 and Hb 6.6 along with lasix. Pt doing well this AM. He complains of chronic left knee pain, otherwise no other complaints. Afebrile. VSS. Tolerating diet well. 3 BMs. Increase swelling in left upper extremity. Denies abdominal pain, CP, SOB, and N/V. On 2L NC. (Sadaf Bryan MD R1) Objective Vitals Vital Signs Date Time Temp Pulse Resp B/P (MAP) Pulse Ox O2 Delivery O2 Flow Rate FiO2 02/10/17 12:13 99.3 100 20 123/59 (80) 94 02/10/17 10:55 96 02/10/17 08:17 100.4 102 20 97/56 (70) 97 02/10/17 05:22 133/71 (91) 02/10/17 04:00 99.1 93 22 121/68 (85) 98 02/10/17 02:10 99.5 84 123/70 (87) 99 02/10/17 00:16 99.7 80 118/59 100 02/10/17 00:00 99.2 77 24 112/56 (74) 100 02/09/17 23:57 99.7 78 109/56 100 02/09/17 23:33 99.1 78 108/51 99 02/09/17 23:12 99.3 81 18 113/58 98 02/09/17 21:26 98.1 87 18 117/77 (90) 02/09/17 19:39 Nasal Cannula 4.00 02/09/17 18:06 102.5 94 20 125/61 96 02/09/17 16:00 98.5 106 18 173/79 (110) 95 02/09/17 15:33 99.6 112 24 157/78 95 02/09/17 15:04 98.9 87 18 129/89 98 I/O 02/09/17 02/09/17 02/09/17 02/10/17 02/10/17 02/10/17 07:00 15:00 23:00 07:00 15:00 23:00 Intake Total 443 ml 520 ml 240 ml Output Total 200 ml 400 ml Balance -200 ml 443 ml 120 ml 240 ml Intake Oral 120 ml 240 ml IV Total 250 ml Packed Cells 400 ml Platelets 193 ml Output Urine Total 200 ml 400 ml # Voids 8 # Bowel Movements 2 1 (Sadaf Bryan MD R1) Result Diagram: 02/10/17 0625 02/09/17 0720 Imaging Last Impressions Chest X-Ray 02/08/17 1153 Signed Impressions: Service Date/Time: Wednesday, February 08, 2017 12:19 - CONCLUSION: 1. Stable chest without evidence of acute process. 2. Prominent hiatal hernia. Randy Andrews MD Upper Extremity Ultrasound 02/08/17 0000 Signed Impressions: Service Date/Time: Wednesday, February 08, 2017 16:06 - CONCLUSION: Normal examination. Richard Green MD Lung Scan-V Nuclear Medicine 02/08/17 0000 Signed Impressions: Service Date/Time: Wednesday, February 08, 2017 16:13 - CONCLUSION: 1. Low probability scan for pulmonary embolus. 2. Scintigraphic findings characteristic of some degree of COPD. Vijay Simmons MD Objective Remarks O. CONSTITUTIONAL/GEN: normally nourished, in NAD. Very pleasant elderly gentleman looking greater than his stated age. EYES: Subconjunctival hemorrhage on the left, PERRLA, EOMI. ENT: Mouth and pharynx normal. Lips are dry NECK: Supple LUNGS: clear A-P, no obvious respiratory distress, currently on 2 L nasal oxygen. Breath sounds are distant. CARDIOVASCULAR: RRR, no m/r/g Bilateral lower extremity edema left greater than right. GI/ABD: soft without masses, without organomegaly. Nontender to palpation NEURO: No focal deficits. Speech is clear SKIN: Pale, lesions noted on the left wrist and dorsum of the left hand as well as the left great toe. He has a hematoma on his left knee which has been previously imaged. HEME/LYMPH: Significant scattered ecchymoses, no petechia or significant adenopathy. MUSC: Left upper extremity shows marked edema and ecchymoses. This is a change from his discharge from the hospital on 02/07. Capillary refill > 2 seconds. PSYCH/MENTAL STATUS: Alert and oriented x 3. (Sadaf Bryan MD R1) A/P Assessment and Plan 81 yr old male with myelodysplastic syndrome with excess blasts, recently discharged on 02/07, readmitted for fever and LUE swelling Discharge Planning Anticipate a few days in the hospital. Palliative care consulted. (Sadaf Bryan MD R1) Attending Attestation Patient seen and examined. Case reviewed and discussed with the resident team. Agree with plan of care as discussed with me and documented in the resident note. (Ne Gottlieb MD) Problem List: (1) Myelodysplastic syndrome ICD Codes: D46.9 - Myelodysplastic syndrome, unspecified Plan: Bone marrow biopsy performed on 02/06, positive for high grade myelodysplastic syndrome * Hematology consulted, appreciated recs * s/p 2 units PRBC on 02/03 and 1 unit of PRBC on 02/07, 1 unit of PRBC 02/09 with lasix * s/p 1 unit platelets 02/04 and 02/09 * Hb improved to 8.8 and plts to 41 post-transfusion yesterday * Daily CBC * Transfuse for Plt < 20k or Hgb < 7.5 * Findings of bone marrow biopsy were discussed. After speaking with patient this morning, patient is considering hospice level of care. Palliative care consulted, appreciate recs. 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 Thornton (2) Sepsis ICD Codes: A41.9 - Sepsis, unspecified organism Plan: Patient met sepsis criteria upon admission with tachycardia and fever secondary to LUE cellulitis * s/p 1x cefepime and 1x vancomycin in ED * V/Q scan low probability for PE * Upper extremity US negative * Lasix 20mg IV once today for LUE swelling * Continue Cefepime and Vancomycin (renally dosed) (3) Left arm swelling ICD Codes: M79.89 - Other specified soft tissue disorders Plan: please see plan above (4) COPD (chronic obstructive pulmonary disease) ICD Codes: J44.9 - COPD (chronic obstructive pulmonary disease) Status: Chronic Plan: Patient currently on 2L NC. -DuoNeb q8hr PRN (5) Gout ICD Codes: M10.9 - Gout, unspecified Status: Chronic Plan: 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 - S/p colchicine 1.2 mg once, then 0.6 mg 1 h later - Pain improved - Monitor clinically - Ultrasound of mass below the left knee showing complex mass could be a hematoma, no drainable fluid (6) Chronic alcoholism ICD Codes: F10.20 - Alcohol dependence, uncomplicated Status: Chronic Plan: Heavy drinking for years, may be contributing to current anemia/ thrombocytopenia - [facility] protocol - Rally pack (thiamine, folate, multivitamin) (7) Wilks esophagus ICD Codes: K22.70 - Wilks's esophagus without dysplasia Status: Chronic Plan: Continue PPI BID (8) Diverticulosis ICD Codes: K57.90 - Diverticulosis of intestine, part unspecified, without perforation or abscess without bleeding Status: Chronic Plan: W/u for GIB recently negative (9) Nutrition, metabolism, and development symptoms ICD Codes: R63.8 - Other symptoms and signs concerning food and fluid intake Status: Acute Plan: Fluids: Not indicated at this time Elecs: Monitor and replete PRN Nutrition: Diet regular basic DVT: Pharm PPX contraindicated due to thrombocytopenia. SCDs b/l knee high. Pain: Tylenol PRN Constipation: Meds per hospital protocol Code status: Full code (Sadaf Bryan MD R1) Sadaf Bryan MD R1 Feb 10, 2017 14:04 Ne Gottlieb MD Feb 10, 2017 16:39
[2017-02-10] MEDS: RESP: ALBUTEROL 2.5 MG/IPRATROPIUM 0.5 MG NEB (PRN) NEB (15:18)
[2017-02-10] MEDS: traZODone HCL 50 MG TAB PO SCH (21:41)
[2017-02-11] VITALS (10 sets, daily range): BP systolic 104–139; BP diastolic 54–98; PULSE 95–123; RESP 16–20; TEMP 98.5–101.9; O2SAT 93–97
[2017-02-11] MEDS: ACETAMINOPHEN 325 MG TAB PO PRN ×3 (00:16→21:04)
[2017-02-11] MEDS: oxyCODONE/ACETAMINOPHEN 10 MG/325 MG TAB PO PRN ×2 (05:51→13:05)
[2017-02-11] MEDS: hydrALAZINE HCL 25 MG TAB PO SCH ×3 (05:55→21:04)
[2017-02-11 07:37] LABS: HEMATOCRIT 21.3 % (39.0-51.0); MEAN CELL VOLUME 85.1 FL (80.0-100.0); MEAN CORPUSCULAR HEMOGLOBIN 28.5 PG (27.0-34.0); MEAN CORPUSCULAR HGB CONC 33.4 % (32.0-36.0); PLATELET COUNT 28 TH/MM3 (150-450); RED CELL DISTRIBUTION WIDTH 17.6 % (11.6-17.2); WHITE BLOOD COUNT 4.7 TH/MM3 (4.0-11.0)
[2017-02-11 07:41] LABS: REVIEW FLAG FINAL
[2017-02-11 07:58] LABS: BICARBONATE 24.3 MEQ/L (21.0-32.0); POTASSIUM 3.9 MEQ/L (3.5-5.1)
[2017-02-11] MEDS ORDERED: SODIUM CHLOR 0.9% 250 ML INJ 250 ML IV ONE (08:15)
[2017-02-11 08:25] LABS: CALCIUM-PROTEIN CORRECTED 8.3 MG/DL (8.5-10.1)
--- NOTE | 2017-02-11 08:56 | RADRPT ---
EXAM DATE/TIME: 02/11/2017 08:28 [facility] COMPARISON: CHEST SINGLE AP, February 08, 2017, 12:19. INDICATIONS : Fever. MEDICAL HISTORY : Hypercholesterolemia. Hypertension Gastroesophageal reflux disease. Stage III kidney disease. Art hritis. Rectal polyps. Hepatitis. Prostate cancer. SURGICAL HISTORY : Cervical fusion. Prostate seed inplantation ENCOUNTER: Subsequent ACUITY: 3 days PAIN SCORE: 0/10 LOCATION: Bilateral chest FINDINGS: A single view of the chest demonstrates minimal left basilar density. Heart normal in size. The cardi omediastinal contours are unremarkable. Osseous structures are intact. CONCLUSION: Minimal density, likely atelectasis left lung base. Sergio Johnson MD on February 11, 2017 at 8:53 Board Certified Radiologist. This report was verified electronically.
[2017-02-11] MEDS: SODIUM CHLORIDE 0.9% FLUSH 10 ML FLUSH IV FLUSH SCH ×2 (09:00→21:04)
[2017-02-11] MEDS: METOPROLOL TARTRATE 25 MG TAB PO SCH ×2 (09:00→21:03)
[2017-02-11] MEDS ORDERED: FUROSEMIDE 20 MG/2 ML VIAL IV PUSH ONE (09:15)
--- NOTE | 2017-02-11 09:40 | HHI.FPPN ---
Subjective Remarks Fever of 101.9 at 00:00 and 100.9 at 4:00 overnight per chart. Resident team not paged about fever. Pt is afebrile this AM. Pt lying in bed, comfortably. He complains of left knee pain and back pain. Stage I sacral wound found. Hb decrease to 7.1 this AM. Patient will receive 1 unit of PRBCs along with lasix. Denies CP, SOB, abdominal pain, and N/V. (Sadaf Bryan MD R1) Objective Vitals Vital Signs Date Time Temp Pulse Resp B/P (MAP) Pulse Ox O2 Delivery O2 Flow Rate FiO2 02/11/17 08:31 99.3 103 18 104/54 (71) 94 02/11/17 04:00 100.9 109 20 139/61 (87) 94 02/11/17 01:59 98.5 02/11/17 00:00 101.9 108 18 129/59 (82) 93 02/10/17 21:45 Nasal Cannula 3.00 02/10/17 20:00 99.2 109 18 108/55 (72) 94 02/10/17 17:30 99.1 02/10/17 17:28 Nasal Cannula 4.00 02/10/17 16:47 102.4 112 20 117/58 (77) 94 02/10/17 15:18 95 Nasal Cannula 2.00 02/10/17 12:13 99.3 100 20 123/59 (80) 94 02/10/17 10:55 96 I/O 02/10/17 02/10/17 02/10/17 02/11/17 02/11/17 02/11/17 07:00 15:00 23:00 07:00 15:00 23:00 Intake Total 520 ml 712 ml Output Total 400 ml Balance 120 ml 712 ml Intake Oral 120 ml 240 ml IV Total 472 ml Packed Cells 400 ml Output Urine Total 400 ml # Voids 4 3 # Bowel Movements 1 0 (Sadaf Bryan MD R1) Result Diagram: 02/11/1765402/11/1755 Objective Remarks O. CONSTITUTIONAL/GEN: normally nourished, in NAD. Very pleasant elderly gentleman looking greater than his stated age. EYES: Subconjunctival hemorrhage on the left, PERRLA, EOMI. ENT: Mouth and pharynx normal. Lips are dry NECK: Supple LUNGS: clear A-P, no obvious respiratory distress, currently on 2 L nasal oxygen. Breath sounds are distant. CARDIOVASCULAR: RRR, no m/r/g Bilateral lower extremity edema left greater than right. GI/ABD: soft without masses, without organomegaly. Nontender to palpation NEURO: No focal deficits. Speech is clear SKIN: Pale, lesions noted on the left wrist and dorsum of the left hand as well as the left great toe. He has a hematoma on his left knee which has been previously imaged. Stage I sacral wound. HEME/LYMPH: Significant scattered ecchymoses, no petechia or significant adenopathy. MUSC: Left upper extremity shows marked edema and ecchymoses. This is a change from his discharge from the hospital on 02/07. Capillary refill > 2 seconds. PSYCH/MENTAL STATUS: Alert and oriented x 3. (Sadaf Bryan MD R1) A/P Assessment and Plan 81 yr old male with myelodysplastic syndrome with excess blasts, recently discharged on 02/07, readmitted for fever and LUE swelling Discharge Planning Anticipate a few days in the hospital. Palliative care consulted. (Sadaf Bryan MD R1) Attending Attestation Patient seen and examined. Case reviewed and discussed with the resident team. Agree with plan of care as discussed with me and documented in the resident note. (eN Gottlieb MD) Problem List: (1) Myelodysplastic syndrome ICD Codes: D46.9 - Myelodysplastic syndrome, unspecified Plan: Bone marrow biopsy performed on 02/06, positive for high grade myelodysplastic syndrome * Hematology consulted, appreciated recs * s/p 2 units PRBC on 02/03 and 1 unit of PRBC on 02/07, 1 unit of PRBC 02/09 with lasix, 1 unit of PRBC 02/11 with lasix * s/p 1 unit platelets 02/04 and 02/09 * Daily CBC * Transfuse for Plt < 20k or Hgb < 7.5 * Findings of bone marrow biopsy were discussed. After speaking with patient, patient is considering hospice level of care. * Palliative care consulted, appreciated recs. Outpatient semi truck driver = Dr. Thornton Pain control Morphine IR 15mg PO q6h Percocet 10-325 mg 1 tab q4h PRN breakthrough pain (2) Left arm swelling ICD Codes: M79.89 - Other specified soft tissue disorders Plan: Initially suspecting cellulitis due to left arm swelling and redness. Deescalating abx. * V/Q scan low probability for PE * Upper extremity US negative * Lasix 20mg IV once 02/10 for LUE swelling * Discontinued Cefepime, continue (renally dose) Vancomycin (3) Sepsis ICD Codes: A41.9 - Sepsis, unspecified organism Status: Resolved Plan: Patient met sepsis criteria upon admission with tachycardia and fever secondary to possible LUE cellulitis * s/p 1x cefepime and 1x vancomycin in ED (4) COPD (chronic obstructive pulmonary disease) ICD Codes: J44.9 - COPD (chronic obstructive pulmonary disease) Status: Chronic Plan: Patient currently on 2L NC. -DuoNeb q8hr PRN (5) Gout ICD Codes: M10.9 - Gout, unspecified Status: Chronic Plan: 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 - S/p colchicine 1.2 mg once, then 0.6 mg 1 h later - Pain improved - Monitor clinically - Ultrasound of mass below the left knee showing complex mass could be a hematoma, no drainable fluid (6) Chronic alcoholism ICD Codes: F10.20 - Alcohol dependence, uncomplicated Status: Chronic Plan: Heavy drinking for years, may be contributing to current anemia/ thrombocytopenia - [facility] protocol - Rally pack (thiamine, folate, multivitamin) (7) Wilks esophagus ICD Codes: K22.70 - Wilks's esophagus without dysplasia Status: Chronic Plan: Continue PPI BID (8) Diverticulosis ICD Codes: K57.90 - Diverticulosis of intestine, part unspecified, without perforation or abscess without bleeding Status: Chronic Plan: W/u for GIB recently negative (9) Sacral ulcer ICD Codes: L98.429 - Non-pressure chronic ulcer of back with unspecified severity Plan: Stage I sacral ulcer, wound care nurse consulted. (10) Nutrition, metabolism, and development symptoms ICD Codes: R63.8 - Other symptoms and signs concerning food and fluid intake Status: Acute Plan: Fluids: Not indicated at this time Elecs: Monitor and replete PRN Nutrition: Diet regular basic DVT: Pharm PPX contraindicated due to thrombocytopenia. SCDs b/l knee high. Pain: Tylenol PRN Constipation: Meds per hospital protocol Code status: Full code (Sadaf Bryan MD R1) Sadaf Bryan MD R1 Feb 11, 2017 09:40 Ne Gottlieb MD Feb 12, 2017 12:03
[2017-02-11] MEDS: CEFEPIME INJ 1,000 MG in SODIUM CHLORIDE 0.9% INJ 100 ML IV SCH (10:26)
[2017-02-11] MEDS: LIDOCAINE HCL 5% PATCH T-DERMAL SCH (10:31)
[2017-02-11] MEDS: MULTIVITAMIN TAB PO SCH (10:33)
[2017-02-11] MEDS: GABAPENTIN 100 MG CAP PO SCH ×3 (10:33→17:29)
[2017-02-11] MEDS: FERROUS SULFATE 325 MG (65 MG ELEMENTAL IRON) TAB PO SCH (10:33)
[2017-02-11] MEDS: THIAMINE HCL 100 MG TAB PO SCH (10:33)
[2017-02-11] MEDS: FOLIC ACID 1 MG TAB PO SCH (10:33)
[2017-02-11] MEDS: DOCUSATE SODIUM 50 MG/SENNA 8.6 MG TAB PO SCH ×2 (10:33→21:03)
[2017-02-11] MEDS: PANTOPRAZOLE SOD 40 MG DELAYED RELEASE TAB PO SCH ×2 (10:34→21:04)
--- NOTE | 2017-02-11 14:51 | PQ ---
Physician Query Response Document PATIENT: RISHI GRIJALVA : 1935 ADMIT DATE: 02/08/2017 3:46 PM DISCH DATE: RESPONDING PROVIDER #: Iraida QUERY TEXT: Sepsis Query Based on your medical judgement, can you further clarify the folowiin. Sepsis (SIRS due to an infection) 2. Sepsis with Organ Dysfunction 3. A localized Infection only 4. Another condition - please specify 5. Unable to determine - please explain. Depending on your selection above, please indicate one of the below if applicable: - Sepsis was present on Admission - Sepsis developed after admission The patient's Clinical Indicators include: Per clinical records: Patient met sepsis criteria upon admission with tachycardia and fever, also req uired increased oxygen needs and platlet count <100,000. Do you feel SEVERE SEPSIS is present? If so , please document in the EMR. Query created by: Kasey Brock on 02/09/2017 12:00 AM RESPONSE TEXT: Pt. Was initially thought to have cellulitis; this does not appear to be the case. No SIRS. Does have significant myelodysplasia requiring frequent blood transfusions. He occasionally is febrile but thi s may be attributable to his transfusions. Palliative care is involved with this case as well. Electronically signed by: Ne Gottlieb MD 02/11/2017 2:48 PM
[2017-02-11] MEDS: MORPHINE SULFATE 15 MG TAB PO SCH ×2 (16:00→21:03)
[2017-02-11] MEDS ORDERED: oxyCODONE/ACETAMINOPHEN 10 MG/325 MG TAB PO PRN (18:00)
[2017-02-11] MEDS ORDERED: oxyCODONE/ACETAMINOPHEN 10 MG/325 MG TAB PO SCH (19:00)
[2017-02-11] MEDS: traZODone HCL 50 MG TAB PO SCH (21:03)
[2017-02-11] MEDS: LATANOPROST 0.005% OPHT SOLN 2.5 ML BTL EACH EYE SCH ×3 (21:05→21:37)
[2017-02-11 22:14] LABS: REVIEW FLAG FINAL
[2017-02-12] VITALS (15 sets, daily range): BP systolic 89–135; BP diastolic 47–73; PULSE 88–119; RESP 17–26; TEMP 98.1–102.4; O2SAT 77–98
[2017-02-12 01:15] LABS: BLOOD GAS BASE EXCESS -1.6 mmol/L (-2-2); BLOOD GAS CARBOXYHEMOGLOBIN 1.9 % (0-4); BLOOD GAS HCO3 23 mmol/L (22-26); BLOOD GAS METHEMOGLOBIN 0.8 % (0-2); BLOOD GAS O2 HGB SATURATION 95 % (90-100); BLOOD GAS OXYGEN CONTENT 18.4 Vol % (12.0-20.0); BLOOD GAS PCO2 44 mmHg (38-42); BLOOD GAS PO2 103 mmHg (61-120); BLOOD GAS TOTAL HGB 13.7 G/DL (12.0-16.0); TEMP CORR TO 98.6
[2017-02-12] MEDS: FUROSEMIDE 40 MG/4 ML VIAL IV PUSH ONE ×2 (01:15→01:54)
[2017-02-12 01:16] LABS: CRITICAL VALUE NO; OXYGEN DEVICE NONE REBREATHER
[2017-02-12 01:17] LABS: DRAW SITE RT RADIAL; FIO2 100 %; LITER FLOW 15 L/M; NUMBER OF ARTERIAL PUNCTURES 1; STAT YES; ULNAR PULSE PRESENT
--- NOTE | 2017-02-12 01:29 | RADRPT ---
EXAM DATE/TIME: 02/12/2017 01:12 [facility] COMPARISON: CHEST SINGLE AP, February 11, 2017, 8:28. INDICATIONS : Pleural effusion. MEDICAL HISTORY : Hypercholesterolemia. Hypertension Gastroesophageal reflux disease. StageIII kidney disease. Arthriti s. Rectal polyps. Hepatitis. Prostate cancer. SURGICAL HISTORY : Cervical fusion. Prostate seed inplantation ENCOUNTER: Subsequent ACUITY: 4 - 6 days PAIN SCORE: 10/10 LOCATION: Bilateral chest FINDINGS: Portable AP view of the chest demonstrates a normal-sized cardiac silhouette. There is retrocardiac o pacity. Mild airspace opacity is now present in the right lower lung zone. No pleural effusion or pne umothorax is identified. Bones and soft tissues demonstrate no acute finding. There is severe degener ative change at the left glenohumeral joint. CONCLUSION: 1. No pleural effusion is identified, as questioned. 2. However, there is persistent left lower lobe opacity which could represent atelectasis or consolid ation and there is new mild atelectasis versus consolidation in the right lower lung zone. Richard Crowe MD on February 12, 2017 at 1:26 Board Certified Radiologist. This report was verified electronically.
[2017-02-12] MEDS ORDERED: Custom Consult Pharmacy 1 EA OTHER SCH (01:30)
[2017-02-12] MEDS ORDERED: CEFEPIME INJ 2,000 MG in SODIUM CHLORIDE 0.9% INJ 100 ML IV SCH (02:00)
[2017-02-12] MEDS ORDERED: CHLORHEXIDINE GLUCONATE 2 % 1 PACK (2 CLOTHS)(extra cloths) TOPICAL PRN (02:00)
[2017-02-12] MEDS: RESP: ALBUTEROL 2.5 MG/IPRATROPIUM 0.5 MG NEB (PRN) NEB (02:04)
[2017-02-12] MEDS ORDERED: RESP: ALBUTEROL 2.5 MG/IPRATROPIUM 0.5 MG NEB (PRN) NEB (02:15)
[2017-02-12] MEDS ORDERED: methylPREDNISolone SOD SUCC 125 MG/2 ML VIAL IV PUSH ONE (02:15)
[2017-02-12] MEDS ORDERED: SODIUM CHLOR 0.9% 1000 ML INJ 1,000 ML IV ONE (02:15)
[2017-02-12 02:17] LABS: HEMATOCRIT 26.8 % (39.0-51.0); MEAN CELL VOLUME 85.2 FL (80.0-100.0); MEAN CORPUSCULAR HEMOGLOBIN 28.3 PG (27.0-34.0); MEAN CORPUSCULAR HGB CONC 33.2 % (32.0-36.0); PLATELET COUNT 27 TH/MM3 (150-450); RED BLOOD COUNT 3.15 MIL/MM3 (4.50-5.90); RED CELL DISTRIBUTION WIDTH 17.7 % (11.6-17.2); WHITE BLOOD COUNT 5.2 TH/MM3 (4.0-11.0)
[2017-02-12] MEDS: MORPHINE SULFATE 15 MG TAB PO SCH ×4 (02:23→22:00)
[2017-02-12] MEDS: CHLORHEXIDINE GLUCONATE 2 % 1 PACK (2 CLOTHS)(taper/protocol) TOPICAL SCH (02:24)
--- NOTE | 2017-02-12 02:30 | PD.CONS ---
[facility] Service Critical Care Medicine Consult Requested By [facility] Reason for Consult Respiratory Distress Primary Care Physician Jumana Way MD History of Present Illness 81 y/o severely debilitated man with myelodysplastic syndrome, degenerative joint disease, and chronic pain syndrome has developed diffuse bronchospasm and hypoxemic respiratory failure. CO2 retention is minimal. CXR hypovolemic and azotemia appears prerenal, possibly over diuresis. Brought emergently to [facility] for more aggressive care. Review of Systems ROS Too confused to obtain. Past Family Social History Allergies: Coded Allergies: sulfamethoxazole (Unverified Allergy, Severe, RASH, 02/03/17) trimethoprim (Unverified Allergy, Severe, RASH, 02/03/17) morphine (Verified Adverse Reaction, Severe, Nausea/Vomiting, 02/03/17) *MDRO Multi-Drug Resistant Organism (Verified Adverse Reaction, Unknown, 02/03/17) 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 Past Medical History Past Medical History Arthritis: Yes Asthma: No Autoimmune Disease: No Blood Disorders: No Heart Rhythm Problems: No Cancer: Yes (PROSTATE) Cardiovascular Problems: Yes High Cholesterol: Yes Chest Pain: No Congestive Heart Failure: No COPD: No Cerebrovascular Accident: No Diabetes: No Diminished Hearing: No Endocrine: No GERD: Yes Genitourinary: Yes Hiatal Hernia: No Hypertension: Yes Immune Disorder: No Kidney Stones: No Musculoskeletal: Yes Neurologic: No Psychiatric: No Reproductive: Yes Respiratory: Yes Migraines: No Radiation Therapy: Yes (SEED IMPLANTS) Renal Failure: Yes (stage III) Seizures: No Sleep Apnea: No Thyroid Disease: No Ulcer: No Past Surgical History Abdominal Surgery: No AICD: No Arteriovenous Shunt: No Body Medical Devices: cervical spine fusion ,6, Cardiac Surgery: No Ear Surgery: No Endocrine Surgery: No Eye Surgery: Yes (cataracts) Genitourinary Surgery: Yes (RECTAL POLYPS) Gynecologic Surgery: No Joint Replacement: No Neurologic Surgery: Yes (cervical fusion ,6,2010) Oral Surgery: No Pacemaker: No Thoracic Surgery: No Other Surgery: Yes (LUMBER SPINAL FUSION) Social History Alcohol Use: Yes (2 large scotch drinks daily "solo cup size" per daughter) Tobacco Use: No Substance Use: No Allergies-Medications Allergies-Medications (Allergen,Severity, Reaction): Coded Allergies: sulfamethoxazole (Unverified Allergy, Severe, RASH, 02/03/17) trimethoprim (Unverified Allergy, Severe, RASH, 02/03/17) morphine (Verified Adverse Reaction, Severe, Nausea/Vomiting, 02/03/17) *MDRO Multi-Drug Resistant Organism (Verified Adverse Reaction, Unknown, 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 DO NOT take more than 3 tablets per two weeks due to renal insufficiency. Oxycodone-Acetaminophen 10-325 (Oxycodone HCl/Acetaminophen) 10 Mg-325 Mg Tablet 1 Tab PO Q6H PRN Thera Tablet (Multivitamin with Folic Acid) 400 Mcg Tablet 1 Tab PO DAILY 30 Days Gnp Vitamin B-1 (Thiamine HCl) 100 Mg Tab 100 Mg PO DAILY 30 Days Folic Acid 1 Mg Tablet 1 Mg PO DAILY 30 Days Lidoderm (Lidocaine) 5 % Adh..patch 2 Patch T-DERMAL DAILY 30 Days Pantoprazole (Pantoprazole Sodium) 40 Mg Tab 40 Mg PO Q12HR 30 Days Gnp Senna Plus 8.6-50 mg (Sennosides-Docusate Sodium) 8.6 Mg-50 Mg Tab 1 Tab PO BID 30 Days Xalatan Opth Drops (Latanoprost) 0.005% Drops 1 Drop EACH EYE HS 30 Days Trazodone (Trazodone HCl) 50 Mg Tab 50 Mg PO HS 30 Days Norvasc (Amlodipine Besylate) 10 Mg Tab 10 Mg PO DAILY 30 Days Metoprolol Tartrate 25 Mg Tab 50 Mg PO BID 30 Days Hydralazine HCl 25 Mg Tablet 25 Mg PO Q8HR 30 Days Catapres (Clonidine) 0.2 Mg Tab 0.2 Mg PO Q6H PRN 30 Days Ferosul (Ferrous Sulfate) 325 Mg (65 Mg Iron) Tablet 325 Mg PO DAILY 30 Days Reported Duoneb (Ipratropium-Albuterol Neb) 0.5-2.5 Mg/3 Ml Neb 3 Ml NEB Q8HR PRN Gabapentin 100 Mg Cap 200 Mg PO TID Mapap (Acetaminophen) 325 Mg Tab 650 Mg PO Q4HR PRN Physical Exam Vital Signs Vital Signs Date Time Temp Pulse Resp B/P (MAP) Pulse Ox O2 Delivery O2 Flow Rate FiO2 02/12/17 01:07 102.4 118 22 128/69 (88) 96 02/12/17 01:00 102.4 119 24 133/64 (87) 96 02/12/17 00:55 93 15.00 100 02/12/17 00:55 93 Non-Rebreather 15.00 100 02/12/17 00:45 102.4 117 22 102/56 (71) 77 02/11/17 22:00 99.9 02/11/17 20:30 Nasal Cannula 3.00 02/11/17 20:00 100.8 123 18 130/61 (84) 95 02/11/17 17:00 16 02/11/17 16:35 99.1 106 18 115/56 02/11/17 15:20 99.2 109 16 121/58 02/11/17 12:30 98.7 95 18 112/98 (103) 97 02/11/17 10:59 93 Nasal Cannula 3.00 02/11/17 08:31 99.3 103 18 104/54 (71) 94 02/11/17 08:00 16 02/11/17 07:00 94 Nasal Cannula 3.00 02/11/17 04:00 100.9 109 20 139/61 (87) 94 Physical Exam Debilitated, ill-appearing elderly man. Head: Normal. Neck: Supple, airway widely patent. Lungs: Diffuse wheezing, acceptable air movement. Heart: Tachycardia, sinus. Neck veins flat. Abdomen: Soft, no guarding. Extremities: Diffusely edematous. Neuro: Painful with any movement. Opens eyes, confused. Laboratory Laboratory Tests Test 02/11/17 06:55 02/11/17 21:37 02/12/17 01:04 02/12/17 01:30 White Blood Count 4.7 Red Blood Count 2.50 Hemoglobin 7.1 8.1 Hematocrit 21.3 24.0 Mean Corpuscular Volume 85.1 Mean Corpuscular Hemoglobin 28.5 Mean Corpuscular Hemoglobin Concent 33.4 Red Cell Distribution Width 17.6 Platelet Count 28 Mean Platelet Volume 8.2 Blood Urea Nitrogen 38 Creatinine 3.51 Random Glucose 139 Total Protein 5.5 Calcium Level 7.4 Sodium Level 137 Potassium Level 3.9 Chloride Level 104 Carbon Dioxide Level 24.3 Anion Gap 9 Estimat Glomerular Filtration Rate 17 Protein Corrected Calcium 8.3 Blood Gas Puncture Site RT RADIAL Blood Gas Patient Temperature 98.6 Blood Gas HCO3 23 Blood Gas Base Excess -1.6 Blood Gas Oxygen Saturation 95 Arterial Blood pH 7.34 Arterial Blood Partial Pressure CO2 44 Arterial Blood Partial Pressure O2 103 Arterial Blood Oxygen Content 18.4 Arterial Blood Carboxyhemoglobin 1.9 Arterial Blood Methemoglobin 0.8 Blood Gas Hemoglobin 13.7 Oxygen Delivery Device NONE REBREATHER Blood Gas Liter Flow 15 Blood Gas Inspired Oxygen 100 Date/Time Source Procedure Growth Status 02/12/17 01:35 Blood Peripheral Aerobic Blood Culture Pending Received 02/12/17 01:35 Blood Peripheral Anaerobic Blood Culture Pending Received Result Diagram: 02/11/17 2137 02/11/17 0655 Assessment and Plan Assessment and Plan Assessment: 1. Hypoxemic respiratory failure. 2. Diffuse bronchospasm. 3. Prerenal azotemia. 4. Chronic pain. 5. Myelodysplastic Syndrome. Plan: 1. BiPAP. 2. Steroids. 3. Bronchodilators. 4. Hydration. 5. Cultures. 6. Restart cefepime, hold vancomycin until creatinine improves. Overall impression: Critically ill elderly man with severe bronchospasm and multiple associated co-morbidities. Critical care 43 mins Pillo Shahid MD Feb 12, 2017 02:30
[2017-02-12 02:32] LABS: HEMO FLAGS AUTO DIFF
[2017-02-12] MEDS: SODIUM CHLOR 0.9% 1000 ML INJ 1,000 ML IV SCH ×2 (02:32→14:14)
[2017-02-12 02:44] LABS: ALT (GPT) 12 U/L (12-78); ANION GAP 9 MEQ/L (5-15); AST (GOT) 15 U/L (15-37); BICARBONATE 25.7 MEQ/L (21.0-32.0); BLOOD UREA NITROGEN 42 MG/DL (7-18); CHLORIDE 102 MEQ/L (98-107); GLOMERULAR FILTRATION RATE 15 ML/MIN (>89); POTASSIUM 4.2 MEQ/L (3.5-5.1); SODIUM (NA) 137 MEQ/L (136-145)
--- NOTE | 2017-02-12 02:44 | HHI.FPPN ---
Addendum to progress note ADDENDUM Reason for addendum: Additonal documentation Additional information Marlene called due to patient developing increased work of breathing. Upon arrival, it was reported that patient had been having labored breathing and was placed on 15L via non-rebreather. Patient had been on 3L via NC however had desaturated to 77%. Also reported that patient had a temperature of 102.7. O2 sats at time of examination was 96% after patient was placed on the nonrebreather. He endorsed shortness of breath. Denied chest pain or abdominal pain. BP: 128/69 Pulse 123bpm Temp 102.7 POx 96% GENERAL: Labored breathing, alert NEURO: Alert. Coherent speech. trade embalmer grossly intact. Motor grossly normal. NECK: Supple. No visible JVD. CARDIOVASCULAR: Tachycardic rate, regular rhythm without murmurs, rubs, or gallops. Peripheral pulses 2+. RESPIRATORY: Increased work of breathing. Bibasilar rales, end expiratory wheezing, equal breath sounds. GASTROINTESTINAL: Abdomen soft, nontender, protuberant. No organomegaly or masses. No rebound tenderness. No guarding. MUSCULOSKELETAL: 2+ lower extremity edema bilaterally up to at least mid tibia. A/P: 81 year old male with PMH significant for myelodysplastic syndrome, HTN, acute on chronic anemia, alcohol abuse, and COPD now with acute onset shortness of breath concerning for sepsis due to pneumonia, CHF exacerbation, COPD exacerbation, vs pulmonary embolism. - Obtain stat labs to include blood cultures, BNP, CBC, CMP, lactic acid, ABG - Stat CXR demonstrating no pleural effusion, persistent left lower lobe opacity possibly atelectasis or consolidation; new mild atelectasis vs consolidation right lower lung field - ABG significant for mild respiratory acidosis - Re-start Cefepime, 2gm IV q12h, will consult pharmacy given acute on chronic renal insufficiency - Patient given additional Lasix 40 mg IV x1 - Will transfer patient to the ICU - Consult critical care, appreciate recommendations - Discussed case with critical care, Ramu Rivero MD R2 Feb 12, 2017 02:44
[2017-02-12 02:46] LABS: ALKALINE PHOSPHATASE 94 U/L (45-117); TOTAL BILIRUBIN ADULT 1.7 MG/DL (0.2-1.0)
[2017-02-12 03:06] LABS: BANDS 11 % (0-6); EOSINOPHILS 2 % (0-4); NEUTROPHIL # MANUAL DIFF 3.8 TH/MM3 (1.8-7.7); PLATELET ESTIMATE SMEAR LOW (NORMAL); POLYS (SEG NEUTROPHILS) 63 % (16-70); SCAN/DIFF FINAL DIFF MANUAL; WBC DIFF SAMPLE 100
[2017-02-12] MEDS: RESP: ALBUTEROL 2.5 MG/IPRATROPIUM 0.5 MG NEB (SCH) NEB ×4 (04:00→21:25)
[2017-02-12] MEDS: hydrALAZINE HCL 25 MG TAB PO SCH ×3 (05:54→22:00)
[2017-02-12] MEDS: methylPREDNISolone SOD SUCC 125 MG/2 ML VIAL IV PUSH SCH ×3 (05:54→21:59)
[2017-02-12] MEDS: SODIUM CHLORIDE 0.9% FLUSH 10 ML FLUSH IV FLUSH SCH ×2 (07:45→20:57)
[2017-02-12] MEDS: THIAMINE HCL 100 MG TAB PO SCH (07:46)
[2017-02-12] MEDS: PANTOPRAZOLE SOD 40 MG DELAYED RELEASE TAB PO SCH ×3 (07:47→21:00)
[2017-02-12] MEDS: MULTIVITAMIN TAB PO SCH (07:47)
[2017-02-12] MEDS: DOCUSATE SODIUM 50 MG/SENNA 8.6 MG TAB PO SCH ×3 (07:47→21:00)
[2017-02-12] MEDS: METOPROLOL TARTRATE 25 MG TAB PO SCH ×2 (07:47→21:00)
[2017-02-12] MEDS: FOLIC ACID 1 MG TAB PO SCH (07:48)
[2017-02-12] MEDS: FERROUS SULFATE 325 MG (65 MG ELEMENTAL IRON) TAB PO SCH (07:48)
[2017-02-12] MEDS: LIDOCAINE HCL 5% PATCH T-DERMAL SCH (07:48)
[2017-02-12] MEDS: CEFEPIME 1000 MG/NS 100 ML IV SCH ×2 (11:19)
--- NOTE | 2017-02-12 12:46 | HHI.FPPN ---
Subjective Remarks NicolasaT called overnight for increased work of breathing. ABG significant for mild respiratory acidosis. Stat CXR revealed mild atelectasis vs consolidation right lower lung field. Patient was given addition lasix and transferred to ICU. Critical care consulted. Daughter present at bedside. Spoke with daughter, patient's surrogate, agreed and consent to hospice care. Patient on BiPAP, FiO2 40. T 98.3, P 88, R 21. (Sadaf Bryan MD R1) Objective Vitals Vital Signs Date Time Temp Pulse Resp B/P (MAP) Pulse Ox O2 Delivery O2 Flow Rate FiO2 02/12/17 11:13 92 High Flow Nasal Cannula 30.00 40 02/12/17 10:41 97 40 02/12/17 08:22 98 40 02/12/17 08:16 95 Bi-Pap 40 02/12/17 08:00 98.3 88 21 90/52 (65) 97 02/12/17 04:01 93 40 02/12/17 04:00 99.1 97 17 89/47 (61) 92 02/12/17 02:55 95 Bi-Pap 02/12/17 02:20 95 40 02/12/17 01:07 102.4 118 22 128/69 (88) 96 02/12/17 01:00 102.4 119 24 133/64 (87) 96 02/12/17 00:55 93 15.00 100 02/12/17 00:55 93 Non-Rebreather 15.00 100 02/12/17 00:45 102.4 117 22 102/56 (71) 77 02/11/17 22:00 99.9 02/11/17 20:30 Nasal Cannula 3.00 02/11/17 20:00 100.8 123 18 130/61 (84) 95 02/11/17 17:00 16 02/11/17 16:35 99.1 106 18 115/56 02/11/17 15:20 99.2 109 16 121/58 I/O 02/11/17 02/11/17 02/11/17 02/12/17 02/12/17 02/12/17 07:00 15:00 23:00 07:00 15:00 23:00 Intake Total 100 ml 430 ml 1100 ml Balance 100 ml 430 ml 1100 ml IV Total 100 ml 1100 ml Packed Cells 400 ml Blood Product IV Normal Saline Flush 30 ml # Voids 3 2 (Sadaf Bryan MD R1) Result Diagram: 02/12/1712902/12/17129 Objective Remarks O. CONSTITUTIONAL/GEN: normally nourished, on BiPAP, will transition to high flow NC EYES: Subconjunctival hemorrhage on the left, PERRLA, EOMI. ENT: Mouth and pharynx normal. Lips are dry NECK: Supple LUNGS: clear A-P, no obvious respiratory distress, currently on BiPAP. Breath sounds are distant. CARDIOVASCULAR: RRR, no m/r/g Bilateral lower extremity edema left greater than right. GI/ABD: soft without masses, without organomegaly. Nontender to palpation NEURO: No focal deficits. Speech is clear SKIN: Pale, lesions noted on the left wrist and dorsum of the left hand as well as the left great toe. He has a hematoma on his left knee which has been previously imaged. Stage I sacral wound. HEME/LYMPH: Significant scattered ecchymoses, no petechia or significant adenopathy. MUSC: Left upper extremity shows marked edema and ecchymoses. This is a change from his discharge from the hospital on 02/07. Capillary refill > 2 seconds. PSYCH/MENTAL STATUS: Alert and oriented x 3. (Sadaf Bryan MD R1) A/P Assessment and Plan 81 yr old male with myelodysplastic syndrome with excess blasts, recently discharged on 02/07, readmitted for fever and LUE swelling. Transferred to the ICU overnight. Critical care on board. Spoke with daughter, who serves as the patient's surrogate. She has agreed and consented to hospice care. Discharge Planning Hospice care consulted. (Sadaf Bryan MD R1) Attending Attestation Pt. verbally agrees to the transition to comfort care with hospice. Daughter in agreement. Patient seen and examined. Case reviewed and discussed with the resident team. Agree with plan of care as discussed with me and documented in the resident note. (Ne Gottlieb MD) Problem List: (1) Myelodysplastic syndrome ICD Codes: D46.9 - Myelodysplastic syndrome, unspecified Plan: Bone marrow biopsy performed on 02/06, positive for high grade myelodysplastic syndrome * Hematology consulted, appreciated recs * s/p 2 units PRBC on 02/03 and 1 unit of PRBC on 02/07, 1 unit of PRBC 02/09 with lasix, 1 unit of PRBC 02/11 with lasix * s/p 1 unit platelets 02/04 and 02/09 * Daily CBC * Transfuse for Plt < 20k or Hgb < 7.5 * Findings of bone marrow biopsy were discussed. After speaking with patient and daughter (surrogate), agreed and consented to Hospice care. Hospice consulted. * Palliative care consulted, appreciated recs. Outpatient phlebotomy coordinator = Dr. Thornton Pain control Morphine IR 15mg PO q6h Percocet 10-325 mg 1 tab q4h PRN breakthrough pain (2) Left arm swelling ICD Codes: M79.89 - Other specified soft tissue disorders Plan: Initially suspecting cellulitis due to left arm swelling and redness. * V/Q scan low probability for PE * Upper extremity US negative * Lasix 20mg IV once 02/10 for LUE swelling * Continue Cefepime, hold Vancomycin (3) Sepsis ICD Codes: A41.9 - Sepsis, unspecified organism Status: Resolved Plan: Patient met sepsis criteria upon admission with tachycardia and fever secondary to possible LUE cellulitis * s/p 1x cefepime and 1x vancomycin in ED (4) COPD (chronic obstructive pulmonary disease) ICD Codes: J44.9 - COPD (chronic obstructive pulmonary disease) Status: Chronic Plan: Patient currently on 2L NC. 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 (10) Nutrition, metabolism, and development symptoms ICD Codes: R63.8 - Other symptoms and signs concerning food and fluid intake Status: Acute Plan: Fluids: Not indicated at this time Elecs: Monitor and replete PRN Nutrition: Diet regular basic DVT: Pharm PPX contraindicated due to thrombocytopenia. SCDs b/l knee high. Pain: Tylenol PRN Constipation: Meds per hospital protocol Code status: Full code (Sadaf Bryan MD R1) Sadaf Bryan MD R1 Feb 12, 2017 12:46 Ne Gottlieb MD Feb 12, 2017 14:27
[2017-02-12 13:34] LABS: MEAN CELL VOLUME 85.9 FL (80.0-100.0); MEAN CORPUSCULAR HEMOGLOBIN 28.2 PG (27.0-34.0); MEAN CORPUSCULAR HGB CONC 32.8 % (32.0-36.0); PLATELET COUNT 21 TH/MM3 (150-450); RED BLOOD COUNT 3.02 MIL/MM3 (4.50-5.90); RED CELL DISTRIBUTION WIDTH 17.7 % (11.6-17.2); WHITE BLOOD COUNT 5.7 TH/MM3 (4.0-11.0)
[2017-02-12 13:40] LABS: REVIEW FLAG FINAL
[2017-02-12 13:57] LABS: POTASSIUM 4.1 MEQ/L (3.5-5.1)
[2017-02-12] MEDS: traZODone HCL 50 MG TAB PO SCH (21:00)
[2017-02-12] MEDS: LATANOPROST 0.005% OPHT SOLN 2.5 ML BTL EACH EYE SCH (23:41)
[2017-02-13] VITALS: BP 106/68; PULSE 84; RESP 10; TEMP 98.5; O2SAT 97
[2017-02-13] MEDS: SODIUM CHLOR 0.9% 1000 ML INJ 1,000 ML IV SCH (02:56)
[2017-02-13] MEDS: MORPHINE SULFATE 4 MG/ML INJ IV PUSH PRN ×2 (03:36→09:26)
[2017-02-13] MEDS: CHLORHEXIDINE GLUCONATE 2 % 1 PACK (2 CLOTHS)(taper/protocol) TOPICAL SCH (03:45)
[2017-02-13] MEDS: MORPHINE SULFATE 15 MG TAB PO SCH ×2 (03:45→10:00)
[2017-02-13] MEDS: RESP: ALBUTEROL 2.5 MG/IPRATROPIUM 0.5 MG NEB (SCH) NEB (03:48)
[2017-02-13 04:00] VITALS: BP 128/77; PULSE 90; RESP 23; TEMP 98.3; O2SAT 96
[2017-02-13 05:52] LABS: HEMATOCRIT 27.2 % (39.0-51.0); MEAN CELL VOLUME 85.9 FL (80.0-100.0); MEAN CORPUSCULAR HEMOGLOBIN 28.4 PG (27.0-34.0); PLATELET COUNT 25 TH/MM3 (150-450); RED BLOOD COUNT 3.17 MIL/MM3 (4.50-5.90); RED CELL DISTRIBUTION WIDTH 17.6 % (11.6-17.2); WHITE BLOOD COUNT 5.9 TH/MM3 (4.0-11.0)
[2017-02-13 05:54] LABS: REVIEW FLAG FINAL
[2017-02-13] MEDS: hydrALAZINE HCL 25 MG TAB PO SCH (06:00)
[2017-02-13 06:13] LABS: BICARBONATE 21.8 MEQ/L (21.0-32.0); POTASSIUM 4.1 MEQ/L (3.5-5.1)
[2017-02-13] MEDS: methylPREDNISolone SOD SUCC 125 MG/2 ML VIAL IV PUSH SCH (06:27)
[2017-02-13 07:00] VITALS: BP 114/68; PULSE 92; RESP 13; O2SAT 96
[2017-02-13 08:00] VITALS: BP 118/80; PULSE 92; RESP 29; TEMP 97.6; O2SAT 96
--- NOTE | 2017-02-13 08:40 | PD.ONC.PN ---
Subjective Subjective Remarks Patient seen and examined, vital signs, labs, medications and events over the past 2 days were reviewed. Over the course of this past weekend the patient became increasingly hypoxic and hypotensive, he was moved to the critical care unit where he has been receiving high flow oxygen and has been on fluid resuscitation. This morning, the patient appears to be in quite a bit of respiratory discomfort , he is unable to hold a conversation with me due to difficulty breathing. Records reviewed, palliative care and hospice service consult noted. Objective Data Date Time Temp Pulse Resp B/P (MAP) Pulse Ox O2 Delivery O2 Flow Rate FiO2 02/13/17 04:00 98.3 90 23 128/77 (94) 96 02/13/17 00:00 98.5 84 10 106/68 (81) 97 02/12/17 21:28 95 High Flow Nasal Cannula 40 02/12/17 20:00 98.1 96 26 135/73 (93) 95 02/12/17 19:00 94 Nasal Cannula 30.00 40 02/12/17 16:00 98.5 88 24 105/56 (72) 92 02/12/17 12:00 98.7 92 22 117/68 (84) 92 02/12/17 11:13 92 High Flow Nasal Cannula 30.00 40 02/12/17 10:41 97 40 02/13/17 02/13/17 02/13/17 06:59 14:59 22:59 Intake Total 1263 ml Output Total 250 ml Balance 1013 ml Result Diagram: 02/13/17 0445 02/13/17 0445 Laboratory Results Laboratory Tests Test 02/12/17 12:39 02/12/17 12:59 02/13/17 04:45 White Blood Count 5.7 TH/MM3 5.9 TH/MM3 Red Blood Count 3.02 MIL/MM3 3.17 MIL/MM3 Hemoglobin 8.5 GM/DL 9.0 GM/DL Hematocrit 26.0 % 27.2 % Mean Corpuscular Volume 85.9 FL 85.9 FL Mean Corpuscular Hemoglobin 28.2 PG 28.4 PG Mean Corpuscular Hemoglobin Concent 32.8 % 33.0 % Red Cell Distribution Width 17.7 % 17.6 % Platelet Count 21 TH/MM3 25 TH/MM3 Mean Platelet Volume 8.2 FL 8.3 FL Blood Urea Nitrogen 51 MG/DL 57 MG/DL Creatinine 4.01 MG/DL 3.64 MG/DL Random Glucose 172 MG/DL 162 MG/DL Calcium Level 7.6 MG/DL 8.1 MG/DL Sodium Level 138 MEQ/L 137 MEQ/L Potassium Level 4.1 MEQ/L 4.1 MEQ/L Chloride Level 105 MEQ/L 105 MEQ/L Carbon Dioxide Level 23.0 MEQ/L 21.8 MEQ/L Anion Gap 10 MEQ/L 10 MEQ/L Estimat Glomerular Filtration Rate 14 ML/MIN 16 ML/MIN Random Vancomycin Level 13.6 COMMENT Culture Results Microbiology Date/Time Source Procedure Growth Status 02/12/17 01:35 Blood Peripheral Aerobic Blood Culture Pending Received 02/12/17 01:35 Blood Peripheral Anaerobic Blood Culture Pending Received 02/12/17 01:30 Blood Peripheral Aerobic Blood Culture Pending Received 02/12/17 01:30 Blood Peripheral Anaerobic Blood Culture Pending Received Administered Medications Medications (Trade) Dose Ordered Sig/Nikki Route PRN Reason Start Time Stop Time Status Last Admin Dose Admin Acetaminophen (Tylenol) 650 mg Q4HR PRN PO MILD PAIN/ELEVATED TEMP 02/08/17 16:30 02/11/17 21:04 Amlodipine Besylate (Norvasc) 10 mg DAILY PO 02/09/17 09:00 02/09/17 09:51 Clonidine (Catapres) 0.2 mg Q6H PRN PO SBP> OR = 170, DBP> OR = 100 02/08/17 16:30 02/09/17 16:24 Ferrous Sulfate (Ferrous Sulfate) 325 mg DAILY PO 02/09/17 09:00 02/12/17 07:48 Folic Acid (Folate) 1 mg DAILY PO 02/09/17 09:00 02/12/17 07:48 Gabapentin (Neurontin) 200 mg TID PO 02/08/17 18:00 Future Hold 02/11/17 17:29 Hydralazine HCl (Apresoline) 25 mg Q8HR PO 02/08/17 22:00 02/11/17 13:43 Latanoprost (Xalatan 0.005% Opt Soln) 1 drop HS EACH EYE 02/08/17 21:00 02/12/17 23:41 Lidocaine HCl (Lidoderm 5% Patch.12 Hr) 2 patch DAILY T-DERMAL 02/09/17 09:00 02/12/17 07:48 Metoprolol Tartrate (Lopressor) 50 mg BID PO 02/08/17 21:00 02/11/17 21:03 Multivitamins (Theragran) 1 tab DAILY PO 02/09/17 09:00 02/12/17 07:47 Pantoprazole Sodium (Protonix) 40 mg Q12HR PO 02/08/17 21:00 02/12/17 07:47 Thiamine HCl (Vitamin B1) 100 mg DAILY PO 02/09/17 09:00 02/12/17 07:46 Trazodone HCl (Desyrel) 50 mg HS PO 02/08/17 21:00 02/11/17 21:03 Sodium Chloride (NS Flush) 2 ml BID IV FLUSH 02/08/17 21:00 02/12/17 20:57 Senna/Docusate Sodium (Aria-Colace) 1 tab BID PO 02/08/17 21:00 02/12/17 07:47 Diphenhydramine HCl (Benadryl) 25 mg Q4H PRN PO SEE LABEL COMMENTS 02/09/17 21:45 02/09/17 22:48 Morphine Sulfate (Msir) 15 mg Q6H PO 02/11/17 16:00 02/12/17 16:44 Miscellaneous Information Patient in critical care unit? Ass... [id number] .[id number] 02/12/17 02:00 02/12/17 02:00 Chlorhexidine Gluconate (Chlorhexidine 2% Cloth) 3 pack DAILY@04 TOPICAL 02/12/17 04:00 02/16/17 04:01 02/13/17 03:45 Sodium Chloride 1,000 ml @ 100 mls/hr Q10H IV 02/12/17 02:15 02/13/17 02:56 Albuterol/ Ipratropium (Duoneb Neb) 1 ampule Q6HR NEB NEB 02/12/17 04:00 02/13/17 03:48 Methylprednisolone Sodium Succinate (SoluMEDROL INJ) 60 mg Q8HR IV PUSH 02/12/17 06:00 02/13/17 06:27 Morphine Sulfate (Morphine Inj) 4 mg Q3H PRN IV PUSH pain 6-10 02/12/17 02:15 02/13/17 03:36 Cefepime HCl 1000 mg/Sodium Chloride 100 ml @ 200 mls/hr Q24H IV 02/12/17 10:00 02/12/17 11:19 Objective Remarks GENERAL: Mr. Gutierrez is an elderly male, he appears acutely ill, in respiratory distress, unable to maintain a conversation due to respiratory difficulty. On high flow oxygen via nasal cannulas. HEAD, EYES, EARS, NOSE, AND THROAT: Head atraumatic, normocephalic, conjunctive are pale sclerae are anicteric, EOMI, PERRLA, oral exam dry mucous membranes. NECK: Neck exam no palpable cervical or supraclavicular adenopathy. RESPIRATORY: Poor inspiratory effort, decreased bibasilar breath sounds with prolonged expiratory phase. Some coarse breath sounds are noted. CARDIOVASCULAR: Tachycardiac, regular, S1-S2 with a systolic murmur Force. ABDOMEN: Protuberant belly, soft, nontender, nondistended, no palpable organ enlargement. EXTREMITIES: Bilateral pitting edema with bruising of the skin. There appears to be some oozing as well. Mild erythema is noted bilateral lower extremities. CENTRAL NERVOUS SYSTEM Moving all four limbs without. Moving all four limbs spontaneously. MUSCULOSKELETAL: Generally decreased muscle mass and tone. Assessment/Plan Assessment Mr. Gutierrez is an 81-year-old male who was recently diagnosed with a high-grade myelodysplastic syndrome associated with excess blasts (blast percentage in the bone marrow was estimated to be approximately 15%), this was identified after he underwent a workup for pancytopenia associated with immature circulating cells. He does have other significant medical comorbid conditions including activity limiting degenerative joint disease involving the cervical and lumbar spine, peripheral neuropathy, pseudogout and advance spinal stenosis. He also has a remote history of prostate carcinoma which was treated with external beam radiation. This gentleman presented to the hospital less than 48 hours after having been discharged from the same facility for management of fever. This is his third hospitalization over the past month and half. The reasons for his hospitalizations have ranged between fevers, uncontrolled pain and transfusion requirements. Mr. Gutierrez has an ECOG performance status of the best of three but more consistent with an ECOG performance status of four. At today's visit I reviewed the pathologic findings from his bone marrow biopsy. 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 I explained the various treatment options which include supportive care with transfusions, disease directed therapy with one of the hypomethylating agents such has Vidaza or Dacogen. Both of which have more of a palliative role. The other approach to treatment I asked him to consider was Hospice/ best supportive care. I explained to Mr. Gutierrez that some of the barriers to aggressive disease directed therapy are his overall frailty, additional medical comorbid conditions and poor ECOG performance status. Plan High-grade myelodysplastic syndrome associated with excess blasts: He is a poor candidate for disease directed therapy with a hypo-methylating agent such as Vidaza or Dacogen at this point. I would recommend supportive care/palliative care with as needed transfusions to maintain comfort. I agree with palliative care and hospice service consults in lieu of his recent clinical decline from a respiratory standpoint. Eric Green MD Feb 13, 2017 08:40
[2017-02-13] MEDS: CEFEPIME 1000 MG/NS 100 ML IV SCH ×2 (08:58)
[2017-02-13] MEDS: MULTIVITAMIN TAB PO SCH ×2 (08:59→09:00)
[2017-02-13] MEDS: DOCUSATE SODIUM 50 MG/SENNA 8.6 MG TAB PO SCH ×2 (08:59→09:00)
[2017-02-13] MEDS: METOPROLOL TARTRATE 25 MG TAB PO SCH (08:59)
[2017-02-13] MEDS: FERROUS SULFATE 325 MG (65 MG ELEMENTAL IRON) TAB PO SCH ×2 (08:59→09:00)
[2017-02-13] MEDS: FOLIC ACID 1 MG TAB PO SCH ×2 (08:59→09:00)
[2017-02-13] MEDS: THIAMINE HCL 100 MG TAB PO SCH ×2 (08:59→09:00)
[2017-02-13] MEDS: PANTOPRAZOLE SOD 40 MG DELAYED RELEASE TAB PO SCH ×2 (08:59→09:00)
[2017-02-13 09:00] VITALS: BP 122/82; PULSE 96; RESP 26; O2SAT 95
[2017-02-13] MEDS: SODIUM CHLORIDE 0.9% FLUSH 10 ML FLUSH IV FLUSH SCH (09:00)
[2017-02-13] MEDS: LIDOCAINE HCL 5% PATCH T-DERMAL SCH (09:51)
--- NOTE | 2017-02-13 09:54 | HHI.FPPN ---
Subjective Remarks No acute events overnight. Afebrile over past 24 hours, vital stable. Patient alert, still with labored breathing. Answers questions appropriately, denies chest pain. States he is still having generalized pain. (Ramu Burns MD R2) Objective Vitals Vital Signs Date Time Temp Pulse Resp B/P (MAP) Pulse Ox O2 Delivery O2 Flow Rate FiO2 02/13/17 04:00 98.3 90 23 128/77 (94) 96 02/13/17 00:00 98.5 84 10 106/68 (81) 97 02/12/17 21:28 95 High Flow Nasal Cannula 40 02/12/17 20:00 98.1 96 26 135/73 (93) 95 02/12/17 19:00 94 Nasal Cannula 30.00 40 02/12/17 16:00 98.5 88 24 105/56 (72) 92 02/12/17 12:00 98.7 92 22 117/68 (84) 92 02/12/17 11:13 92 High Flow Nasal Cannula 30.00 40 02/12/17 10:41 97 40 I/O 02/12/17 02/12/17 02/12/17 02/13/17 02/13/17 02/13/17 07:00 15:00 23:00 07:00 15:00 23:00 Intake Total 1100 ml 1018 ml 1263 ml Output Total 250 ml Balance 1100 ml 1018 ml 1013 ml Intake Oral 600 ml 120 ml IV Total 1100 ml 418 ml 1143 ml Output Urine Total 250 ml # Voids 2 # Bowel Movements 0 (Ramu Burns MD R2) Result Diagram: 02/13/1744402/13/175 Objective Remarks GEN: normally nourished, on NC EYES: Subconjunctival hemorrhage on the left, EOMI. ENT: Mouth and pharynx normal. Lips are dry NECK: Supple. No JVD. LUNGS: Mild respiratory distress, poor aeration, no w/r/r, on NC CARDIOVASCULAR: RRR, no m/r/g Bilateral lower extremity edema left greater than right. GI/ABD: soft without masses, protuberant. Nontender to palpation NEURO: No focal deficits. Speech is clear SKIN: Pale, lesions noted on the left wrist and dorsum of the left hand as well as the left great toe. Stage I sacral wound. HEME/LYMPH: Significant scattered ecchymoses, no petechia or significant adenopathy. MUSC: Left upper extremity shows marked edema and ecchymoses. Capillary refill ~ 3 seconds. PSYCH/MENTAL STATUS: Alert and oriented x 3. (Ramu Burns MD R2) A/P Assessment and Plan 81 yr old male with myelodysplastic syndrome with excess blasts, recently discharged on 02/07, readmitted for fever and LUE swelling. Transferred to the ICU overnight on 02/11. Patient and family have agreed to hospice level of care. Discharge Planning Discharge planning to hospice care facility today (Ramu Burns MD R2) Attending Attestation Patient seen and examined. Case reviewed and discussed with the resident team. Agree with plan of care as discussed with me and documented in the resident note. (Ne Gottlieb MD) Problem List: (1) Myelodysplastic syndrome ICD Codes: D46.9 - Myelodysplastic syndrome, unspecified Status: Acute Plan: Bone marrow biopsy performed on 02/06, positive for high grade myelodysplastic syndrome * Hematology consulted, appreciated recs * s/p 1 unit platelets 02/04 and 02/09 * Transfuse for Plt < 20k or Hgb < 7.5 * Findings of bone marrow biopsy were discussed. After speaking with patient and daughter (surrogate), agreed and consented to Hospice care. Hospice consulted. * Palliative care consulted, appreciated recs. Outpatient upper lining cementer = Dr. Thornton Pain control Morphine IR 15mg PO q6h Percocet 10-325 mg 1 tab q4h PRN breakthrough pain (2) Left arm swelling ICD Codes: M79.89 - Other specified soft tissue disorders Status: Acute Plan: Initially suspecting cellulitis due to left arm swelling and redness. * V/Q scan low probability for PE * Upper extremity US negative * Likely having fluid retention * Cefepime and Vancomycin started on 02/08 on admission * Discontinued vancomycin given renal insufficiency * Will discontinue antibiotics on discharge to hospice facility as diagnosis of cellulitis is questionable and patient has no obvious source of infection (3) Sepsis ICD Codes: A41.9 - Sepsis, unspecified organism Status: Resolved Plan: Patient met sepsis criteria upon admission with tachycardia and fever secondary to possible LUE cellulitis ABX history of above (4) COPD (chronic obstructive pulmonary disease) ICD Codes: J44.9 - COPD (chronic obstructive pulmonary disease) Status: Chronic Plan: O2 as needed to maintain sats > 90% Duonebs q6h (5) Gout ICD Codes: M10.9 - Gout, unspecified Status: Chronic Plan: 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 (9) Nutrition, metabolism, and development symptoms ICD Codes: R63.8 - Other symptoms and signs concerning food and fluid intake Status: Acute Plan: Fluids: Not indicated Electrolytes: WNL Nutrition: Regular diet DVT ppx: chemical anticoagulation contraindicated due to thrombocytopenia. SCDs b/l knee high. (Ramu Burns MD R2) Ramu Burns MD R2 Feb 13, 2017 09:54 Ne Gottlieb MD Feb 13, 2017 13:30
[2017-02-13 10:00] VITALS: BP 121/72; PULSE 94; RESP 23; O2SAT 96
[2017-02-13] MEDS ORDERED: PANTOPRAZOLE SODIUM 40 MG VIAL IV PUSH SCH (10:00)
--- NOTE | 2017-02-13 10:23 | HHI.DCPOC ---
Discharge Care Plan Diagnosis: (1) Myelodysplastic syndrome (2) Thrombocytopenia (3) Anemia (4) Acute kidney injury (5) Sacral ulcer (6) Left arm swelling (7) COPD (chronic obstructive pulmonary disease) Goals to Promote Your Health Meet with your hospice care doctor to address goals of care. Directions to Meet Your Goals Take your medications as prescribed Follow your dietary instruction Follow activity as directed Keep your appointments as scheduled Take your immunizations and boosters as scheduled If your symptoms worsen call your PCP, if no PCP go to Urgent Care Center or Emergency Room Smoking is Dangerous to Your Health. Avoid second hand smoke Call the 24-hour hour crisis hotline for domestic abuse at Ramu Burns MD R2 Feb 13, 2017 10:23
[2017-02-13] MEDS ORDERED: Albuterol-Ipratropium Neb NEB (10:25)
[2017-02-13] MEDS ORDERED: MSIR15 PO (10:25)
--- NOTE | 2017-02-13 13:38 | HHI.DS ---
Discharge Summary Admission Date Feb 08, 2017 at 15:46 Discharge Date: Feb 13, 2017 Admitting Diagnosis fever, LUE cellulitis (1) Myelodysplastic syndrome Diagnosis: Principal Plan: Bone marrow biopsy performed on 02/06, positive for high grade myelodysplastic syndrome * Hematology consulted, appreciated recs * s/p 1 unit platelets 02/04 and 02/09 * Transfuse for Plt < 20k or Hgb < 7.5 * Findings of bone marrow biopsy were discussed. After speaking with patient and daughter (surrogate), agreed and consented to Hospice care. Hospice consulted. * Palliative care consulted, appreciated recs. Outpatient insurance billing clerk = Dr. Thornton Pain control Morphine IR 15mg PO q6h Percocet 10-325 mg 1 tab q4h PRN breakthrough pain ICD Codes: D46.9 - Myelodysplastic syndrome, unspecified Status: Acute (2) Left arm swelling Diagnosis: Principal Plan: Initially suspecting cellulitis due to left arm swelling and redness. * V/Q scan low probability for PE * Upper extremity US negative * Likely having fluid retention * Cefepime and Vancomycin started on 02/08 on admission * Discontinued vancomycin given renal insufficiency * Will discontinue antibiotics on discharge to hospice facility as diagnosis of cellulitis is questionable and patient has no obvious source of infection ICD Codes: M79.89 - Other specified soft tissue disorders Status: Acute (3) Sepsis Diagnosis: Principal Plan: Patient met sepsis criteria upon admission with tachycardia and fever secondary to possible LUE cellulitis ABX history of above ICD Codes: A41.9 - Sepsis, unspecified organism Status: Resolved (4) COPD (chronic obstructive pulmonary disease) Diagnosis: Principal Plan: O2 as needed to maintain sats > 90% Duonebs q6h ICD Codes: J44.9 - COPD (chronic obstructive pulmonary disease) Status: Chronic (5) Gout Diagnosis: Secondary Plan: 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 - Monitor clinically - Ultrasound of mass below the left knee showing complex mass could be a hematoma, no drainable fluid ICD Codes: M10.9 - Gout, unspecified Status: Chronic (6) Wilks esophagus Diagnosis: Secondary Plan: Continue PPI BID ICD Codes: K22.70 - Wilks's esophagus without dysplasia Status: Chronic (7) Diverticulosis Diagnosis: Secondary Plan: W/u for GIB recently negative ICD Codes: K57.90 - Diverticulosis of intestine, part unspecified, without perforation or abscess without bleeding Status: Chronic (8) Sacral ulcer Diagnosis: Secondary Plan: Stage I sacral ulcer, wound care nurse consulted. ICD Codes: L98.429 - Non-pressure chronic ulcer of back with unspecified severity (9) Nutrition, metabolism, and development symptoms Diagnosis: Secondary Plan: Fluids: Not indicated Electrolytes: WNL Nutrition: Regular diet DVT ppx: chemical anticoagulation contraindicated due to thrombocytopenia. SCDs b/l knee high. ICD Codes: R63.8 - Other symptoms and signs concerning food and fluid intake Status: Acute Consultants Palliative care, hospice, critical care, hematology/oncology Brief History 81 yr old M w/ h/o HTN, alcohol abuse, gout, chronic anemia, and COPD presents to the ED from [facility] for fever and left arm swelling. Accompanied by daughter. Patient recently admitted on 02/03 for acute on chronic anemia. Patient was in stable condition, received 1 unit of RBC transfusion before being discharged yesterday. During the middle of the night, patient began developing a fever and experienced swelling of his left arm. He reports being confused this morning. He was not sure where he was at and unaware of the time when he woke up. He states that he also developed wheezing. He was put on 4L of O2 NC and received breathing treatments this AM. He denies fatigue, weakness, pain, CP, SOB, abdominal pain, and N/V. CBC/BMP: 02/13/17 0445 02/13/17 0445 Significant Findings Laboratory Tests Test 02/11/17 06:55 02/11/17 21:37 02/12/17 01:04 02/12/17 01:30 Red Blood Count 2.50 MIL/MM3 (4.50-5.90) 3.15 MIL/MM3 (4.50-5.90) Hemoglobin 7.1 GM/DL (13.0-17.0) 8.1 GM/DL (13.0-17.0) 8.9 GM/DL (13.0-17.0) Hematocrit 21.3 % (39.0-51.0) 24.0 % (39.0-51.0) 26.8 % (39.0-51.0) Red Cell Distribution Width 17.6 % (11.6-17.2) 17.7 % (11.6-17.2) Platelet Count 28 TH/MM3 (150-450) 27 TH/MM3 (150-450) Blood Urea Nitrogen 38 MG/DL (7-18) 42 MG/DL (7-18) Creatinine 3.51 MG/DL (0.60-1.30) 3.89 MG/DL (0.60-1.30) Random Glucose 139 MG/DL (74-106) 122 MG/DL (74-106) Total Protein 5.5 GM/DL (6.4-8.2) 6.3 GM/DL (6.4-8.2) Calcium Level 7.4 MG/DL (8.5-10.1) 8.0 MG/DL (8.5-10.1) Estimat Glomerular Filtration Rate 17 ML/MIN (>89) 15 ML/MIN (>89) Protein Corrected Calcium 8.3 MG/DL (8.5-10.1) Arterial Blood pH 7.34 (7.380-7.420) Arterial Blood Partial Pressure CO2 44 mmHg (38-42) Band Neutrophils % 11 % (0-6) Platelet Estimate LOW (NORMAL) Albumin 2.0 GM/DL (3.4-5.0) Total Bilirubin 1.7 MG/DL (0.2-1.0) Test 02/12/17 02:50 02/12/17 12:39 02/12/17 12:59 02/13/17 04:45 Red Blood Count 3.02 MIL/MM3 (4.50-5.90) 3.17 MIL/MM3 (4.50-5.90) Hemoglobin 8.5 GM/DL (13.0-17.0) 9.0 GM/DL (13.0-17.0) Hematocrit 26.0 % (39.0-51.0) 27.2 % (39.0-51.0) Red Cell Distribution Width 17.7 % (11.6-17.2) 17.6 % (11.6-17.2) Platelet Count 21 TH/MM3 (150-450) 25 TH/MM3 (150-450) Blood Urea Nitrogen 51 MG/DL (7-18) 57 MG/DL (7-18) Creatinine 4.01 MG/DL (0.60-1.30) 3.64 MG/DL (0.60-1.30) Random Glucose 172 MG/DL (74-106) 162 MG/DL (74-106) Calcium Level 7.6 MG/DL (8.5-10.1) 8.1 MG/DL (8.5-10.1) Estimat Glomerular Filtration Rate 14 ML/MIN (>89) 16 ML/MIN (>89) Imaging Upper extremity ultrasound 02/08: Normal examination V/Q lung scan 02/08 showing low probability for pulmonary embolus Chest x-ray 02/12 demonstrating no pleural effusion; persistent left lower lobe opacity which could represent atelectasis or consolidation, new mild atelectasis versus consolidation in the right lower lung zone PE at Discharge GEN: normally nourished, on NC EYES: Subconjunctival hemorrhage on the left, EOMI. ENT: Mouth and pharynx normal. Lips are dry NECK: Supple. No JVD. LUNGS: Mild respiratory distress, poor aeration, no w/r/r, on NC CARDIOVASCULAR: RRR, no m/r/g Bilateral lower extremity edema left greater than right. GI/ABD: soft without masses, protuberant. Nontender to palpation NEURO: No focal deficits. Speech is clear SKIN: Pale, lesions noted on the left wrist and dorsum of the left hand as well as the left great toe. Stage I sacral wound. HEME/LYMPH: Significant scattered ecchymoses, no petechia or significant adenopathy. MUSC: Left upper extremity shows marked edema and ecchymoses. Capillary refill ~ 3 seconds. PSYCH/MENTAL STATUS: Alert and oriented x 3. Hospital Course Patient was started on cefepime and vancomycin for sepsis presumed to be due to left upper extremity cellulitis. Hematology/oncology was consulted who also recommended administration of IV antibiotics. V/Q scan was obtained which returned patient having low probability for pulmonary embolus. Patient required 2 units of packed red blood cells to be transfused due to anemia, received 1 unit on 02/09, second unit 02/11. Also required 1 unit of platelets received due to thrombocytopenia with a platelet count less than 20,000. Palliative care was consulted to assist with management and address goals of care. Overnight on 02/11 patient developed acute shortness of breath with hypoxia and required transfer to ICU with consultation with critical care. Patient required BiPAP for pulmonary support; cefepime restarted for possible pneumonia. He also developed acute on chronic kidney injury, Cr elevating to 4.01 from 2.05 on admission. Patient and his daughter agreed to hospice level of care. Patient will be transferred to [facility] care facility for further care and comfort. Pt Condition on Discharge: Deteriorating Discharge Disposition: Hospice/Med Facility Discharge Instructions DIET: Follow Instructions for: As Tolerated, No Restrictions Activities you can perform: Weight Bearing as Hector New Orders: Hospice Care - Today New Medications: Morphine IR (Morphine IR) 15 Mg Tab 15 MG PO Q6H, #30 TAB [Albuterol-Ipratropium Neb] () 1 AMPULE NEBU 1 AMPULE NEB Q6HR NEB, #30 NEBULE Continued Medications: Acetaminophen (Mapap) 325 Mg Tab 650 MG PO Q4HR PRN for MILD PAIN/ELEVATED TEMP, TAB 0 Refills Clonidine (Catapres) 0.2 Mg Tab 0.2 MG PO Q6H PRN for SBP> OR = 170, DBP> OR = 100 for 30 Days Ferrous Sulfate (Ferosul) 325 Mg (65 Mg Iron) Tablet 325 MG PO DAILY for Nutritional Supplement for 30 Days Gabapentin (Gabapentin) 100 Mg Cap 200 MG PO TID, #90 CAP 0 Refills Lidocaine (Lidoderm) 5 % Adh..patch 2 PATCH T-DERMAL DAILY for 30 Days Oxycodone HCl/Acetaminophen (Oxycodone-Acetaminophen 10-325) 10 Mg-325 Mg Tablet 1 TAB PO Q6H PRN for PAIN SCALE 6 TO 10, #30 0 Refills Pantoprazole (Pantoprazole) 40 Mg Tab 40 MG PO Q12HR for Heartburn Management for 30 Days, TAB Sennosides-Docusate Sodium (Gnp Senna Plus 8.6-50 mg) 8.6 Mg-50 Mg Tab 1 TAB PO BID for Constipation for 30 Days, TAB Trazodone (Trazodone) 50 Mg Tab 50 MG PO HS for Depression Control for 30 Days, TAB Discontinued Medications: Amlodipine (Norvasc) 10 Mg Tab 10 MG PO DAILY for Blood Pressure Management for 30 Days, TAB Colchicine (Colcrys) 0.6 Mg Tab 0.6 MG PO DAILY for gout for 30 Days, #30 TAB Take two tablets once, another tablet an hour later for gouty flares. DO NOT take more than 3 tablets per two weeks due to renal insufficiency. Folic Acid (Folic Acid) 1 Mg Tablet 1 MG PO DAILY for Nutritional Supplement for 30 Days Hydralazine HCl (Hydralazine HCl) 25 Mg Tablet 25 MG PO Q8HR for Blood Pressure Management for 30 Days Latanoprost Opth Drops (Xalatan Opth Drops) 0.005% Drops 1 DROP EACH EYE HS for 30 Days, ML Metoprolol Tartrate (Metoprolol Tartrate) 25 Mg Tab 50 MG PO BID for Blood Pressure Management for 30 Days, TAB Multivitamin with Folic Acid (Thera Tablet) 400 Mcg Tablet 1 TAB PO DAILY for Nutritional Supplement for 30 Days Thiamine HCl (Gnp Vitamin B-1) 100 Mg Tab 100 MG PO DAILY for Nutritional Supplement for 30 Days, TAB Ramu Burns MD R2 Feb 13, 2017 13:37
--- NOTE | 2017-02-13 13:48 | PD.WCN.NOT ---
Wound Consult Additional Information: Late entry from 02/13/2017 1030:Patient not seen, spoke with RN Fiordaliza 5[facility] floor [facility], patient is being discharged to hospice at 1100. Ana Link [facility] Feb 13, 2017 13:48
== END 2017-02-13 11:20 | disposition hospice, inpatient (51) | DRG 811 ==
LOC: NEPE 11:20 → NEDA 15:46 → N05B 17:40 → HIME 02-12 01:45
PROVIDERS: ADMIT Family Medicine; ATTEND Family Medicine
PROC: 30233R1 Transfusion of Nonautologous Platelets into Peripheral Vein, Percutaneous Approach (ICD-10-PCS; principal; 2017-02-09)
PROC: 30233N1 Transfusion of Nonautologous Red Blood Cells into Peripheral Vein, Percutaneous Approach (ICD-10-PCS; 2017-02-09)
PROC: 5A09357 Assistance with Respiratory Ventilation, Less than 24 Consecutive Hours, Continuous Positive Airway Pressure (ICD-10-PCS; 2017-02-12)
DX: D46.9 Myelodysplastic syndrome, unspecified (principal); J96.91 Respiratory failure, unspecified with hypoxia; N17.9 Acute kidney failure, unspecified; J18.9 Pneumonia, unspecified organism; D61.818 Other pancytopenia; E87.2 Acidosis; J44.0 Chronic obstructive pulmonary disease with (acute) lower respiratory infection; G62.9 Polyneuropathy, unspecified; E86.1 Hypovolemia; I12.9 Hypertensive chronic kidney disease with stage 1 through stage 4 chronic kidney disease, or unspecified chronic kidney disease; K22.70 Barrett's esophagus without dysplasia; M48.02 Spinal stenosis, cervical region; K57.90 Diverticulosis of intestine, part unspecified, without perforation or abscess without bleeding; J98.01 Acute bronchospasm; N18.9 Chronic kidney disease, unspecified; E78.5 Hyperlipidemia, unspecified; R62.7 Adult failure to thrive; E78.00 Pure hypercholesterolemia, unspecified; K44.9 Diaphragmatic hernia without obstruction or gangrene; K59.00 Constipation, unspecified; K21.9 Gastro-esophageal reflux disease without esophagitis; L98.429 Non-pressure chronic ulcer of back with unspecified severity; M1A.9XX1 Chronic gout, unspecified, with tophus (tophi); M43.10 Spondylolisthesis, site unspecified; H11.32 Conjunctival hemorrhage, left eye; M48.061 Spinal stenosis, lumbar region without neurogenic claudication; G89.4 Chronic pain syndrome; F10.20 Alcohol dependence, uncomplicated; Z51.5 Encounter for palliative care; Z85.46 Personal history of malignant neoplasm of prostate; Z87.891 Personal history of nicotine dependence; Z88.2 Allergy status to sulfonamides; Z88.5 Allergy status to narcotic agent; Z86.14 Personal history of Methicillin resistant Staphylococcus aureus infection; Z98.1 Arthrodesis status
CPT/HCPCS: 36430; 36600; 71010; 76937; 78582; 80048; 80053; 80202; 81001; 82805; 83605; 83735; 83880; 84155; 84484; 85007; 85014; 85018; 85027; 85610; 85730; 86850; 86900; 86901; 86920; 87040; 87641; 93005; 93971; 94002; 94150; 94640; 94664; 96374; A9540; A9567; C9113; J0692; J1940; J2270; J2930; J3370; J7030; J7040; J7050; P9016; P9035